=== PATIENT | male | born 1940 | race African-American/Black ===

== ENCOUNTER 2019-11-03 10:33 | Outpatient (CLI) | payer MEDICARE, OTHER, SELFPAY ==
[2019-11-03 11:48] LABS: Prostate Specific Antigen 8.4 ng/mL (< OR = 4.0)
[2019-11-07 14:44] LABS: Lyme Disease Ab (IgM), Blot Negative (Negative); Lyme Disease Ab(IgG), Blot Negative (Negative)
== END 2019-11-03 10:34 | disposition home or self-care (01) ==
PROVIDERS: PCP Emergency Medicine; Visit Provider Emergency Medicine
DX: Z91.89 Other specified personal risk factors, not elsewhere classified (principal); R35.1 Nocturia
CPT/HCPCS: 36415; 84153; 86617

== ENCOUNTER 2019-12-18 08:33 | Outpatient (CLI) | payer MEDICARE, OTHER, SELFPAY ==
[2019-12-18 09:03] LABS: Alanine Aminotransferase 16 U/L (4-50); Albumin Level 4.1 g/dL (3.5-5.1); Alkaline Phosphatase 79 U/L (38-126); Aspartate Amino Transferase 21 U/L (17-59); Bilirubin,Total 0.5 mg/dL (0.2-1.3); Blood Urea Nitrogen 12 mg/dL (9-20); Calcium 9.4 mg/dL (8.4-10.2); Carbon Dioxide 31 mmol/L (22-30); Chloride 105 mmol/L (98-107); Cholesterol 240 mg/dL (0-200); Estimated Glomerular Filt Rate 51; Glucose 136 mg/dL (75-110); HDL Direct 53 mg/dL; Hemoglobin A1C 8.2 % (<5.7); Sodium 139 mmol/L (137-145); Triglycerides 106 mg/dL (<150)
[2019-12-18 09:14] LABS: LDL Cholesterol Direct 158 mg/dL
[2019-12-18 09:40] LABS: Prostate Specific Antigen 7.7 ng/mL (< OR = 4.0)
== END 2019-12-18 08:34 | disposition home or self-care (01) ==
PROVIDERS: PCP Emergency Medicine; Referring Provider Urology; Visit Provider Emergency Medicine
DX: R97.20 Elevated prostate specific antigen [PSA] (principal); E78.5 Hyperlipidemia, unspecified; E11.9 Type 2 diabetes mellitus without complications
CPT/HCPCS: 36415; 80053; 80061; 83036; 84153

== ENCOUNTER 2020-01-17 09:10 | Emergency (ER) | payer MEDICARE, OTHER, SELFPAY ==
[2020-01-17 09:25] VITALS: BP 150/95; PULSE 78; RESP 12; TEMP 37; O2SAT 100
--- NOTE | 2020-01-17 09:28 | ED.GENADULT ---
HPI - General Adult General Chief complaint: Unspecified Stated complaint: itchy rectum Time Seen by Provider: 01/17/20 09:17 History of Present Illness HPI narrative: Patient is a 79-year-old male who presents the ER with rectal itching. Ongoing for 2 weeks. Mainly at night. It improves when he uses witch mike pads or cleans his rectum a little bit more. No fever/chills/sweats. No skin breakdown that he has been able to ascertain. Denies any recent foreign travel or untreated water ingestion. No known family contacts with worms. Related Data Home Medications Medication Instructions Recorded Confirmed aspirin 81 mg tablet,delayed 81 mg PO DAILY 08/11/19 release cholecalciferol (vitamin D3) 50 2,000 unit PO DAILY 08/11/19 mcg (2,000 unit) tablet coenzyme Q10 100 mg capsule 100 mg PO BID cap 08/11/19 cyanocobalamin (vitamin B-12) 500 500 mcg PO BID tablet 08/11/19 mcg tablet fluticasone propionate 50 See Rx Instructions .ROUTE .COMPLEX 08/11/19 mcg/actuation nasal spray,suspension folic acid 400 mcg tablet 0.4 mg PO DAILY 08/11/19 prednisone 20 mg tablet 20 mg PO DAILY 09/05/19 Allergies Allergy/AdvReac Type Severity Reaction Status Date / Time milk AdvReac Mild Nausea Unverified 06/19/14 18:51 Review of Systems Review of Systems: All systems reviewed & are unremarkable except as noted in HPI and below Constitutional: Constitutional: Denies chills, Denies fever(s) and Denies weakness ENT: Denies nasal congestion and Denies sore throat Gastrointestinal: Gastrointestinal: Denies abdominal pain, Denies diarrhea, Denies nausea and Denies vomiting Comments: Rectal itching PMFSH Past Medical History Medical History (Updated 01/17/20 @ 09:39 by Kareem Juarez MD) Diabetes mellitus HLD (hyperlipidemia) HTN (hypertension) Surgical History Surgical History (Updated 01/17/20 @ 09:35 by Kareem Juarez MD) No pertinent past surgical history Social History Social History (Updated 01/17/20 @ 09:35 by Kareem Juarez MD) Social History: Denies smoking Exam Narrative: Exam Narrative: GENERAL: Well-appearing, well-nourished, and in no acute distress. HEAD: Normocephalic, atraumatic. CHEST: Clear to auscultation. No respiratory distress. HEART: Regular rate and rhythm. Normal peripheral pulses. ABDOMEN: Soft, nontender, nondistended. Rectum with a nonthrombosed/noninflamed hemorrhoid. There is dried stool along the inner aspects of the butt cheeks. No cellulitis or fluctuant abscess noted. EXTREMITIES: Normal range of motion. No edema. NEURO: Alert and oriented x3. PSYCH: Normal mood and affect. Course Course Emergency Course: Unlikely patient has worms given lack of recent travel and not actually visualizing worms in his stool. Discussed if she wants to he can use Serafin's pinworm medicine that is [id number]. Otherwise I have recommended that he more thoroughly clean the area around his rectum to prevent itching. He can continue to use witch mike pads. Additionally he did apply some nonmedicated talc powder to see if this helps. Vital Signs Vital signs: Vital Signs Temperature 98.6 F 01/17/20 09:25 Pulse Rate 78 01/17/20 09:25 Respiratory Rate 12 01/17/20 09:25 Blood Pressure 150/95 H 01/17/20 09:25 Pulse Oximetry 100 01/17/20 09:25 Temperature 98.6 F 01/17/20 09:25 Pulse Rate 78 01/17/20 09:25 Respiratory Rate 12 01/17/20 09:25 Blood Pressure 150/95 H 01/17/20 09:25 Pulse Oximetry 100 01/17/20 09:25 Medical Decision Making Vital Signs Vital Signs: Vital Signs Temperature 98.6 F 01/17/20 09:25 Pulse Rate 78 01/17/20 09:25 Respiratory Rate 12 01/17/20 09:25 Blood Pressure 150/95 H 01/17/20 09:25 Pulse Oximetry 100 01/17/20 09:25 Temperature 98.6 F 01/17/20 09:25 Pulse Rate 78 01/17/20 09:25 Respiratory Rate 12 01/17/20 09:25 Blood Pressure 150/95 H 01/17/20 09:25 Pulse Oxime
[2020-01-17 09:52] VITALS: BP 142/75; PULSE 77; RESP 12; O2SAT 99
== END 2020-01-17 09:50 | disposition home or self-care (01) ==
PROVIDERS: Emergency Provider Emergency Medicine; PCP Emergency Medicine
DX: L29.0 Pruritus ani (principal); E11.9 Type 2 diabetes mellitus without complications; E78.5 Hyperlipidemia, unspecified; I10 Essential (primary) hypertension; Z79.82 Long term (current) use of aspirin
CPT/HCPCS: 99281

== ENCOUNTER 2020-03-13 08:25 | Outpatient (CLI) | payer MEDICARE, OTHER, SELFPAY ==
[2020-03-13 09:06] LABS: Hemoglobin A1C 7.6 % (<5.7)
[2020-03-13 09:17] LABS: Alanine Aminotransferase 16 U/L (4-50); Albumin Level 3.9 g/dL (3.5-5.1); Alkaline Phosphatase 76 U/L (38-126); Aspartate Amino Transferase 23 U/L (17-59); Bilirubin,Total 0.3 mg/dL (0.2-1.3); Blood Urea Nitrogen 13 mg/dL (9-20); Carbon Dioxide 27 mmol/L (22-30); Chloride 106 mmol/L (98-107); Cholesterol 214 mg/dL (0-200); Estimated Glomerular Filt Rate 55; Glucose 96 mg/dL (75-110); HDL Direct 51 mg/dL; Potassium 4.1 mmol/L (3.4-5.0); Sodium 138 mmol/L (137-145); Triglycerides 136 mg/dL (<150)
[2020-03-13 09:28] LABS: LDL Cholesterol Direct 133 mg/dL
[2020-03-13 09:46] LABS: Prostate Specific Antigen 8.2 ng/mL (< OR = 4.0)
== END 2020-03-13 08:26 | disposition home or self-care (01) ==
LOC: ANHLAB 08:27
PROVIDERS: PCP Emergency Medicine; Visit Provider Emergency Medicine
DX: E11.9 Type 2 diabetes mellitus without complications (principal); R97.20 Elevated prostate specific antigen [PSA]; E78.5 Hyperlipidemia, unspecified; I10 Essential (primary) hypertension; Z12.5 Encounter for screening for malignant neoplasm of prostate
CPT/HCPCS: 36415; 80053; 80061; 83036; 84153; G0103

== ENCOUNTER 2020-07-15 13:25 | Outpatient (CLI) | payer MEDICARE, OTHER, SELFPAY ==
--- NOTE | ~2020-07-15 | CT_ITS ---
EXAMINATION: CT abdomen pelvis w con INDICATION: Malignant neoplasm of the prostate TECHNIQUE: Computed tomographic images of the abdomen and pelvis were obtained after the administrati on of 100 cc of Omnipaque 350 intravenous contrast. The dose-length product (DLP) was 1002.04 mGy-cm. Automated exposure control and iterative reconstruction technique were employed. COMPARISON: 08/26/2015 FINDINGS: Minimal dependent atelectasis is present in the lung bases. The heart size is normal. Cysts of the liver measure up to 7 mm in the left hepatic lobe. The spleen, pancreas, and gallbladder are normal. A stable bilateral adrenal masses are consistent with adenomas. The kidneys are unremarkable. There is calcified atherosclerosis of the aorta and many of the other arteries. There is no free int raperitoneal gas or evidence of bowel obstruction. No pathologically enlarged abdominal or pelvic lym ph nodes are identified. The appendix is normal. 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 IMPRESSION: 1. No evidence of metastatic disease. Reviewed, dictated and finalized at location A.
[2020-07-15 14:50] LABS: Estimated Glomerular Filt Rate 37
== END 2020-07-15 13:26 | disposition home or self-care (01) ==
LOC: ANHIMG 13:41
PROVIDERS: PCP Emergency Medicine; Visit Provider Urology
DX: C61 Malignant neoplasm of prostate (principal)
CPT/HCPCS: 74177; Q9967

== ENCOUNTER 2020-09-09 10:24 | Outpatient (CLI) | payer MEDICARE, OTHER, SELFPAY ==
[2020-09-09 11:08] LABS: Alanine Aminotransferase 26 U/L (4-50); Albumin Level 3.7 g/dL (3.5-5.1); Alkaline Phosphatase 83 U/L (38-126); Anion Gap 2 mmol/L (8-16); Aspartate Amino Transferase 29 U/L (17-59); Bilirubin,Total 0.6 mg/dL (0.2-1.3); Blood Urea Nitrogen 11 mg/dL (9-20); Calcium 9.3 mg/dL (8.4-10.2); Carbon Dioxide 33 mmol/L (22-30); Chloride 105 mmol/L (98-107); Cholesterol 228 mg/dL (0-200); Estimated Glomerular Filt Rate 51; Glucose 121 mg/dL (75-110); HDL Direct 49 mg/dL; Potassium 4.2 mmol/L (3.4-5.0); Sodium 140 mmol/L (137-145); Triglycerides 151 mg/dL (<150)
[2020-09-09 11:19] LABS: LDL Cholesterol Direct 129 mg/dL
[2020-09-09 11:41] LABS: Prostate Specific Antigen 10.5 ng/mL (< OR = 4.0)
[2020-09-09 12:13] LABS: Hemoglobin A1C 6.7 % (<5.7)
== END 2020-09-09 10:25 | disposition home or self-care (01) ==
LOC: ANHLAB 10:27
PROVIDERS: PCP Emergency Medicine; Visit Provider Emergency Medicine
DX: E78.5 Hyperlipidemia, unspecified (principal); I10 Essential (primary) hypertension; E11.9 Type 2 diabetes mellitus without complications; R97.20 Elevated prostate specific antigen [PSA]; Z12.5 Encounter for screening for malignant neoplasm of prostate
CPT/HCPCS: 36415; 80053; 80061; 83036; 84153; G0103

== ENCOUNTER 2020-11-12 08:22 | Outpatient (CLI) | payer MEDICARE, OTHER, SELFPAY ==
--- NOTE | 2020-11-12 08:27 | ECG_ITS ---
Measurements Intervals [place] Rate: 66 P: 57 [place]: 236 QRS: -30 QRSD: 131 T: 171 QT: 409 QTc: 430 Interpretive Statements SINUS RHYTHM WITH SINUS ARRHYTHMIA WITH FIRST DEGREE AV BLOCK INTRAVENTRICULAR CONDUCTION DELAY DELAYED PRECORDIAL R/S TRANSITION LEFT VENTRICULAR HYPERTROPHY AND ST-T CHANGE ABNORMAL ECG Electronically Signed On 11-12-2020 9:06:45 GEOPHYSICIST by Cosmo Villa D.O.
[2020-11-12 09:18] LABS: Anion Gap 4 mmol/L (8-16); Blood Urea Nitrogen 11 mg/dL (9-20); Calcium 9.1 mg/dL (8.4-10.2); Carbon Dioxide 30 mmol/L (22-30); Chloride 106 mmol/L (98-107); Estimated Glomerular Filt Rate 44; Glucose 188 mg/dL (75-110); Potassium 4.3 mmol/L (3.4-5.0); Sodium 140 mmol/L (137-145)
== END 2020-11-12 08:23 | disposition home or self-care (01) ==
LOC: ANHSURGERY 08:26
PROVIDERS: Anesthesiology; PCP Family Medicine; Visit Provider Urology
DX: C61 Malignant neoplasm of prostate (principal); E11.9 Type 2 diabetes mellitus without complications; I10 Essential (primary) hypertension; Z01.812 Encounter for preprocedural laboratory examination; I45.9 Conduction disorder, unspecified; I44.0 Atrioventricular block, first degree
CPT/HCPCS: 36415; 80048; 87086; 93005

== ENCOUNTER → 2020-11-16 01:08 | Outpatient (CLI) | payer MEDICARE, OTHER, SELFPAY ==
[2020-11-16 19:49] LABS: SARS-CoV-2 RNA PCR Negative
== END ==
PROVIDERS: PCP Family Medicine; Visit Provider Urology
DX: Z01.812 Encounter for preprocedural laboratory examination (principal); Z20.822 Contact with and (suspected) exposure to COVID-19
CPT/HCPCS: C9803; U0003; U0005

== ENCOUNTER 2020-11-19 01:04 | Day surgery (SDC) | payer MEDICARE, OTHER, SELFPAY ==
[2020-11-06 09:45] VITALS: BMI 29.8
--- NOTE | 2020-11-18 11:23 | WPDANESEPPF ---
Anes - Initial Pre Proc Eval Procedure: Operation Date: 11/19/20 11:30 Proposed Procedures p Insertion SpaceOAR Hydrogel System - Yaakov Seymour MD Date/Time: 11/18/20 11:23 Surgeon: Yaakov Seymour MD Pre Op Diagnosis: Prostate Cancer Patient Data Age: 80 Gender: M Height: 1.8 m Weight: 97 kg Allergies Allergy/AdvReac Type Severity Reaction Status Date / Time milk AdvReac Mild Nausea Unverified 11/06/20 09:25 amlodipine AdvReac Unknown Weakness Verified 11/06/20 09:27 carvedilol AdvReac Unknown Weakness Verified 11/06/20 09:29 lisinopril AdvReac Unknown Weakness Verified 11/06/20 09:29 Ieprrdk-Spb-Dni Reductase AdvReac Unknown Muscle Pain Verified 11/06/20 09:27 Inhibitor Home Medications Medication Instructions Recorded Confirmed Type blood sugar diagnostic #300 ea 09/02/20 Rx lancets 28 gauge #300 ea 09/02/20 Rx Bladder Wrack 3 tab-cap PO QAM 11/06/20 11/06/20 History His Formula 3 tab-cap PO QAM 11/06/20 11/06/20 History Rosana Sea Hooper 2 tab-cap BYMOUTH BID 11/06/20 11/06/20 History [place] 1 cap PO BID 11/06/20 11/06/20 History ibuprofen [Motrin] 400 mg PO BID PRN 11/06/20 11/06/20 History metformin 1,000 mg PO BID 11/06/20 11/06/20 History PMFSH Past Medical History Medical History (Updated 11/18/20 @ 11:24 by Bryant Blue DO) Atrial fibrillation COPD (chronic obstructive pulmonary disease) CVA (cerebral vascular accident) Diabetes mellitus HLD (hyperlipidemia) HTN (hypertension) SIMON (obstructive sleep apnea) Prostate cancer Surgical History Surgical History No pertinent past surgical history Social History Social History Social History: Denies smoking Smoking packs per day: 1 Smoking cigarettes per day: 20.0 Years smoked: 53 Smoking pack-years: 53.00 Smoking status: Current every day smoker Tobacco type: cigarettes Additional smoking assessment comments: REDUCING AMT CIG/DAY CURRENTLY Alcohol intake: former Drinks per week: 6 Substance use: never Spiritual care concerns: No Anes - Eval Final PreProcedure Day of Procedure 11/18/20 11:23 Patient weight: overweight Heart: regular rate and rhythm Lungs: clear to auscultation and normal air movement Airway: Mallampati scale class II Neurological: alert and oriented Last oral intake: >/= 8 hours ASA classification: III Emergent: no Anesthetic plan: proceed Anesthesia type and monitoring: general LMA and standard monitoring Informed Consent: The patient's anesthetic plan and its attendant risks and benefits were discussed with the patient/family/POA. Questions were solicited and answers provided to the satisfaction of the patient/family/POA.
[2020-11-19 09:45] VITALS: BP 164/62; PULSE 65; RESP 16; TEMP 36.2; O2SAT 100
--- NOTE | 2020-11-19 09:51 | SUR.PREOP ---
Patient drove himself to hospital. Has not arranged for a ride home yet. I placed call and left a message for his friend Gaurav and also for his brother Rommel. No answer either number. Informed patient we would not put him to sleep for surgery until someone commits to picking him up.
--- NOTE | 2020-11-19 10:18 | SUR.PREOP ---
Patient has decided to reschedule surgery for another day because of not having a ride home and current delay. Informed Dr Seymour of this.
== END 2020-11-19 10:25 | disposition home or self-care (01) ==
PROVIDERS: PCP Family Medicine; Visit Provider Urology
DX: C61 Malignant neoplasm of prostate (principal); Z53.8 Procedure and treatment not carried out for other reasons
CPT/HCPCS: 99212; G0463

== ENCOUNTER 2020-11-28 10:04 | Outpatient (CLI) | payer MEDICARE, OTHER, SELFPAY | END 2020-11-28 10:05 | disposition home or self-care (01) | LOC: ANHSURGERY 10:07 | PROVIDERS: PCP Family Medicine; Visit Provider Urology | DX: C61 Malignant neoplasm of prostate (principal); Z01.818 Encounter for other preprocedural examination | CPT/HCPCS: 87086 ==

== ENCOUNTER → 2020-12-07 00:32 | Outpatient (CLI) | payer MEDICARE, OTHER, SELFPAY ==
[2020-12-07 19:48] LABS: SARS-CoV-2 RNA PCR Negative
== END ==
PROVIDERS: PCP Family Medicine; Visit Provider Urology
DX: Z01.812 Encounter for preprocedural laboratory examination (principal); Z20.822 Contact with and (suspected) exposure to COVID-19
CPT/HCPCS: C9803; U0003; U0005

== ENCOUNTER 2020-12-10 01:17 | Day surgery (SDC) | payer MEDICARE, OTHER, SELFPAY ==
[2020-11-26 11:11] VITALS: BMI 29.8
[2020-12-10] VITALS (7 sets, daily range): BP systolic 133–181; BP diastolic 50–94; PULSE 56–71; RESP 10–20; TEMP 36–36.2; O2SAT 96–100
--- NOTE | 2020-12-10 12:26 | WPDANESEPPF ---
Anes - Initial Pre Proc Eval Procedure: Operation Date: 12/10/20 14:00 Proposed Procedures p Insertion SpaceOAR Hydrogel System - Yaakov Seymour MD Date/Time: 12/10/20 12:26 Surgeon: Yaakov Seymour MD Pre Op Diagnosis: Prostate CA Patient Data Age: 80 Gender: M Height: 1.8 m Weight: 97 kg Allergies Allergy/AdvReac Type Severity Reaction Status Date / Time milk AdvReac Mild Nausea Unverified 11/26/20 11:02 amlodipine AdvReac Unknown Weakness Verified 11/26/20 11:02 carvedilol AdvReac Unknown Weakness Verified 11/26/20 11:02 lisinopril AdvReac Unknown Weakness Verified 11/26/20 11:02 Pzvuvxa-Rbv-Wjf Reductase AdvReac Unknown Muscle Pain Verified 11/26/20 11:02 Inhibitor Home Medications Medication Instructions Recorded Confirmed Type blood sugar diagnostic #300 ea 09/02/20 Rx lancets 28 gauge #300 ea 09/02/20 Rx Bladder Wrack 3 tab-cap PO QAM 11/06/20 11/26/20 History His Formula 3 tab-cap PO QAM 11/06/20 11/26/20 History Rosana Sea Hooper 2 tab-cap BYMOUTH BID 11/06/20 11/26/20 History [place] 1 cap PO BID 11/06/20 11/26/20 History ibuprofen 400 mg PO BID PRN 11/06/20 11/26/20 History metformin 1,000 mg PO BID 11/06/20 11/26/20 History acetaminophen [Tylenol Arthritis] 1,300 mg PO Q12H PRN 11/26/20 11/26/20 History Patient hx anesthesia problems: none Family hx anesthesia problems: none PMFSH Past Medical History Medical History (Updated 11/18/20 @ 11:24 by Bryant Blue DO) Atrial fibrillation COPD (chronic obstructive pulmonary disease) CVA (cerebral vascular accident) Diabetes mellitus HLD (hyperlipidemia) HTN (hypertension) SIMON (obstructive sleep apnea) Prostate cancer Surgical History Surgical History No pertinent past surgical history Social History Social History Social History: Denies smoking Smoking packs per day: 1 Smoking cigarettes per day: 20.0 Years smoked: 60 Smoking pack-years: 60.00 Smoking status: Current every day smoker Tobacco type: cigarettes Additional smoking assessment comments: CUTTING BACK TO HALF PACK/DAY Alcohol intake: former Drinks per week: 6 Alcohol use details: SOCIALLY IN PAST Substance use: never Living arrangements: alone Spiritual care concerns: No Anes - Eval Final PreProcedure Day of Procedure 12/10/20 12:26 Patient weight: overweight Heart: regular rate and rhythm Lungs: clear to auscultation and normal air movement Airway: Mallampati scale class II Neurological: alert and oriented Last oral intake: >/= 8 hours ASA classification: III Emergent: no Anesthetic plan: proceed Anesthesia type and monitoring: general GIVS and LMA Informed Consent: The patient's anesthetic plan and its attendant risks and benefits were discussed with the patient/family/POA. Questions were solicited and answers provided to the satisfaction of the patient/family/POA.
[2020-12-10 12:33] LABS: Glucose Point of Care 150 (65-105)
[2020-12-10] MEDS: LACTATED RINGERS 1,000 ML 30 ML IV CONT (12:33)
--- NOTE | 2020-12-10 13:04 | WPDHPUPDATE1 ---
History and Physical Update Update Date/Time: 12/10/20 13:04 History and Physical has been reviewed, including an updated exam of the patient. There are NO changes in the patient's condition. Risks, benefits, and alternatives have been discussed and questions answered. Patient agrees to proceed with procedure. Proceed with space OAR
[2020-12-10] MEDS: ceFAZolin 2 GM/D5W 50 ML 2 GM/50 ML BAG IVPB (13:32)
--- NOTE | 2020-12-10 13:51 | PM.PROC ---
Procedure Note - Detailed Date of procedure: 12/10/20 Pre-op diagnosis: Prostate CA Post-op diagnosis: same Procedure performed: Space Oar placement Description of procedure: Patient is taken to the operative suite and correctly identified. Once anesthesia was obtained was placed in dorsal lithotomy position and prepped and draped usual sterile fashion. Transrectal ultrasound was then performed. The prostate was visualized in both transverse and sagittal planes. Spinal needle was then inserted under direct vision. It was placed in the plane between the prostate and the rectum. Aspiration revealed no blood. 1 cc of saline was injected there was good separation of the planes. The prior prepared Space Oar solution was then injected. There was 10 cc it were placed. There again was nice separation of the prostate from the rectum. Patient tolerated procedure well without any complications and was taken recovery room stable condition. Anesthesia: GLMA Surgeon: Yaakov Seymour MD Drains: No Packing: No Pathology: none sent Complications: No immediate complications Condition: stable Disposition: PACU
[2020-12-10 14:12] LABS: Glucose Point of Care 142 (65-105)
[2020-12-10] MEDS: fentaNYL CITRATE INJ (*CRX) 100 MCG/2 ML VIAL 25 MCG IV PUSH ×4 (14:14→14:22)
[2020-12-10] MEDS: oxyCODONE HCL (*CRX) 5 MG TAB IR PO (15:00)
== END 2020-12-10 15:20 | disposition home or self-care (01) ==
PROVIDERS: PCP Family Medicine; Visit Provider Urology
PROC: (CPT 55874; principal; 2020-12-10 14:00)
DX: C61 Malignant neoplasm of prostate (principal); I48.91 Unspecified atrial fibrillation; I10 Essential (primary) hypertension; J44.9 Chronic obstructive pulmonary disease, unspecified; E11.9 Type 2 diabetes mellitus without complications; E78.5 Hyperlipidemia, unspecified; G47.33 Obstructive sleep apnea (adult) (pediatric); Z79.84 Long term (current) use of oral hypoglycemic drugs; F17.210 Nicotine dependence, cigarettes, uncomplicated
CPT/HCPCS: 55874; 82948; A9270; C1889; J0690; J1100; J2405; J2704; J3010; J7120

== ENCOUNTER 2020-12-19 11:19 | Outpatient (CLI) | payer MEDICARE, OTHER, SELFPAY ==
--- NOTE | ~2020-12-19 | MR_ITS ---
EXAMINATION: MR pelvis wo con DATE: 12/19/2020 12:55 INDICATION: Prostate cancer. TECHNIQUE: Magnetic resonance imaging (MRI) of the pelvis was performed without intravenous contrast. Sequences included axial and coronal FS FIESTA, coronal T2-weighted FS FSE, axial T2-weighted FSE, a xial STIR FSE, coronal and axial LAVA, axial dual-echo T1-weighted FSPGR, and axial DWI. COMPARISON: CT abdomen and pelvis 07/15/2020 FINDINGS: There is a right inguinal hernia containing fat. The prostate is mildly enlarged. There is a new 3.0 x 1.4 cm fluid collection between the rectum and prostate, likely a hematoma. There are no pathologic ally enlarged lymph nodes. There is severe osteoarthritis of the hips. IMPRESSION: 1. Mildly enlarged prostate. No evidence of metastatic disease. Reviewed, dictated and finalized at location A.
== END 2020-12-19 11:20 | disposition home or self-care (01) ==
PROVIDERS: PCP Family Medicine; Visit Provider Radiology Radiation Oncology
DX: C61 Malignant neoplasm of prostate (principal)
CPT/HCPCS: 72195

== ENCOUNTER 2021-07-31 11:56 | Outpatient (CLI) | payer MEDICARE, OTHER, SELFPAY ==
[2021-07-31 13:12] LABS: Immunoglobulin A 270 mg/dL (70-400)
[2021-08-04 10:35] LABS: Endomysial Ab (IgA) Screen Negative (Negative)
[2021-08-05 17:50] LABS: Tissue Transglutaminase IgG Ab <1.0 U/mL (<15.0)
[2021-08-06 10:53] LABS: Tissue Transglutaminase IgA Ab <1.0 U/mL (<15.0)
[2021-08-21 15:42] LABS: Reference Lab Test Result Negative
[2021-08-21 15:59] LABS: Endomysial Additional Testing Not Indicated
== END 2021-07-31 11:57 | disposition home or self-care (01) ==
LOC: ANHLAB 11:59
PROVIDERS: PCP Family Medicine; Visit Provider Family Medicine
DX: R19.7 Diarrhea, unspecified (principal)
CPT/HCPCS: 36415; 82784; 83516; 86255

== ENCOUNTER 2021-11-07 09:10 | Outpatient (CLI) | payer MEDICARE, OTHER, SELFPAY ==
--- NOTE | 2021-11-07 10:41 | ECG_ITS ---
Measurements Intervals [place] Rate: 78 P: 47 DC: 227 QRS: -24 QRSD: 154 T: 157 QT: 432 QTc: 494 Interpretive Statements SINUS RHYTHM WITH FIRST DEGREE AV BLOCK VENTRICULAR PREMATURE COMPLEX AND FREQUENT ATRIAL PREMATURE COMPLEXES INTRAVENTRICULAR CONDUCTION DELAY DELAYED PRECORDIAL R/S TRANSITION LEFT VENTRICULAR HYPERTROPHY WITH ST-T CHANGE ABNORMAL ECG Electronically Signed On 11-07-2021 12:10:33 HAT BRIM CURLER by Cosmo Villa D.O.
[2021-11-07 11:17] LABS: Basophils Percent Auto 0.8 % (0.2-1.2); Eosinophils Absolute Auto 0.2 K/mm3 (0-0.3); Hematocrit 39.8 % (42.0-52.0); Hemoglobin 13.2 g/dL (14.0-18.0); Immature Granulocyte Absolute 0.01 K/mm3 (0.00-0.031); Immature Granulocyte Percent A 0.2 % (0-0.5); Lymphocytes Absolute Auto 0.88 K/mm3 (0.9-3.2); Lymphocytes Percent Auto 16.6 % (18.3-44.2); Mean Corpuscular HGB Conc 33.2 g/dl (32-36); Mean Corpuscular Hemoglobin 29.7 pg (26-34); Mean Corpuscular Volume 89.4 fl (80-100); Mean Platelet Volume 10.6 fl (7.4-10.4); Monocytes Absolute Auto 0.7 K/mm3 (0.1-0.6); Neutrophils Absolute Auto 3.5 K/mm3 (1.3-6.7); Neutrophils Percent Auto 65.4 % (45.5-73.1); Platelet Count Result 205 k/mm3 (150-375); Red Blood Count 4.45 M/mm3 (4.6-6.20); Red Cell Distribution Width 14.4 % (11.5-14.5); White Blood Count 5.3 K/mm3 (4.5-10.0)
[2021-11-07 11:27] LABS: Albumin Level 4.1 g/dL (3.5-5.1); Anion Gap 6 mmol/L (8-16); Blood Urea Nitrogen 18 mg/dL (9-20); Calcium 9.1 mg/dL (8.4-10.2); Carbon Dioxide 25 mmol/L (22-30); Chloride 106 mmol/L (98-107); Estimated Glomerular Filt Rate 42; Glucose 227 mg/dL (65-110); Potassium 3.3 mmol/L (3.4-5.0); Sodium 137 mmol/L (137-145); Urine Cotinine NEGATIVE
[2021-11-07 11:31] LABS: Add Urine Microscopic? YES; Appearance Urine Clear (Clear); Bilirubin Urine Negative (Negative); Blood Urine Negative (Negative); Color Urine Yellow (Yellow); Glucose Urine UA 2+ mg/dL (Negative); Ketones Urine Negative (Negative); Leukocyte Esterase Ur Negative LEU/UL (Negative); Mucus Urine Rare /lpf; Nitrate Urine Negative (Negative); Partial Thromboplastin Time 27.7 SECONDS (22.3-36.8); Protein Urine 2+ mg/dL (Negative); Prothrombin Time 12.9 Seconds (11.1-14.7); Specific Grav Ur 1.023 (1.001-1.035); Squamous Epithelial Cell Urine Rare /hpf (Few); Urobilinogen Urine Negative mg/dL (<2.0); WBC Urine 0-3 /hpf
[2021-11-07 11:40] LABS: Hemoglobin A1C 7.8 % (<5.7)
== END 2021-11-07 09:11 | disposition home or self-care (01) ==
LOC: ANHSURGERY 09:13
PROVIDERS: PCP Family Medicine; Visit Provider Orthopaedic Surgery
DX: Z01.818 Encounter for other preprocedural examination (principal); M16.12 Unilateral primary osteoarthritis, left hip; R94.31 Abnormal electrocardiogram [ECG] [EKG]
CPT/HCPCS: 80048; 80307; 81001; 82040; 83036; 85025; 85610; 85730; 86850; 86900; 86901; 87081; 93005

== ENCOUNTER 2021-11-13 09:18 | Outpatient (CLI) | payer MEDICARE, OTHER, SELFPAY ==
[2021-11-13 10:01] LABS: Hematocrit 42.8 % (42.0-52.0); Mean Corpuscular HGB Conc 32.7 g/dl (32-36); Mean Corpuscular Hemoglobin 29.5 pg (26-34); Mean Corpuscular Volume 90.1 fl (80-100); Mean Platelet Volume 11.2 fl (7.4-10.4); Platelet Count Result 233 k/mm3 (150-375); Red Blood Count 4.75 M/mm3 (4.6-6.20); Red Cell Distribution Width 14.1 % (11.5-14.5); White Blood Count 6.5 K/mm3 (4.5-10.0)
[2021-11-13 10:13] LABS: Albumin Level 4.4 g/dL (3.5-5.1); Anion Gap 8 mmol/L (8-16); Blood Urea Nitrogen 18 mg/dL (9-20); Calcium 9.3 mg/dL (8.4-10.2); Carbon Dioxide 28 mmol/L (22-30); Chloride 102 mmol/L (98-107); Estimated Glomerular Filt Rate 35; Glucose 224 mg/dL (65-110); Phosphorus 3.4 mg/dL (2.5-4.5); Potassium 3.3 mmol/L (3.4-5.0); Sodium 138 mmol/L (137-145)
[2021-11-13 10:19] LABS: Complement C3 140 mg/dL (88-165)
[2021-11-13 10:22] LABS: Parathyroid Intact 110.1 pg/mL (7.5-53.5)
[2021-11-13 11:07] LABS: Erythrocyte Sedimentation Rate 28 mm/hr (0-20)
[2021-11-16 23:21] LABS: Complement Total CH50 >60 U/mL (31-60)
[2021-11-19 07:17] LABS: Kappa\\Lambda Light Chains 2.29 (0.26-1.65); Lambda Light Chain 22.9 mg/L (5.7-26.3)
== END 2021-11-13 09:19 | disposition home or self-care (01) ==
PROVIDERS: PCP Family Medicine; Visit Provider Internal Medicine Nephrology
DX: N18.32 Chronic kidney disease, stage 3b (principal)
CPT/HCPCS: 36415; 80069; 83883; 83970; 85027; 85652; 86038; 86039; 86160; 86162; 86334

== ENCOUNTER 2021-11-14 15:14 | Outpatient (CLI) | payer MEDICARE, OTHER, SELFPAY ==
--- NOTE | ~2021-11-14 | US_ITS ---
EXAMINATION: US renal BI EXAM DATE: 11/14/2021 15:58 INDICATION: Chronic Kidney Disease Stage 3b TECHNIQUE: Multiple grayscale and Doppler images of the kidneys were obtained (by a technologist who performed the scan) and subsequently reviewed. There is no prior study for comparison. FINDINGS: Mild bilateral renal cortical thinning. Right kidney: There is normal contour and echogenicity. It measures 8.0 x 5.5 x 5.8 centimeters. Th ere are no focal renal lesions identified. There is no hydronephrosis. Left kidney: There is normal contour and echogenicity. It measures 9.4 x 5.3 x 5.7 centimeters. The re are no focal renal lesions identified. There is no hydronephrosis. Bladder unremarkable. IMPRESSION: Mild bilateral renal cortical thinning. Reviewed, dictated and finalized at location B. IS BALL COVERER HAND
== END 2021-11-14 15:15 | disposition home or self-care (01) ==
PROVIDERS: PCP Family Medicine; Visit Provider Internal Medicine Nephrology
DX: N18.32 Chronic kidney disease, stage 3b (principal)
CPT/HCPCS: 76775

== ENCOUNTER 2021-11-17 09:58 | Outpatient (CLI) | payer MEDICARE, OTHER, SELFPAY ==
[2021-11-17 12:41] LABS: Add Urine Microscopic? YES; Appearance Urine Clear (Clear); Bacteria Urine Trace /hpf; Bilirubin Urine Negative (Negative); Blood Urine Negative (Negative); Color Urine Yellow (Yellow); Glucose Urine UA Negative (Negative); Ketones Urine Negative (Negative); Leukocyte Esterase Ur Negative LEU/UL (NEGATIVE); Mucus Urine Rare /lpf; Nitrate Urine Negative (Negative); Protein Urine 2+ mg/dL (Negative); Specific Grav Ur 1.021 (1.001-1.035); Squamous Epithelial Cell Urine Rare /hpf (Few); Total Protein Urine Random 66 mg/dL; Ur Ttl Prot Creatinine Ratio 0.27 mg/mg (0-0.20); Urobilinogen Urine Negative mg/dL (<2.0); WBC Urine 0-3 /hpf (0-3)
[2021-11-23 14:43] LABS: Albumin 40 %; Creat 24 Hr 1.71 g/24 h (0.50-2.15); Measured Lambda Chains 2.95 mg/dL (<2.00); Pro/Creat Ratio 391 mg/g creat (<=114); Total Kappa Chains 112 mg/24 h; Total Lambda Chains 29.5 mg/24 h
[2021-11-27 13:08] LABS: Protein,total, 24 Hr Ur 670 mg/24h
== END 2021-11-17 09:59 | disposition home or self-care (01) ==
PROVIDERS: PCP Family Medicine; Visit Provider Internal Medicine Nephrology
DX: N18.32 Chronic kidney disease, stage 3b (principal)
CPT/HCPCS: 81001; 82570; 84156; 86335

== ENCOUNTER 2022-02-04 09:58 | Outpatient (CLI) | payer MEDICARE, OTHER, SELFPAY ==
[2022-02-04 11:22] LABS: Basophils Absolute Auto 0.1 K/mm3 (0.0-0.1); Basophils Percent Auto 0.8 % (0.2-1.2); Eosinophils Absolute Auto 0.4 K/mm3 (0-0.3); Eosinophils Percent Auto 6.3 % (0-4.4); Hemoglobin 13.5 g/dL (14.0-18.0); Immature Granulocyte Absolute 0.02 K/mm3 (0.00-0.031); Immature Granulocyte Percent A 0.3 % (0-0.5); Lymphocytes Absolute Auto 1.19 K/mm3 (0.9-3.2); Lymphocytes Percent Auto 19.2 % (18.3-44.2); Mean Corpuscular HGB Conc 32.1 g/dl (32-36); Mean Corpuscular Hemoglobin 29.7 pg (26-34); Mean Corpuscular Volume 92.5 fl (80-100); Mean Platelet Volume 10.9 fl (7.4-10.4); Monocytes Absolute Auto 0.9 K/mm3 (0.1-0.6); Monocytes Percent Auto 13.7 % (2.6-8.5); Neutrophils Absolute Auto 3.7 K/mm3 (1.3-6.7); Neutrophils Percent Auto 59.7 % (45.5-73.1); Platelet Count Result 254 k/mm3 (150-375); Red Blood Count 4.54 M/mm3 (4.6-6.20); Red Cell Distribution Width 13.4 % (11.5-14.5); White Blood Count 6.2 K/mm3 (4.5-10.0)
[2022-02-04 11:31] LABS: Appearance Urine Clear (Clear); Bilirubin Urine Negative (Negative); Color Urine Yellow (Yellow); Glucose Urine UA 3+ mg/dL (Negative); Ketones Urine Negative (Negative); Leukocyte Esterase Ur Negative LEU/UL (Negative); Nitrate Urine Negative (Negative); Protein Urine 1+ mg/dL (Negative); Urobilinogen Urine 0.2 mg/dL (<2.0); pH Urine 5.5 (5.0-9.0)
[2022-02-04 11:32] LABS: Prothrombin Time 12.8 Seconds (11.1-14.7)
[2022-02-04 11:33] LABS: Partial Thromboplastin Time 28.1 SECONDS (22.3-36.8)
[2022-02-04 11:36] LABS: Add Urine Microscopic? YES; Blood Urine Trace-Intact (Negative); Mucus Urine Rare /lpf; RBC Urine 0-2 /hpf (0-2); Squamous Epithelial Cell Urine Rare /hpf (Few); WBC Urine 0-3 /hpf
[2022-02-04 11:37] LABS: Anion Gap 7 mmol/L (8-16); Blood Urea Nitrogen 27 mg/dL (9-20); Calcium 8.9 mg/dL (8.4-10.2); Carbon Dioxide 29 mmol/L (22-30); Chloride 102 mmol/L (98-107); Estimated Glomerular Filt Rate 39; Glucose 347 mg/dL (65-110); Potassium 4.8 mmol/L (3.4-5.0); Sodium 138 mmol/L (137-145)
[2022-02-04 11:44] LABS: Urine Cotinine NEGATIVE
[2022-02-04 11:46] LABS: Hemoglobin A1C 7.2 % (<5.7)
== END 2022-02-04 09:59 | disposition home or self-care (01) ==
PROVIDERS: PCP Family Medicine; Visit Provider Orthopaedic Surgery
DX: Z01.812 Encounter for preprocedural laboratory examination (principal); M16.12 Unilateral primary osteoarthritis, left hip; Z51.81 Encounter for therapeutic drug level monitoring; Z79.899 Other long term (current) drug therapy
CPT/HCPCS: 80048; 80307; 81001; 82040; 83036; 85025; 85610; 85730; 86850; 86900; 86901; 87081

== ENCOUNTER 2022-02-12 17:55 | Inpatient (IN) | payer MEDICARE, OTHER, SELFPAY ==
[2021-11-07 09:37] VITALS: BP 156/88; PULSE 68; RESP 16; TEMP 36.5; O2SAT 98; BMI 30.3
--- NOTE | 2021-11-07 09:58 | PC.NURSE ---
Report to the Outpatient Waiting Room, entrance under the green pavilion located off [facility], at time __10:00AM on date __11/18/21 . OR Time: __12:00PM . - You will be asked a series of questions to screen for COVID 19 for your protection. - A mask is required within the hospital. - No visitors are allowed at this time. Preoperative COVID Testing Requirements: No COVID Test needed if: (proof is required; if not received patient will have Rapid Test prior to entry) - Patient has received COVID Vaccine at least 14 days prior to procedure date or - Patient has positive COVID test result within last 90 days of surgery date. COVID Test needed if above criteria is not met If not COVID vaccinated a COVID test must be conducted within 72 hours of surgery and patient is asked to isolate self from time of testing until procedure. You will go to the [facility] Testing Site for your COVID testing. The [facility] Testing site is located at the corner of [address] [facility]. You will only be called if COVID results are positive and your surgeon may reschedule your elective surgery date. Patients may have clear liquids (water, carbonated beverages, clear teas, apple juice) until 3 hours prior to surgery with a maximum of 20 ounces. - No food from midnight until time of surgery - Infants may have breast milk until 4 hours before surgery, formula 6 hours prior to surgery. - Children will be allowed to drink immediately following surgery. If applicable, please bring a bottle or sippy cup to assist with drinking. Juice, water, soda, and popsicles are readily available. For infants on formula, please bring formula the day of surgery. Pacifiers are allowed. Take the following medications with a SIP of water the morning of surgery: WELLBUTRIN Medications to discontinue per physician ALL VITAMINS/SUPPLEMENTS 3 DAYS PRE-OP Date to take last dose___11/13/21 Please no make-up, nail tajik, hairspray, perfume, deodorant, or body powder the day of surgery. No jewelry (including any body piercings) or valuables the day of surgery, leave them at home. Please take a shower or bath the night before, or the morning of, surgery with an antibacterial soap. Wear comfortable, loose fitting clothing. Children are encouraged to wear pajamas. - Jewelry must be removed prior to entering the operating room. Rings and piercings that are not removed may be cut off. - The hospital will not accept responsibility for valuables. - Please leave all valuables, including medications, at home the day of surgery. If you are going home after surgery, a licensed subway train driver must drive you home. - NO public transportation without another adult. - We recommend that an adult stay with you for 24 hours following discharge. - We also recommend that you do not drive, make important decision, drink alcoholic beverages, or take any drugs that were not prescribed by your health care provider for at least 24 hours after your discharge time. For Pediatric surgeries, we recommend two adults accompany the child home (only one inside the building at this time). Follow any additional instructions given to you from your surgeon. Telephone instructions given to __PATIENT and asked if any additional questions and then verbalized understanding. Patient advised to call surgeon office or pre surgery nurse liaison [phone] if any additional questions.
[2022-02-04 10:10] VITALS: BMI 29.9
--- NOTE | 2022-02-04 10:38 | PC.NURSE ---
Report to the Outpatient WaitinB= Room, entrance under the green pavilion located off [facility], at time __0600 on date __02/11/22 . OR Time: __729 . - You and your visitor will be asked a series of questions to screen for COVID 19 for your protection. - Only one visitor is allowed at this time. - The patient visitor is requested to leave or wait in car when not with patient. - A mask is required within the hospital. Patients may have clear liquids (water, carbonated beverages, clear teas, apple juice) until 3 hours prior to surgery with a maximum of 20 ounces. - No food from midnight until time of surgery - Infants may have breast milk until 4 hours before surgery, formula 6 hours prior to surgery. - Children will be allowed to drink immediately following surgery. If applicable, please bring a bottle or sippy cup to assist with drinking. Juice, water, soda, and popsicles are readily available. For infants on formula, please bring formula the day of surgery. Pacifiers are allowed. Take the following medications with a SIP of water the morning of surgery: NONE Medications to discontinue per physician _ALL VITAMINS AND SUPPLEMENTS 3 DAYS PRE OP/ ALEVE PER DR GRAY Date to take last dose___ALL VITAMINS/SUPP 02/07/22 Please no make-up, nail icelandic, hairspray, perfume, deodorant, or body powder the day of surgery. No jewelry (including any body piercings) or valuables the day of surgery, leave them at home. Please take a shower or bath the night before, or the morning of, surgery with an antibacterial soap. Wear comfortable, loose fitting clothing. Children are encouraged to wear pajamas. - Jewelry must be removed prior to entering the operating room. Rings and piercings that are not removed may be cut off. - The hospital will not accept responsibility for valuables. - Please leave all valuables, including medications, at home the day of surgery. If you are going home after surgery, a licensed hazmat cdl a driver must drive you home. - NO public transportation without another adult. - We recommend that an adult stay with you for 24 hours following discharge. - We also recommend that you do not drive, make important decision, drink alcoholic beverages, or take any drugs that were not prescribed by your health care provider for at least 24 hours after your discharge time. For Pediatric surgeries, we recommend two adults accompany the child home (only one inside the building at this time). Follow any additional instructions given to you from your surgeon. If you or anyone in your household have experienced Covid symptoms in the past week, please notify your surgeon or the nurse liaison at the phone number below for possible testing. VERBAL AND WRITTEN instructions given to __PATIENT and asked if any additional questions and then verbalized understanding. Patient advised to call surgeon office or pre surgery nurse liaison [phone] if any additional questions.
[2022-02-04 10:58] VITALS: BP 168/72; PULSE 71; RESP 18; TEMP 36.6; O2SAT 99
--- NOTE | 2022-02-04 11:01 | PC.NURSE ---
STATES NO CHANGE IN HEALTH HX SINCE LAST INTERVIEW ON 11/07/21
[2022-02-11] VITALS (14 sets, daily range): BP systolic 139–172; BP diastolic 59–85; PULSE 70–97; RESP 10–20; TEMP 36.3–36.9; O2SAT 93–100
[2022-02-11] MEDS: TRANEXAMIC ACID 1,000MG/ISO100 1,000 MG/100 ML BAG 200 MG IVPB (06:39)
[2022-02-11] MEDS: ACETAMINOPHEN 500 MG TABLET 1000 MG PO (06:40)
[2022-02-11] MEDS: LACTATED RINGERS 1,000 ML 30 ML IV CONT ×2 (06:45→09:45)
[2022-02-11 07:00] LABS: Glucose Point of Care 195 mg/dl (65-105)
--- NOTE | 2022-02-11 07:08 | WPDANESEPPF ---
Anes - Initial Pre Proc Eval Procedure: Operation Date: 02/11/22 07:30 Proposed Procedures p Left Total Hip Arthroplasty - Aniket Trivedi MD Date/Time: 02/11/22 07:08 Surgeon: Aniket Trivedi MD Pre Op Diagnosis: left hip DJD Patient Data Age: 81 Gender: M Height: 1.8 m Weight: 97.7 kg Last Vital Signs Temp 36.4 C L 02/11/22 06:30 Pulse 70 02/11/22 06:30 Resp 18 02/11/22 06:30 BP 158/71 H 02/11/22 06:30 Pulse Ox 100 02/11/22 06:30 Allergies Allergy/AdvReac Type Severity Reaction Status Date / Time milk AdvReac Mild Nausea, Verified 02/11/22 06:21 DIARRHEA amlodipine AdvReac Unknown Weakness Verified 02/11/22 06:21 carvedilol AdvReac Unknown Weakness Verified 02/11/22 06:21 lisinopril AdvReac Unknown Weakness Verified 02/11/22 06:21 Jjynjeh-BRV-SgF Reductase AdvReac Unknown Muscle Pain Verified 02/11/22 06:21 Inhibitor [Ydscroc-Uek-Hcx Reductase Inhibitor] Home Medications Medication Instructions Recorded Confirmed Type blood sugar diagnostic #300 ea 09/02/20 02/09/22 Rx lancets 28 gauge #300 ea 09/02/20 02/09/22 Rx metformin 1,000 mg PO BID 11/06/20 02/11/22 History acetaminophen 1,300 mg PO Q12H PRN 11/26/20 02/11/22 History cholecalciferol (vitamin D3) 125 mcg PO DAILY 02/04/22 02/11/22 History fluticasone propionate 2 spray INTRANASAL DAILY 02/04/22 02/11/22 History hydrochlorothiazide 25 mg PO DAILY 02/04/22 02/11/22 History losartan 50 mg PO DAILY 02/04/22 02/11/22 History magnesium 400 mg PO DAILY 02/04/22 02/11/22 History naproxen sodium [Aleve] 220 mg PO BID PRN 02/04/22 02/11/22 History vitamin B complex [Super B Complex] 1 cap PO DAILY 02/04/22 02/11/22 History Laboratory Tests 02/11/22 06:40 POC Capillary Glucose 195 mg/dl H mg/dl (65-105) Patient hx anesthesia problems: none Family hx anesthesia problems: none Results Review: All pre-operative results and documents have been reviewed as part of the pre-operative evaluation. [facility] Past Medical History Medical History Atrial fibrillation COPD (chronic obstructive pulmonary disease) CVA (cerebral vascular accident) Diabetes mellitus HLD (hyperlipidemia) HTN (hypertension) SIMON (obstructive sleep apnea) Prostate cancer Surgical History Surgical History No pertinent past surgical history Family History Family History Sibling Patient's brother is in good health Family history of diabetes mellitus in first degree relative Family history of malignant neoplasm Mother Family history of malignant neoplasm Father Patient's father is Acute myocardial infarction Other Diabetes mellitus Hypertension Social History Social History Smoking packs per day: 1 Smoking cigarettes per day: 20.0 Years smoked: 60 Smoking pack-years: 60.00 Tobacco type: cigarettes Smoking end date: 01/02/22 Additional smoking assessment comments: DENIES ANY FORM OF TOBACCO USE Alcohol intake: former Drinks per week: 6 Alcohol use details: STOPPED DRINKING 2020 Substance use: never Living arrangements: alone Gender identity (if verbalized by the patient): Female Spiritual care concerns: No Anes - Eval Final PreProcedure Day of Procedure 02/11/22 07:08 Patient weight: obese Heart: regular rate and rhythm Lungs: clear to auscultation Airway: Mallampati scale class II Neurological: alert and oriented Last oral intake: >/= 8 hours ASA classification: IV Emergent: no Anesthetic plan: proceed Anesthesia type and monitoring: general GIVS and standard monitoring Results Review: All pre-operative results and documents have been reviewed as part of the pre-operative evaluation. Informed Consent: The patient's anesthetic pl
--- NOTE | 2022-02-11 07:19 | WPDHPUPDATE1 ---
History and Physical Update Update Date/Time: 02/11/22 07:19 History and Physical has been reviewed, including an updated exam of the patient. There are NO changes in the patient's condition. Risks, benefits, and alternatives have been discussed and questions answered. Patient agrees to proceed with procedure.
[2022-02-11] MEDS: ceFAZolin 2 GM/D5W 50 ML 2 GM/50 ML BAG IVPB ×3 (07:30→23:44)
[2022-02-11] MEDS: TRANEXAMIC ACID 1,000 MG/10 ML AMPUL 1000 MG IV PUSH (09:06)
--- NOTE | 2022-02-11 09:51 | W.PM.PROC2 ---
Procedure Note - Detailed Date of Procedure 02/11/22 Pre-op Diagnosis left hip DJD Post-op Diagnosis Same Procedure Performed L TERESA Surgeon Aniket Trivedi MD Anesthesia General Description of Procedure THE PATIENT WAS TAKEN TO THE OPERATING ROOM IN STABLE CONDITION AND WAS PLACED IN THE LATERAL DECUBITUS AND THE LEFT LOWER EXTREMITY WAS PREPPED AND DRAPED IN THE STERILE FASHION. INCISION WAS MADE IN THE POSTERIOR LATERAL SIDE OF THE HIP, DOWN TO THE FASCIA LAYER. THE FASCIA WAS INCISED. THE HIP WAS EXPOSED. THE SHORT EXTERNAL ROTATORS WERE EXPOSED. THE SCIATIC NERVE WAS IDENTIFIED. INCISION WAS MADE THROUGH THE SHORT EXTERNAL ROTATORS AND THE CAPSULE OF THE HIP JOINT. THE HIP WAS DISLOCATED. AN OSTEOTOMY WAS MADE TO THE FEMORAL NECK ABOUT 1 CM PROXIMAL TO THE LESSER TROCHANTER. THE ACETABULUM WAS EXPOSED. THERE WAS SEVERE DJD SEEN. BEGINNING WITH A 44 REAMER THE ACETABULUM WAS REAMED TO 55 MM. A 55 MM TRIAL WAS PLACED IN 35 DEG OF ABDUCTION AND ANTEVERSION WAS IN ALIGNMENT WITH THE TRANS ACETABULAR LIGAMENT. THE FIT WAS EXCELLENT. THE TRIAL WAS REMOVED. A 56 MM BIOMET G7 COMPONENT WAS THEN TAPPED IN TO PLACE IN 35 DEG OF ABDUCTION AND ANTEVERSION IN ALIGNMENT WITH THE TRANSVERSE ACETABULAR LIGAMENT. THE FIT WAS EXCELLENT. THE ACETABULAR LINER WAS PLACED AND CHECKED FOR STABILITY. NEXT THE FEMUR WAS PREPARED WITH INITIAL CANAL FINDER THEN SEQUENTIAL BROACHING WITH A TAPERLOC HIP SYSTEM, UNTIL A 11 BROACH FIT WELL IN 15 OF ANTEVERSION. A +3 HIGH OFFSET NECK WITH 36 MM HEAD TRIAL WAS PLACED. THE SHUCK TEST WAS EXCELLENT AND THE STABILITY IN FLEXION AND ROTATION WAS EXCELLENT. LEG LENGTHS WERE GROSSLY EQUAL. TRIALS WERE REMOVED. A BIOMET TAPERLOC 11 STEM WAS PLACED WITH A HIGH OFFSET NECK THE FIT WAS EXCELLENT IN 15 DEG OF ANTEVERSION. A +3 CERAMIC 36 MM FEMORAL CERAMIC HEAD WAS PLACED. THE HIP WAS TRIALED AND THE STABILITY WAS EXCELLENT WERE THE LEG LENGTHS AND THE SHUCK TEST. THE WOUND WAS IRRIGATED WITH STERILE BETADINE AND WATER FOR 3 MIN. THEN WASHED AGAIN. THE CAPSULE AND THE EXTERNAL ROTATORS WERE APPROXIMATED WITH NUMBER 1 VICRYL. THE FASCIA WITH No 2 QUIL AND THE SUB CUTANEOUS LAYER WITH 2-0 ABSORBABLE SUTURE WITH A RUNNING 3-0 SUBCUTICULAR LAYER WELL. DERMABOND WAS PLACED AND STERILE DRESSING WAS APPLIED. PATIENT WAS PLACED BACK ON TO THE SUPINE POSITION AND WAS EXTUBATED Estimated Blood Loss 100 Complications No immediate complications Condition Stable Disposition PACU
[2022-02-11] MEDS: fentaNYL CITRATE INJ (*CRX) 100 MCG/2 ML VIAL 25 MCG IV PUSH ×6 (10:00→11:00)
[2022-02-11 10:03] LABS: Glucose Point of Care 232 mg/dl (65-105)
[2022-02-11 11:41] LABS: Glucose Point of Care 249 mg/dl (65-105)
[2022-02-11] MEDS: HYDROcodone/acetaminophen (*CRX) 7.5-325 MG TABLET 1 TAB PO ×3 (12:18→23:44)
--- NOTE | 2022-02-11 12:26 | ADMGEN ---
This patient, Luís Law Jr., was admitted to Medical Room 256-01. Patient/family oriented to hospital policies and general routines including ID bracelet, bed and alarms, visiting hours, pain management, procedures, bathroom and other care routines, personal items, smoking policy, room service/diet, and visiting hours. Information on how to activate the Rapid Response Team has been discussed. Patient/Family are encouraged to report perceived risks to care and to ask questions if they do not understand what they are told or what they should do.
--- NOTE | 2022-02-11 15:25 | PCRCNOTE ---
PT. DECLINED WEARING CPAP WHILE IN HOSPITAL.
[2022-02-11 16:45] LABS: Glucose Point of Care 301 mg/dl (65-105)
[2022-02-11] MEDS: INSULIN ASPART (*BKC) 100 UNITS/ML SUB-Q (17:07)
[2022-02-11] MEDS: SENNA/DOCUSATE SODIUM TABLET 2 TAB PO (17:07)
[2022-02-11] MEDS: metFORMIN HCL 500 MG TABLET 1000 MG PO (17:10)
[2022-02-11 20:46] LABS: Glucose Point of Care 221 mg/dl (65-105)
--- NOTE | ~2022-02-12 | XR_ITS ---
XR hip LT 1V DATE: 02/11/2022 09:52 INDICATION: Left total hip arthroplasty, postoperative examination TECHNIQUE: Portable postoperative AP view COMPARISON: None FINDINGS: Status post left total hip arthroplasty. There is mild subcutaneous emphysema as expected p ostoperatively. No fracture or dislocation. IMPRESSION: Left total hip arthroplasty Reviewed, dictated and finalized at location B. IMPRESSION: Left total hip arthroplasty
[2022-02-12 00:52] VITALS: BP 147/54; PULSE 80; RESP 20; TEMP 36.6; O2SAT 99
[2022-02-12] MEDS: LIDOCAINE HCL 2% GEL UROJET 10 ML PKG MUCOUS MEM (04:32)
[2022-02-12 04:52] VITALS: BP 143/59; PULSE 79; RESP 20; TEMP 36.9; O2SAT 98
[2022-02-12 06:01] LABS: Basophils Percent Auto 0.2 % (0.2-1.2); Hematocrit 36.6 % (42.0-52.0); Hemoglobin 11.8 g/dL (14.0-18.0); Immature Granulocyte Absolute 0.05 K/mm3 (0.00-0.031); Immature Granulocyte Percent A 0.4 % (0-0.5); Lymphocytes Absolute Auto 1.01 K/mm3 (0.9-3.2); Lymphocytes Percent Auto 8.1 % (18.3-44.2); Mean Corpuscular HGB Conc 32.2 g/dl (32-36); Mean Corpuscular Hemoglobin 29.5 pg (26-34); Mean Corpuscular Volume 91.5 fl (80-100); Mean Platelet Volume 11.4 fl (7.4-10.4); Monocytes Absolute Auto 1.7 K/mm3 (0.1-0.6); Monocytes Percent Auto 13.5 % (2.6-8.5); Neutrophils Absolute Auto 9.7 K/mm3 (1.3-6.7); Neutrophils Percent Auto 77.8 % (45.5-73.1); Platelet Count Result 221 k/mm3 (150-375); Red Cell Distribution Width 13.7 % (11.5-14.5); White Blood Count 12.5 K/mm3 (4.5-10.0)
[2022-02-12 06:10] LABS: Anion Gap 7 mmol/L (8-16); Blood Urea Nitrogen 30 mg/dL (9-20); Calcium 8.4 mg/dL (8.4-10.2); Carbon Dioxide 23 mmol/L (22-30); Chloride 101 mmol/L (98-107); Estimated CRCL calculation 29 ml/min; Estimated Glomerular Filt Rate 39; Glucose 192 mg/dL (65-110); Potassium 4.8 mmol/L (3.4-5.0); Sodium 131 mmol/L (137-145)
[2022-02-12] MEDS: HYDROcodone/acetaminophen (*CRX) 7.5-325 MG TABLET 1 TAB PO (06:28)
[2022-02-12] MEDS: ceFAZolin 2 GM/D5W 50 ML 2 GM/50 ML BAG IVPB (06:30)
[2022-02-12 07:49] LABS: Glucose Point of Care 308 mg/dl (65-105)
[2022-02-12] MEDS: INSULIN ASPART (*BKC) 100 UNITS/ML SUB-Q ×2 (07:54→16:50)
[2022-02-12] MEDS: metFORMIN HCL 500 MG TABLET 1000 MG PO ×2 (07:58→16:55)
[2022-02-12] MEDS: ASPIRIN 325 MG ENTERIC TABLET 650 MG PO (07:59)
[2022-02-12] MEDS: CHOLECALCIFEROL 1,000 UNITS TABLET 5000 UNITS PO (08:00)
[2022-02-12] MEDS: CELECOXIB 200 MG CAPSULE PO (08:00)
[2022-02-12] MEDS: MAGNESIUM OXIDE 400 MG TABLET PO (08:01)
[2022-02-12] MEDS: hydroCHLOROthiazide 25 MG TABLET PO (08:01)
[2022-02-12] MEDS: LOSARTAN POTASSIUM 50 MG TABLET PO (08:01)
[2022-02-12] MEDS: VITAMIN B COMPLEX CAPSULE 1 CAP PO (08:01)
[2022-02-12] MEDS: SENNA/DOCUSATE SODIUM TABLET 2 TAB PO ×2 (08:01→16:55)
[2022-02-12] MEDS: polyethylene glycoL 3350 17 GM POWD.PACK PO (08:02)
[2022-02-12] MEDS: FLUTICASONE PROPIONATE 0.05% NA SPR 16 GM BTL (*BKC) 2 SPRAY NASAL (08:02)
[2022-02-12 08:52] VITALS: BP 148/53; PULSE 78; RESP 20; TEMP 36.4; O2SAT 96
--- NOTE | 2022-02-12 09:26 | PM.PNORT ---
Progress Note: A&P Assessment and Plan (1) S/P total hip arthroplasty: Qualifiers: Laterality: left Qualified Code(s): Z96.642 - Presence of left artificial hip joint Code(s): Z96.649 - Presence of unspecified artificial hip joint Status: Acute Assessment and Plan: POD #1: L TERESA Slow progress with PT/OT. Continue PT/OT. WBAT. Walker. HIGH FALL RISK. Continue pain control. Ice lateral hip. Protect skin. DVT prophylaxis with Aspirin. SCDs. Incentive Spirometry Use reviewed. Monitor Dressing. Change prior to discharge. Bowel Regimen. Viregn catheter inserted for urinary retention. Dr. Seymour consulted. Dispo: [facility] if possible vs. SNF for Rehab pending progress with PT/OT (2) Prostate cancer: Code(s): C61 - Malignant neoplasm of prostate Status: Acute Assessment and Plan: Patient has a history of prostate CA. History of surgery by Dr. Seymour with Space Oar placement in December 2020. Difficulty with post op urinary retention at this time. Patient underwent straight catheterization. Still unable to void. Virgen catheter placed. Urology consult requested. (3) Abnormal PSA: Code(s): R97.20 - Elevated prostate specific antigen [PSA] Status: Acute Additional Plan Reviewed postoperative exam and findings with attending MD, Dr. Trivedi. No further recommendations. Agrees with plan of care. Subjective Subjective Date/Time Seen: 02/12/22 09:26 Post Op day: 1 Interval history: POD #1: Left TERESA Difficulty with urinary retention. Slow progress with PT/OT. No new complaints. Review of Systems Constitutional: Constitutional: Denies chills, Denies fatigue, Denies fever(s), Denies night sweats and Denies weakness Cardiovascular: Cardiovascular: Denies chest pain, Denies lightheadedness, Denies palpitations and Denies dyspnea Respiratory: Respiratory: Denies cough, Denies dyspnea and Denies wheezing Gastrointestinal: Gastrointestinal: Denies abdominal pain, Denies diarrhea, Denies nausea and Denies vomiting Musculoskeletal: Musculoskeletal: Reports arthralgias (left hip ), Reports joint swelling (left hip ) and Denies numbness Neurologic: Denies numbness and Denies weakness Endocrine: Endocrine: Denies fatigue and Denies palpitations Allergic/Immunologic: Allergic/Immunologic: Denies wheezing Exam Const: General: comfortable and no acute distress Resp: Effort & Inspection: normal respiratory effort Cardio: Rate: regular rate Rhythm: regular rhythm GI: Inspection: non-distended Skin: General skin exam: normal color Wounds: wounds noted (incision left hip C/D/I ) Extrem: Right lower extremity: normal to inspection, full ROM and normal capillary refill Left lower extremity: hip/thigh Details: tenderness Location: of the hip Location: laterally and anteriorly, swelling (thigh soft ) Location: of the hip (lateral. ), abnormal ROM (limitations with internal/external rotation and flexion/extension due to recent surgical intervention ) and other (incision lateral hip c/d/i. ), knee Details: normal to inspection and normal ROM; no tenderness and no swelling, lower leg (Negative Ollie's Sign ) Details: no edema, ankle (+ankle dorsiflexion/plantarflexion ) Details: normal to inspection, no edema and normal ROM; no tenderness, no swelling and no warmth and foot Details: normal capillary refill, toes with normal ROM, vascular exam Details: dorsalis pedis pulse present and motor-sensory exam light-touch normal in all toes; no tenderness, no ecchymosis and no crepitus Psych: Mental Status: mental status grossly normal Affect: normal affect Objective Data Vital Signs Vital Signs: Vital Signs - 24 hr 02/11/22 09:50 02/11/22 10:05 02/11/22 10:20 Temperature 36.3 C L Pulse Rate 82 76 74 Respiratory Rate 13 12 18 Blood Pressure 157/85 H 156/74 H 170/68 H Pulse Oximetry 98 100 100 02/11/22 10:35 02/11/22 10:50 02/11/22 11:30 Temperature 36.6 C Pulse Rate
--- NOTE | 2022-02-12 10:24 | WPDANESPN ---
Anes - Prog Note Post-Op Date/Time: 02/12/22 10:24 Cardiovascular status: normal Respiratory status: normal Airway patency: baseline Mental status: baseline Post-Op hydration status: normal Vital Signs: Last Vital Signs Temp 36.4 C 02/12/22 08:52 Pulse 78 02/12/22 08:52 Resp 20 02/12/22 08:52 BP 148/53 H 02/12/22 08:52 Pulse Ox 96 02/12/22 08:52 Pain Score (VAS): 10/13 I/O: Intake & Output 02/11/22 02/12/22 02/12/22 23:59 07:59 15:59 Intake Total 520 600 120 Output Total 550 400 Balance -30 200 120 Laboratory Tests 02/12/22 05:34 02/12/22 05:34 02/11/22 02/11/22 02/11/22 11:38 16:33 20:43 WBC RBC Hgb Hct MCV MCH MCHC RDW Plt Count MPV Immature Gran % (Auto) Neut % (Auto) Lymph % (Auto) [place] % (Auto) Eos % (Auto) Baso % (Auto) Lymph # (Auto) [place] # (Auto) Eos # (Auto) Baso # (Auto) Abs Immat Gran (auto) Absolute Neuts (auto) Absolute Nucleated RBC Nucleated RBC % Sodium Potassium Chloride Carbon Dioxide Anion Gap BUN Creatinine Estim Creat Clear Calc Estimated GFR Glucose POC Capillary Glucose 249 H 301 H 221 H Calcium 02/12/22 02/12/22 02/12/22 05:34 05:34 07:43 WBC 12.5 H RBC 4.00 L Hgb 11.8 L Hct 36.6 L MCV 91.5 MCH 29.5 MCHC 32.2 RDW 13.7 Plt Count 221 MPV 11.4 H Immature Gran % (Auto) 0.4 Neut % (Auto) 77.8 H Lymph % (Auto) 8.1 L [place] % (Auto) 13.5 H Eos % (Auto) 0.0 Baso % (Auto) 0.2 Lymph # (Auto) 1.01 [place] # (Auto) 1.7 H Eos # (Auto) 0.0 Baso # (Auto) 0.0 Abs Immat Gran (auto) 0.05 H Absolute Neuts (auto) 9.7 H Absolute Nucleated RBC 0.0 Nucleated RBC % 0.0 Sodium 131 L Potassium 4.8 Chloride 101 Carbon Dioxide 23 Anion Gap 7 L BUN 30 H Creatinine 2.00 H Estim Creat Clear Calc 29 Estimated GFR 39 L Glucose 192 H POC Capillary Glucose 308 H Calcium 8.4 Post-procedural complaints: none Patient Feedback: Patient satisfied with anesthetic care.
[2022-02-12 11:14] LABS: Glucose Point of Care 165 mg/dl (65-105)
--- NOTE | 2022-02-12 11:16 | PM.IMCN ---
Assessment and Plan Assessment and plan (1) S/P total hip arthroplasty: Code(s): Z96.649 - Presence of unspecified artificial hip joint Status: Acute Assessment and Plan: -POD #1 s/p L TERESA by Dr. Trivedi -DVT prophylaxis, pain control, discharge planning per ortho (2) HTN (hypertension): Qualifiers: Hypertension type: essential hypertension Qualified Code(s): I10 - Essential (primary) hypertension Code(s): I10 - Essential (primary) hypertension Status: Acute Assessment and Plan: -was mildly elevated yesterday but stable today -continue home meds (3) Diabetes mellitus: Code(s): E11.9 - Type 2 diabetes mellitus without complications Status: Acute Assessment and Plan: -continue metformin -moderate dose SS with accuchecks ACHS and hypoglycemic protocol (4) Atrial fibrillation: Code(s): I48.91 - Unspecified atrial fibrillation Status: Acute Assessment and Plan: -hx of, currently sinus rhythm -taken off of anticoagulation [place] [address] Guardado (5) CKD (chronic kidney disease): Code(s): N18.9 - Chronic kidney disease, unspecified Status: Inactive Assessment and Plan: -stable -followed by Dr. Vazquez -monitor BMP (6) SIMON (obstructive sleep apnea): Code(s): G47.33 - Obstructive sleep apnea (adult) (pediatric) Status: Inactive Assessment and Plan: -stats he uses his CPAP sometimes -CPAP available for use while inpatient (7) COPD (chronic obstructive pulmonary disease): Code(s): J44.9 - Chronic obstructive pulmonary disease, unspecified Status: Inactive Assessment and Plan: -no acute issues -no wheezing, no sob, no hypoxia HPI Data of Consult Consult date: 02/12/22 Requesting Physician: Aniket Trivedi MD Primary Care Provider: Clotilde Dutton, Consult Narrative Reason for consult: medical management Narrative: Luís Law Jr. is a 81 year old male w/ hx of HTN, HLD, DM, afib, COPD, CVA 2016, CKD, SIMON, prostate cancer (completed radiation in 09/2021), admitted s/p elective L TERESA. Hospitalist service was consulted for medical management of his chronic conditions. He reports that his hip pain is manageable. He has no complaints otherwise. He denies cp/sob/N/V/abd pain/LE pain or edema. Review of Systems Review of Systems: All systems reviewed & are unremarkable except as noted in HPI and below PMFSH Past Medical History Medical History (Updated 02/12/22 @ 11:21 by Kasey Vo PA-C) Atrial fibrillation CKD (chronic kidney disease) COPD (chronic obstructive pulmonary disease) CVA (cerebral vascular accident) Diabetes mellitus HLD (hyperlipidemia) HTN (hypertension) SIMON (obstructive sleep apnea) Prostate cancer Surgical History Surgical History (Updated 02/12/22 @ 11:19 by Kasey Vo PA-C) S/P total hip arthroplasty Family History Family History Sibling Patient's brother is in good health Family history of diabetes mellitus in first degree relative Family history of malignant neoplasm Mother Family history of malignant neoplasm Father Patient's father is Acute myocardial infarction Other Diabetes mellitus Hypertension Social History Social History Smoking packs per day: 1 Smoking cigarettes per day: 20.0 Years smoked: 60 Smoking pack-years: 60.00 Smoking status: Former smoker Tobacco type: cigarettes Smoking end date: 01/02/22 Additional smoking assessment comments: DENIES ANY FORM OF TOBACCO USE Alcohol intake: former Drinks per week: 6 Alcohol use details: STOPPED DRINKING 2020 Substance use: never Living arrangements: alone Gender identity (if verbalized by the patient):
[2022-02-12] MEDS: ACETAMINOPHEN 325 MG TABLET 650 MG PO ×2 (11:27→18:11)
[2022-02-12 12:52] VITALS: BP 136/56; PULSE 76; RESP 20; TEMP 37; O2SAT 97
--- NOTE | 2022-02-12 14:57 | PC.NURSE ---
On 02/12/22, the RN, Gerda Maldonado, provided care and completed [facility] documentation on this patient. I have reviewed the RN's documentation and agree with the findings.
--- NOTE | 2022-02-12 15:10 | PCCCNOTE ---
On 02/12/22, the student, [Kathryn Parada ], provided care and completed [facility] documentation on this patient. I have reviewed the student's documentation and agree with the findings.
[2022-02-12 16:05] LABS: Glucose Point of Care 231 mg/dl (65-105)
--- NOTE | 2022-02-12 17:16 | WPDURCON ---
Assessment and Plan Assessment and plan (1) Prostate cancer: Code(s): C61 - Malignant neoplasm of prostate Status: Acute (2) Postoperative urinary retention: Code(s): N99.89 - Other postprocedural complications and disorders of genitourinary system; R33.8 - Other retention of urine Status: Acute Assessment and Plan: Patient with a history of prostate cancer status post pelvic radiation in July 2021. Will start tamsulosin tonight and give 1 last voiding trial on whatever day he is due to be discharged. If he fails a voiding trial the catheter it be replaced with follow-up as an outpatient. Urology Consult Note HPI Date Seen: 02/12/22 Requesting Physician: Aniket Trivedi MD Primary Care Provider: Clotilde DuttonMD Consult Narrative Narrative: Luís Law Jr. is a 81 year old male , who is known to Dr. Seymour, with a history of prostate cancer status post pelvic radiation that was completed in July 2021 he has had significant urological or voiding difficulty following radiation. Just prior to this orthopedic surgery he denies urinary hesitancy, sensation of incomplete emptying or diminished stream. He, however, developed postoperative urinary retention. Review of Systems Cardiovascular: Cardiovascular: Denies chest pain, Denies lightheadedness, Denies palpitations and Denies dyspnea Respiratory: Respiratory: Denies dyspnea Gastrointestinal: Gastrointestinal: Denies diarrhea, Denies nausea and Denies vomiting Genitourinary: Genitourinary: Denies hematuria and Denies dysuria Endocrine: Endocrine: Denies palpitations PMFSH Past Medical History Medical History Atrial fibrillation CKD (chronic kidney disease) COPD (chronic obstructive pulmonary disease) CVA (cerebral vascular accident) Diabetes mellitus HLD (hyperlipidemia) HTN (hypertension) SIMON (obstructive sleep apnea) Prostate cancer Surgical History Surgical History S/P total hip arthroplasty Family History Family History Sibling Patient's brother is in good health Family history of diabetes mellitus in first degree relative Family history of malignant neoplasm Mother Family history of malignant neoplasm Father Patient's father is Acute myocardial infarction Other Diabetes mellitus Hypertension Social History Social History Smoking packs per day: 1 Smoking cigarettes per day: 20.0 Years smoked: 60 Smoking pack-years: 60.00 Smoking status: Former smoker Tobacco type: cigarettes Smoking end date: 01/02/22 Additional smoking assessment comments: DENIES ANY FORM OF TOBACCO USE Alcohol intake: former Drinks per week: 6 Alcohol use details: STOPPED DRINKING 2020 Substance use: never Gender identity (if verbalized by the patient): Female Spiritual care concerns: No Meds Home Medications and Allergies Home Medications Medication Instructions Recorded Confirmed Type blood sugar diagnostic #300 ea 09/02/20 02/09/22 Rx lancets 28 gauge #300 ea 09/02/20 02/09/22 Rx metformin 1,000 mg PO BID 11/06/20 02/11/22 History acetaminophen 1,300 mg PO Q12H PRN 11/26/20 02/11/22 History cholecalciferol (vitamin D3) 125 mcg PO DAILY 02/04/22 02/11/22 History fluticasone propionate 2 spray INTRANASAL DAILY 02/04/22 02/11/22 History hydrochlorothiazide 25 mg PO DAILY 02/04/22 02/11/22 History losartan 50 mg PO DAILY 02/04/22 02/11/22 History magnesium 400 mg PO DAILY 02/04/22 02/11/22 History naproxen sodium [Aleve] 220 mg PO BID PRN 02/04/22 02/11/22 History vitamin B complex 1 cap PO DAILY 02/04/22 02/11/22 History aspirin 650 mg PO DAILY 28 Days #56 tablet 02/12/22 Rx hydrocodone-acetaminophen 1 tablet PO Q4-6H PRN #56 tabl
[2022-02-12 20:00] VITALS: BP 152/65; PULSE 76; PULSE 77; RESP 20; RESP 21; TEMP 36.9; O2SAT 100; O2SAT 97
[2022-02-12] MEDS: TAMSULOSIN HCL 0.4 MG CAPSULE PO (20:31)
[2022-02-12 21:32] LABS: Glucose Point of Care 193 mg/dl (65-105)
[2022-02-13] VITALS: BP 131/57; PULSE 88; RESP 18; TEMP 36.3; O2SAT 97
[2022-02-13 05:30] LABS: Basophils Percent Auto 0.3 % (0.2-1.2); Eosinophils Percent Auto 0.3 % (0-4.4); Hematocrit 33.9 % (42.0-52.0); Hemoglobin 10.9 g/dL (14.0-18.0); Immature Granulocyte Absolute 0.03 K/mm3 (0.00-0.031); Immature Granulocyte Percent A 0.3 % (0-0.5); Lymphocytes Absolute Auto 0.82 K/mm3 (0.9-3.2); Lymphocytes Percent Auto 7.6 % (18.3-44.2); Mean Corpuscular HGB Conc 32.2 g/dl (32-36); Mean Corpuscular Hemoglobin 29.2 pg (26-34); Mean Corpuscular Volume 90.9 fl (80-100); Mean Platelet Volume 11.3 fl (7.4-10.4); Monocytes Absolute Auto 1.4 K/mm3 (0.1-0.6); Monocytes Percent Auto 13.2 % (2.6-8.5); Neutrophils Absolute Auto 8.4 K/mm3 (1.3-6.7); Neutrophils Percent Auto 78.3 % (45.5-73.1); Platelet Count Result 179 k/mm3 (150-375); Red Blood Count 3.73 M/mm3 (4.6-6.20); Red Cell Distribution Width 13.7 % (11.5-14.5); White Blood Count 10.7 K/mm3 (4.5-10.0)
[2022-02-13 06:00] VITALS: BP 135/75; PULSE 89; RESP 18; TEMP 36.9; O2SAT 97
[2022-02-13 06:15] LABS: Anion Gap 8 mmol/L (8-16); Blood Urea Nitrogen 34 mg/dL (9-20); Calcium 8.2 mg/dL (8.4-10.2); Carbon Dioxide 24 mmol/L (22-30); Chloride 101 mmol/L (98-107); Estimated CRCL calculation 31 ml/min; Estimated Glomerular Filt Rate 42; Glucose 169 mg/dL (65-110); Potassium 4.8 mmol/L (3.4-5.0); Sodium 133 mmol/L (137-145)
--- NOTE | 2022-02-13 06:58 | WPDUROPN2 ---
Progress Note: A&P Assessment and Plan (1) Postoperative urinary retention: Code(s): N99.89 - Other postprocedural complications and disorders of genitourinary system; R33.8 - Other retention of urine Status: Acute (2) Prostate cancer: Code(s): C61 - Malignant neoplasm of prostate Status: Acute Assessment and Plan: Tolerated 1st dose tamsulosin last night Catheter out for voiding trial today. If he fails, he can be discharged with an indwelling catheter with follow-up next week Dr. Seymour to manage this postoperative retention. Patient should be discharged on tamsulosin 0.4 mg q.h.s. Subjective Subjective Date/Time Seen: 02/13/22 06:58 Comfortable comfortable with Virgen catheter. Tolerated first dose of tamsulosin last night Review of Systems Cardiovascular: Cardiovascular: Denies chest pain, Denies lightheadedness, Denies palpitations and Denies dyspnea Respiratory: Respiratory: Denies dyspnea Gastrointestinal: Gastrointestinal: Denies diarrhea, Denies nausea and Denies vomiting Genitourinary: Genitourinary: Denies hematuria and Denies dysuria Endocrine: Endocrine: Denies palpitations Exam Const: General: no acute distress Resp: Effort & Inspection: normal respiratory effort GI: Inspection: non-distended GI Palp: No abdominal tenderness and No Guarding due to palpation present (GI) Auscultation: normal bowel sounds Objective Data Vital Signs Vital Signs: Vital Signs - 24 hr 02/12/22 08:52 02/12/22 12:52 02/12/22 20:00 Temperature 97.6 F 98.6 F 98.4 F Pulse Rate 78 76 77 Respiratory Rate 20 20 21 H Blood Pressure 148/53 H 136/56 L 152/65 H Pulse Oximetry 96 97 100 02/13/22 00:00 02/13/22 06:00 Temperature 97.3 F L 98.5 F Pulse Rate 88 89 Respiratory Rate 18 18 Blood Pressure 131/57 L 135/75 Pulse Oximetry 97 97 Intake/Output Intake/Output: Intake & Output 02/10/22 02/11/22 02/12/22 02/13/22 23:59 23:59 23:59 23:59 Intake Total 2340 1510 Output Total 550 1550 Balance 1790 -40 Meds/Results Medications: Active Medications Generic Name Dose Route Start Last Admin Trade Name Freq PRN Reason Stop Dose Admin Acetaminophen 650 mg 02/11/22 16:54 02/12/22 18:11 Acetaminophen 325 Mg Tablet PO 650 mg Q6H PRN Administration Pain Rated 1-3 Hydrocodone Bitart/Acetaminophen 1 tab 02/11/22 11:07 02/12/22 06:28 Hydrocodone/Acetaminophen (*Crx) 7.5-325 Mg Tablet PO 1 tab Q3H PRN Administration Pain Rated 4-6 Aspirin 650 mg 02/12/22 09:00 02/12/22 07:59 Aspirin 325 Mg Enteric Tablet PO 650 mg DAILY ASA Administration Celecoxib 200 mg 02/12/22 09:00 02/12/22 08:00 Celecoxib 200 Mg Capsule PO 200 mg DAILY ASA Administration Dextrose 12.5 gm 02/11/22 19:37 Dextrose 50% 25 Gm/50 Ml Syringe IV PUSH PRN PRN Hypoglycemia Protocol Diazepam 5 mg 02/11/22 11:07 Diazepam (*Crx) 5 Mg Tablet PO Q6H PRN Anxiety/Muscle Spasm Fluticasone Propionate 2 spray 02/12/22 09:00 02/12/22 08:02 Fluticasone Propionate 0.05% Na Spr 16 Gm Btl (*Bkc) NASAL 2 spray DAILY ASA Administration Glucagon 1 mg 02/11/22 19:37 Glucagon For Inj 1 Mg Vial IM PRN PRN Hypoglycemia Protocol Glucose 15 gm 02/11/22 19:37 Glucose Oral Gel 15 Gm Of Glucse In 37.5 Gm Tube PO PRN PRN Hypoglycemia Protocol Hydrochlorothiazide 25 mg 02/12/22 09:00 02/12/22 08:01 Hydrochlorothiazide 25 Mg Tablet PO 25 mg DAILY ASA Administration Hydroxyzine HCl 50 mg 02/11/22 11:07 Hydroxyzine Hcl 25 Mg Tablet PO Q4H PRN Itching Dextrose 1,000 mls @ 100 mls/hr 02/11/22 19:37 Dextrose 5% 1,000 Ml IVPB PRN PRN Hypoglycemia Protocol Insulin Aspart 3 - 6 units 02/12/22 08:00 02/12/22 16:50 Insulin Aspart (*Bkc) 100 Units/Ml SUB-Q 3 units TIDWM ASA Administration Protocol Insulin Glargine 5 units
--- NOTE | 2022-02-13 07:34 | PM.IMCN ---
Assessment and Plan Assessment and plan (1) S/P total hip arthroplasty: Qualifiers: Laterality: left Qualified Code(s): Z96.642 - Presence of left artificial hip joint Code(s): Z96.649 - Presence of unspecified artificial hip joint Status: Acute Assessment and Plan: -POD #2 s/p L TERESA by Dr. Trivedi -DVT prophylaxis, pain control, discharge planning per ortho (2) HTN (hypertension): Qualifiers: Hypertension type: essential hypertension Qualified Code(s): I10 - Essential (primary) hypertension Code(s): I10 - Essential (primary) hypertension Status: Acute Assessment and Plan: -was mildly elevated yesterday but stable today -continue home meds - stable without any additional medication changes today. 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 To promote healing from surgery, pt. started on Lantus 5 units HS. - Continue to monitor trend of AM glucose. (4) Atrial fibrillation: Code(s): I48.91 - Unspecified atrial fibrillation Status: Acute Assessment and Plan: -hx of, currently sinus rhythm -taken off of anticoagulation [place] [address] Guardado (5) CKD (chronic kidney disease): Code(s): N18.9 - Chronic kidney disease, unspecified Status: Inactive Assessment and Plan: -stable -followed by Dr. Vazquez -monitor BMP - Baseline creatinine is 1.5-2.0. (6) SIMON (obstructive sleep apnea): Code(s): G47.33 - Obstructive sleep apnea (adult) (pediatric) Status: Inactive Assessment and Plan: -stats he uses his CPAP sometimes -CPAP available for use while inpatient (7) COPD (chronic obstructive pulmonary disease): Code(s): J44.9 - Chronic obstructive pulmonary disease, unspecified Status: Inactive Assessment and Plan: -no acute issues -no wheezing, no sob, no hypoxia HPI Data of Consult Consult date: 02/13/22 Requesting Physician: MIRIAM BarriosC Primary Care Provider: Clotilde Dutton, Consult Narrative Reason for consult: Medical management of chronic health conditions. Narrative: Luís Law Jr. is a 81 year old male w/ hx of HTN, HLD, DM, afib, COPD, CVA 2017, CKD, SIMON, prostate cancer (completed radiation in 09/2021), admitted s/p elective L TERESA. Hospitalist service was consulted for medical management of his chronic conditions. Pt. reporting today that his pain is being adequately controlled and he has no new complaints of CP, dyspnea, N/V/D. He has continued elevated fasting glucose, so to better optimize healing from surgery, he is started on Lantus 5 Units HS. Otherwise he is stable with his BP, and heart rate. Labs are remarkable today only for CKD which is trending downward as compared to yesterday. Review of Systems Review of Systems: All systems reviewed & are unremarkable except as noted in HPI and below PMFSH Past Medical History Medical History Atrial fibrillation CKD (chronic kidney disease) COPD (chronic obstructive pulmonary disease) CVA (cerebral vascular accident) Diabetes mellitus HLD (hyperlipidemia) HTN (hypertension) SIMON (obstructive sleep apnea) Prostate cancer Surgical History Surgical History S/P total hip arthroplasty Family History Family History (Reviewed 02/12/22 @ 17:
[2022-02-13 08:16] LABS: Glucose Point of Care 175 mg/dl (65-105)
[2022-02-13] MEDS: metFORMIN HCL 500 MG TABLET 1000 MG PO ×2 (08:33→16:34)
[2022-02-13] MEDS: LOSARTAN POTASSIUM 50 MG TABLET PO (08:33)
[2022-02-13] MEDS: SENNA/DOCUSATE SODIUM TABLET 2 TAB PO ×2 (08:33→16:34)
[2022-02-13] MEDS: CELECOXIB 200 MG CAPSULE PO (08:33)
[2022-02-13] MEDS: ASPIRIN 325 MG ENTERIC TABLET 650 MG PO (08:33)
[2022-02-13] MEDS: CHOLECALCIFEROL 1,000 UNITS TABLET 5000 UNITS PO (08:33)
[2022-02-13] MEDS: FLUTICASONE PROPIONATE 0.05% NA SPR 16 GM BTL (*BKC) 2 SPRAY NASAL (08:34)
[2022-02-13] MEDS: hydroCHLOROthiazide 25 MG TABLET PO (08:34)
[2022-02-13] MEDS: polyethylene glycoL 3350 17 GM POWD.PACK PO (08:34)
[2022-02-13] MEDS: MAGNESIUM OXIDE 400 MG TABLET PO (08:34)
[2022-02-13] MEDS: VITAMIN B COMPLEX CAPSULE 1 CAP PO (08:36)
--- NOTE | 2022-02-13 09:15 | PM.PNORT ---
Progress Note: A&P Assessment and Plan (1) S/P total hip arthroplasty: Qualifiers: Laterality: left Qualified Code(s): Z96.642 - Presence of left artificial hip joint Code(s): Z96.649 - Presence of unspecified artificial hip joint Status: Acute Assessment and Plan: POD #2: L TERESA Slow progress with PT/OT. Continue PT/OT. WBAT. Walker. HIGH FALL RISK. Continue pain control. Ice lateral hip. Protect skin. DVT prophylaxis with Aspirin. SCDs. Incentive Spirometry Use reviewed. Monitor Dressing. Change prior to discharge. Bowel Regimen. Virgen catheter inserted for urinary retention. Dr. Seymour consulted. Dispo: [facility] if possible vs. SNF for Rehab pending progress with PT/OT (2) Prostate cancer: Code(s): C61 - Malignant neoplasm of prostate Status: Acute Assessment and Plan: Patient has a history of prostate CA. History of surgery by Dr. Seymour with Space Oar placement in December 2020. Difficulty with post op urinary retention. Appreciate urology recommendations. Plan for void trial again today. If no improvement, plan for reinsertion of Virgen catheter and follow up with Dr. Seymour in one week. Patient also started on tamsulosin daily at bed. (3) Abnormal PSA: Code(s): R97.20 - Elevated prostate specific antigen [PSA] Status: Acute Additional Plan Reviewed postoperative exam and findings with attending MD, Dr. Trivedi. No further recommendations. Agrees with plan of care. Subjective Subjective Date/Time Seen: 02/13/22 09:15 Post Op day: 2 Interval history: POD #2: Left TERESA Patient reports pain today, improvement with medications. Awaiting repeat void trial under direction of urology. Hopeful for discharge to acute rehab facility. No new concerns. Review of Systems Constitutional: Constitutional: Denies chills, Denies fatigue, Denies fever(s), Denies night sweats and Denies weakness Cardiovascular: Cardiovascular: Denies chest pain, Denies lightheadedness, Denies palpitations and Denies dyspnea Respiratory: Respiratory: Denies cough, Denies dyspnea and Denies wheezing Gastrointestinal: Gastrointestinal: Denies abdominal pain, Denies diarrhea, Denies nausea and Denies vomiting Musculoskeletal: Musculoskeletal: Reports arthralgias (left hip ), Reports joint swelling (left hip ) and Denies numbness Neurologic: Denies numbness and Denies weakness Endocrine: Endocrine: Denies fatigue and Denies palpitations Allergic/Immunologic: Allergic/Immunologic: Denies wheezing Exam Const: General: comfortable and no acute distress Resp: Effort & Inspection: normal respiratory effort Cardio: Rate: regular rate Rhythm: regular rhythm GI: Inspection: non-distended Skin: General skin exam: normal color Wounds: wounds noted (incision left hip C/D/I ) Extrem: Right lower extremity: normal to inspection, full ROM and normal capillary refill Left lower extremity: hip/thigh Details: tenderness Location: of the hip Location: laterally and anteriorly, swelling (thigh soft ) Location: of the hip (lateral. ), abnormal ROM (limitations with internal/external rotation and flexion/extension due to recent surgical intervention ) and other (incision lateral hip c/d/i. ), knee Details: normal to inspection and normal ROM; no tenderness and no swelling, lower leg (Negative Ollie's Sign ) Details: no edema, ankle (+ankle dorsiflexion/plantarflexion ) Details: normal to inspection, no edema and normal ROM; no tenderness, no swelling and no warmth and foot Details: normal capillary refill, toes with normal ROM, vascular exam Details: dorsalis pedis pulse present and motor-sensory exam light-touch normal in all toes; no tenderness, no ecchymosis and no crepitus Psych: Mental Status: mental status grossly normal Affect: normal affect Objective Data Vital Signs Vital Signs: Vital Signs - 24 hr 02/12/22 12:52 02/12/22 20:00 02/13/22 00:00 Temperature 37.0 C 36.9 C 36.3 C L P
[2022-02-13 10:05] VITALS: BP 106/64; PULSE 73; RESP 18; TEMP 36.2; O2SAT 99
[2022-02-13] MEDS: HYDROcodone/acetaminophen (*CRX) 7.5-325 MG TABLET 1 TAB PO (11:01)
[2022-02-13] MEDS: INSULIN ASPART (*BKC) 100 UNITS/ML SUB-Q (12:28)
[2022-02-13 13:02] LABS: Glucose Point of Care 277 mg/dl (65-105)
[2022-02-13 13:38] LABS: Glucose Point of Care 267 mg/dl (65-105)
[2022-02-13 15:00] VITALS: BP 106/60; PULSE 82; RESP 14; TEMP 36.8; O2SAT 98
[2022-02-13 17:35] LABS: Glucose Point of Care 128 mg/dl (65-105)
[2022-02-13 19:00] VITALS: BP 121/63; PULSE 89; RESP 12; TEMP 36.1; O2SAT 100
[2022-02-13 20:00] VITALS: BP 149/44; PULSE 73; RESP 16; TEMP 37.1; O2SAT 97
[2022-02-13] MEDS: TAMSULOSIN HCL 0.4 MG CAPSULE PO (20:17)
[2022-02-13] MEDS: INSULIN GLARGINE (*BKC) 100 UNITS/ML SUB-Q (20:18)
[2022-02-13 20:34] LABS: Glucose Point of Care 177 mg/dl (65-105)
[2022-02-14] VITALS: BP 129/66; PULSE 80; RESP 16; TEMP 36.1; O2SAT 98
[2022-02-14 06:00] VITALS: BP 127/69; PULSE 82; RESP 16; TEMP 36.2; O2SAT 96
[2022-02-14 07:50] LABS: Glucose Point of Care 141 mg/dl (65-105)
[2022-02-14] MEDS: LOSARTAN POTASSIUM 50 MG TABLET PO (08:30)
[2022-02-14] MEDS: ASPIRIN 325 MG ENTERIC TABLET 650 MG PO (08:31)
[2022-02-14] MEDS: CHOLECALCIFEROL 1,000 UNITS TABLET 5000 UNITS PO (08:31)
[2022-02-14] MEDS: CELECOXIB 200 MG CAPSULE PO (08:31)
[2022-02-14] MEDS: SENNA/DOCUSATE SODIUM TABLET 2 TAB PO (08:31)
[2022-02-14] MEDS: metFORMIN HCL 500 MG TABLET PO (08:31)
[2022-02-14] MEDS: hydroCHLOROthiazide 25 MG TABLET PO (08:31)
[2022-02-14] MEDS: VITAMIN B COMPLEX CAPSULE 1 CAP PO (08:31)
[2022-02-14] MEDS: MAGNESIUM OXIDE 400 MG TABLET PO (08:31)
[2022-02-14] MEDS: FLUTICASONE PROPIONATE 0.05% NA SPR 16 GM BTL (*BKC) 2 SPRAY NASAL (08:32)
[2022-02-14] MEDS: HYDROcodone/acetaminophen (*CRX) 7.5-325 MG TABLET 1 TAB PO (08:37)
[2022-02-14] MEDS: polyethylene glycoL 3350 17 GM POWD.PACK PO (08:38)
[2022-02-14 10:25] VITALS: BP 104/53; PULSE 80; RESP 20; TEMP 36.8; O2SAT 98
[2022-02-14 11:31] LABS: Glucose Point of Care 194 mg/dl (65-105)
--- NOTE | 2022-02-14 12:58 | PM.IMPN ---
Subjective Date/time seen: 02/14/22 12:58 Objective Data Vital Signs Vital Signs: Vital Signs - 24 hr 02/13/22 15:00 02/13/22 19:00 02/13/22 20:00 Temperature 98.3 F 96.9 F L 98.7 F Pulse Rate 82 89 73 Respiratory Rate 14 12 16 Blood Pressure 106/60 121/63 149/44 H Pulse Oximetry 98 100 97 02/14/22 00:00 02/14/22 06:00 02/14/22 10:25 Temperature 97.0 F L 97.1 F L 98.3 F Pulse Rate 80 82 80 Respiratory Rate 16 16 20 Blood Pressure 129/66 127/69 104/53 L Pulse Oximetry 98 96 98 Intake/Output Intake/Output: Intake & Output 02/11/22 02/12/22 02/13/22 02/14/22 23:59 23:59 23:59 23:59 Intake Total 2340 1510 1470 50 Output Total 550 1550 1950 800 Balance 8752 -45 -782 -446 Meds/Results Medications: Active Medications Generic Name Dose Route Start Last Admin Trade Name Freq PRN Reason Stop Dose Admin Acetaminophen 650 mg 02/11/22 16:54 02/12/22 18:11 Acetaminophen 325 Mg Tablet PO 650 mg Q6H PRN Administration Pain Rated 1-3 Hydrocodone Bitart/Acetaminophen 1 tab 02/11/22 11:07 02/14/22 08:37 Hydrocodone/Acetaminophen (*Crx) 7.5-325 Mg Tablet PO 1 tab Q3H PRN Administration Pain Rated 4-6 Aspirin 650 mg 02/12/22 09:00 02/14/22 08:31 Aspirin 325 Mg Enteric Tablet PO 650 mg DAILY ASA Administration Celecoxib 200 mg 02/12/22 09:00 02/14/22 08:31 Celecoxib 200 Mg Capsule PO 200 mg DAILY ASA Administration Dextrose 12.5 gm 02/11/22 19:37 Dextrose 50% 25 Gm/50 Ml Syringe IV PUSH PRN PRN Hypoglycemia Protocol Diazepam 5 mg 02/11/22 11:07 Diazepam (*Crx) 5 Mg Tablet PO Q6H PRN Anxiety/Muscle Spasm Fluticasone Propionate 2 spray 02/12/22 09:00 02/14/22 08:32 Fluticasone Propionate 0.05% Na Spr 16 Gm Btl (*Bkc) NASAL 2 spray DAILY ASA Administration Glucagon 1 mg 02/11/22 19:37 Glucagon For Inj 1 Mg Vial IM PRN PRN Hypoglycemia Protocol Glucose 15 gm 02/11/22 19:37 Glucose Oral Gel 15 Gm Of Glucse In 37.5 Gm Tube PO PRN PRN Hypoglycemia Protocol Hydrochlorothiazide 25 mg 02/12/22 09:00 02/14/22 08:31 Hydrochlorothiazide 25 Mg Tablet PO 25 mg DAILY ASA Administration Hydroxyzine HCl 50 mg 02/11/22 11:07 Hydroxyzine Hcl 25 Mg Tablet PO Q4H PRN Itching Dextrose 1,000 mls @ 100 mls/hr 02/11/22 19:37 Dextrose 5% 1,000 Ml IVPB PRN PRN Hypoglycemia Protocol Insulin Aspart 3 - 6 units 02/12/22 08:00 02/14/22 11:28 Insulin Aspart (*Bkc) 100 Units/Ml SUB-Q Not Given TIDWM ASA Protocol Insulin Glargine 5 units 02/13/22 21:00 02/13/22 20:18 Insulin Glargine (*Bkc) 100 Units/Ml SUB-Q 5 units HS ASA Administration Losartan Potassium 50 mg 02/12/22 09:00 02/14/22 08:30 Losartan Potassium 50 Mg Tablet PO 50 mg DAILY ASA Administration Magnesium Oxide 400 mg 02/12/22 09:00 02/14/22 08:31 Magnesium Oxide 400 Mg Tablet PO 400 mg DAILY ASA Administration Metformin HCl 500 mg 02/14/22 08:00 02/14/22 08:31 Metformin Hcl 500 Mg Tablet PO 500 mg BIDWM ASA Administration Morphine Sulfate 3 mg 02/11/22 11:07 Morphine Sulfate (*Crx) 4 Mg/Ml Inj IV PUSH Q3H PRN Pain Rated 7-10 Naloxone HCl 0.1 mg 02/11/22 11:07 Naloxone Hcl 0.4 Mg/Ml Vial IV PUSH Q2M PRN Opiate Reversal Ondansetron HCl 4 mg 02/11/22 11:07 Ondansetron Inj 4 Mg/2 Ml Vial IV PUSH Q4H PRN Nausea And Vomiting Polyethylene Glycol 17 gm 02/12/22 09:00 02/14/22 08:38 Polyethylene Glycol 3350 17 Gm Powd.Pack PO 17 gm QAM ASA Administration Senna/Docusate Sodium 2 tab 02/11/22 17:00 02/14/22 08:31 Senna/Docusate Sodium Tablet PO 2 tab BID ASA Administration Tamsulosin HCl 0.4 mg 02/12/22 21:00 02/13/22 20:17 Tamsulosin Hcl 0.4 Mg Capsule PO 0.4 mg BEDTIME ASA Administration Vitamin B Complex 1 cap 02/12/22 09:00 02/14/22 08:31
[2022-02-14 13:29] LABS: EDCOVIDSCREEN Negative (Negative)
--- NOTE | 2022-02-14 16:53 | PM.DS ---
DS: Summary Time Spent with Patient Time attestation: Total time spent providing and/or coordinating discharge services: DS: Data Data Completed and Pending Labs on day of discharge: Labs from last 24 hours 02/14/22 02/14/22 02/14/22 13:08 11:27 07:41 POC Capillary Glucose 194 H 141 H SARS-CoV-2 IgG/IgM Ag?Rapid Negative 02/13/22 02/13/22 20:16 16:33 POC Capillary Glucose 177 H 128 H SARS-CoV-2 IgG/IgM Ag?Rapid Discharge Plan Discharge Attending physician on discharge: Aniket Trivedi Consulting providers: Kasey Vo ; Sudhir Mullins Discharging Clinician: Michaela Carroll Anticipated Discharge Date/Time: 02/14/22 12:38 Patient Disposition: SNF Activity: may shower, no driving and follow weight bearing status Diet: diabetic and low sodium Wound Care Instructions: follow printed instructions Discharge Instructions: Post Op Total Hip Replacement Instructions Dr. Aniket Trivedi [phone] ? Your dressing will be changed prior to your discharge. You will be sent home with one additional dressing to be changed on post op day 7 by the home health RN. You may remove the dressing on post op day 14. Your incision was closed with dermabond, allow the dermabond to fall off naturally once your dressing is removed. Do not pull at the dermabond or disrupt incision healing. ? You may shower with your dressing but do not submerge in a bath tub. ? Do not drive or operate machinery until you are released by Dr. Trivedi. ? Do not walk without a walker for any reason until you are released by Dr. Trivedi. ? Continue to apply ice to the hip intermittently for additional pain relief. Protect your skin with a towel or pillow case. ? Continue to follow strict total hip replacement precautions. ? Your first post op appointment was sent to you via mail preoperatively. If you have any questions or are unable to make your appointment, please contact our office for scheduling questions. ? Your medications have been sent to your pharmacy. You have been sent home with pain medication. We have also sent you with a stool softener as narcotics can cause constipation. Please keep this in mind during your postoperative recovery. If you are not experiencing regular bowel movements, please contact our office for further instruction. ? Please contact our office with any questions/concerns regarding your hip at [phone]. Continue Virgen catheter until re-evaluated by Dr. Seymour next week. Monitor for signs and symptoms of infection. Avoid NSAIDs due to chronic kidney disease. Recommend Tylenol and hydrocodone with acetaminophen as needed for pain control. Recommend staying hydrated to prevent further kidney injury. Patient Instructions: Hydrocodone/Acetaminophen (By mouth), Pain Management (DC), Precautions after Total Joint Replacement Surgery (DC), Joint Replacement Surgery (DC) Stand Alone Forms: General Discharge Information, Mcfp Discharge Follow-up/Referrals: Aniket Trivedi MD [Physician] - Keep Reg. Scheduled Appt. Yaakov Seymour MD [Physician] - 1 Week (Call for an appt. ) Discharge Medications: New sennosides-docusate sodium [Senokot-S] 8.6-50 mg Tablet 1 tablet PO BID 30 Days Qty: 60 RF: 0 aspirin 325 mg Tablet,Delayed Release (Dr/Ec) 650 mg PO DAILY 28 Days Qty: 56 RF: 0 tamsulosin 0.4 mg Capsule 0.4 mg PO BEDTIME 30 Days Qty: 30 RF: 0 acetaminophen [Mapap (acetaminophen)] 325 mg Tablet 650 mg PO Q6H MDD 3 grams acetaminophen per day PRN (Reason: Pain Rated 1-3) Qty: 30 RF: 0 Lantus U-100 Insulin 100 unit/mL Solution 5 unit subcut HS Qty: 10 RF: 0 metformin 500 mg tablet 500 mg PO BID Qty: 60 RF: 0 hydrocodone-acetaminophen 7.5-325 mg tablet 1 tablet PO Q4-6H PRN (Reason: pain) Qty: 10 RF: 0 polyethylene glycol 3350 [Miralax] 17 gram Powder In Packet 17 g PO QAM Qty: 14 RF: 0 Continued (DME) Prec[employer] X[employer] Test S
--- NOTE | 2022-02-15 07:05 | PM.IMPN ---
Progress Note: A&P Assessment and Plan (1) S/P total hip arthroplasty: Qualifiers: Laterality: left Qualified Code(s): Z96.642 - Presence of left artificial hip joint Code(s): Z96.649 - Presence of unspecified artificial hip joint Status: Acute Assessment and Plan: -POD #3 s/p L TERESA by Dr. Trivedi -DVT prophylaxis, pain control, discharge planning per ortho (2) HTN (hypertension): Qualifiers: Hypertension type: essential hypertension Qualified Code(s): I10 - Essential (primary) hypertension Code(s): I10 - Essential (primary) hypertension Status: Acute Assessment and Plan: -stable -continue home meds (3) Diabetes mellitus: Qualifiers: Diabetes mellitus type: type 2 Diabetes mellitus penitentiary insulin use: without penitentiary use Diabetes mellitus complication status: without complication Qualified Code(s): E11.9 - Type 2 diabetes mellitus without complications Code(s): E11.9 - Type 2 diabetes mellitus without complications Status: Acute Assessment and Plan: -continue metformin; dosage decreased to 500 mg BID d/t CrCl<45 -moderate dose SS with accuchecks ACHS and hypoglycemic protocol -Pt's fasting glucose improved & <200 mg/dL after initiation of lantus 5 units yesterday. Continue for 24-48 hours and adjust dose if still not at goal. -A1c 7.2% this month and improved from November. (4) Atrial fibrillation: Qualifiers: Atrial fibrillation type: unspecified chronic Qualified Code(s): I48.20 - Chronic atrial fibrillation, unspecified Code(s): I48.91 - Unspecified atrial fibrillation Status: Acute Assessment and Plan: -hx of paroxysmal afib, regular at this time. -He is not on any rate-controlling medications and anticoagulation dc'd [place] [address] Guardado (5) CKD (chronic kidney disease): Code(s): N18.9 - Chronic kidney disease, unspecified Status: Inactive Assessment and Plan: -stable. At baseline renal function- BUN 34, creatinine 1.9 (baseline 1.5-2.0) and GFR 42 -followed by Dr. Vazquez outpatient. -Metformin adjusted for CrCl. -Avoid NSAIDs, dehydration and nephrotoxic agents. (6) SIMON (obstructive sleep apnea): Code(s): G47.33 - Obstructive sleep apnea (adult) (pediatric) Status: Inactive Assessment and Plan: -Intermittent CPAP use at home. Encourage use. -CPAP ordered while inpatient (7) COPD (chronic obstructive pulmonary disease): Qualifiers: COPD type: unspecified COPD Qualified Code(s): J44.9 - Chronic obstructive pulmonary disease, unspecified Code(s): J44.9 - Chronic obstructive pulmonary disease, unspecified Status: Inactive Assessment and Plan: -not in acute exacerbation. Monitor for respiratory complications. He is not a current smoker; quit 01/2022 -noted to have 60 pack-year smoking history. Additional Plan Patient is hemodynamically stable and plans for discharge today to SNF rehab. Chronic medical comorbidities stable without further medication adjustments postop. Hospitalist team will sign off at this time. Time Spent With Patient Time with patient: 15 - 25 minutes Subjective Date/time seen: LATE ENTRY FOR 02/14/22 16:53 Patient found sitting up in the chair watching television. He reports left hip pain is moderate, but controlled with current pain medications and he is able to participate in therapy. He had a BM yesterday. No c/o SOB, paresthesia, abdominal pain, nausea or emesis. He denies overnight events or new complaints. Review of Systems Review of Systems: All systems reviewed & are unremarkable except as noted in HPI and below Musculoskeletal: Musculoskeletal: Reports limited range of motion (Left hip pain), Denies numbness, Denies radiating pain into limb and Denies tingling Exam Const: General: comfortable and no acute distress Orientati
--- NOTE | 2022-02-26 08:34 | PM.DS ---
DS: Admitting Diagnosis Discharge Date 02/14/22 Admitting Diagnosis Left Hip DJD DS: Discharge Diagnosis Discharge Diagnosis Plan (1) S/P total hip arthroplasty: ?Qualifiers: ?Laterality:?left? Qualified Code(s):?Z96.642 - Presence of left artificial hip joint ?Code(s): Z96.649 - Presence of unspecified artificial hip joint ?Status:?Acute ?Assessment and Plan: POD #2: L TERESA Slow progress with PT/OT. Continue PT/OT. WBAT. Walker. HIGH FALL RISK. Continue pain control. Ice lateral hip. Protect skin. DVT prophylaxis with Aspirin. SCDs. Incentive Spirometry Use reviewed. Monitor Dressing. Change prior to discharge. Bowel Regimen. Stewart catheter inserted for urinary retention. Dr. Seymour consulted. Dispo: [facility] if possible vs. SNF for Rehab pending progress with PT/OT (2) Prostate cancer: ?Code(s): C61 - Malignant neoplasm of prostate ?Status:?Acute ?Assessment and Plan: Patient has a history of prostate CA. History of surgery by Dr. Seymour with Space Oar placement in December 2020. Difficulty with post op urinary retention. Appreciate urology recommendations. Plan for void trial again today. If no improvement, plan for reinsertion of Stewart catheter and follow up with Dr. Seymour in one week. Patient also started on tamsulosin daily at bed. (3) Abnormal PSA: ?Code(s): R97.20 - Elevated prostate specific antigen [PSA] ?Status:?Acute Additional Plan Reviewed postoperative exam and findings with attending MD, Dr. Trivedi. No further recommendations. Agrees with plan of care. DS: Summary Hospital Course Reason for hospitalization: Left TERESA Hospital Course: 81 year old male admitted s/p left TERESA for postoperative medical management, pain control and mobilization with PT/OT. Patient had difficulty with postoperative urinary retention. He has a history of prostate CA and is treated by Dr. Seymour with the urology team. He underwent foil insertion and two void trials which were unsuccessful during hospitalization. Urology was consulted by the orthopedic service. Patient was instructed to keep stewart catheter in and continue Flomax. He did progress well in regards to his hip. Pain well controlled prior to discharge. Patient would benefit from [facility] for further mobilization prior to returning home. Patient has been cleared by urology, PT/OT and the medicine team for discharge. He will follow up with urology for further instruction. Patient to follow up in the outpatient orthopedic clinic as scheduled. Status at Discharge Functional status at discharge: uses cane/walker Overall status at discharge: patient is progressing back to baseline Time Spent with Patient Time attestation: Total time spent providing and/or coordinating discharge services: Exam Const: General: comfortable and no acute distress Resp: Effort & Inspection: normal respiratory effort Cardio: Rate: regular rate Rhythm: regular rhythm GI: Inspection: non-distended Skin: General skin exam: normal color Wounds: wounds noted (incision left hip C/D/I ) Extrem: Right lower extremity: normal to inspection, full ROM and normal capillary refill Left lower extremity: hip/thigh Details: tenderness Location: of the hip Location: laterally and anteriorly, swelling (thigh soft ) Location: of the hip (lateral. ), abnormal ROM (limitations with internal/external rotation and flexion/extension due to recent surgical intervention ) and other (incision lateral hip c/d/i. ), knee Details: normal to inspection and normal ROM; no tenderness and no swelling, lower leg (Negative Ollie's Sign ) Details: no edema, ankle (+ankle dorsiflexion/plantarflexion ) Details: normal to inspection, no edema and normal ROM; no tenderness, no swelling and no warmth and foot Details: normal capillary refill, toes with normal ROM, vascular exam Details: dorsalis pedis pulse present and motor-sensory exam light-touch normal in all toes; no tenderness, no ecchy
== END 2022-02-14 17:10 | DRG 470 ==
LOC: ANHSURGERY 17:56 → ANH2MED 17:56
PROVIDERS: Nurse Practitioner Adult Health; Physician Assistant; Admitting Provider Orthopaedic Surgery; PCP Family Medicine; Visit Provider Nurse Practitioner Family
PROC: 0SRB04A Replacement of Left Hip Joint with Ceramic on Polyethylene Synthetic Substitute, Uncemented, Open Approach (ICD-10-PCS; CPT 27130; principal; 2022-02-11 07:30)
DX: M16.12 Unilateral primary osteoarthritis, left hip (principal); N99.89 Other postprocedural complications and disorders of genitourinary system; R33.8 Other retention of urine; C61 Malignant neoplasm of prostate; R97.20 Elevated prostate specific antigen [PSA]; Z20.822 Contact with and (suspected) exposure to COVID-19; E11.22 Type 2 diabetes mellitus with diabetic chronic kidney disease; I12.9 Hypertensive chronic kidney disease with stage 1 through stage 4 chronic kidney disease, or unspecified chronic kidney disease; N18.9 Chronic kidney disease, unspecified; I48.91 Unspecified atrial fibrillation; J44.9 Chronic obstructive pulmonary disease, unspecified; E78.5 Hyperlipidemia, unspecified; G47.33 Obstructive sleep apnea (adult) (pediatric); Z91.81 History of falling; Z79.82 Long term (current) use of aspirin; Z79.84 Long term (current) use of oral hypoglycemic drugs; Z79.899 Other long term (current) drug therapy; Z86.73 Personal history of transient ischemic attack (TIA), and cerebral infarction without residual deficits; Z87.891 Personal history of nicotine dependence; Z92.3 Personal history of irradiation
CPT/HCPCS: 36415; 73501; 80048; 82948; 85025; 87426; 97110; 97116; 97161; 97165; 97530; 97535; A9270; C1776; C9803; G0378; J0171; J0690; J1100; J1815; J1885; J2270; J2405; J2704; J2710; J2795; J3010; J7120

== ENCOUNTER 2022-02-22 00:04 | Emergency (ER) | payer MEDICARE, OTHER, SELFPAY ==
[2022-02-22 00:04] VITALS: BP 149/85; PULSE 94; RESP 16; TEMP 37.2; O2SAT 100
--- NOTE | 2022-02-22 00:23 | ED.MALEGU ---
HPI - Male Genitourinary General Chief complaint: Urogenital-Male Stated complaint: URINARY CATH PAIN/DISCHARGE Time Seen by Provider: 02/22/22 00:08 Source: patient History of Present Illness HPI Narrative: Patient presents with pain around his Virgen catheter. Reports his pain is intermittent sharp no clear aggravating relieving factors, no radiation. Triggered with your and goes through his catheter. Recent hip surgery he has a history of prostate cancer requiring radiation therapy he has had chronic indwelling Virgen catheter since his surgery earlier this month with plans for a void trial at a later date after follow-up with urology. Related Data Home Medications Medication Instructions Recorded Confirmed cholecalciferol (vitamin D3) 125 mcg PO DAILY 02/04/22 02/19/22 hydrochlorothiazide 25 mg PO DAILY 02/04/22 02/11/22 losartan 50 mg PO DAILY 02/04/22 02/19/22 magnesium 400 mg PO DAILY 02/04/22 02/19/22 vitamin B complex 1 cap PO DAILY 02/04/22 02/19/22 metformin 1,000 mg PO BID 02/19/22 02/19/22 Allergies Allergy/AdvReac Type Severity Reaction Status Date / Time milk AdvReac Mild Nausea, Verified 02/22/22 00:16 DIARRHEA amlodipine AdvReac Unknown Weakness Verified 02/22/22 00:16 carvedilol AdvReac Unknown Weakness Verified 02/22/22 00:16 lisinopril AdvReac Unknown Weakness Verified 02/22/22 00:16 Tsvhcup-YKJ-TbV Reductase AdvReac Unknown Muscle Pain Verified 02/22/22 00:16 Inhibitor [Guzknuk-Aoc-Jsh Reductase Inhibitor] Review of Systems Review of Systems: CONSTITUTIONAL: Denies fever, chills, or sweats. EYES: Denies visual changes, redness, or discharge. ENT: Denies rhinorrhea, congestion, sore throat, or otalgia. CARDIOVASCULAR: Denies chest pain, palpitations, or edema. RESPIRATORY: Denies cough or dyspnea. GASTROINTESTINAL: Denies nausea, vomiting, or diarrhea. GENITOURINARY: Denies dysuria or hematuria. SKIN: Denies rash or itching. MUSCULOSKELETAL: Denies back pain, joint pain, or myalgia. NEUROLOGIC: Denies headache, numbness, dizziness, or weakness. PSYCHIATRIC: Denies anxiety or depression. All systems reviewed & are unremarkable except as noted in HPI and below PMFSH Past Medical History Medical History Atrial fibrillation Chronic kidney disease CKD (chronic kidney disease) COPD (chronic obstructive pulmonary disease) CVA (cerebral vascular accident) Diabetes mellitus HLD (hyperlipidemia) HTN (hypertension) SIMON (obstructive sleep apnea) Prostate cancer Sleep apnea Surgical History Surgical History S/P total hip arthroplasty Family History Family History Sibling Patient's brother is in good health Family history of diabetes mellitus in first degree relative Family history of malignant neoplasm Mother Family history of malignant neoplasm Father Patient's father is Acute myocardial infarction Other Diabetes mellitus Hypertension Social History Social History Smoking packs per day: 1 Smoking cigarettes per day: 20.0 Years smoked: 60 Smoking pack-years: 60.00 Smoking status: Former smoker Tobacco type: cigarettes Smoking end date: 01/02/22 Additional smoking assessment comments: DENIES ANY FORM OF TOBACCO USE Alcohol intake: former Drinks per week: 6 Alcohol use details: STOPPED DRINKING 2020 Substance use: never Gender identity (if verbalized by the patient): Female Spiritual care concerns: No Exam Narrative: GENERAL: Well-appearing, well-nourished, and in no acute distress. HEAD: Normocephalic, atraumatic. EYES: PERRLA and EOMI. ENT: Nares clear, no rhinorrhea or epistaxis. Mucous membranes moist. NECK: Supple. No masses. No JVD ABDOMEN: Mild suprapubic tenderness soft, no
[2022-02-22 00:49] LABS: Basophils Percent Auto 0.2 % (0.2-1.2); Hematocrit 33.2 % (42.0-52.0); Hemoglobin 10.5 g/dL (14.0-18.0); Immature Granulocyte Absolute 0.06 K/mm3 (0.00-0.031); Immature Granulocyte Percent A 0.6 % (0-0.5); Lymphocytes Absolute Auto 0.34 K/mm3 (0.9-3.2); Lymphocytes Percent Auto 3.4 % (18.3-44.2); Mean Corpuscular HGB Conc 31.6 g/dl (32-36); Mean Corpuscular Hemoglobin 29.5 pg (26-34); Mean Corpuscular Volume 93.3 fl (80-100); Mean Platelet Volume 10.9 fl (7.4-10.4); Monocytes Absolute Auto 0.6 K/mm3 (0.1-0.6); Monocytes Percent Auto 5.5 % (2.6-8.5); Neutrophils Absolute Auto 9.1 K/mm3 (1.3-6.7); Neutrophils Percent Auto 90.3 % (45.5-73.1); Platelet Count Result 398 k/mm3 (150-375); Red Blood Count 3.56 M/mm3 (4.6-6.20); Red Cell Distribution Width 14.1 % (11.5-14.5); White Blood Count 10.1 K/mm3 (4.5-10.0)
[2022-02-22 00:50] LABS: Appearance Urine Slightly Cloudy (Clear); Bilirubin Urine 1+ (Negative); Blood Urine 3+ (Negative); Color Urine Other (Yellow); Glucose Urine UA Negative (Negative); Ketones Urine Trace mg/dL (Negative); Leukocyte Esterase Ur 1+ LEU/UL (Negative); Nitrate Urine Negative (Negative); Protein Urine 2+ mg/dL (Negative); Specific Grav Ur >= 1.030 (1.001-1.035); Urobilinogen Urine 0.2 mg/dL (<2.0)
[2022-02-22 00:57] LABS: Calcium Oxalate Crystals Urine Many /hpf; Mucus Urine Few /lpf; RBC Urine >75 /hpf (0-2); WBC Urine 21-30 /hpf
[2022-02-22 00:58] LABS: Add Urine Microscopic? YES; Alanine Aminotransferase 21 U/L (6-50); Albumin Level 3.9 g/dL (3.5-5.1); Alkaline Phosphatase 94 U/L (38-126); Anion Gap 13 mmol/L (8-16); Aspartate Amino Transferase 28 U/L (17-59); Bilirubin,Total 0.4 mg/dL (0.2-1.3); Blood Urea Nitrogen 39 mg/dL (9-20); Calcium 8.7 mg/dL (8.4-10.2); Carbon Dioxide 21 mmol/L (22-30); Chloride 97 mmol/L (98-107); Estimated CRCL calculation 21 ml/min; Estimated Glomerular Filt Rate 23; Glucose 330 mg/dL (65-110); Potassium 5.2 mmol/L (3.4-5.0); Sodium 131 mmol/L (137-145)
--- NOTE | 2022-02-22 01:39 | PC.NURSE ---
300 ml of fluid pushed into bladder through catheter, then catheter removed per EDP selam for voiding trial.
[2022-02-22] MEDS: CEPHALEXIN 500 MG CAPSULE PO (02:43)
[2022-02-22 02:44] VITALS: BP 134/91; PULSE 78; RESP 16; O2SAT 100
== END 2022-02-22 02:23 | disposition home or self-care (01) ==
PROVIDERS: Emergency Provider Emergency Medicine; PCP Family Medicine
DX: N39.0 Urinary tract infection, site not specified (principal); N32.89 Other specified disorders of bladder; C61 Malignant neoplasm of prostate; I12.9 Hypertensive chronic kidney disease with stage 1 through stage 4 chronic kidney disease, or unspecified chronic kidney disease; E11.22 Type 2 diabetes mellitus with diabetic chronic kidney disease; N18.9 Chronic kidney disease, unspecified; J44.9 Chronic obstructive pulmonary disease, unspecified; I48.91 Unspecified atrial fibrillation; Z87.891 Personal history of nicotine dependence
CPT/HCPCS: 36415; 80053; 81001; 85025; 87086; 99283; A9270

== ENCOUNTER 2022-03-18 12:19 | Outpatient (CLI) | payer MEDICARE, OTHER, SELFPAY ==
[2022-03-18 13:03] LABS: Hematocrit 34.2 % (42.0-52.0); Hemoglobin 10.7 g/dL (14.0-18.0); Mean Corpuscular HGB Conc 31.3 g/dl (32-36); Mean Corpuscular Volume 92.7 fl (80-100); Mean Platelet Volume 11.3 fl (7.4-10.4); Platelet Count Result 259 k/mm3 (150-375); Red Blood Count 3.69 M/mm3 (4.6-6.20); Red Cell Distribution Width 14.8 % (11.5-14.5); White Blood Count 7.2 K/mm3 (4.5-10.0)
[2022-03-18 13:05] LABS: Anion Gap 6 mmol/L (8-16); Blood Urea Nitrogen 22 mg/dL (9-20); Calcium 8.8 mg/dL (8.4-10.2); Carbon Dioxide 26 mmol/L (22-30); Chloride 108 mmol/L (98-107); Estimated Glomerular Filt Rate 42; Glucose 160 mg/dL (65-110); Phosphorus 3.7 mg/dL (2.5-4.5); Potassium 4.2 mmol/L (3.4-5.0); Sodium 140 mmol/L (137-145)
[2022-03-18 13:17] LABS: Parathyroid Intact 64.8 pg/mL (7.5-53.5)
== END 2022-03-18 12:20 | disposition home or self-care (01) ==
LOC: ANHLAB 12:24
PROVIDERS: PCP Family Medicine; Visit Provider Internal Medicine Nephrology
DX: N18.32 Chronic kidney disease, stage 3b (principal)
CPT/HCPCS: 36415; 80069; 83970; 85027

== ENCOUNTER 2022-03-19 07:21 | Outpatient (CLI) | payer MEDICARE, OTHER, SELFPAY ==
[2022-03-19 08:11] LABS: Creatinine Urine 140.2 mg/dL; Total Protein Urine Random 12 mg/dL; Ur Ttl Prot Creatinine Ratio 0.09 mg/mg (0-0.20)
== END 2022-03-19 07:22 | disposition home or self-care (01) ==
PROVIDERS: PCP Family Medicine; Visit Provider Internal Medicine Nephrology
DX: N18.32 Chronic kidney disease, stage 3b (principal)
CPT/HCPCS: 82570; 84156

== ENCOUNTER 2022-06-30 11:42 | Outpatient (CLI) | payer MEDICARE, OTHER, SELFPAY ==
[2022-06-30 12:35] LABS: Anion Gap 11 mmol/L (8-16); Blood Urea Nitrogen 22 mg/dL (9-20); Calcium 9.1 mg/dL (8.4-10.2); Carbon Dioxide 28 mmol/L (22-30); Chloride 98 mmol/L (98-107); Estimated Glomerular Filt Rate 29; Glucose 302 mg/dL (65-110); Phosphorus 4.2 mg/dL (2.5-4.5); Potassium 4.7 mmol/L (3.4-5.0); Sodium 137 mmol/L (137-145)
[2022-06-30 12:36] LABS: Creatinine Urine 252.3 mg/dL; Total Protein Urine Random 17 mg/dL; Ur Ttl Prot Creatinine Ratio 0.07 mg/mg (0-0.20)
== END 2022-06-30 11:43 | disposition home or self-care (01) ==
LOC: ANHLAB 11:45
PROVIDERS: PCP Family Medicine; Visit Provider Internal Medicine Nephrology
DX: N18.31 Chronic kidney disease, stage 3a (principal)
CPT/HCPCS: 36415; 80069; 82570; 84156

== ENCOUNTER 2022-08-14 09:43 | Outpatient (CLI) | payer MEDICARE, OTHER, SELFPAY ==
[2022-08-14 10:36] LABS: Basophils Percent Auto 0.4 % (0.2-1.2); Eosinophils Absolute Auto 0.1 K/mm3 (0-0.3); Hematocrit 41.1 % (42.0-52.0); Hemoglobin 13.5 g/dL (14.0-18.0); Immature Granulocyte Absolute 0.04 K/mm3 (0.00-0.031); Immature Granulocyte Percent A 0.4 % (0-0.5); Lymphocytes Absolute Auto 1.52 K/mm3 (0.9-3.2); Lymphocytes Percent Auto 16.2 % (18.3-44.2); Mean Corpuscular HGB Conc 32.8 g/dl (32-36); Mean Corpuscular Hemoglobin 29.9 pg (26-34); Mean Corpuscular Volume 91.1 fl (80-100); Mean Platelet Volume 12.4 fl (7.4-10.4); Monocytes Percent Auto 10.6 % (2.6-8.5); Neutrophils Absolute Auto 6.7 K/mm3 (1.3-6.7); Neutrophils Percent Auto 71.4 % (45.5-73.1); Platelet Count Result 272 k/mm3 (150-375); Red Blood Count 4.51 M/mm3 (4.6-6.20); Red Cell Distribution Width 13.4 % (11.5-14.5); White Blood Count 9.4 K/mm3 (4.5-10.0)
[2022-08-14 10:52] LABS: Alanine Aminotransferase 19 U/L (6-50); Albumin Level 3.9 g/dL (3.5-5.1); Alkaline Phosphatase 119 U/L (38-126); Anion Gap 8 mmol/L (8-16); Aspartate Amino Transferase 20 U/L (17-59); Bilirubin,Total 0.8 mg/dL (0.2-1.3); Blood Urea Nitrogen 28 mg/dL (9-20); Calcium 9.1 mg/dL (8.4-10.2); Carbon Dioxide 27 mmol/L (22-30); Chloride 99 mmol/L (98-107); Cholesterol 210 mg/dL (0-200); Estimated Glomerular Filt Rate 33; Glucose 277 mg/dL (65-110); HDL Direct 50 mg/dL; Potassium 4.4 mmol/L (3.4-5.0); Sodium 134 mmol/L (137-145); Triglycerides 154 mg/dL (<150)
[2022-08-14 10:54] LABS: Iron 76 ug/dL (49-181)
[2022-08-14 10:55] LABS: Hemoglobin A1C 13.3 % (<5.7)
[2022-08-14 11:04] LABS: LDL Cholesterol Direct 106 mg/dL
[2022-08-14 11:05] LABS: Percent Iron Saturation 29 % (20-50)
[2022-08-14 11:21] LABS: Prostate Specific Antigen 0.6 ng/mL (< OR = 4.0)
[2022-08-14 11:26] LABS: Thyroid Stimulating Hormone Reflex 0.412 uIU/mL (0.465-4.68)
[2022-08-14 13:00] LABS: Free T4 Free Thyroxine Reflex 1.46 ng/dL (0.78-2.19)
[2022-08-14 14:37] LABS: Total Triiodothyronine (T3) 0.76 NG/ML (0.97-1.69)
[2022-08-18 11:59] LABS: Vitamin D 1,25 (OH)2 Total 21 pg/mL (18-72); Vitamin D2 1,25 (OH)2 <8 pg/mL; Vitamin D3 1,25 (OH)2 21 pg/mL
[2022-08-22 18:47] LABS: Parathyroid Hormone Related Pr 11 pg/mL (11-20)
== END 2022-08-14 09:44 | disposition home or self-care (01) ==
PROVIDERS: PCP Family Medicine; Visit Provider Nurse Practitioner Gerontology
DX: E55.9 Vitamin D deficiency, unspecified (principal); E11.29 Type 2 diabetes mellitus with other diabetic kidney complication; R80.9 Proteinuria, unspecified; I12.9 Hypertensive chronic kidney disease with stage 1 through stage 4 chronic kidney disease, or unspecified chronic kidney disease; N18.9 Chronic kidney disease, unspecified; I48.91 Unspecified atrial fibrillation; C61 Malignant neoplasm of prostate; R97.20 Elevated prostate specific antigen [PSA]; E78.5 Hyperlipidemia, unspecified; M79.10 Myalgia, unspecified site; Z12.5 Encounter for screening for malignant neoplasm of prostate
CPT/HCPCS: 36415; 80053; 80061; 82607; 82652; 83036; 83519; 83540; 83550; 84153; 84439; 84443; 84480; 85025; G0103

== ENCOUNTER 2022-08-22 11:55 | Emergency (ER) | payer MEDICARE, OTHER, SELFPAY ==
--- NOTE | ~2022-08-22 | CT_ITS ---
EXAMINATION: CT abdomen pelvis w con DATE: 08/22/2022 13:58 INDICATION: Intermittent abdominal pain. Diaphoresis. TECHNIQUE: Computed tomography (CT) of the abdomen and pelvis was performed with 100 mL Omnipaque-350 intravenous contrast. Automated exposure control and iterative reconstruction technique were employe d. The dose-length product was 1139.73 mGy-cm. COMPARISON: 07/15/2020 FINDINGS: Mild atelectasis in the bilateral lower lungs. Heart size is normal. Atherosclerotic coronary artery calcification and aortic valve calcification. No pericardial or pleural effusion. There are a few sub centimeter low-attenuation hepatic cysts. Gallbladder, spleen, pancreas and bilateral adrenal glands are normal. A few additional subcentimeter low-attenuation cysts at both kidneys. Mild scattered colo lula diverticulosis without adjacent inflammatory stranding to suggest diverticulitis. Small bowel and appendix are normal. Bladder is normal. 3 metallic densities either surgical clips or less likely br achytherapy seeds at the prostate. Small left and didll-sm-kuevozow right fat-containing inguinal her nias. No free intraperitoneal gas or fluid. No pathologically enlarged abdominal or pelvic lymphadeno armando. Mild lumbar dextrocurvature with mild spondylosis. Severe right hip osteoarthritis. Noncemente d left total hip arthroplasty. IMPRESSION: 1. No acute intra-abdominal/pelvic process. Reviewed, dictated and finalized at location A. ICATION DBA
[2022-08-22 11:57] VITALS: BP 172/60; PULSE 78; RESP 16; TEMP 36.8; O2SAT 100
[2022-08-22 12:28] LABS: Basophils Percent Auto 0.4 % (0.2-1.2); Eosinophils Absolute Auto 0.2 K/mm3 (0-0.3); Hematocrit 36.1 % (42.0-52.0); Hemoglobin 11.6 g/dL (14.0-18.0); Immature Granulocyte Absolute 0.03 K/mm3 (0.00-0.031); Immature Granulocyte Percent A 0.4 % (0-0.5); Lymphocytes Absolute Auto 1.35 K/mm3 (0.9-3.2); Lymphocytes Percent Auto 16.8 % (18.3-44.2); Mean Corpuscular HGB Conc 32.1 g/dl (32-36); Mean Corpuscular Hemoglobin 30.1 pg (26-34); Mean Corpuscular Volume 93.5 fl (80-100); Mean Platelet Volume 11.1 fl (7.4-10.4); Monocytes Absolute Auto 0.8 K/mm3 (0.1-0.6); Monocytes Percent Auto 9.7 % (2.6-8.5); Neutrophils Absolute Auto 5.7 K/mm3 (1.3-6.7); Neutrophils Percent Auto 70.7 % (45.5-73.1); Platelet Count Result 252 k/mm3 (150-375); Red Blood Count 3.86 M/mm3 (4.6-6.20); Red Cell Distribution Width 13.6 % (11.5-14.5)
[2022-08-22 12:31] LABS: Glucose Point of Care 68 mg/dl (65-105)
--- NOTE | 2022-08-22 12:45 | ED.ABDPAIN ---
HPI - Abdominal Pain General Chief Complaint: Abdominal Pain Stated Complaint: abd pain/sweating Time Seen by Provider: 08/22/22 12:29 History of Present Illness HPI narrative: 82-year-old male with history of hypertension, high cholesterol, diabetes presenting to the emergency department for evaluation of intermittent abdominal pain. Patient states he has had 3 prior episodes of sharp abdominal pain that does improve after taking Tums. Patient states after having this third episode he did present to his primary care physician and was found to have elevated blood sugars. This was approximately 1 week ago. At that time patient states that his insulin was increased. Patient reports that his blood sugars have been better controlled since then. Approximate 9 AM patient had a recurrence of his sharp abdominal pain. Patient did take some Tums at home and this did begin to help his pain. Patient states the sharp pain is gone but he is still having some residual abdominal pain. Related Data Home Medications Medication Instructions Recorded Confirmed cholecalciferol (vitamin D3) 125 125 mcg PO DAILY 02/04/22 08/18/22 mcg (5,000 unit) capsule hydrochlorothiazide 25 mg tablet 25 mg PO DAILY 02/04/22 08/18/22 magnesium 200 mg tablet 400 mg PO DAILY 02/04/22 08/18/22 vitamin B complex 1 cap PO DAILY 02/04/22 08/18/22 Allergies Allergy/AdvReac Type Severity Reaction Status Date / Time milk AdvReac Mild Nausea, Verified 08/22/22 12:00 DIARRHEA amlodipine AdvReac Unknown Weakness Verified 08/22/22 12:00 carvedilol AdvReac Unknown Weakness Verified 08/22/22 12:00 lisinopril AdvReac Unknown Weakness Verified 08/22/22 12:00 Miwvlef-ELL-BdR Reductase AdvReac Unknown Muscle Pain Verified 08/22/22 12:00 Inhibitor [Bnkhgpt-Bxv-Kfn Reductase Inhibitor] Review of Systems Review of Systems: CONSTITUTIONAL: Denies fever, chills, or sweats. EYES: Denies visual changes, redness, or discharge. ENT: Denies rhinorrhea, congestion, sore throat, or otalgia. CARDIOVASCULAR: Denies chest pain, palpitations, or edema. RESPIRATORY: Denies cough or dyspnea. GASTROINTESTINAL: See HPI GENITOURINARY: Denies dysuria or hematuria. SKIN: Denies rash or itching. MUSCULOSKELETAL: Denies back pain, joint pain, or myalgia. NEUROLOGIC: Denies headache, numbness, or weakness. [facility] Past Medical History Medical History Atrial fibrillation Chronic kidney disease CKD (chronic kidney disease) COPD (chronic obstructive pulmonary disease) CVA (cerebral vascular accident) Diabetes mellitus HLD (hyperlipidemia) HTN (hypertension) SIMON (obstructive sleep apnea) Prostate cancer Sleep apnea Surgical History Surgical History S/P total hip arthroplasty Family History Family History Sibling Patient's brother is in good health Family history of diabetes mellitus in first degree relative Family history of malignant neoplasm Mother Family history of malignant neoplasm Father Patient's father is Acute myocardial infarction Other Diabetes mellitus Hypertension Social History Social History (Updated 08/18/22 @ 12:55 by Evi Morillo) Social History: Smoking packs per day: 0.5 Smoking cigarettes per day: 10.0 Years smoked: 60 Smoking pack-years: 30.00 Smoking status: Former smoker Tobacco type: cigarettes Smoking end date: 01/02/22 Alcohol intake: current Substance use: never Substance use type: does not use Gender identity (if verbalized by the patient): Female Sexual Orientation (if Verbalized by the Patient): Straight or Heterosexual Spiritual care concerns: No Exam Narrative: APPEARANCE: Well appearing, no pain, no distress, well-nourished. HEAD: normocephalic, atraumatic. EYES: PERRLA/EOMI, conjun
[2022-08-22 13:00] LABS: Alanine Aminotransferase 46 U/L (6-50); Albumin Level 3.7 g/dL (3.5-5.1); Alkaline Phosphatase 116 U/L (38-126); Anion Gap 8 mmol/L (8-16); Aspartate Amino Transferase 89 U/L (17-59); Bilirubin,Total 0.3 mg/dL (0.2-1.3); Blood Urea Nitrogen 27 mg/dL (9-20); Calcium 9.1 mg/dL (8.4-10.2); Carbon Dioxide 25 mmol/L (22-30); Chloride 110 mmol/L (98-107); Estimated CRCL calculation 27 ml/min; Estimated Glomerular Filt Rate 32; Glucose 69 mg/dL (65-110); Lipase 40 U/L (23-300); Sodium 143 mmol/L (137-145)
[2022-08-22] MEDS: HYDROmorphone HCL INJ (*CRX) 1 MG/ML SYR 0.5 MG IV PUSH (14:30)
[2022-08-22 15:12] LABS: Appearance Urine Clear (Clear); Bilirubin Urine Negative (Negative); Blood Urine Negative (Negative); Color Urine Yellow (Yellow); Glucose Urine UA Negative (Negative); Ketones Urine Trace mg/dL (Negative); Leukocyte Esterase Ur Negative LEU/UL (Negative); Nitrate Urine Negative (Negative); Protein Urine 1+ mg/dL (Negative); Urobilinogen Urine 0.2 mg/dL (<2.0)
[2022-08-22 15:17] LABS: Add Urine Microscopic? YES; Bacteria Urine Trace /hpf; Mucus Urine Rare /lpf; RBC Urine 0-2 /hpf (0-2); Squamous Epithelial Cell Urine Rare /hpf (Few); WBC Urine 0-3 /hpf
== END 2022-08-22 16:31 | disposition home or self-care (01) ==
PROVIDERS: Emergency Medicine; Emergency Provider Emergency Medicine; PCP Family Medicine
DX: R10.9 Unspecified abdominal pain (principal); I48.91 Unspecified atrial fibrillation; E11.22 Type 2 diabetes mellitus with diabetic chronic kidney disease; N18.9 Chronic kidney disease, unspecified; I12.9 Hypertensive chronic kidney disease with stage 1 through stage 4 chronic kidney disease, or unspecified chronic kidney disease; J44.9 Chronic obstructive pulmonary disease, unspecified; E78.5 Hyperlipidemia, unspecified; G47.33 Obstructive sleep apnea (adult) (pediatric); G47.30 Sleep apnea, unspecified; Z86.73 Personal history of transient ischemic attack (TIA), and cerebral infarction without residual deficits; Z85.46 Personal history of malignant neoplasm of prostate; Z96.649 Presence of unspecified artificial hip joint; Z87.891 Personal history of nicotine dependence; Z79.4 Long term (current) use of insulin
CPT/HCPCS: 36415; 74177; 80053; 81001; 82948; 83690; 85025; 96374; 99284; J1170; Q9967

== ENCOUNTER 2022-09-23 10:30 | Outpatient (RCR) | payer MEDICARE, OTHER, SELFPAY ==
[2022-09-15 11:10] VITALS: BMI 30.8
[2022-09-15 13:51] VITALS: BMI 30.8
== END 2022-09-24 13:43 | disposition home or self-care (01) ==
LOC: ANHDMC 10:30
PROVIDERS: PCP Family Medicine; Visit Provider Family Medicine
DX: E11.29 Type 2 diabetes mellitus with other diabetic kidney complication (principal); E11.65 Type 2 diabetes mellitus with hyperglycemia; Z71.89 Other specified counseling; Z71.3 Dietary counseling and surveillance
CPT/HCPCS: 97803; 99199; G0108

== ENCOUNTER 2022-10-14 08:53 | Outpatient (CLI) | payer MEDICARE, OTHER, SELFPAY ==
[2022-10-14 09:23] LABS: Hematocrit 37.5 % (42.0-52.0); Hemoglobin 12.3 g/dL (14.0-18.0); Mean Corpuscular HGB Conc 32.8 g/dl (32-36); Mean Corpuscular Hemoglobin 28.7 pg (26-34); Mean Corpuscular Volume 87.6 fl (80-100); Mean Platelet Volume 10.4 fl (7.4-10.4); Platelet Count Result 238 k/mm3 (150-375); Red Blood Count 4.28 M/mm3 (4.6-6.20); Red Cell Distribution Width 14.1 % (11.5-14.5); White Blood Count 6.1 K/mm3 (4.5-10.0)
[2022-10-14 09:34] LABS: Alanine Aminotransferase 18 U/L (6-50); Albumin Level 3.9 g/dL (3.5-5.1); Alkaline Phosphatase 117 U/L (38-126); Anion Gap 4 mmol/L (8-16); Aspartate Amino Transferase 22 U/L (17-59); Bilirubin,Total 0.4 mg/dL (0.2-1.3); Blood Urea Nitrogen 12 mg/dL (9-20); Calcium 8.9 mg/dL (8.4-10.2); Carbon Dioxide 32 mmol/L (22-30); Chloride 104 mmol/L (98-107); Cholesterol 212 mg/dL (0-200); Estimated Glomerular Filt Rate 44; Glucose 106 mg/dL (65-110); HDL Direct 46 mg/dL; Potassium 3.8 mmol/L (3.4-5.0); Sodium 140 mmol/L (137-145); Triglycerides 114 mg/dL (<150)
[2022-10-14 09:44] LABS: Hemoglobin A1C 7.4 % (<5.7)
[2022-10-14 09:45] LABS: LDL Cholesterol Direct 101 mg/dL
[2022-10-14 16:54] LABS: MALB Creatinine Ratio 49.9 mg/g (0-30); Microalbumin Urine Random 137.1 mg/L (0-16.7)
== END 2022-10-14 08:54 | disposition home or self-care (01) ==
PROVIDERS: PCP Family Medicine; Visit Provider Family Medicine
DX: E78.2 Mixed hyperlipidemia (principal); E11.9 Type 2 diabetes mellitus without complications; I10 Essential (primary) hypertension
CPT/HCPCS: 36415; 80053; 80061; 82043; 83036; 85027

== ENCOUNTER 2022-12-09 10:38 | Outpatient (RCR) | payer MEDICARE, OTHER, SELFPAY | END 2023-02-23 10:26 | disposition home or self-care (01) | LOC: ANHDMC 10:38 | PROVIDERS: PCP Family Medicine; Visit Provider Family Medicine | DX: E11.29 Type 2 diabetes mellitus with other diabetic kidney complication (principal); E11.65 Type 2 diabetes mellitus with hyperglycemia; Z71.89 Other specified counseling | CPT/HCPCS: G0108 ==

== ENCOUNTER 2022-12-24 11:23 | Outpatient (CLI) | payer MEDICARE, OTHER, SELFPAY ==
[2022-12-27 04:19] LABS: C-Peptide 3.03 ng/mL (0.80-3.85)
[2022-12-28 17:11] LABS: Glutamic acid decarboxylase AA <5 IU/mL (<5)
[2023-01-01 02:45] LABS: Zinc Transporter 8 Antibody 10 U/mL (<15)
== END 2022-12-24 11:24 | disposition home or self-care (01) ==
LOC: ANHLAB 11:24
PROVIDERS: PCP Family Medicine; Visit Provider Internal Medicine
DX: E11.9 Type 2 diabetes mellitus without complications (principal)
CPT/HCPCS: 36415; 84681; 86341

== ENCOUNTER 2023-01-06 09:47 | Outpatient (CLI) | payer MEDICARE, OTHER, SELFPAY ==
[2023-01-06 11:03] LABS: Urine Cotinine NEGATIVE
== END 2023-01-06 09:48 | disposition home or self-care (01) ==
PROVIDERS: PCP Family Medicine; Visit Provider Orthopaedic Surgery
DX: M79.10 Myalgia, unspecified site (principal); F17.200 Nicotine dependence, unspecified, uncomplicated; M16.11 Unilateral primary osteoarthritis, right hip
CPT/HCPCS: 80307

== ENCOUNTER 2023-01-13 11:28 | Outpatient (CLI) | payer MEDICARE, OTHER, SELFPAY ==
[2023-01-13 11:52] LABS: Hematocrit 36.5 % (42.0-52.0); Hemoglobin 11.7 g/dL (14.0-18.0); Mean Corpuscular HGB Conc 32.1 g/dl (32-36); Mean Corpuscular Hemoglobin 28.5 pg (26-34); Platelet Count Result 232 k/mm3 (150-375); Red Cell Distribution Width 15.8 % (11.5-14.5); White Blood Count 6.4 K/mm3 (4.5-10.0)
[2023-01-13 12:04] LABS: Albumin Level 4.3 g/dL (3.5-5.1); Anion Gap 8 mmol/L (8-16); Blood Urea Nitrogen 22 mg/dL (9-20); Calcium 9.3 mg/dL (8.4-10.2); Carbon Dioxide 25 mmol/L (22-30); Chloride 108 mmol/L (98-107); Estimated Glomerular Filt Rate 51; Glucose 140 mg/dL (65-110); Phosphorus 3.7 mg/dL (2.5-4.5); Sodium 141 mmol/L (137-145)
[2023-01-13 16:51] LABS: Creatinine Urine 193.2 mg/dL; Total Protein Urine Random 27 mg/dL; Ur Ttl Prot Creatinine Ratio 0.14 mg/mg (0-0.20)
== END 2023-01-13 11:29 | disposition home or self-care (01) ==
LOC: ANHLAB 11:30
PROVIDERS: PCP Family Medicine; Visit Provider Internal Medicine Nephrology
DX: N18.32 Chronic kidney disease, stage 3b (principal); E11.9 Type 2 diabetes mellitus without complications
CPT/HCPCS: 36415; 80069; 82570; 84156; 85027

== ENCOUNTER 2023-01-20 09:49 | Outpatient (CLI) | payer MEDICARE, OTHER, SELFPAY ==
--- NOTE | 2023-01-20 10:53 | ECG_ITS ---
Measurements Intervals [place] Rate: 64 P: 40 MI: 258 QRS: -16 QRSD: 144 T: 226 QT: 427 QTc: 443 Interpretive Statements SINUS RHYTHM WITH FIRST DEGREE AV BLOCK LEFT BUNDLE BRANCH BLOCK [120+ ms QRS DURATION, 80+ ms Q/S IN V1/V2, 85+ ms R IN I/aVL/V5/V6] COMPARED TO ECG 11/07/2021 11:00:52 NO SIGNIFICANT CHANGES Electronically Signed On 01-20-2023 15:57:04 CDT by Danie Ng M.D.
[2023-01-20 11:23] LABS: Basophils Absolute Auto 0.1 K/mm3 (0.0-0.1); Basophils Percent Auto 0.7 % (0.2-1.2); Eosinophils Absolute Auto 0.4 K/mm3 (0-0.3); Eosinophils Percent Auto 5.6 % (0-4.4); Hematocrit 36.4 % (42.0-52.0); Hemoglobin 11.6 g/dL (14.0-18.0); Immature Granulocyte Absolute 0.01 K/mm3 (0.00-0.031); Immature Granulocyte Percent A 0.1 % (0-0.5); Lymphocytes Absolute Auto 1.39 K/mm3 (0.9-3.2); Lymphocytes Percent Auto 20.6 % (18.3-44.2); Mean Corpuscular HGB Conc 31.9 g/dl (32-36); Mean Corpuscular Hemoglobin 28.2 pg (26-34); Mean Corpuscular Volume 88.6 fl (80-100); Mean Platelet Volume 10.9 fl (7.4-10.4); Monocytes Absolute Auto 0.8 K/mm3 (0.1-0.6); Monocytes Percent Auto 11.2 % (2.6-8.5); Neutrophils Absolute Auto 4.2 K/mm3 (1.3-6.7); Neutrophils Percent Auto 61.8 % (45.5-73.1); Platelet Count Result 232 k/mm3 (150-375); Red Blood Count 4.11 M/mm3 (4.6-6.20); Red Cell Distribution Width 16.3 % (11.5-14.5); White Blood Count 6.8 K/mm3 (4.5-10.0)
[2023-01-20 11:32] LABS: Appearance Urine Clear (Clear); Bacteria Urine None Seen /hpf; Bilirubin Urine Negative (Negative); Blood Urine Negative (Negative); Color Urine Yellow (Yellow); Glucose Urine UA Negative (Negative); Ketones Urine Negative (Negative); Leukocyte Esterase Ur Negative LEU/UL (Negative); Nitrate Urine Negative (Negative); Non Pathogenic Casts 0-2; Protein Urine 1+ mg/dL (Negative); RBC Urine 0-2 /hpf (0-2); Squamous Epithelial Cell Urine None seen /hpf (Few); Urobilinogen Urine 0.2 mg/dL (<2.0); WBC Urine 0-5 /hpf; pH Urine 5.5 (5.0-9.0)
[2023-01-20 11:34] LABS: Hemoglobin A1C 6.8 % (<5.7)
[2023-01-20 11:38] LABS: Prothrombin Time 12.6 Seconds (11.1-14.7)
[2023-01-20 11:39] LABS: Partial Thromboplastin Time 31.1 SECONDS (22.3-36.8)
[2023-01-20 11:55] LABS: Add Urine Microscopic? YES
== END 2023-01-20 09:50 | disposition home or self-care (01) ==
LOC: ANHSURGERY 09:54
PROVIDERS: PCP Family Medicine; Visit Provider Orthopaedic Surgery
DX: Z01.818 Encounter for other preprocedural examination (principal); M16.11 Unilateral primary osteoarthritis, right hip; I44.7 Left bundle-branch block, unspecified; R94.31 Abnormal electrocardiogram [ECG] [EKG]
CPT/HCPCS: 36415; 81001; 83036; 85025; 85610; 85730; 87081; 93005

== ENCOUNTER 2023-02-02 08:16 | Outpatient (CLI) | payer MEDICARE, OTHER, SELFPAY ==
--- NOTE | ~2023-02-02 | NM_ITS ---
EXAMINATION: NM aydin stress w perfusion DATE: 02/02/2023 10:23 INDICATION: Essential hypertension TECHNIQUE: Rest images were obtained following intravenous administration of 11.0 mCi Tc99m tetrofosm in (Myoview). The patient was infused intravenously with Lexiscan (Regadenoson). Then, 34.9 mCi Tc99m tetrofosmin (Myoview) was administered intravenously, and stress images were obtained. Data was yuridia nstructed into short axis and horizontal and vertical long axis SPECT images. Gated SPECT images were also obtained. COMPARISON: None. FINDINGS: There is no definite reversible or fixed perfusion abnormality to suggest ischemia or infar ction. Mild left ventricular enlargement with calculated end-diastolic volume of 185 mm. There is mi ld global hypokinesis with mild to moderately decreased left ventricular ejection fraction measuring 32%. IMPRESSION: 1. Normal myocardial perfusion at rest and during stress. 2. Mild left ventricular enlargement with global hypokinesis and mild to moderately decreased ejectio n fraction measuring 32%. Reviewed, dictated and finalized at location L. IMPRESSION: 1. Normal myocardial perfusion at rest and during stress. 2. Mild left ventricular enlargement with global hypokinesis and mild to modera tely decreased ejection fraction measuring 32%.
--- NOTE | 2023-02-02 08:30 | EST_ITS ---
Patient Info Name: Luís Law Age: 82 years : 1940 Gender: Male Ht: 71 in Wt: 219 lbs BSA: 2.26 m2 HR: 65 bpm BP: 182 / 89 mmHg Heart Rhythm: Left Bundle Branch Block Exam Date: 02/02/2023 9:24 AM Exam Location: [facility] Stress Patient Status: Outpatient Admit Date: 02/02/2023 Staff Ordering Physician: Evi Saleh NP Attending Provider: Evi Saleh NP Exercise Technologist: Anna Quiroga CT Exercise Physician: Cosmo Villa DO Exam Type: CA stress aydin w NM Study Info Indications I49.1 - Atrial premature depolarization Z01.810 - Encounter for preprocedural cardiovascular examination I10 - Essential (primary) hypertension A regadenoson stress test was performed. Summary 1. 1. Inconclusive lexiscan stress test for ischemic ST changes by ECG criteria due to baseline LBBB. 2. 2. Baseline hypertension. 3. 3. Nuclear scan to follow and will be reported separately. Please correlate with it. 4. 4. Patient informed of the above results. Protocol: Lexiscan Stress ECG Details Stage: REST Duration (min): 2 min : 9 sec HR (bpm): 65 SBP (mmHg): 182 DBP (mmHg): 89 Stage: REST Duration (min): 11 min : 7 sec HR (bpm): 67 SBP (mmHg): 182 DBP (mmHg): 89 Stage: STAGE 1 Duration (min): 0 min : 59 sec HR (bpm): 69 SBP (mmHg): 182 DBP (mmHg): 89 Stage: RECOVERY Duration (min): 1 min : 0 sec HR (bpm): 77 SBP (mmHg): 162 DBP (mmHg): 60 Stage: RECOVERY Duration (min): 2 min : 0 sec HR (bpm): 72 SBP (mmHg): 162 DBP (mmHg): 60 Stage: RECOVERY Duration (min): 3 min : 0 sec HR (bpm): 71 SBP (mmHg): 151 DBP (mmHg): 60 Stage: RECOVERY Duration (min): 4 min : 0 sec HR (bpm): 72 SBP (mmHg): 151 DBP (mmHg): 60 Stage: RECOVERY Duration (min): 4 min : 3 sec HR (bpm): 72 SBP (mmHg): 151 DBP (mmHg): 60 Rest HR: 67 bpm Peak HR: 78 bpm Rest Sys BP: 182 mmHg Peak Sys BP: 162 mmHg Max Pred HR: 140 bpm % Max Pred HR: 56 % Target HR: 119 bpm Max RPP: 12,636 bpm*mmHg Termination Reason: Completed protocol Cardiac Symptoms: Shortness of breath Total Time: 1 min : 0 sec Rest Fields BP: 89 mmHg Peak Fields BP: 60 mmHg Total Dose: 0.4 mg Resting ECG Sinus rhythm with first degree AV block, LBBB. Stress ECG No ST changes. Arrhythmias None. Report Signatures
== END 2023-02-02 08:17 | disposition home or self-care (01) ==
LOC: ANHCARD 08:18
PROVIDERS: PCP Family Medicine; Visit Provider Nurse Practitioner Gerontology
DX: I50.9 Heart failure, unspecified (principal); I48.20 Chronic atrial fibrillation, unspecified; E78.2 Mixed hyperlipidemia; I10 Essential (primary) hypertension
CPT/HCPCS: 78452; 93017; A9502; J2785

== ENCOUNTER 2023-02-04 09:12 | Outpatient (CLI) | payer MEDICARE, OTHER, SELFPAY ==
[2023-02-04 10:06] LABS: Hematocrit 36.8 % (42.0-52.0); Hemoglobin 11.7 g/dL (14.0-18.0); Mean Corpuscular HGB Conc 31.8 g/dl (32-36); Mean Corpuscular Hemoglobin 28.3 pg (26-34); Mean Corpuscular Volume 89.1 fl (80-100); Mean Platelet Volume 10.6 fl (7.4-10.4); Platelet Count Result 242 k/mm3 (150-375); Red Blood Count 4.13 M/mm3 (4.6-6.20); Red Cell Distribution Width 16.2 % (11.5-14.5); White Blood Count 6.4 K/mm3 (4.5-10.0)
[2023-02-04 10:17] LABS: Creatinine Urine 138.4 mg/dL; Total Protein Urine Random 41 mg/dL
[2023-02-04 10:27] LABS: Albumin Level 4.3 g/dL (3.5-5.1); Anion Gap 6 mmol/L (8-16); Blood Urea Nitrogen 17 mg/dL (9-20); Carbon Dioxide 29 mmol/L (22-30); Chloride 105 mmol/L (98-107); Estimated Glomerular Filt Rate 47; Glucose 164 mg/dL (65-110); Phosphorus 3.8 mg/dL (2.5-4.5); Sodium 140 mmol/L (137-145)
[2023-02-04 10:37] LABS: Parathyroid Intact 128.7 pg/mL (7.5-53.5)
[2023-02-04 10:41] LABS: Vitamin D 25 Hydroxy 52.1 ng/mL
== END 2023-02-04 09:13 | disposition home or self-care (01) ==
LOC: ANHLAB 09:13
PROVIDERS: PCP Family Medicine; Visit Provider Internal Medicine Nephrology
DX: E11.9 Type 2 diabetes mellitus without complications (principal); E21.1 Secondary hyperparathyroidism, not elsewhere classified; N18.32 Chronic kidney disease, stage 3b
CPT/HCPCS: 36415; 80069; 82306; 82570; 83970; 84156; 85027

== ENCOUNTER 2023-03-18 12:50 | Outpatient (RCR) | payer MEDICARE, OTHER, SELFPAY | END 2023-06-08 08:18 | disposition home or self-care (01) | LOC: ANHDMC 12:50 | PROVIDERS: PCP Family Medicine; Visit Provider Family Medicine | DX: E11.29 Type 2 diabetes mellitus with other diabetic kidney complication (principal); E11.65 Type 2 diabetes mellitus with hyperglycemia; Z71.89 Other specified counseling | CPT/HCPCS: G0108 ==

== ENCOUNTER 2023-04-03 08:33 | Outpatient (CLI) | payer MEDICARE, OTHER, SELFPAY ==
--- NOTE | 2023-04-03 | ECHO_ITS ---
Patient Info Name: Luís Law Age: 82 years : 1940 Gender: Male Ht: 71 in Wt: 220 lbs BSA: 2.26 m2 HR: 63 bpm BP: 183 / 89 mmHg Heart Rhythm: Sinus Rhythm Technical Quality: Fair Exam Date: 04/03/2023 9:05 AM Exam Location: [facility] Patient Status: Outpatient Admit Date: 04/03/2023 Staff Ordering Physician: Jace Guardado MD Manager Respiratory: Kaleb Polanco RDCS Attending Provider: Jace Guardado MD Referring Physician: Debby PARIS; Exam Type: CA echo doppler color flow Study Info Indications - ch LBBB/Ff32% pre op testing Complete two-dimensional, color flow and Doppler transthoracic echocardiogram is performed. Summary 1. Complete two-dimensional, color flow and Doppler transthoracic echocardiogram is performed. 2. Left ventricular chamber dimension is mildly enlarged. 3. Left ventricular systolic function is lower limits of normal, estimated at 50-55%. 4. There is moderately increased left ventricular wall thickness. 5. Left ventricular septal wall motion is abnormal with septal motion related to bundle branch block. 6. The left ventricular diastolic function is grade I diastolic dysfunction. 7. There is no aortic valve stenosis. 8. There is trace mitral valve regurgitation. 9. There is trace tricuspid valve regurgitation. 10. No pulmonary hypertension, estimated pulmonary arterial systolic pressure is 7 mmHg. Left Ventricle Left ventricular chamber dimension is mildly enlarged. Left ventricular systolic function is lower limits of normal, estimated at 50-55%. There is moderately increased left ventricular wall thickness. Left ventricular septal wall motion is abnormal with septal motion related to bundle branch block. The left ventricular diastolic function is grade I diastolic dysfunction. Right Ventricle Right ventricular chamber dimension is normal. Right ventricular systolic function is normal. Left Atria Left atrial chamber dimension is mildly enlarged. Right Atria Right atrial chamber dimension is normal. Aortic Valve The aortic valve is not well visualized. There is no aortic valve stenosis. There is trace aortic valve regurgitation. Pulmonic Valve The pulmonic valve is not well visualized. There is trace pulmonic regurgitation. Mitral Valve The mitral valve has thickened leaflets. There is trace mitral valve regurgitation. The mitral valve annulus is mildly calcified. Tricuspid Valve The tricuspid valve leaflets are normal. There is trace tricuspid valve regurgitation. No pulmonary hypertension, estimated pulmonary arterial systolic pressure is 7 mmHg. Pericardium/Pleural The pericardium appears normal. There is no pericardial effusion. Inferior Vena Cava Normal inferior vena cava with >50% collapse upon inspiration consistent with normal right atrial pressure, 5 mmHg. Aorta The aortic root size at the sinus of Valsalva is normal. There is mild aortic atherosclerosis. Left Ventricular Outflow Tract Name Value Normal LVOT 2D LVOT Diameter 2.2 cm LVOT Doppler LVOT Peak Gradient 3 mmHg LVOT Mean Gradient 1 mmHg LVOT VTI 17 cm
== END 2023-04-03 08:34 | disposition home or self-care (01) ==
PROVIDERS: PCP Family Medicine; Visit Provider Specialist
DX: I48.91 Unspecified atrial fibrillation (principal); R94.30 Abnormal result of cardiovascular function study, unspecified; I44.7 Left bundle-branch block, unspecified
CPT/HCPCS: 93306

== ENCOUNTER 2023-06-20 01:44 | Inpatient (IN) | payer MEDICARE, OTHER, SELFPAY ==
[2023-06-20] VITALS (23 sets, daily range): BP systolic 145–189; BP diastolic 51–96; PULSE 50–74; RESP 8–20; TEMP 36.2–36.7; O2SAT 95–100; BMI 29.9
--- NOTE | ~2023-06-20 | XR_ITS ---
XR chest 1V portable DATE: 06/20/2023 05:15 INDICATION: Epigastric pain TECHNIQUE: Portable AP chest on 06/20/2023 at 0509 hours COMPARISON: None FINDINGS: Heart size is within normal range. Is aortic calcification and unfolding. No hilar or media stinal enlargement is evident. There may be minimal atelectasis at the lung bases. The lungs otherwise appear clear. No pleural effu hai or pulmonary vascular congestion or pneumothorax. IMPRESSION: No active disease Reviewed, dictated and finalized at location A. IMPRESSION: No active disease
--- NOTE | ~2023-06-20 | CT_ITS ---
EXAMINATION: CT abdomen pelvis w con DATE: 06/20/2023 04:56 INDICATION: Generalized abdominal pain. Constipation. TECHNIQUE: Computed tomography (CT) of the abdomen and pelvis was performed with 100 mL Omnipaque 350 intravenous contrast. Automated exposure control and iterative reconstruction technique were employe d. The dose-length product was 999.57 mGy-cm. COMPARISON: CT abdomen and pelvis 08/22/2022 FINDINGS: The visualized portions of the lung bases demonstrate mild atelectasis. There is mild bronc hiectasis bilaterally. No pleural effusion. There is left ventricular enlargement of the heart. There are coronary artery calcifications. No pericardial effusion. There are cysts in the liver measuring up to 10 mm. The spleen and pancreas are normal. There are masses in the adrenal glands bilaterally m easuring up to 16 mm on the left without change, likely adenomas. There is cortical thinning of the k idneys. There are cysts in left kidney measuring up to 5 mm. There is calcified atherosclerosis of th e aorta and many of the other arteries. There are bilateral inguinal hernias containing fat. The blad mikhail is distended. There is diverticulosis of the colon without evidence of diverticulitis. The append ix is normal. There are no pathologically enlarged lymph nodes. There is no free intraperitoneal flui d. There are brachytherapy seeds in the prostate, which is mildly enlarged. There is severe right hip osteoarthritis. There is a total left hip arthroplasty. There are bridging endplate osteophytes at m ultiple levels in the thoracic spine, consistent with diffuse idiopathic skeletal hyperostosis (DISH) . There is moderate lumbar spondylosis. IMPRESSION: 1. Bilateral inguinal hernias containing fat. Reviewed, dictated and finalized at location E.
--- NOTE | 2023-06-20 03:26 | ECG_ITS ---
Measurements Intervals [place] Rate: 58 P: 59 MA: 207 QRS: -15 QRSD: 149 T: 224 QT: 492 QTc: 485 Interpretive Statements SINUS BRADYCARDIA WITH SINUS ARRHTYHMIA WITH FIRST DEGREE AV BLOCK ATRIAL COUPLET AND ATRIAL PREMATURE COMPLEX LEFT BUNDLE BRANCH BLOCK COMPARED TO ECG 01/20/2023 ABNORMAL ECG 11:08:39 SINUS BRADYCARDIA NOW PRESENT Electronically Signed On 06-20-2023 7:56:34 CDT by Cosmo Villa D.O.
[2023-06-20 04:18] LABS: Basophils Percent Auto 0.3 % (0.2-1.2); Eosinophils Absolute Auto 0.2 K/mm3 (0-0.3); Eosinophils Percent Auto 2.5 % (0-4.4); Hematocrit 42.8 % (42.0-52.0); Hemoglobin 13.9 g/dL (14.0-18.0); Immature Granulocyte Absolute 0.02 K/mm3 (0.00-0.031); Immature Granulocyte Percent A 0.3 % (0-0.5); Mean Corpuscular HGB Conc 32.5 g/dl (32-36); Mean Corpuscular Hemoglobin 28.6 pg (26-34); Mean Corpuscular Volume 88.1 fl (80-100); Monocytes Absolute Auto 0.9 K/mm3 (0.1-0.6); Monocytes Percent Auto 11.8 % (2.6-8.5); Neutrophils Absolute Auto 4.8 K/mm3 (1.3-6.7); Neutrophils Percent Auto 67.1 % (45.5-73.1); Platelet Count Result 242 k/mm3 (150-375); Red Blood Count 4.86 M/mm3 (4.6-6.20); Red Cell Distribution Width 15.3 % (11.5-14.5); White Blood Count 7.2 K/mm3 (4.5-10.0)
[2023-06-20 04:27] LABS: Alanine Aminotransferase 19 U/L (6-50); Albumin Level 4.2 g/dL (3.5-5.1); Alkaline Phosphatase 111 U/L (38-126); Anion Gap 7 mmol/L (8-16); Aspartate Amino Transferase 30 U/L (17-59); Bilirubin,Total 0.7 mg/dL (0.2-1.3); Blood Urea Nitrogen 19 mg/dL (9-20); Carbon Dioxide 29 mmol/L (22-30); Chloride 102 mmol/L (98-107); Estimated CRCL calculation 36 ml/min; Estimated Glomerular Filt Rate 44; Glucose 154 mg/dL (65-110); Lactic Acid Reflex 1.1 mmol/L (0.7-2.0); Lipase 30 U/L (23-300); Magnesium 1.8 mg/dL (1.6-2.3); Potassium 3.6 mmol/L (3.4-5.0); Sodium 138 mmol/L (137-145)
[2023-06-20 04:32] LABS: Partial Thromboplastin Time 36.7 SECONDS (22.3-36.8)
--- NOTE | 2023-06-20 04:46 | ED.GENADULT ---
HPI - General Adult General Chief complaint: Abdominal Pain Stated complaint: abd pain, bloating, constipation Time Seen by Provider: 06/20/23 03:32 History of Present Illness HPI narrative: Patient is a 82-year-old gentleman who presents the emergency department with chief complaint of abdominal pain and chest discomfort. Patient reports that for several days he has been having discomfort in his chest and abdomen. The patient reports that his abdomen has felt bloated the patient reports that he is taken multiple different things without relief. The patient states that the discomfort goes up into his chest Related Data Home Medications Medication Instructions Recorded Confirmed cholecalciferol (vitamin D3) 125 125 mcg PO DAILY 02/04/22 02/08/23 mcg (5,000 unit) capsule magnesium 200 mg tablet 200 mg PO DAILY 02/04/22 02/08/23 vitamin B complex 1 cap PO DAILY 02/04/22 02/08/23 fexofenadine 60 mg tablet (Allergy 60 mg PO Q12H 01/08/23 02/08/23 Relief (fexofenadine)) losartan 100 mg tablet 100 mg QAM 01/20/23 02/08/23 vit C 250 mg-vit E 90 mg-zinc 40 1 tablet PO BID 01/20/23 02/08/23 mg-copper 1 cq-rthrpj-yeghxa capsule (PreserVision AREDS-2) Allergies Allergy/AdvReac Type Severity Reaction Status Date / Time milk AdvReac Mild Nausea, Verified 06/20/23 02:42 DIARRHEA carvedilol AdvReac Unknown Weakness Verified 06/20/23 02:42 lisinopril AdvReac Unknown Weakness Verified 06/20/23 02:42 Eyrfqzv-XQN-GyQ Reductase AdvReac Unknown Muscle Pain Verified 06/20/23 02:42 Inhibitor [Txzxwjb-Dfa-Gqg Reductase Inhibitor] Review of Systems Review of Systems: A 10 system review of systems was completed on the patient and is negative except for what is stated in the HPI. Nursing and ancillary documentation was reviewed. [facility] Past Medical History Medical History Acute kidney injury superimposed on chronic kidney disease AOM (acute otitis media) Atrial fibrillation Chronic kidney disease CKD (chronic kidney disease) CKD stage 2 due to type 2 diabetes mellitus COPD (chronic obstructive pulmonary disease) CVA (cerebral vascular accident) Diabetes mellitus Elevated aldolase level HLD (hyperlipidemia) HTN (hypertension) SIMON (obstructive sleep apnea) Prostate cancer Sleep apnea Type 2 diabetes mellitus with proteinuria URI (upper respiratory infection) Surgical History Surgical History S/P total hip arthroplasty Family History Family History Sibling Patient's brother is in good health Family history of diabetes mellitus in first degree relative Family history of malignant neoplasm Mother Family history of malignant neoplasm Father Patient's father is Acute myocardial infarction Other Diabetes mellitus Hypertension Social History Social History Social History: Smoking packs per day: 0.5 Smoking cigarettes per day: 10.0 Years smoked: 50 Smoking pack-years: 25.00 Smoking status: Current every day smoker Tobacco type: cigarettes Second hand tobacco smoke exposure: Yes (WHEN WITH FRIENDS) Smoking end date: 12/02/22 Additional smoking assessment comments: DENIES ANY FORM OF TOBACCO USE Alcohol intake: current Drinks per week: 2 Alcohol use details: occasionally Substance use: never Substance use type: does not use Lack of Transportation: No Lack of Food: Never True Current Housing: I Have Housing Concerned About Future Housing: No Difficulty Paying Gas/Electric Bills: No Difficulty Paying for Meds: No Currently Unemployed: No Education: Bachelor's Degree Living arrangements: alone Occupation/Education: retired Gender identity (if verbalized by t
[2023-06-20 05:11] LABS: Appearance Urine Clear (Clear); Bacteria Urine None Seen /hpf; Bilirubin Urine Negative (Negative); Blood Urine Negative (Negative); Color Urine Yellow (Yellow); Glucose Urine UA Negative (Negative); Ketones Urine Trace mg/dL (Negative); Leukocyte Esterase Ur Negative LEU/UL (Negative); Nitrate Urine Negative (Negative); Non Pathogenic Casts 0-2; Protein Urine 1+ mg/dL (Negative); RBC Urine 0-2 /hpf (0-2); Specific Grav Ur 1.011 (1.001-1.035); Squamous Epithelial Cell Urine None seen /hpf (Few); Urobilinogen Urine 0.2 mg/dL (<2.0); WBC Urine 0-5 /hpf; pH Urine 6.5 (5.0-9.0)
[2023-06-20] MEDS: ASPIRIN 81 MG CHEWABLE TABLET 324 MG PO (05:11)
[2023-06-20 05:13] LABS: Add Urine Microscopic? YES
[2023-06-20] MEDS: HEPARIN SOD/D5W 100 UNITS/ML 25,000 UNITS/250 ML BAG 10 UNITS IV CONT (06:44)
[2023-06-20] MEDS: HEPARIN SODIUM 5,000 UNITS/ML VIAL 4000 UNITS IV PUSH (06:47)
[2023-06-20 09:36] LABS: Basophils Percent Auto 0.5 % (0.2-1.2); Eosinophils Absolute Auto 0.2 K/mm3 (0-0.3); Hematocrit 38.6 % (42.0-52.0); Hemoglobin 12.3 g/dL (14.0-18.0); Immature Granulocyte Absolute 0.01 K/mm3 (0.00-0.031); Immature Granulocyte Percent A 0.2 % (0-0.5); Lymphocytes Absolute Auto 1.55 K/mm3 (0.9-3.2); Lymphocytes Percent Auto 26.1 % (18.3-44.2); Mean Corpuscular HGB Conc 31.9 g/dl (32-36); Mean Corpuscular Hemoglobin 28.3 pg (26-34); Mean Corpuscular Volume 88.7 fl (80-100); Mean Platelet Volume 11.3 fl (7.4-10.4); Monocytes Absolute Auto 0.8 K/mm3 (0.1-0.6); Monocytes Percent Auto 14.1 % (2.6-8.5); Neutrophils Absolute Auto 3.3 K/mm3 (1.3-6.7); Neutrophils Percent Auto 56.1 % (45.5-73.1); Platelet Count Result 201 k/mm3 (150-375); Red Blood Count 4.35 M/mm3 (4.6-6.20); Red Cell Distribution Width 15.1 % (11.5-14.5); White Blood Count 5.9 K/mm3 (4.5-10.0)
--- NOTE | 2023-06-20 09:41 | PC.NURSE ---
This patient, Luís Law Jr., was admitted to IMU Room 207-01. Patient/family oriented to hospital policies and general routines including ID bracelet, bed and alarms, visiting hours, pain management, procedures, bathroom and other care routines, personal items, smoking policy, room service/diet, and visiting hours. Information on how to activate the Rapid Response Team has been discussed. Patient/Family are encouraged to report perceived risks to care and to ask questions if they do not understand what they are told or what they should do.
[2023-06-20 09:45] LABS: INR 1.1; Prothrombin Time 14.2 Seconds (11.1-14.7)
--- NOTE | 2023-06-20 10:30 | PM.CNCAR ---
Assessment and Plan Assessment and plan (1) Non-ST elevation [place] (NSTEMI): Code(s): I21.4 - Non-ST elevation (NSTEMI) myocardial infarction Status: Acute Assessment and Plan: A bit of an atypical presentation for ACS but troponins are significantly elevated and up trending. He did have significant chest pain earlier today and overall is symptoms likely represent an ACS. Will continue heparin. Will start nitroglycerin paste 1 in q.6 hours. Aspirin 81 mg p.o. daily. He has received IV contrast already and will start normal saline 50 cc/hour. NPO after midnight and plan for coronary angiogram tomorrow. BMP in the morning. Will hold off on beta-sheeba as he is trans the becoming bradycardic into the 30s. Will also start high-dose rosuvastatin 20 mg daily. Continue losartan. (2) Hypertension associated with diabetes: Code(s): E11.59 - Type 2 diabetes mellitus with other circulatory complications; I15.2 - Hypertension secondary to endocrine disorders Status: Acute Assessment and Plan: Continue losartan, hydralazine, amlodipine (3) Hyperlipidemia associated with type 2 diabetes mellitus: Code(s): E11.69 - Type 2 diabetes mellitus with other specified complication; E78.5 - Hyperlipidemia, unspecified Status: Acute Assessment and Plan: Will start statin (4) Chronic kidney disease: Code(s): N18.9 - Chronic kidney disease, unspecified Status: Acute Assessment and Plan: Hydrate and repeat BMP tomorrow History of Present Illness History of Present Illness Consult date/time: 06/20/23 10:30 Requesting physician: Enrrique Elliott MD Consult reason: chest pain and Other (Elevated troponins) Reason For Visit: NSTEMI/Abdominal Pain Narrative: Date of service 06/20/2023 Reason for consultation: Non-STEMI, chest pain, elevated troponins Requesting provider: Dr. Elliott History: Patient is an 82-year-old male who presented to the hospital due to chest discomfort and abdominal pain. He has had have several days of chest and abdominal pain. He has felt nauseated also. Symptoms last for several hours. They are nonexertional. He tried various GI relieving medications including Pepto-Bismol, Tums and others without significant benefit. He denies any significant shortness of breath, syncope, presyncope, paroxysmal nocturnal dyspnea, orthopnea, edema or palpitations. Today he ate significant chest pain that also again radiated down into his abdomen. He decided to come to the hospital at that point for further evaluation. He was found to be in a left bundle branch block which is not new. He had troponins which were initially elevated in have up trended. He is currently pain-free and started on heparin drip is currently being treated for non ST-elevation myocardial infarction. Review of Systems Review of Systems: All systems reviewed & are unremarkable except as noted in HPI and below Constitutional: Constitutional: Denies fatigue Eyes: Eyes: Denies blurry vision ENT: Reports Normal hearing present Cardiovascular: Cardiovascular: Reports chest pain Respiratory: Respiratory: Denies chest congestion Gastrointestinal: Gastrointestinal: Reports abdominal pain Genitourinary: Genitourinary: Denies hematuria Musculoskeletal: Musculoskeletal: Reports arthralgias Integumentary/Breasts: Skin/Breast: Denies dry skin Neurologic: Denies Abnormal speech present Psychiatric: Psychiatric: Denies anxiety Endocrine: Endocrine: Denies excessive sweating Hematologic/Lymphatic: Hematologic/Lymphatic: Denies easy bleeding Allergic/Immunologic: Allergic/Immunologic: Denies GI upset with certain foods Comments: Nauseated PMFSH Past Medical History Medical History Acute kidney injury superimposed on chronic kidney disease AOM (acute otitis media) Atrial fibrillation Chronic kidney disease CKD (
--- NOTE | 2023-06-20 11:17 | PM.IMHP ---
H&P: HPI History of Present Illness Date/Time: 06/20/23 11:17 Chief Complaint: Chest and abdominal pain Narrative: This 82-year-old gentleman with history of atrial fibrillation and prior stroke and hypertension was in his usual state of health until about 2 weeks ago. At that time he began to have intermittent abdominal discomfort, aching, worsened by eating but not by activity, with associated nausea. It was intermittent and lasted a few minutes to a few hours at a time. Over the last 2 days it began to worsen. It was fairly constant. Worsened after eating tarry Accu-Chek and last night. It was 6/10 intensity by his accounts but it kept him awake. Because of this he came to the emergency department where his found to have an elevated troponin at 1.79. CT the abdomen pelvis with contrast was unremarkable. After nitroglycerin his pain resolved. Currently has only mild nausea and queasy sensation in the left upper quadrant. He does have a history of chronic kidney disease. His blood pressure had been fairly well controlled. He has mild chronic anemia associated with the kidney disease. Review of Systems Review of Systems: All systems reviewed & are unremarkable except as noted in HPI and below PMFSH Past Medical History Medical History (Updated 06/20/23 @ 11:34 by Layo Hayden MD) Acute kidney injury superimposed on chronic kidney disease AOM (acute otitis media) Atrial fibrillation Chronic kidney disease CKD (chronic kidney disease) CKD stage 2 due to type 2 diabetes mellitus COPD (chronic obstructive pulmonary disease) CVA (cerebral vascular accident) Diabetes mellitus Elevated aldolase level HLD (hyperlipidemia) HTN (hypertension) SIMON (obstructive sleep apnea) Prostate cancer Sleep apnea Type 2 diabetes mellitus with proteinuria URI (upper respiratory infection) Surgical History Surgical History (Updated 06/20/23 @ 11:21 by Layo Hayden MD) S/P total hip arthroplasty LEFT Family History Family History Sibling Patient's brother is in good health Family history of diabetes mellitus in first degree relative Family history of malignant neoplasm Mother Family history of malignant neoplasm Father Patient's father is Acute myocardial infarction Other Diabetes mellitus Hypertension Social History Social History (Updated 06/20/23 @ 11:22 by Layo Hayden MD) Social History: Smoking packs per day: 0.5 Smoking cigarettes per day: 10.0 Years smoked: 50 Smoking pack-years: 25.00 Smoking status: Former smoker Tobacco type: cigarettes Second hand tobacco smoke exposure: Yes (WHEN WITH FRIENDS) Smoking end date: 12/02/22 Alcohol intake: current Drinks per week: 2 Alcohol use details: occasionally Substance use: never Substance use type: does not use Lack of Transportation: No Lack of Food: Never True Current Housing: I Have Housing Concerned About Future Housing: No Difficulty Paying Gas/Electric Bills: No Difficulty Paying for Meds: No Currently Unemployed: No Education: Bachelor's Degree Difficulty w/ Childcare or Family Care: No Living arrangements: alone Occupation/Education: retired Gender identity (if verbalized by the patient): Female Sexual Orientation (if Verbalized by the Patient): Straight or Heterosexual Spiritual care concerns: Yes Meds Home Medications and Allergies Home Medications Medication Instructions Recorded Confirmed Type cholecalciferol (vitamin D3) 125 125 mcg PO DAILY 02/04/22 06/20/23 History mcg (5,000 unit) capsule magnesium 200 mg tablet 200 mg PO DAILY 02/04/22 06/20/23 History vitamin B complex 1 cap PO DAILY 02/04/22 06/20/23 History blood sugar diagnostic (OneTouch #1 pkg 02/20/22 02/08/23 Rx Verio test strips) blood-glucose meter (OneTouch #1 pkg 02/20/22 02/08/23 Rx Verio Flex Mete
[2023-06-20 11:48] LABS: Glucose Point of Care 99 mg/dl (65-105)
[2023-06-20] MEDS: amLODIPine BESYLATE 5 MG TABLET PO (12:49)
[2023-06-20] MEDS: ROSUVASTATIN 20 MG TABLET PO (12:49)
[2023-06-20] MEDS: NITROGLYCERIN OINTMENT 1 INCH DOSE TRANSDERM ×3 (12:49→23:19)
[2023-06-20] MEDS: PANTOPRAZOLE 40 MG TABLET PO (12:49)
[2023-06-20] MEDS: SODIUM CHLORIDE 0.9% IV 1,000 ML 70 ML IV CONT (12:50)
[2023-06-20 13:56] LABS: Partial Thromboplastin Time 69.3 SECONDS (22.3-36.8)
[2023-06-20] MEDS: HEPARIN SODIUM 5,000 UNITS/ML VIAL 3500 UNITS IV PUSH (15:24)
[2023-06-20 16:09] LABS: Glucose Point of Care 130 mg/dl (65-105)
[2023-06-20] MEDS: OPTI-GEN TAB 1 TABLET PO (17:15)
[2023-06-20] MEDS: hydrALAZINE 10 MG TABLET PO (17:15)
[2023-06-20 19:59] LABS: Glucose Point of Care 158 mg/dl (65-105)
[2023-06-20 22:04] LABS: Partial Thromboplastin Time 81.2 SECONDS (22.3-36.8)
[2023-06-21] VITALS (39 sets, daily range): BP systolic 117–182; BP diastolic 55–88; PULSE 57–87; RESP 11–20; TEMP 36–36.3; O2SAT 94–100
[2023-06-21] MEDS: SODIUM CHLORIDE 0.9% IV 1,000 ML 70 ML IV CONT (02:40)
[2023-06-21] MEDS: HEPARIN SOD/D5W 100 UNITS/ML 25,000 UNITS/250 ML BAG 12 UNITS IV CONT (04:15)
[2023-06-21 04:29] LABS: Basophils Absolute Auto 0.1 K/mm3 (0.0-0.1); Basophils Percent Auto 0.7 % (0.2-1.2); Eosinophils Absolute Auto 0.3 K/mm3 (0-0.3); Hematocrit 37.1 % (42.0-52.0); Immature Granulocyte Absolute 0.01 K/mm3 (0.00-0.031); Immature Granulocyte Percent A 0.1 % (0-0.5); Lymphocytes Absolute Auto 1.53 K/mm3 (0.9-3.2); Lymphocytes Percent Auto 21.8 % (18.3-44.2); Mean Corpuscular HGB Conc 32.3 g/dl (32-36); Mean Corpuscular Hemoglobin 28.6 pg (26-34); Mean Corpuscular Volume 88.3 fl (80-100); Mean Platelet Volume 11.4 fl (7.4-10.4); Monocytes Absolute Auto 0.9 K/mm3 (0.1-0.6); Monocytes Percent Auto 13.4 % (2.6-8.5); Neutrophils Absolute Auto 4.2 K/mm3 (1.3-6.7); Platelet Count Result 205 k/mm3 (150-375)
[2023-06-21 04:40] LABS: Albumin Level 3.6 g/dL (3.5-5.1); Anion Gap 3 mmol/L (8-16); Blood Urea Nitrogen 17 mg/dL (9-20); Calcium 8.4 mg/dL (8.4-10.2); Carbon Dioxide 31 mmol/L (22-30); Chloride 103 mmol/L (98-107); Estimated CRCL calculation 33 ml/min; Estimated Glomerular Filt Rate 47; Glucose 125 mg/dL (65-110); Magnesium 1.9 mg/dL (1.6-2.3); Phosphorus 3.4 mg/dL (2.5-4.5); Sodium 137 mmol/L (137-145)
[2023-06-21 04:46] LABS: Partial Thromboplastin Time 106.8 SECONDS (22.3-36.8)
[2023-06-21] MEDS: NITROGLYCERIN OINTMENT 1 INCH DOSE TRANSDERM (05:08)
[2023-06-21 05:12] LABS: Hemoglobin A1C 5.9 % (<5.7)
[2023-06-21 05:57] LABS: Iron 52 ug/dL (49-181)
[2023-06-21 06:02] LABS: Percent Iron Saturation 16 % (20-50)
[2023-06-21 09:09] LABS: Glucose Point of Care 119 mg/dl (65-105)
[2023-06-21] MEDS: ASPIRIN 81 MG CHEWABLE TABLET PO (09:16)
[2023-06-21] MEDS: CHOLECALCIFEROL 1,000 UNITS TABLET 1000 UNITS PO (09:20)
[2023-06-21] MEDS: MAGNESIUM OXIDE 200 MG TABLET PO (09:20)
[2023-06-21] MEDS: PANTOPRAZOLE 40 MG TABLET PO (09:20)
[2023-06-21] MEDS: hydrALAZINE 10 MG TABLET PO ×2 (09:20→17:14)
[2023-06-21] MEDS: VITAMIN B COMPLEX CAPSULE 1 CAP PO (09:21)
--- NOTE | 2023-06-21 10:04 | WPDMODSED ---
Moderate Sedation Note-Pt Data Patient Data Diagnosis: non ST-elevation [place] Present Complaint: episode of chest /abdominal pain Procedure to be performed/Plan: coronary angiography Allergies Allergy/AdvReac Type Severity Reaction Status Date / Time milk AdvReac Mild Nausea, Verified 06/20/23 02:42 DIARRHEA carvedilol AdvReac Unknown Weakness Verified 06/20/23 02:42 lisinopril AdvReac Unknown Weakness Verified 06/20/23 02:42 [id number] Reductase AdvReac Unknown Muscle Pain Verified 06/20/23 02:42 Inhibitor [Ftfmwgr-Zaw-Vjn Reductase Inhibitor] Home Medications Medication Instructions Recorded Confirmed Type cholecalciferol (vitamin D3) 125 125 mcg PO DAILY 02/04/22 06/20/23 History mcg (5,000 unit) capsule magnesium 200 mg tablet 200 mg PO DAILY 02/04/22 06/20/23 History vitamin B complex 1 cap PO DAILY 02/04/22 06/20/23 History blood sugar diagnostic (OneTouch #1 [facility] 02/20/22 06/21/23 Rx Verio test strips) blood-glucose meter (OneTouch #1 [facility] 02/20/22 06/21/23 Rx Verio Flex Meter) lancets 30 gauge (OneTouch Delica #1 [facility] 02/20/22 06/21/23 Rx Plus Lancet) blood sugar diagnostic (OneTouch #1 [facility] 02/27/22 06/21/23 Rx Verio test strips) flash glucose scanning reader #1 ea 08/19/22 06/21/23 Rx (FreeStyle Moo 2 [place]) amlodipine 5 mg tablet 5 mg PO DAILY #90 tabs 10/16/22 06/20/23 Rx hydralazine 10 mg tablet 10 mg PO BID #60 tabs 10/16/22 06/20/23 Rx flash glucose sensor (FreeStyle #3 ea 01/04/23 06/21/23 Rx Moo 2 Sensor kit) losartan 100 mg tablet 100 mg QAM 01/20/23 06/20/23 History vit C 250 mg-vit E 90 mg-zinc 40 1 tablet PO BID 01/20/23 06/20/23 History mg-copper 1 tm-ybmhlu-rxdmph capsule (PreserVision AREDS-2) pen needle, diabetic 32 gauge x #100 ea 01/25/23 06/21/23 Rx 5/32 (AboutTime Pen Needle) pen needle, diabetic 33 gauge x #300 ea 01/25/23 06/21/23 Rx 5/32 (Advocate Pen Needle) dulaglutide 1.5 mg/0.5 mL 1.5 mg (0.5 mL) subcut WEEKLY #6 mL 03/02/23 06/20/23 Rx subcutaneous pen injector (Trulicity) Current Medications: Active Medications Amlodipine Besylate (Amlodipine Besylate 5 Mg Tablet) 5 mg PO DAILY [facility] Aspirin (Aspirin 81 Mg Chewable Tablet) 81 mg PO DAILY@0800 [facility] Last Admin: 06/21/23 09:16 Dose: 81 mg Dextrose (Dextrose 50% 25 Gm/50 Ml Syringe) 12.5 gm IV PUSH PRN PRN; Protocol PRN Reason: Hypoglycemia Glucagon (Glucagon For Inj 1 Mg Vial) 1 mg IM PRN PRN; Protocol PRN Reason: Hypoglycemia Glucose (Glucose Oral Gel 15 Gm Of Glucse In 37.5 Gm Tube) 15 gm PO PRN PRN; Protocol PRN Reason: Hypoglycemia Heparin Sodium (Porcine) (Heparin Sodium 5,000 Units/Ml Vial) 4,000 units IV PUSH PRN PRN PRN Reason: aPTT less than 55 seconds Heparin Sodium (Porcine) (Heparin Sodium 5,000 Units/Ml Vial) 3,500 units IV PUSH PRN PRN PRN Reason: aPTT 55 - 70 seconds Last Admin: 06/20/23 15:24 Dose: 3,500 units Hydralazine HCl (Hydralazine 10 Mg Tablet) 10 mg PO BID [facility] Last Admin: 06/21/23 09:20 Dose: 10 mg Heparin Sodium/Dextrose (Heparin Sodium/D5w 100 Units/Ml) 25,000 units in 250 mls @ 10 mls/hr IV CONT .Q24H [facility]; Protocol Last Admin: 06/21/23 09:15 Dose: Not Given Sodium Chloride (Normal Saline Iv) 1,000 mls @ 70 mls/hr IV CONT .[id number] [facility] Last Infusion: 06/21/23 04:16 Dose: 70 mls/hr Dextrose (Dextrose 5% 1,000 Ml) 1,000 mls @ 100 mls/hr IVPB PRN PRN; Protocol PRN Reason: Hypoglycemia Insulin Aspart (Insulin Aspart (*Bkc) 100 Units/Ml) 2 - 5 units SUB-Q TIDWM [facility]; Protocol Last Admin: 06/21/23 09:18 Dose: Not Given Magnesium Oxide (Magnesium Oxide 200 Mg Tablet) 200 mg PO DAILY [facility] Last Admin: 06/21/23 09:20 Dose: 200 mg Morphine Sulfate (Morphine Sulfate (*Crx) 4 Mg/Ml Inj) 4 mg IV PUSH Q2H PRN PRN Reason: Pain Rated 7-10 Multivitamins/Minerals (Opti-Gen Tab) 1 tablet PO BID [facility] Stop: 07/20/23 16:59 Last Admin: 06/21/23 09:45 Dose: Not Given Nitroglycerin (Nitroglycerin Ointm
--- NOTE | 2023-06-21 10:43 | ECG_ITS ---
Measurements Intervals [place] Rate: 69 P: 54 [place]: 244 QRS: 3 QRSD: 148 T: 224 QT: 459 QTc: 494 Interpretive Statements SINUS RHYTHM WITH FIRST DEGREE AV BLOCK ATRIAL PREMATURE COMPLEXES LEFT BUNDLE BRANCH BLOCK ABNORMAL ECG COMPARED TO ECG 06/20/2023 03:30:15 SINUS RHYTHM NOW PRESENT Electronically Signed On 06-21-2023 14:41:04 CDT by Cosmo Villa D.O.
--- NOTE | 2023-06-21 10:47 | WPDCARDPROC ---
Cardiac Cath Procedure Note Date of procedure:: 06/21/23 Performing physician:: Jace Guardado MD Indication:: non ST-elevation [place] Brief clinical history:: this is an 82-year-old man with history of angiographically mild coronary disease identified in the remote past. He also has a history of atrial fibrillation treated with ablation in the remote past. He entered this hospital with acute coronary syndrome and and troponin evidence of non ST elevation [place]. In this setting and angiogram has been recommended. Patient also has chronic renal insufficiency for which she has received hydration. Procedure Procedure performed:: Coronary angiography PCI(DARLYN) to the distal circumflex Sedation/Medication given:: fentanyl 50 mg Versed 2 mg case start time 10:10 a.m. case end time 10:40 a.m. sedation provided by Kirstie Ceballos RN, trained observer Access site:: right femoral artery Estimated blood loss:: 20 cc Procedure note:: patient was brought to the cardiac catheterization lab where the right femoral triangle was prepared and draped in the usual fashion. Anesthesia was given with 1% lidocaine infiltrated locally. Using modified Seldinger technique a 5 Cambodian sheath was placed into the right femoral artery. After this I used a 5 Cambodian FL4 catheter to engage and inject the left coronary artery and then a 5 Cambodian JR4 catheter to engage inject the right coronary artery. The cineangiograms were then reviewed. Following this PCI of the distal circumflex was recommended and carried out as detailed below. Prior to PCI the 5 Cambodian sheath was exchanged over a guidewire for 6 Cambodian sheath. The patient received 600 mg oral clopidogrel and bolus and infusion of intravenous Angiomax for the intervention. Following PCI the sheath was sutured into position the patient was taken the holding area for post PCI recovery. The procedure was well tolerated and uncomplicated. There was no evidence of groin hematoma when he left the cardiac catheterization lab. Findings:: Hemodynamics: Central aortic pressure is 180 over 85 the left main coronary artery is nicely patent the left anterior descending is a moderate caliber vessel extending down to the apex. The LAD and its branches are free of atherosclerosis. The circumflex is a moderate to large caliber artery with the marginal branches and a posterior branch. The 1st 2 marginal branches in the trunk of the circumflex are angiographically normal. There is a discrete 95-99% stenosis in the trunk of the circumflex distally after the 2nd marginal prior to the posterior branches. This angiographically is consistent with the patient's presentation. And felt to be the culprit lesion. The right coronary artery is medium in caliber and codominant. The right coronary artery has approximately 70% stenosis in the 2nd portion. The RCA does have a somewhat superior takeoff. There was AMRITA 3 flow in the right coronary. Intervention: The left coronary artery was engaged using a 6 Cambodian CLS 3.5 guiding catheter. I used a 0.014 BMW guidewire to wire the circumflex and easily cross the target lesion advanced the wire into the distal posterior circumflex system. The lesion was pre-dilated using a 2.5 x 15 mm Rl balloon at nominal pressure the lesion was then stented using a 3.0 x 18 mm Covestoriro mission drug-eluting stent at 10 atmospheres with an excellent angiographic result following stent deployment there was no residual stenosis disruption dissection or distal embolization. Conclusion:: 1. codominant coronary circulation with acute coronary syndrome/ non ST-elevation [place] due to subtotal 95-99% stenosis of the distal circumflex after OM2. Moderate 70% stenosis is noted in the midportion of the RCA 2. successful PCI of the target lesion in the distal circumflex using the Orsiro drug-eluting stent described above with an excellent angiographic result. Jace Guardado
[2023-06-21] MEDS: HYDROcodone/acetaminophen (*CRX) 5-325 MG TABLET 1 TAB PO (11:38)
--- NOTE | 2023-06-21 11:54 | PC.NURSE ---
0918- to cardiac dental laboratory supervisor for procedure via bed accompanied by RN's
--- NOTE | 2023-06-21 12:09 | PM.IMPN ---
Progress Note: A&P Assessment and Plan (1) Non-ST elevation CT (NSTEMI): Code(s): I21.4 - Non-ST elevation (NSTEMI) myocardial infarction Status: Acute Assessment and Plan: Patient going for cardiac cath today Hold losartan due to anticipated dye load and chronic kidney disease Cardiology consulted for anticipated coronary angiography (2) Hypertension associated with diabetes: Code(s): E11.59 - Type 2 diabetes mellitus with other circulatory complications; I15.2 - Hypertension secondary to endocrine disorders Status: Acute Assessment and Plan: Holding losartan due to anticipated acute kidney injury from dye load received with CT and anticipated load from coronary angiography. Resume to Continue hydralazine and amlodipine with addition of topical nitrates (3) Hyperlipidemia associated with type 2 diabetes mellitus: Code(s): E11.69 - Type 2 diabetes mellitus with other specified complication; E78.5 - Hyperlipidemia, unspecified Status: Acute Assessment and Plan: Hold dulaglutide Rosuvastatin Low-dose sliding scale insulin (4) Chronic kidney disease, stage 3b: Code(s): N18.32 - Chronic kidney disease, stage 3b Status: Acute Assessment and Plan: 06/20/2023 creatinine near baseline at 1.8 Monitor due to IV contrast administration (5) Diabetes mellitus: Qualifiers: Diabetes mellitus type: type 2 Diabetes mellitus long term care social worker insulin use: without fci use Diabetes mellitus complication status: without complication Qualified Code(s): E11.9 - Type 2 diabetes mellitus without complications Code(s): E11.9 - Type 2 diabetes mellitus without complications Status: Acute Assessment and Plan: Stable Subjective Date/time seen: 06/21/23 12:09 Interval history: Stable Review of Systems Review of Systems: All systems reviewed & are unremarkable except as noted in HPI and below Exam Narrative: HEENT: PERRL, sclerae nonicteric, pharyngeal mucosa pink and intact NECK: No JVD, adenopathy, or thyromegaly CHEST: Clear to auscultation. Normal effort. HEART: NL S1/S2, regular, no murmur ABDOMEN: BS+, soft, MILD BILATERAL LOWER ABDOMINAL TENDERNESS, no mass, no bruits EXTREMITIES: No cyanosis, edema, or clubbing NEUROLOGIC: CN intact and symmetric to inspection. MUSCULOSKELETAL: Tone and strength symmetric. PSYCH: Alert. Oriented to person, place, and time. Objective Data Vital Signs Vital Signs: Vital Signs - 24 hr 06/20/23 14:00 06/20/23 16:00 06/20/23 16:00 Temperature 98.1 F Pulse Rate 62 58 L 61 Respiratory Rate 16 Blood Pressure 149/67 H Pulse Oximetry 98 Oxygen Delivery 06/20/23 18:00 06/20/23 16:00 06/20/23 19:48 Temperature 97.8 F Pulse Rate 68 67 Respiratory Rate 20 Blood Pressure 149/75 H Pulse Oximetry 96 Oxygen Delivery Room Air 06/20/23 20:00 06/20/23 20:00 06/20/23 22:00 Temperature Pulse Rate 61 74 Respiratory Rate Blood Pressure Pulse Oximetry Oxygen Delivery Room Air 06/20/23 23:17 06/21/23 00:00 06/21/23 00:00 Temperature 97.2 F L Pulse Rate 60 62 Respiratory Rate 20 Blood Pressure 145/64 H Pulse Oximetry 99 Oxygen Delivery Room Air 06/21/23 02:00 06/21/23 04:00 06/21/23 04:00 Temperature Pulse Rate 63 66 Respiratory Rate Blood Pressure Pulse Oximetry Oxygen Delivery Room Air 06/21/23 05:09 06/21/23 06:00 06/21/23 07:30 Temperature 97.3 F L 97.2 F L Pulse Rate 66 63 60 Respiratory Rate 20 16 Blood Pressure 153/72 H 145/67 H Pulse Oximetry 99 97 Oxygen Delivery 06/21/23 08:00 06/21/23 08:26 06/21/23 11:00 Temperature 97.2 F L Pulse Rate 60 71 Respiratory Rate 16 16 Blood Pressure 145/67 H 164/81 H Pulse Oximetry 97 94 94 Oxygen Delivery Room Air Room Air 06/21/23 11:15 06/21/23 11:30 06/21/23 08:00 Temperature Pulse Rate 76 66 57 L Respiratory Rat
[2023-06-21] MEDS: hydrALAZINE HCL 20 MG/ML VIAL 10 MG IV PUSH ×2 (13:56→14:16)
[2023-06-21] MEDS: SODIUM CHLORIDE 0.9% IV 1,000 ML 125 ML IV CONT (15:25)
--- NOTE | 2023-06-21 15:49 | PC.NURSE ---
returned to room - post cardiac cath- pt instructed on post procedure activity and wound assessment. Rt groin soft with no bruising/bleeding ; distal pulses verified with doppler- strength same as prior to procedure. monitor SR 66- ice pack to right hip at pt request
[2023-06-21 16:44] LABS: Glucose Point of Care 99 mg/dl (65-105)
[2023-06-21] MEDS: amLODIPine BESYLATE 5 MG TABLET PO (17:14)
[2023-06-21 19:59] LABS: Glucose Point of Care 142 mg/dl (65-105)
[2023-06-22] VITALS (10 sets, daily range): BP systolic 147–169; BP diastolic 65–76; PULSE 68–101; RESP 20; TEMP 35.6–36.6; O2SAT 99
[2023-06-22 05:01] LABS: Hemoglobin 12.4 g/dL (14.0-18.0); Mean Corpuscular HGB Conc 32.6 g/dl (32-36); Mean Corpuscular Hemoglobin 28.4 pg (26-34); Mean Platelet Volume 11.4 fl (7.4-10.4); Platelet Count Result 191 k/mm3 (150-375); Red Blood Count 4.37 M/mm3 (4.6-6.20); Red Cell Distribution Width 15.2 % (11.5-14.5); White Blood Count 7.5 K/mm3 (4.5-10.0)
--- NOTE | 2023-06-22 05:11 | ECG_ITS ---
Measurements Intervals [place] Rate: 70 P: 54 [place]: 244 QRS: -6 QRSD: 152 T: 219 QT: 452 QTc: 489 Interpretive Statements SINUS RHYTHM WITH FIRST DEGREE AV BLOCK ATRIAL PREMATURE COMPLEXES LEFT BUNDLE BRANCH BLOCK ABNORMAL ECG COMPARED TO ECG 06/21/2023 14:34:54 NO SIGNIFICANT CHANGES Electronically Signed On 06-22-2023 8:55:39 CDT by Cosmo Villa D.O.
[2023-06-22 05:14] LABS: Albumin Level 3.6 g/dL (3.5-5.1); Anion Gap 5 mmol/L (8-16); Blood Urea Nitrogen 13 mg/dL (9-20); Calcium 8.5 mg/dL (8.4-10.2); Carbon Dioxide 26 mmol/L (22-30); Chloride 105 mmol/L (98-107); Estimated CRCL calculation 33 ml/min; Estimated Glomerular Filt Rate 47; Glucose 113 mg/dL (65-110); Magnesium 1.9 mg/dL (1.6-2.3); Phosphorus 3.5 mg/dL (2.5-4.5); Potassium 3.7 mmol/L (3.4-5.0); Sodium 136 mmol/L (137-145)
[2023-06-22 08:23] LABS: Glucose Point of Care 165 mg/dl (65-105)
[2023-06-22] MEDS: METOPROLOL SUCCINATE EXT REL 25 MG TABCR PO (08:57)
[2023-06-22] MEDS: CHOLECALCIFEROL 1,000 UNITS TABLET 1000 UNITS PO (08:57)
[2023-06-22] MEDS: CLOPIDOGREL BISULFATE 75 MG TABLET PO (08:57)
[2023-06-22] MEDS: ROSUVASTATIN 20 MG TABLET PO (08:58)
[2023-06-22] MEDS: hydrALAZINE 10 MG TABLET PO (08:58)
[2023-06-22] MEDS: amLODIPine BESYLATE 5 MG TABLET PO (08:58)
[2023-06-22] MEDS: PANTOPRAZOLE 40 MG TABLET PO (08:58)
[2023-06-22] MEDS: VITAMIN B COMPLEX CAPSULE 1 CAP PO (08:58)
[2023-06-22] MEDS: OPTI-GEN TAB 1 TABLET PO (08:58)
[2023-06-22] MEDS: LOSARTAN POTASSIUM 100 MG TABLET PO (08:58)
[2023-06-22] MEDS: MAGNESIUM OXIDE 200 MG TABLET PO (08:58)
[2023-06-22] MEDS: ASPIRIN 81 MG CHEWABLE TABLET PO (08:58)
--- NOTE | 2023-06-22 11:38 | PM.DS ---
DS: Admitting Diagnosis Discharge Date 06/22/2023 Admitting Diagnosis Chest pain Non STEMI DS: Discharge Diagnosis Discharge Diagnosis (1) Non-ST elevation IA (NSTEMI): Code(s): I21.4 - Non-ST elevation (NSTEMI) myocardial infarction Status: Acute (2) Hypertension associated with diabetes: Code(s): E11.59 - Type 2 diabetes mellitus with other circulatory complications; I15.2 - Hypertension secondary to endocrine disorders Status: Acute (3) Hyperlipidemia associated with type 2 diabetes mellitus: Code(s): E11.69 - Type 2 diabetes mellitus with other specified complication; E78.5 - Hyperlipidemia, unspecified Status: Acute (4) Diabetes mellitus: Qualifiers: Diabetes mellitus type: type 2 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 He also has a history of atrial fibrillation treated with ablation in the remote past.? He entered this hospital with acute coronary syndrome and and troponin evidence of non ST elevation IA.? In this setting and angiogram has been recommended.? Patient also has chronic renal insufficiency for which she has received hydration. Cardiology was consulted. Patient underwent? Coronary angiography with PCI(DARLYN)? to the distal circumflex. He is stable postoperatively and is being discharged home with addition of aspirin Plavix to his meds Time Spent with Patient Time attestation: Total time spent providing and/or coordinating discharge services: DS: Data Data Completed and Pending Labs on day of discharge: Labs from last 24 hours 06/22/23 06/22/23 06/21/23 07:47 04:49 19:42 WBC 7.5 RBC 4.37 L Hgb 12.4 L Hct 38.0 L MCV 87.0 MCH 28.4 MCHC 32.6 RDW 15.2 H Plt Count 191 MPV 11.4 H Sodium 136 L Potassium 3.7 Chloride 105 Carbon Dioxide 26 Anion Gap 5 L BUN 13 Creatinine 1.70 H Estim Creat Clear Calc 33 Estimated GFR 47 L Glucose 113 H POC Capillary Glucose 165 H 142 H Calcium 8.5 Phosphorus 3.5 Magnesium 1.9 Albumin 3.6 06/21/23 15:58 WBC RBC Hgb Hct MCV MCH MCHC RDW Plt Count MPV Sodium Potassium Chloride Carbon Dioxide Anion Gap BUN Creatinine Estim Creat Clear Calc Estimated GFR Glucose POC Capillary Glucose 99 Calcium Phosphorus Magnesium Albumin Discharge Plan Discharge Consulting providers: Gideon Bassett Discharging Clinician: Shaggy Nayak Anticipated Discharge Date/Time: 06/22/23 11:37 Patient Disposition: Home, Self-Care Activity: no preference Diet: heart healthy Discharge Instructions: [facility] [address] [place] [address] DISCHARGE INSTRUCTIONS - POST CARDIAC CATH Activity Restriction 1. No Driving for 24 hours 2. No lifting, pushing or pulling more than 10 LBS for 1 week 3. No strenuous activity or exercising for 1 week 4. Shower after 24 hours, do not soak in any water such as hot tubs or bath tubs Wound Care
[2023-06-22 12:31] LABS: Glucose Point of Care 128 mg/dl (65-105)
--- NOTE | 2023-06-22 13:46 | PM.PNCARD ---
Progress Note: A&P Assessment and Plan (1) Non-ST elevation IN (NSTEMI): Code(s): I21.4 - Non-ST elevation (NSTEMI) myocardial infarction Status: Acute Assessment and Plan: Cardiac cath 06/[address] Guardado showed: 1. Codominant coronary circulation with acute coronary syndrome/ non ST-elevation IN due to subtotal 95-99% stenosis of the distal circumflex after OM2.? Moderate 70% stenosis is noted in the midportion of the RCA. 2. Successful PCI of the target lesion in the distal circumflex using the Orsiro?drug-eluting stent described above with an excellent angiographic result. Continue ASA 81mg once daily indefinitely. Plavix 75mg once daily for at least 1 year. High-intensity statin. Medical management for his RCA disease. Outpatient follow up in our office. (2) Hypertension associated with diabetes: Code(s): E11.59 - Type 2 diabetes mellitus with other circulatory complications; I15.2 - Hypertension secondary to endocrine disorders Status: Acute Assessment and Plan: Continue Losartan, Hydralazine, Amlodipine (3) Hyperlipidemia associated with type 2 diabetes mellitus: Code(s): E11.69 - Type 2 diabetes mellitus with other specified complication; E78.5 - Hyperlipidemia, unspecified Status: Acute Assessment and Plan: Continue statin Plan Okay for discharge home from a cardiac standpoint. Recommendations/plan discussed with Hospitalist. Subjective Date/time seen: 06/22/23 13:46 Interval history: Reason for visit: NSTEMI HPI: Patient is an 82-year-old male who presented to the hospital due to chest discomfort and abdominal pain.? He has had have several days of chest and abdominal pain.? He has felt nauseated also.? Symptoms last for several hours.? They are nonexertional.? He tried various GI relieving medications including Pepto-Bismol, Tums and others without significant benefit.? He denies any significant shortness of breath, syncope, presyncope, paroxysmal nocturnal dyspnea, orthopnea, edema or palpitations.? Today he ate significant chest pain that also again radiated down into his abdomen.? He decided to come to the hospital at that point for further evaluation.? He was found to be in a left bundle branch block which is not new.? He had troponins which were initially elevated in have up trended.? He is currently pain-free and started on heparin drip is currently being treated for non ST-elevation myocardial infarction. Date of service 06/22: Doing well after PCI. No chest pain or other cardiac symptoms. Tolerating DAPT. Exam Const: General: comfortable and no acute distress HENMT: Mouth: Yes moist mucous membranes Eyes: General: appearance normal, both eyes and all related structures Sclera: sclerae normal Neck: Neck: supple Resp: Effort & Inspection: normal respiratory effort Cardio: Rate: regular rate Rhythm: regular rhythm Skin: General skin exam: normal color Neuro: Speech: normal speech Psych: Mental Status: mental status grossly normal Affect: normal affect Objective Data Vital Signs Vital Signs: Vital Signs - 24 hr 06/21/23 14:15 06/21/23 14:20 06/21/23 14:05 Temperature Pulse Rate 65 64 63 Respiratory Rate 14 18 14 Blood Pressure 168/64 H 149/61 H 160/66 H Pulse Oximetry 100 100 100 Oxygen Delivery Room Air Room Air Room Air 06/21/23 14:10 06/21/23 14:25 06/21/23 14:30 Temperature Pulse Rate 61 67 65 Respiratory Rate 14 16 18 Blood Pressure 168/80 H 148/69 H 151/57 H Pulse Oximetry 99 99 99 Oxygen Delivery Room Air Room Air Room Air 06/21/23 14:35 06/21/23 14:45 06/21/23 15:00 Temperature Pulse Rate 65 67 66 Respiratory Rate 16 18 16 Blood Pressure 164/70 H 160/66 H 160/70 H Pulse Oximetry 100 100 100 Oxygen Delivery Room Air Room Air Room Air 06/21/23 15:15 06/21/23 15:30 06/21/23 16:00 Temperature 36.1 C L Pulse Rate 68 68 61 Respiratory Rate 16 16 16 Blood Pressure 163/63 H 157/68 H 146/66 H
== END 2023-06-22 13:27 | disposition home or self-care (01) | DRG 247 ==
LOC: ANHED 06:32 → ANHIMU 08:08
PROVIDERS: Internal Medicine; Internal Medicine Cardiovascular Disease; Specialist; Admitting Provider Family Medicine; Emergency Provider Emergency Medicine; PCP Family Medicine; Visit Provider Hospitalist
PROC: 027034Z Dilation of Coronary Artery, One Artery with Drug-eluting Intraluminal Device, Percutaneous Approach (ICD-10-PCS; CPT 93454; principal; 2023-06-21 10:00)
PROC: 027034Z Dilation of Coronary Artery, One Artery with Drug-eluting Intraluminal Device, Percutaneous Approach (ICD-10-PCS; CPT 92928; 2023-06-21 10:00)
DX: I21.4 Non-ST elevation (NSTEMI) myocardial infarction (principal); E11.59 Type 2 diabetes mellitus with other circulatory complications; J44.9 Chronic obstructive pulmonary disease, unspecified; G47.33 Obstructive sleep apnea (adult) (pediatric); I12.9 Hypertensive chronic kidney disease with stage 1 through stage 4 chronic kidney disease, or unspecified chronic kidney disease; E11.22 Type 2 diabetes mellitus with diabetic chronic kidney disease; E11.69 Type 2 diabetes mellitus with other specified complication; E78.5 Hyperlipidemia, unspecified; N18.32 Chronic kidney disease, stage 3b; I44.7 Left bundle-branch block, unspecified; R10.12 Left upper quadrant pain; I48.91 Unspecified atrial fibrillation; Z96.649 Presence of unspecified artificial hip joint; F17.210 Nicotine dependence, cigarettes, uncomplicated; Z85.46 Personal history of malignant neoplasm of prostate; Z86.73 Personal history of transient ischemic attack (TIA), and cerebral infarction without residual deficits
CPT/HCPCS: 36415; 71045; 74177; 80053; 80069; 81001; 82948; 83036; 83540; 83550; 83605; 83690; 83735; 84443; 84484; 85025; 85027; 85610; 85730; 93005; 93454; 96374; 99285; A9270; C1725; C1769; C1874; C1887; C1894; C9600; J0360; J0583; J1644; J2250; J3010; J7030; J7040; Q9967

== ENCOUNTER 2023-07-06 13:03 | Outpatient (RCR) | payer MEDICARE, OTHER, SELFPAY | END 2023-07-07 09:52 | disposition home or self-care (01) | LOC: ANHDMC 13:03 | PROVIDERS: PCP Family Medicine; Visit Provider Family Medicine | DX: E11.29 Type 2 diabetes mellitus with other diabetic kidney complication (principal); E11.649 Type 2 diabetes mellitus with hypoglycemia without coma; Z71.89 Other specified counseling | CPT/HCPCS: G0108 ==

== ENCOUNTER 2023-08-20 11:41 | Outpatient (CLI) | payer MEDICARE, OTHER, SELFPAY ==
[2023-08-20 12:56] LABS: Hematocrit 41.9 % (42.0-52.0); Hemoglobin 13.4 g/dL (14.0-18.0); Mean Corpuscular Hemoglobin 28.2 pg (26-34); Mean Platelet Volume 11.3 fl (7.4-10.4); Platelet Count Result 226 k/mm3 (150-375); Red Blood Count 4.76 M/mm3 (4.6-6.20); Red Cell Distribution Width 15.8 % (11.5-14.5); White Blood Count 6.5 K/mm3 (4.5-10.0)
[2023-08-20 13:04] LABS: Albumin Level 4.4 g/dL (3.5-5.1); Anion Gap 11 mmol/L (8-16); Blood Urea Nitrogen 19 mg/dL (9-20); Calcium 9.2 mg/dL (8.4-10.2); Carbon Dioxide 26 mmol/L (22-30); Chloride 104 mmol/L (98-107); Estimated Glomerular Filt Rate 44; Glucose 163 mg/dL (65-110); Phosphorus 3.5 mg/dL (2.5-4.5); Potassium 3.9 mmol/L (3.4-5.0); Sodium 141 mmol/L (137-145)
[2023-08-20 13:08] LABS: Creatinine Urine 202.1 mg/dL; Total Protein Urine Random 57 mg/dL; Ur Ttl Prot Creatinine Ratio 0.28 mg/mg (0-0.20)
[2023-08-20 13:14] LABS: Parathyroid Intact 142.4 pg/mL (7.5-53.5)
[2023-08-20 13:36] LABS: Vitamin D 25 Hydroxy 56.5 ng/mL
== END 2023-08-20 11:42 | disposition home or self-care (01) ==
LOC: ANHLAB 11:45
PROVIDERS: PCP Family Medicine; Visit Provider Internal Medicine Nephrology
DX: E21.1 Secondary hyperparathyroidism, not elsewhere classified (principal); N18.32 Chronic kidney disease, stage 3b; E11.22 Type 2 diabetes mellitus with diabetic chronic kidney disease
CPT/HCPCS: 36415; 80069; 82306; 82570; 83970; 84156; 85027

== ENCOUNTER 2024-02-18 13:07 | Outpatient (CLI) | payer MEDICARE, OTHER, SELFPAY ==
[2024-02-18 13:38] LABS: Hematocrit 41.1 % (42.0-52.0); Hemoglobin 13.3 g/dL (14.0-18.0); Mean Corpuscular HGB Conc 32.4 g/dl (32-36); Mean Corpuscular Hemoglobin 27.9 pg (26-34); Mean Corpuscular Volume 86.2 fl (80-100); Mean Platelet Volume 11.8 fl (7.4-10.4); Platelet Count Result 202 k/mm3 (150-375); Red Blood Count 4.77 M/mm3 (4.6-6.20); Red Cell Distribution Width 15.3 % (11.5-14.5); White Blood Count 7.6 K/mm3 (4.5-10.0)
[2024-02-18 13:53] LABS: Albumin Level 4.3 g/dL (3.5-5.1); Anion Gap 6 mmol/L (4-12); Blood Urea Nitrogen 18 mg/dL (9-20); Calcium 9.1 mg/dL (8.4-10.2); Carbon Dioxide 27 mmol/L (22-30); Chloride 107 mmol/L (98-107); Estimated Glomerular Filt Rate 39; Glucose 159 mg/dL (65-110); Phosphorus 3.5 mg/dL (2.5-4.5); Sodium 140 mmol/L (137-145)
[2024-02-18 14:02] LABS: Parathyroid Intact 165.4 pg/mL (7.5-53.5)
[2024-02-18 14:10] LABS: Total Protein Urine Random 38 mg/dL; Ur Ttl Prot Creatinine Ratio 0.18 mg/mg (0-0.20)
== END 2024-02-18 13:08 | disposition home or self-care (01) ==
PROVIDERS: PCP Internal Medicine; Visit Provider Internal Medicine Nephrology
DX: E11.9 Type 2 diabetes mellitus without complications (principal); N18.32 Chronic kidney disease, stage 3b
CPT/HCPCS: 36415; 80069; 82570; 83970; 84156; 85027

== ENCOUNTER 2024-07-06 10:41 | Outpatient (CLI) | payer MEDICARE, OTHER, SELFPAY ==
--- NOTE | ~2024-07-06 | XR_ITS ---
4 VIEWS SKULL Ordering provider: Tres Catherine DO History: . R51.9 - Headache, unspecified, BUMP POSTERIOR RT SIDED SKULL . Comparison: None. FINDINGS: BONES: No fracture. Degenerative changes of the spine. RADIOOPAQUE FOREIGN BODY: None. SOFT TISSUES: Normal. IMPRESSION: Normal study. Reviewed, dictated and finalized at location A. IMPRESSION: Normal study.
== END 2024-07-06 10:42 | disposition home or self-care (01) ==
PROVIDERS: PCP Internal Medicine; Visit Provider Internal Medicine
DX: R51.9 Headache, unspecified (principal)
CPT/HCPCS: 70250

== ENCOUNTER 2024-07-31 10:49 | Outpatient (CLI) | payer MEDICARE, OTHER, SELFPAY ==
--- NOTE | ~2024-07-31 | US_ITS ---
EXAMINATION: US soft tissue head and neck DATE: 07/31/2024 11:27 INDICATION: Localized swelling, mass and lump, right posterior head. TECHNIQUE: Multiple grayscale and Doppler ultrasound images of the head and neck were obtained. COMPARISON: CT sinuses 03/30/2019 FINDINGS: There is no abnormal mass in the right posterior scalp. IMPRESSION: 1. No abnormal mass in the right posterior scalp. Reviewed, dictated and finalized at location B.
== END 2024-07-31 10:50 | disposition home or self-care (01) ==
LOC: ANHIMG 10:50
PROVIDERS: PCP Internal Medicine; Visit Provider Internal Medicine
DX: R22.0 Localized swelling, mass and lump, head (principal)
CPT/HCPCS: 76536

== ENCOUNTER 2024-08-03 12:06 | Outpatient (CLI) | payer MEDICARE, OTHER, SELFPAY ==
--- NOTE | ~2024-08-03 | XR_ITS ---
4 VIEWS SKULL Ordering provider: Tres Catherine DO History: . R22.0 - Localized swelling, mass and lump, head . Comparison: None. FINDINGS: BONES: No fracture. Occipital protuberance is noted which is normal variant. No other definite abnorm ality seen. SOFT TISSUES: Soft tissue swelling over the occipital protuberance is noted. IMPRESSION: No definite bony abnormality. Occipital protuberance is noted which is normal variant. Overlying soft tissue swelling is seen with no difference in appearance compared to adjacent soft tissues. Clinical correlation advised. Reviewed, dictated and finalized at location A. IMPRESSION: No definite bony abnormality. Occipital protuberance is noted which is normal variant. Overlying soft tissue swelling is seen with no difference in appearance compared to adjacent soft tis sues. Clinical correlation advised.
== END 2024-08-03 12:07 | disposition home or self-care (01) ==
PROVIDERS: PCP Internal Medicine; Visit Provider Internal Medicine
DX: R22.0 Localized swelling, mass and lump, head (principal)
CPT/HCPCS: 70250

== ENCOUNTER 2024-08-14 07:18 | Outpatient (CLI) | payer MEDICARE, OTHER, SELFPAY ==
[2024-08-14 07:56] LABS: Hematocrit 42.8 % (42.0-52.0); Hemoglobin 13.9 g/dL (14.0-18.0); Mean Corpuscular HGB Conc 32.5 g/dl (32-36); Mean Corpuscular Hemoglobin 28.3 pg (26-34); Mean Corpuscular Volume 87.2 fl (80-100); Mean Platelet Volume 11.7 fl (7.4-10.4); Platelet Count Result 244 k/mm3 (150-375); Red Blood Count 4.91 M/mm3 (4.6-6.20); Red Cell Distribution Width 15.5 % (11.5-14.5); White Blood Count 7.4 K/mm3 (4.5-10.0)
[2024-08-14 08:09] LABS: Sodium 138 mmol/L (137-145)
[2024-08-14 08:58] LABS: Albumin Level 4.4 g/dL (3.5-5.1); Anion Gap 8 mmol/L (4-12); Blood Urea Nitrogen 21 mg/dL (9-20); Calcium 9.2 mg/dL (8.4-10.2); Carbon Dioxide 27 mmol/L (22-30); Chloride 103 mmol/L (98-107); Estimated Glomerular Filt Rate 39; Glucose 136 mg/dL (65-110); Phosphorus 3.7 mg/dL (2.5-4.5); Potassium 4.2 mmol/L (3.4-5.0)
[2024-08-14 13:45] LABS: Creatinine Urine 105.5 mg/dL; Total Protein Urine Random 34 mg/dL; Ur Ttl Prot Creatinine Ratio 0.32 mg/mg (0-0.20)
[2024-08-14 13:46] LABS: Parathyroid Intact 98.6 pg/mL (14.5-75.2)
== END 2024-08-14 07:19 | disposition home or self-care (01) ==
PROVIDERS: PCP Internal Medicine; Visit Provider Internal Medicine Nephrology
DX: E11.9 Type 2 diabetes mellitus without complications (principal); N18.32 Chronic kidney disease, stage 3b; E21.1 Secondary hyperparathyroidism, not elsewhere classified
CPT/HCPCS: 36415; 80069; 82570; 83970; 84156; 85027

== ENCOUNTER 2024-08-20 08:43 | Observation (INO) | payer MEDICARE, OTHER, SELFPAY ==
[2024-08-20] VITALS (22 sets, daily range): BP systolic 147–177; BP diastolic 49–102; PULSE 48–80; RESP 12–20; TEMP 35.9–36.9; O2SAT 96–100; BMI 28.8
--- NOTE | ~2024-08-20 | XR_ITS ---
Left Shoulder Technique: AP and scapular Y views were obtained. Clinical History: Pain Findings: No fracture or dislocation is seen. Osseous alignment is anatomic. The glenohumeral and acr omioclavicular joints demonstrate mild degenerative change. Soft tissues are unremarkable. Impression: Mild degenerative change, as above. Reviewed, dictated and finalized at [facility]. WASHER Impression: Mild degenerative change, as above.
--- NOTE | ~2024-08-20 | CT_ITS ---
Noncontrast CT scan of the cervical spine Technique: Multiple contiguous axial [address] images of the cervical spine were obtained and rec onstructed in 2D sagittal and coronal planes on the acquisition scanner. Dose reduction technique was used on this scan by utilizing automated exposure control, adjustment of the mA and/or kV according to patient size. The dose-length product (DLP) was 609.10 mGy-cm. Clinical History: Pain Findings: No fractures or dislocations. There is mild reversal normal cervical lordosis. There is mo derate to advanced degenerative disc disease throughout the cervical spine, worst at C3-C4. There is bilateral neural foraminal narrowing at C3-C4 with mild disc osteophyte complex and mild facet arthro armando. There is mild to moderate canal stenosis at this level. There is bilateral neural foraminal na rrowing at C4-C5 with mild canal stenosis. There is bilateral neural foraminal narrowing, right worse than left, at C5-C6, mild canal stenosis. No prevertebral soft tissue swelling. Impression: No fracture or subluxation of the cervical spine. Moderate degenerative spondylosis with reversal of the normal cervical lordosis, as detailed above. Reviewed, dictated and finalized at [facility]. TOR Impression: No fracture or subluxation of the cervical spine. Moderate degenerative spondylosis with reversal of the normal cervical lordosis , as detailed above.
--- NOTE | ~2024-08-20 | XR_ITS ---
EXAMINATION: XR chest 2V Exam Date/Time: 08/20/2024 18:30 [employer]ICE [employer]IC[employer] HISTORY: elevated troponin, dizziness Comparison: 06/20/2023. RESULT: Lines, tubes, and devices: None. Lungs and pleura: Senescent change, minimal left basilar atelectasis/scar, otherwise clear. Cardiomediastinal silhouette: Stable. Other: No acute osseous or upper abdominal finding. IMPRESSION: No acute cardiopulmonary process. Reviewed, dictated and finalized at location [facility]. [employer] ELECTRICIAN
--- NOTE | ~2024-08-20 | CT_ITS ---
CT head without contrast Indication: Status post fall Technique: Serial scans were obtained through the brain without the administration of contrast. Dose reduction technique was used on this scan by utilizing automated exposure control and iterative recon struction technique. The dose-length product (DLP) was 605.33 mGy-cm. Findings: There is no evidence of intracranial hemorrhage, mass lesion, or acute infarct. Chronic rig ht cerebellar infarct noted. The ventricles and subarachnoid spaces are dilated, consistent with mild atrophy. Low attenuation regions are seen within the periventricular white matter bilaterally, like ly representing changes from chronic microvascular ischemic disease. There is no evidence of edema, mass effect or midline shift. The visualized paranasal sinuses and mastoid air cells are clear. Impression: No intracranial hemorrhage, mass, or acute infarct. Chronic right PICA distribution infarct. Atrophy and chronic white matter changes, as above. Reviewed, dictated and finalized at [facility]. VASC TECH Impression: No intracranial hemorrhage, mass, or acute infarct. Chronic right PICA distribution infarct. Atrophy and chronic white matter changes, as above.
--- NOTE | 2024-08-20 13:11 | ECG_ITS ---
Test Date: 2024-08-20 14:27:48 Measurements Intervals [place] Rate: 63 P: 0 RI: 0 QRS: -12 QRSD: 146 T: 195 QT: 441 QTc: 453 Interpretive Statements SINUS RHYTHM WITH MARKED FIRST DEGREE AV BLOCK WITH SINUS ARRHYTHMIA AND ATRIAL PREMATURE COMPLEXES LEFT BUNDLE BRANCH BLOCK ABNORMAL ECG No previous ECG available for comparison Electronically Signed On 08-20-2024 14:54:49 KEY CARRIER by Cosmo Villa D.O.
--- NOTE | 2024-08-20 14:10 | ED.GENADULT ---
HPI - General Adult General Chief complaint: Recheck/Abnormal Lab/Rx Stated complaint: htn Time Seen by Provider: 08/20/24 12:57 Source: patient and old records reviewed Mode of arrival: ambulatory Limitations: no limitations History of Present Illness HPI narrative: This is a 84 year old male with history of atrial fibrillation, CAD s/p stent, hypertension, DM who presents for evaluation of dizziness. PAtient states that 3 nights ago he accidently fell, and he hit his left shoulder on the wall. He did not fall to the ground. He takes plavix . He states he woke up the following morning with dizziness. He has dizziness when changing positions such as sitting up. He reports left shoulder pain, left neck pain. He denies chest pain, shortness of breath, vomiting or diarrhea. He describes his dizziness as feeling weak. He denies spinning sensation. Related Data Home Medications Medication Instructions Recorded Confirmed cholecalciferol (vitamin D3) 125 125 mcg PO DAILY 02/04/22 07/31/24 mcg (5,000 unit) capsule magnesium 200 mg tablet 200 mg PO DAILY 02/04/22 07/31/24 vitamin B complex 1 cap PO DAILY 02/04/22 07/31/24 Allergies Allergy/AdvReac Type Severity Reaction Status Date / Time milk AdvReac Mild Nausea, Verified 07/31/24 14:50 DIARRHEA carvedilol AdvReac Unknown Weakness Verified 07/31/24 14:50 lisinopril AdvReac Unknown Weakness Verified 07/31/24 14:50 Khcisyv-QBS-KjC Reductase AdvReac Unknown Muscle Pain Verified 07/31/24 14:50 Inhibitor [Jacpyjo-Ydv-Exo Reductase Inhibitor] Review of Systems Constitutional: Constitutional: Denies fatigue, Denies fever(s) and Denies weakness Eyes: Eyes: Denies change in vision and Denies photophobia ENT: Reports dizziness Cardiovascular: Cardiovascular: Denies chest pain and Denies rapid heart rate Respiratory: Respiratory: Denies chest congestion, Denies cough and Denies dyspnea FOR[facility]LY [facility], [facility] Past Medical History Medical History (Updated 08/20/24 @ 19:02 by Simin Hugo MD) Acute kidney injury superimposed on chronic kidney disease Anemia in chronic kidney disease AOM (acute otitis media) Atrial fibrillation CHF (congestive heart failure), NYHA class II Chronic kidney disease CKD (chronic kidney disease) COPD (chronic obstructive pulmonary disease) CVA (cerebral vascular accident) Diabetes mellitus Elevated aldolase level HLD (hyperlipidemia) HTN (hypertension) SIMON (obstructive sleep apnea) Prostate cancer Sleep apnea Type 2 diabetes mellitus with proteinuria URI (upper respiratory infection) Surgical History Surgical History S/P total hip arthroplasty LEFT Family History Family History Sibling Patient's brother is in good health Family history of diabetes mellitus in first degree relative Family history of malignant neoplasm Mother Family history of malignant neoplasm Father Patient's father is Acute myocardial infarction Other Diabetes mellitus Hypertension Social History Social History Social History: Smoking packs per day: 0.5 Smoking cigarettes per day: 10.0 Years smoked: 50 Smoking pack-years: 25.00 Smoking status: Former smoker Tobacco type: cigarettes Second hand tobacco smoke exposure: Yes (WHEN WITH FRIENDS) Smoking end date: 12/02/22 Alcohol intake: current Drinks per week: 2 Alcohol use details: occasionally Substance use: never Substance use type: does not use Do You Feel Safe in your Home?: Yes Lack of Transportation: No Lack of Food: Never True Current Housing: I Have Housing Concerned About Future Housing: No Difficulty Paying Gas/Electric Bills: No Difficulty Paying for Meds: No Currently Unemployed: No Education: Bachelor's Degree Difficulty w/ Childcare or Family Care: No Living arrangements: alone Occupation/Education: retired Gender identity (if verbalized by the patient): Female Sexual Orientation (if Verbalized by the Patient): Straight or Heterosexual Spiritual care concerns: Yes Exam Const: General: no acute distress and alert Nutritional Appearance: well nourished Orientation/consciousness: patient oriented x3 Limitations: no limitations HENMT: Head: normal to inspection Face and sinus: normal facial exam Mouth: Yes Normal oral and palatal mucosa present, Yes lip normal and Yes moist mucous membranes Teeth and gingiva: dentition normal Throat: posterior oropharynx normal and uvula midline Eyes: Pupils: Equal, round and reactive pupils present EOM: EOMs intact bilaterally Chest: Chest palpation & inspection: normal inspection of the chest Resp: Effort & Inspection: normal respiratory effort Auscultation: clear to auscultation bilaterally Cardio: Rate: regular rate Rhythm: abnormal rhythm Heart sounds: Murmur heart sound present GI: GI Palp: Yes Soft to palpation, No Tenderness to palpation present (GI), No Guarding due to palpation present (GI) and No Rigid due to palpation Auscultation: normal bowel sounds Skin: General skin exam: normal color Rashes: no rashes Wounds: no wounds Neuro: General: patient oriented x3, moves all extremities, no meningeal signs, no focal motor deficits and CN's II-XI intact bilaterally Cranial nerves: Yes Nystagmus not present Speech: normal speech Extrem: General: normal to inspection Psych: Mental Status: mental status grossly normal Affect: normal affect Attitude: cooperative Course Reevaluation(s) Reevaluation #1: PAtient aware of needing to admit for further evaluation Date: 08/13/24 Time: 17:30 Consultations Consultation #1: I spoke with Dr. Collado of cardiology regarding elevated troponin. He agrees for cardiology to evaluate in hospital tomorrow Date: 08/20/24 Time: 17:16 Consultation #2: Yesenia accepts to service Date: 08/20/24 Time: 17:30 Vital Signs Vital signs: Vital Signs Temperature 96.7 F L 08/20/24 10:43 Pulse Rate 80 08/20/24 10:43 Respiratory Rate 16 08/20/24 10:43 Blood Pressure 153/66 H 08/20/24 10:43 Pulse Oximetry 100 08/20/24 10:43 Temperature 96.7 F L 08/20/24 10:43 Pulse Rate 64 08/20/24 18:00 Respiratory Rate 16 08/20/24 18:00 Blood Pressure 157/92 H 08/20/24 16:16 Pulse Oximetry 100 08/20/24 18:00 Medical Decision Making Vital Signs Vital Signs: Vital Signs Temperature 96.7 F L 08/20/24 10:43 Pulse Rate 80 08/20/24 10:43 Respiratory Rate 16 08/20/24 10:43 Blood Pressure 153/66 H 08/20/24 10:43 Pulse Oximetry 100 08/20/24 10:43 Temperature 96.7 F L 08/20/24 10:43 Pulse Rate 64 08/20/24 18:00 Respiratory Rate 16 08/20/24 18:00 Blood Pressure 157/92 H 11/17/24 16:16 Pulse Oximetry 100 08/20/24 18:00 Lab Data Lab results reviewed: Yes I reviewed the patient's lab results. 08/20/24 14:42 08/20/24 14:42 Labs: Lab Results 08/20/24 08/20/24 08/20/24 Range/Units 14:42 17:44 18:39 WBC 7.8 (4.5-10.0) K/mm3 RBC 4.82 (4.6-6.20) M/mm3 Hgb 13.6 L (14.0-18.0) g/dL Hct 42.4 (42.0-52.0) % MCV 88.0 (80-100) fl MCH 28.2 (26-34) pg MCHC 32.1 (32-36) g/dl RDW 15.7 H (11.5-14.5) % Plt Count 227 (150-375) k/mm3 MPV 11.8 H (7.4-10.4) fl Immature Gran % (Auto) 0.3 (0-0.5) % Neut % (Auto) 60.3 (45.5-73.1) % Lymph % (Auto) 23.0 (18.3-44.2) % [place] % (Auto) 11.1 H (2.6-8.5) % Eos % (Auto) 4.5 H (0-4.4) % Baso % (Auto) 0.8 (0.2-1.2) % Lymph # (Auto) 1.78 (0.9-3.2) K/mm3 [place] # (Auto) 0.9 H (0.1-0.6) K/mm3 Eos # (Auto) 0.4 H (0-0.3) K/mm3 Baso # (Auto) 0.1 (0.0-0.1) K/mm3 Abs Immat Gran (auto) 0.02 (0.00-0.031) K/mm3 Absolute Neuts (auto) 4.7 (1.3-6.7) K/mm3 Absolute Nucleated RBC 0.000 (0.0-0.012) K/mm3 Nucleated RBC % 0.0 (0.0-0.2) % PT 13.3 (11.1-14.7) Seconds INR 1.0 APTT 28.1 (22.3-36.8) Seconds Sodium 139 (137-145) mmol/L Potassium 4.2 (3.4-5.0) mmol/L Chloride 103 (98-107) mmol/L Carbon Dioxide 27 (22-30) mmol/L Anion Gap 9 (4-12) mmol/L BUN 23 H (9-20) mg/dL Creatinine 1.90 H (0.7-1.3) mg/dL Estim Creat Clear Calc Not Reportable Estimated GFR 41 L (59 - ) Glucose 142 H (65-110) mg/dL Calcium 9.3 (8.4-10.2) mg/dL Magnesium 2.5 H (1.6-2.3) mg/dL Total Bilirubin 0.4 (0.2-1.3) mg/dL AST 21 (17-59) U/L ALT 23 (6-50) U/L Alkaline Phosphatase 106 (38-126) U/L Troponin I 0.049 H* 0.059 H* D (0.000-0.034) ng/mL Total Protein 8.0 (6.3-8.2) g/dL Albumin 4.3 (3.5-5.1) g/dL Influenza A (RT-PCR) Pending Influenza B (RT-PCR) Pending RSV (RT-PCR) Pending SARS-CoV-2 RNA (RT-PCR) Pending Imaging Data Radiologist's impression: ITS Impressions Head CT 08/20/24 13:54 Impression: No intracranial hemorrhage, mass, or acute infarct. Chronic right PICA distribution infarct. Atrophy and chronic white matter changes, as above. Cervical Spine CT 08/20/24 13:55 Impression: No fracture or subluxation of the cervical spine. Moderate degenerative spondylosis with reversal of the normal cervical lordosis, as detailed above. Shoulder X-Ray 08/20/24 13:57 Impression: Mild degenerative change, as above. Chest X-Ray 08/20/24 18:39 IMPRESSION: No acute cardiopulmonary process. Discharge Plan Discharge Clinical Impression: Dizziness, Elevated troponin Patient Disposition: Still a Patient Condition: Stable Prescriptions: No Action empagliflozin 25 mg tablet 25 mg PO DAILY Qty: 90 1RF (DME) Krishidhan Seedse 2 [place] Misc See Rx Instructions .Route Qty: 1 0RF Rx Instructions: Use to check blood sugar TID hydralazine 10 mg tablet 10 mg PO BID Qty: 60 4RF vitamin B complex Capsule 1 cap PO DAILY cholecalciferol (vitamin D3) 125 mcg (5,000 unit) Capsule 125 mcg PO DAILY magnesium 200 mg Tablet 200 mg PO DAILY clopidogrel 75 mg Tablet 75 mg PO DAILY Qty: 90 3RF aspirin [Children's Aspirin] 81 mg Tablet,Chewable 81 mg PO DAILY@0800 Qty: 90 3RF rosuvastatin 20 mg Tablet 20 mg PO QAM Qty: 90 3RF (DME) FreeStyle Moo 2 Sensor Kit See Rx Instructions .Route Qty: 3 6RF Rx Instructions: Use to check BS TID (DME) pen needle, diabetic [Advocate Pen Needle] 33 gauge x 5/32 needle See Rx Instructions .Route Qty: 300 0RF Rx Instructions: use with lantus, and humalog pen, tid Gvoke HypoPen 2-Pack 1 mg/0.2 mL auto-injector 1 mg subcut ONCE Qty: 0.4 0RF Rx Instructions: as a single dose; may repeat once after 15 minutes if no response (DME) pen needle, diabetic 32 gauge x 5/32 needle See Rx Instructions .Route Qty: 100 12RF Rx Instructions: use to administer insulin insulin glargine [Lantus Solostar U-100 Insulin] 100 unit/mL (3 mL) insulin pen 10 unit subcut QAM Qty: 30 1RF varenicline [Chantix Starting Month Box] 0.5 mg (11)- 1 mg (42) tablets,dose pack See Rx Instructions PO PER PKG DIR Qty: 53 0RF Rx Instructions: PO PER PKG DIR; call for continuing month irvin (DME) blood-glucose meter [OneTouch Verio Flex meter] [facility] [place] Qty: 1 0RF Rx Instructions: May substitute to in-stock meter and/or covered by insurance. Use As Directed (DME) OneTouch Verio test strips Strip Qty: 1 0RF Rx Instructions: May substitute to in-stock and/or covered by insurance strips. Use As Directed (DME) lancets [OneTouch Delica Plus Lancet] 30 gauge Misc Qty: 1 0RF Rx Instructions: May substitute to in-stock and/or covered by insurance lancets. Use As Directed (DME) OneTouch Verio test strips Strip Qty: 1 0RF Rx Instructions: May substitute to in-stock and/or covered by insurance strips. Use As Directed Follow-up/Referrals: Tres Catherine DO [Primary Care Provider] -
[2024-08-20 14:47] LABS: Basophils Absolute Auto 0.1 K/mm3 (0.0-0.1); Basophils Percent Auto 0.8 % (0.2-1.2); Eosinophils Absolute Auto 0.4 K/mm3 (0-0.3); Eosinophils Percent Auto 4.5 % (0-4.4); Hematocrit 42.4 % (42.0-52.0); Hemoglobin 13.6 g/dL (14.0-18.0); Immature Granulocyte Absolute 0.02 K/mm3 (0.00-0.031); Immature Granulocyte Percent A 0.3 % (0-0.5); Lymphocytes Absolute Auto 1.78 K/mm3 (0.9-3.2); Mean Corpuscular HGB Conc 32.1 g/dl (32-36); Mean Corpuscular Hemoglobin 28.2 pg (26-34); Mean Platelet Volume 11.8 fl (7.4-10.4); Monocytes Absolute Auto 0.9 K/mm3 (0.1-0.6); Monocytes Percent Auto 11.1 % (2.6-8.5); Neutrophils Absolute Auto 4.7 K/mm3 (1.3-6.7); Neutrophils Percent Auto 60.3 % (45.5-73.1); Platelet Count Result 227 k/mm3 (150-375); Red Blood Count 4.82 M/mm3 (4.6-6.20); Red Cell Distribution Width 15.7 % (11.5-14.5); White Blood Count 7.8 K/mm3 (4.5-10.0)
[2024-08-20 14:57] LABS: Alanine Aminotransferase 23 U/L (6-50); Albumin Level 4.3 g/dL (3.5-5.1); Alkaline Phosphatase 106 U/L (38-126); Anion Gap 9 mmol/L (4-12); Aspartate Amino Transferase 21 U/L (17-59); Bilirubin,Total 0.4 mg/dL (0.2-1.3); Blood Urea Nitrogen 23 mg/dL (9-20); Calcium 9.3 mg/dL (8.4-10.2); Carbon Dioxide 27 mmol/L (22-30); Chloride 103 mmol/L (98-107); Estimated Glomerular Filt Rate 41; Glucose 142 mg/dL (65-110); Magnesium 2.5 mg/dL (1.6-2.3); Potassium 4.2 mmol/L (3.4-5.0); Sodium 139 mmol/L (137-145)
[2024-08-20 14:58] LABS: Prothrombin Time 13.3 Seconds (11.1-14.7)
[2024-08-20 14:59] LABS: Partial Thromboplastin Time 28.1 Seconds (22.3-36.8)
--- NOTE | 2024-08-20 14:59 | PC.NURSE ---
5 attempts at getting blood work was attempted by ED staff. phlebotomy was consulted for assistance. provider notified.
[2024-08-20 15:16] LABS: Troponin I 0.049 ng/mL (0.000-0.034)
--- NOTE | 2024-08-20 17:47 | ECG_ITS ---
Test Date: 2024-08-20 17:52:46 Measurements Intervals [place] Rate: 53 P: 49 [place]: 270 QRS: -11 QRSD: 145 T: 185 QT: 424 QTc: 402 Interpretive Statements SINUS BRADYCARDIA WITH SINUS ARRHYTHMIA WITH FIRST DEGREE AV BLOCK LEFT BUNDLE BRANCH BLOCK ABNORMAL ECG Compared to ECG 08/20/2024 14:27:48 HEART RATE HAS DECREASED Electronically Signed On 08-20-2024 18:58:19 TRAIN ATTENDANT by Cosmo Villa D.O.
--- NOTE | 2024-08-20 18:08 | P.HP_ITS ---
H&P: HPI History of Present Illness Date/Time: 08/20/24 18:08 Chief Complaint: Dizziness Narrative: 84 y/o M presents here with dizziness and high blood pressure with PMH of HTN, atrial fibrillation, CKD, COPD, CVA, diabetes, HLD, HTN, SIMON, and prostate cancer. The patient presents here from home for further evaluation of high blood pressure and dizziness. The patient provided the following history, he reports dizziness and high blood pressure started approximately 3 days ago post fall. He reports he was walking and lost his balance. He went to touch a stand and it moved therefore losing his balance. When he fell onto his right side hitting his right shoulder on a chest of drawers. He denies head strike or loss of consciousness. He then woke the next morning with dizziness. He then checked his blood pressure which was 190/97 . He then rechecked after he did a deep breathing exercise and took his BP medication. Rechecked his BP was 150/81. Patient tried to rest to alleviate the dizziness which helped while he was resting. However as soon as he would get up or change postions the dizziness would reoccur. Initial VS at presentation: 96.7? F, HR 80, RR 16, 153/66, and 100% on RA. ED workup showed: No leukocytosis, hemoglobin 13.6, no significant derangements on coags, creatinine 1.9 and GFR 41 (at baseline), Mag 2.5, glucose 142, initial troponin 0.049. Head CT showed no intracranial hemorrhage, mass, or acute infarct, chronic right PICA distribution infarct, and atrophy/chronic white matter changes. C-spine CT showed no fractures or subluxation of the cervical spine, moderate degenerative spondylosis with reversal the normal cervical lordosis. Left shoulder XR showed mild degenerative changes, no fracture dislocation seen. Review of Systems Review of Systems: All systems reviewed & are unremarkable except as noted in HPI and below [facility] Past Medical History Medical History Acute kidney injury superimposed on chronic kidney disease Anemia in chronic kidney disease AOM (acute otitis media) Atrial fibrillation CHF (congestive heart failure), NYHA class II Chronic kidney disease CKD (chronic kidney disease) COPD (chronic obstructive pulmonary disease) CVA (cerebral vascular accident) Diabetes mellitus Elevated aldolase level HLD (hyperlipidemia) HTN (hypertension) SIMON (obstructive sleep apnea) Prostate cancer Sleep apnea Type 2 diabetes mellitus with proteinuria URI (upper respiratory infection) Surgical History Surgical History S/P total hip arthroplasty LEFT Family History Family History Sibling Patient's brother is in good health Family history of diabetes mellitus in first degree relative Family history of malignant neoplasm Mother Family history of malignant neoplasm Father Patient's father is Acute myocardial infarction Other Diabetes mellitus Hypertension Social History Social History Social History: Smoking packs per day: 0.5 Smoking cigarettes per day: 10.0 Years smoked: 50 Smoking pack-years: 25.00 Smoking status: Former smoker Second hand tobacco smoke exposure: Yes (WHEN WITH FRIENDS) Additional smoking assessment comments: currently taking Chantix for smoking cessation Alcohol intake: former Alcohol use details: occasionally Substance use: never Substance use type: does not use Do You Feel Safe in your Home?: Yes Lack of Transportation: No Lack of Food: Never True Current Housing: I Have Housing Concerned About Future Housing: No Difficulty Paying Gas/Electric Bills: No Difficulty Paying for Meds: No Currently Unemployed: No Education: Bachelor's Degree Difficulty w/ Childcare or Family Care: No Living arrangements: alone Occupation/Education: retired Gender identity (if verbalized by the patient): Female Sexual Orientation (if Verbalized by the Patient): Straight or Heterosexual Spiritual care concerns: No Meds Home Medications and Allergies Home Medications Medication Instructions Recorded Confirmed Type cholecalciferol (vitamin D3) 125 125 mcg PO DAILY 02/04/22 08/20/24 History mcg (5,000 unit) capsule magnesium 200 mg tablet 200 mg PO DAILY 02/04/22 08/20/24 History vitamin B complex 1 cap PO DAILY 02/04/22 08/20/24 History blood sugar diagnostic (PlastycTouch #1 pkg 02/20/22 08/20/24 Rx Verio test strips) blood-glucose meter (PlastycTouch #1 pkg 02/20/22 08/20/24 Rx Verio Flex Meter) lancets 30 gauge (PlastycTouch Delica #1 pkg 02/20/22 08/20/24 Rx Plus Lancet) blood sugar diagnostic (OneTouch #1 pkg 02/27/22 08/20/24 Rx Verio test strips) flash glucose scanning reader #1 ea 08/19/22 08/20/24 Rx (FreeStyle Moo 2 [place]) flash glucose sensor (FreeStyle #3 ea 01/04/23 08/20/24 Rx Moo 2 Sensor kit) pen needle, diabetic 33 gauge x #300 ea 01/25/23 08/20/24 Rx /32 (Advocate Pen Needle) empagliflozin 25 mg tablet 25 mg PO DAILY #90 tabs 06/15/24 08/20/24 Rx pen needle, diabetic 32 gauge x #100 ea 06/19/24 08/20/24 Rx varenicline 0.5 mg (11)-1 mg (42) See Rx Instructions PO PER PKG DIR 07/10/24 08/20/24 Rx tablets in a dose pack (The Box Populitix #53 ea Starting Month Box) coQ10 (ubiquinol) 100 mg capsule 100 mg PO DAILY 08/20/24 08/20/24 History (Qunol Josias CoQ10) insulin glargine 100 unit/mL (3 8 unit subcut QAM 08/20/24 08/20/24 History mL) subcutaneous pen (Lantus Solostar U-100 Insulin) oxybutynin chloride 5 mg 5 mg PO DAILY 08/20/24 08/20/24 History tablet,extended release 24 hr Allergies Allergy/AdvReac Type Severity Reaction Status Date / Time milk AdvReac Mild Nausea, Verified 08/20/24 19:41 DIARRHEA carvedilol AdvReac Unknown Weakness Verified 08/20/24 19:41 lisinopril AdvReac Unknown Weakness Verified 08/20/24 19:41 Lrbvngz-RWX-OaI Reductase AdvReac Unknown Muscle Pain Verified 08/20/24 19:41 Inhibitor [Pqkknke-Kij-Jzr Reductase Inhibitor] Vital Signs Vital Signs - 24 hr 08/20/24 10:43 08/20/24 13:03 08/20/24 12:45 Temperature 96.7 F L Pulse Rate 80 63 Respiratory Rate 16 18 18 Blood Pressure 153/66 H 157/79 H Pulse Oximetry 100 100 08/20/24 13:17 08/20/24 14:06 08/20/24 14:16 Temperature Pulse Rate 60 62 69 Respiratory Rate 12 12 12 Blood Pressure 150/67 H 171/79 H Pulse Oximetry 100 99 99 08/20/24 14:32 08/20/24 15:17 08/20/24 15:19 Temperature Pulse Rate 60 56 L Respiratory Rate Blood Pressure 154/70 H 161/79 H 147/77 H Pulse Oximetry 98 08/20/24 15:22 08/20/24 15:19 08/20/24 15:22 Temperature Pulse Rate 48 L 60 Respiratory Rate 14 Blood Pressure 177/66 H 161/79 H 147/77 H Pulse Oximetry 98 98 08/20/24 15:25 08/20/24 16:01 08/20/24 16:16 Temperature Pulse Rate 60 80 Respiratory Rate 15 17 Blood Pressure 177/66 H 169/102 H 157/92 H Pulse Oximetry 97 99 96 08/20/24 17:30 Temperature Pulse Rate 64 Respiratory Rate 16 Blood Pressure Pulse Oximetry 100 Exam Const: General: comfortable and no acute distress Other: , male, nontoxic appearance HENMT: Ears: TM abnormal (Bilateral ears are obstructed with cerumen) Face/Nose/Sinus: Normal nares present Mouth: Yes moist mucous membranes Eyes: General: appearance normal, both eyes and all related structures Sclera: sclerae normal Pupils: Equal, round and reactive pupils present EOM: EOMs intact bilaterally Resp: Effort & Inspection: normal respiratory effort Auscultation: clear to auscultation bilaterally Cardio: Rate: regular rate Rhythm: regular rhythm Other: S1-S2 present without murmur, rub, ectopy GI: Other: Abdomen rounded, soft, nontender. Normoactive bowel sounds in all quadrants. Skin: General skin exam: normal color and no rashes or lesions noted Wounds: no wounds Neuro: Speech: normal speech Motor exam (neuro): 5/5 motor strength present throughout Sensory Exam: normal sensation Other: No gaze palsy, facial droop, dysarthria, or focal weakness on exam. A&O x4. Extrem: General: normal to inspection Psych: Mental Status: mental status grossly normal Affect: normal affect Other: Good insight and judgment, pleasant H&P: Results Labs Labs: Short CBC 08/20/24 Range/Units 14:42 WBC 7.8 (4.5-10.0) K/mm3 Hgb 13.6 L (14.0-18.0) g/dL Hct 42.4 (42.0-52.0) % Plt Count 227 (150-375) k/mm3 BMP 08/20/24 14:42 Sodium 139 Potassium 4.2 Chloride 103 Carbon Dioxide 27 BUN 23 H Creatinine 1.90 H Glucose 142 H Calcium 9.3 Cardiac Enzymes 08/20/24 Range/Units 14:42 Troponin I 0.049 H* (0.000-0.034) ng/mL Liver Function 08/20/24 Range/Units 14:42 Total Bilirubin 0.4 (0.2-1.3) mg/dL AST 21 (17-59) U/L ALT 23 (6-50) U/L Alkaline Phosphatase 106 (38-126) U/L Albumin 4.3 (3.5-5.1) g/dL Assessment and Plan Assessment and plan (1) Non-ST elevation WV (NSTEMI): Code(s): I21.4 - Non-ST elevation (NSTEMI) myocardial infarction Status: Acute Assessment and Plan: - EKG, initial: Sinus rhythm with marked first-degree AV block with sinus arrhythmia and atrial premature complexes, rate 63, LBB. - EKG, repeat (1): Intraventricular conduction delay now present, sinus rhythm, PACs, and LBBB no longer present. awaiting formal read. - CXR ordered - Troponin: 0.049 -> 0.059 -> 0.061 - ASA 324 given, SL nitro PRN - cardiology consulted, awaiting recs - cardiac catheterization, previous (06/11/2023): 1. Codominant coronary circulation with acute coronary syndrome/ non ST- elevation WV due to subtotal 95-99% stenosis of the distal circumflex after OM2. Moderate 70% stenosis is noted in the midportion of the RCA 2. Successful PCI of the target lesion in the distal circumflex using the Orsiro drug-eluting stent described above with an excellent angiographic result. - echo, previous (04/2023): Systolic function at lower limits of normal, estimated EF 50-55%. Grade 1 diastolic dysfunction. See report for details. - telemetry monitoring (2) Dizziness: Code(s): R42 - Dizziness and giddiness Status: Acute Assessment and Plan: - head CT No intracranial hemorrhage, mass, or acute infarct. Chronic right PICA distribution infarct. Atrophy and chronic white matter changes, as above. - C-spine CT and shoulder XR negative for traumatic findings, chronic findings see individual report for details - fall precautions - BP 157/92 - troponin mildly elevated, see above - add UA and viral PCR to rule out infectious/viral cause - suspect dizziness may be secondary to NSTEMI. low suspicion for CVA given no neuro deficits on exam and dizziness is occurring with posture changes. (3) Diabetes mellitus: Qualifiers: Diabetes mellitus complication status: without complication Diabetes mellitus terminal system operator insulin use: without terminal system operator use Diabetes mellitus type: type 2 Qualified Code(s): E11.9 - Type 2 diabetes mellitus without complications Code(s): E11.9 - Type 2 diabetes mellitus without complications Status: Chronic Assessment and Plan: - hypoglycemia protocol - POC blood glucose ACHS - home medication: Continue Jardiance 25 mg daily, Lantus 8 units q.a.m. - correct regimen ordered - moderate dose TIDWM - A1C 5.9% in 2022, update (4) HTN (hypertension): Qualifiers: Hypertension type: essential hypertension Qualified Code(s): I10 - Essential (primary) hypertension Code(s): I10 - Essential (primary) hypertension Status: Chronic Assessment and Plan: - chronic, currently 157/92 - not currently on any home medications. given one time dose of hydrochlorothiazide 6.25 mg (173/60 -> 147/49). Will start amlodipine 5 mg daily. - monitor (5) Impacted cerumen of both ears: Code(s): H61.23 - Impacted cerumen, bilateral Status: Acute Assessment and Plan: - Debrox drops bilateral ears daily Plan Diet: Diabetic GI Prophylaxis: Not currently indicated DVT Prophylaxis: SCDs Lines: Peripheral Code Status: Full code Quality VTE Prophylaxis VTE prophylaxis: mechanical ordered Hospitalist [facility] Advance Care Plan I have confirmed that the patient's Advanced Care Plan is present, code status is documented, or surrogate decision maker is listed in patient medical record.: Yes Medication Reconciliation I have utilized all available resources to obtain, update and review the patients current medications (includes all prescriptions, OTC, herbals, cannabis, and nutritional supplements).: Yes
[2024-08-20] MEDS: ASPIRIN 81 MG CHEWABLE TABLET 324 MG PO (18:37)
[2024-08-20 18:51] LABS: Troponin I 0.059 ng/mL (0.000-0.034)
[2024-08-20 19:20] LABS: Influenza A QL RT-PCR Negative (Negative); Influenza B QL RT-PCR Negative (Negative); RSV RNA, RT-PCR Negative (Negative); SARS-CoV-2 RNA PCR Negative (Negative)
--- NOTE | 2024-08-20 19:57 | PC.NURSE ---
During admission assessment, patient stated that he takes a medication for high blood pressure, but cannot recall for certain if it is Cozaar and/or what the dosage is supposed to be. Hospitalist No Persaud notified of med rec completion with provided information. Report provided to IMU SANAM Hendrickson.
--- NOTE | 2024-08-20 20:17 | ADMGEN ---
This patient, Luís Law Jr., was admitted to IMU Room 206-01. Patient/family oriented to hospital policies and general routines including ID bracelet, bed and alarms, visiting hours, pain management, procedures, bathroom and other care routines, personal items, smoking policy, room service/diet, and visiting hours. Information on how to activate the Rapid Response Team has been discussed. Patient/Family are encouraged to report perceived risks to care and to ask questions if they do not understand what they are told or what they should do.
[2024-08-20 20:47] LABS: Glucose Point of Care 175 mg/dl (65-105)
[2024-08-20 21:07] LABS: Troponin I 0.061 ng/mL (0.000-0.034)
[2024-08-20] MEDS: hydroCHLOROthiazide 6.25 MG TABLET PO (21:15)
[2024-08-20 23:31] LABS: Add Urine Microscopic? YES; Appearance Urine Clear (Clear); Bacteria Urine None Seen /hpf; Bilirubin Urine Negative (Negative); Blood Urine Negative (Negative); Color Urine Yellow (Yellow); Glucose Urine UA 3+ mg/dL (Negative); Ketones Urine Negative (Negative); Leukocyte Esterase Ur Negative LEU/UL (Negative); Nitrate Urine Negative (Negative); Non Pathogenic Casts 0-2; Protein Urine Trace mg/dL (Negative); RBC Urine 0-2 /hpf (0-2); Specific Grav Ur 1.024 (1.001-1.035); Squamous Epithelial Cell Urine None Seen /hpf (Few); Urobilinogen Urine 0.2 mg/dL (<2.0); WBC Urine 0-5 /hpf (0-3)
[2024-08-21] VITALS (13 sets, daily range): BP systolic 132–177; BP diastolic 57–80; PULSE 48–90; RESP 17–20; TEMP 36.7–36.9; O2SAT 94–99
--- NOTE | 2024-08-21 | ECHO_ITS ---
Patient Info Name: Luís Law Age: 84 years : 1940 Gender: Male Ht: 71 in Wt: 205 lbs BSA: 2.18 m2 HR: 63 bpm BP: 153 / 69 mmHg Heart Rhythm: Sinus Rhythm Technical Quality: Poor Exam Date: 08/21/2024 12:03 PM Exam Location: Echo Lab Patient Status: Inpatient Admit Date: 08/20/2024 Staff Ordering Physician: Kristen Martinez MD (chikis/nanda) Attending Provider: Jarred Chong MD Referring Physician: Michelle JARRELL; Exam Type: CA echo dop color flow w con Study Info Indications - cad Complete two-dimensional, color flow and Doppler transthoracic echocardiogram is performed with contrast to opacify the left ventricle and to improve the deliniation of the left ventricle endocardial borders. Contrast/Agitated Saline Contrast/Ag. Saline: Definity Amount: 2.00 ml Existing IV Access: Yes Reason for Poor Study: poor echocardiographic windows Summary 1. Technically challenging exam, definity contrast injected to improve visualization. 2. Moderate concentric LVH with mild global systolic dysfunction ejection fraction 40% and grade 1 diastolic noncompliance. 3. Mildly sclerotic aortic valve which is nonstenotic. Left Ventricle Left ventricular chamber dimension is normal. Left ventricular systolic function is mildly reduced, estimated at 40-45%. There is moderate concentric increased left ventricular wall thickness. The left ventricular diastolic function is grade I diastolic dysfunction. Right Ventricle Right ventricular chamber dimension is normal. Left Atria Left atrial chamber dimension is mildly enlarged. Right Atria Right atrial chamber dimension is not well visualized. Aortic Valve The aortic valve is trileaflet. There is mild aortic valve sclerosis. Pulmonic Valve The pulmonic valve is not well visualized. Mitral Valve The mitral valve has normal leaflets. Tricuspid Valve The tricuspid valve leaflets are normal. Pericardium/Pleural The pericardium appears normal. Aorta The aortic root size at the sinus of Valsalva is normal. Left Ventricular Outflow Tract Name Value Normal LVOT 2D LVOT Diameter 2.31 cm LVOT Doppler LVOT Peak Gradient 5 mmHg LVOT Mean Gradient 2 mmHg LVOT VTI 25.38 cm LVOT VTI/AV VTI Ratio 0.78 LVOT Stroke Volume 105.95 ml LVOT CO 5.26 l/min LVOT CI 2.42 L/min/m2 Pulmonic Valve Name Value Normal RVOT Doppler RVOT Peak Gradient 5 mmHg PV Doppler PV Peak Gradient 5 mmHg Mitral Valve Name Value Normal MV Doppler MV Decel [place] 410.87 cm/s2 MV PHT 0 s MV Area (PHT) 6.47 cm2 4.00-5.00 MV Diastolic Function MV E Peak Velocity 48.16 cm/s MV A Peak Velocity 107.25 cm/s MV E/A 0.45 MV Decel Time 0 s MV Annular TDI MV E/e' (Septal) 14.19 <=8.00 MV E/e' (Lateral) 4.02 <=8.00 MV E/e' (Average) 9.11 Tricuspid Valve Name Value Normal Estimated PAP/RSVP RA Pressure 10 mmHg <=5 Aorta Name Value Normal Ascending Aorta Ao Root Diameter (MM) 4.54 cm Ao Root Diam Index (MM) 2.09 cm/m2 Aortic Valve Name Value Normal AV Doppler AV Peak Velocity 172.95 cm/s AV Peak Gradient 12 mmHg AV Mean Gradient 6 mmHg AV VTI 32.52 cm AV Area (Cont Eq VTI) 3.26 cm2 >=3.00 AV Area (Cont Eq Nimesh) 2.58 cm2 AV Regurgitation 2D LVOT Area 4.18 cm2 Ventricles Name Value Normal LV Dimensions 2D/MM IVS Diastolic Thickness (2D) 1.69 cm 0.60-1.00 LVID Diastole (2D) 5.65 cm 4.20-5.80 LVIW Diastolic Thickness (2D) 1.27 cm 0.60-1.00 LVID Systole (2D) 4.13 cm 2.50-4.00 LVOT Diameter 2.31 cm LV Mass (2D Cubed) 381.12 g 88.00-224.00 LV Mass Index (2D Cubed) 0.02 g/cm2 0.00-0.01 Relative Wall Thickness (2D) 0.45 LV Fractional Shortening/Ejection Fraction 2D/MM LV Fractional Shortening (2D) 27 % 25-43 LV EF (2D Teicholz) 52 % 52-72 LV Diastolic Volume (4C MOD) 119.74 ml LV EF (4C MOD) 56 % LV Diastolic Volume (2C MOD) 145.29 ml LV EF (2C MOD) 63 % LV Diastolic Volume (BP MOD) 133.08 ml 62.00-150.00 LV Diastolic Volume Index (BP MOD) 0.06 l/m2 0.03-0.07 LV Systolic Volume (BP MOD) 53.27 ml 21.00-61.00 LV Systolic Volume Index (BP MOD) 0.02 l/m2 0.01-0.03 LV EF (BP MOD) 60 % 52-72 LV Diastolic Length (4C) 8.69 cm LV Systolic Length (4C) 7.34 cm LV Stroke Volume (4C MOD) 67.53 ml Atria Name Value Normal LA Dimensions LA Dimension (MM) 3.50 cm 3.00-4.10 LA Volume (4C A-L) 54.24 ml LA Volume (BP A-L) 64.75 ml Report Signatures
[2024-08-21 05:17] LABS: Basophils Absolute Auto 0.1 K/mm3 (0.0-0.1); Basophils Percent Auto 0.7 % (0.2-1.2); Eosinophils Absolute Auto 0.5 K/mm3 (0-0.3); Eosinophils Percent Auto 6.3 % (0-4.4); Hematocrit 41.5 % (42.0-52.0); Hemoglobin 13.4 g/dL (14.0-18.0); Immature Granulocyte Absolute 0.02 K/mm3 (0.00-0.031); Immature Granulocyte Percent A 0.3 % (0-0.5); Lymphocytes Absolute Auto 1.72 K/mm3 (0.9-3.2); Mean Corpuscular HGB Conc 32.3 g/dl (32-36); Mean Corpuscular Hemoglobin 28.3 pg (26-34); Mean Corpuscular Volume 87.6 fl (80-100); Mean Platelet Volume 11.7 fl (7.4-10.4); Monocytes Absolute Auto 0.9 K/mm3 (0.1-0.6); Monocytes Percent Auto 12.4 % (2.6-8.5); Neutrophils Percent Auto 56.3 % (45.5-73.1); Platelet Count Result 229 k/mm3 (150-375); Red Blood Count 4.74 M/mm3 (4.6-6.20); Red Cell Distribution Width 15.5 % (11.5-14.5); White Blood Count 7.2 K/mm3 (4.5-10.0)
[2024-08-21 05:34] LABS: Alanine Aminotransferase 20 U/L (6-50); Albumin Level 3.9 g/dL (3.5-5.1); Alkaline Phosphatase 103 U/L (38-126); Anion Gap 4 mmol/L (4-12); Aspartate Amino Transferase 23 U/L (17-59); Bilirubin,Total 0.7 mg/dL (0.2-1.3); Blood Urea Nitrogen 22 mg/dL (9-20); Calcium 9.4 mg/dL (8.4-10.2); Carbon Dioxide 29 mmol/L (22-30); Chloride 106 mmol/L (98-107); Estimated CRCL calculation 28 ml/min; Estimated Glomerular Filt Rate 39; Glucose 101 mg/dL (65-110); Potassium 4.9 mmol/L (3.4-5.0); Sodium 139 mmol/L (137-145)
[2024-08-21 05:42] LABS: Hemoglobin A1C 7.3 % (<5.7)
[2024-08-21 07:32] LABS: Glucose Point of Care 96 mg/dl (65-105)
[2024-08-21] MEDS: CHOLECALCIFEROL 1,000 UNITS TABLET 1000 UNITS PO (08:28)
[2024-08-21] MEDS: CHOLECALCIFEROL 5,000 UNITS TABLET 5000 UNITS PO (08:28)
[2024-08-21] MEDS: EMPAGLIFLOZIN 25 MG TABLET PO (08:28)
[2024-08-21] MEDS: oxyBUTYnin CHLORIDE XL 5 MG TAB.ER.24 PO (08:28)
[2024-08-21] MEDS: amLODIPine BESYLATE 5 MG TABLET PO (08:29)
[2024-08-21] MEDS: VITAMIN B COMPLEX CAPSULE 1 CAP PO (08:29)
[2024-08-21] MEDS: CARBAMIDE PEROXIDE 6.5% OT SOLN 15 ML BTL 5 DROP EACH EAR (08:31)
[2024-08-21] MEDS: ASPIRIN 81 MG CHEWABLE TABLET PO (08:31)
[2024-08-21] MEDS: MAGNESIUM OXIDE 200 MG TABLET PO (08:32)
[2024-08-21] MEDS: INSULIN GLARGINE (*BKC) 100 UNITS/ML 8 UNITS SUB-Q (08:35)
--- NOTE | 2024-08-21 09:59 | PM.CNCAR ---
Assessment and Plan Assessment and plan (1) Dizziness: Code(s): R42 - Dizziness and giddiness Status: Acute (2) Diabetes mellitus: Qualifiers: Diabetes mellitus complication status: without complication Diabetes mellitus intermission coordinator insulin use: without intermission coordinator use Diabetes mellitus type: type 2 Qualified Code(s): E11.9 - Type 2 diabetes mellitus without complications Code(s): E11.9 - Type 2 diabetes mellitus without complications Status: Chronic (3) HTN (hypertension): Qualifiers: Hypertension type: essential hypertension Qualified Code(s): I10 - Essential (primary) hypertension Code(s): I10 - Essential (primary) hypertension Status: Chronic Plan 1. Type 2 NC - Most likely in the setting of accelerated HTN, dizziness. Does have underlying CAD with mod stenosis in RCA - History and biomarker profile not suggestive of a plaque rupture - Echo to assess LV function - No need for an invasive evaluation, also has CKD3 cr ~ 2.0 - Discussed a MPI with him. he will discuss it with Dr Guardado as an outpatient - Continue DAPT, statin 2. HTN - Started on amlodipine by primary team - Will add a Coreg/Toproxl-Xl if more optimization is needed for BP 3. PAF CHADSVASC 7 - Currently sinus - Not on anticoagulation - Discussed with him the risks, benefits and alternatives of anticoagulation. he does not want to start AC for now. He agreed to be laced on a 7 day holter to assess AF burden. 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 Dizziness U/I Suspect BPPV As per primary team Improving 5. CAD S/p PCI of LCX (2022) TTE EF 50-55% On DAPT Statin 6. DM As per primary team History of Present Illness History of Present Illness Consult date/time: 08/21/24 09:59 Reason For Visit: dizziness, elevated troponin Narrative: Patient is an 84-year-old male who is PMH of HTN, atrial fibrillation, CKD, COPD, CVA, diabetes, HLD, HTN, SIMON, and prostate cancer. He was admitted with intermittent episodes of dizziness and HTN. Cardiology consulted for elevated biomarkers. he denies any chest pain, dyspnea. Does endorse chronic L shoulder pain, reproducible which did worsen recently ECG shows LBB, LVH with strain TTE (2022) shows EF 50-55%, LVH Troponin flat Had a PCI of LCX in 06/2023, mid RCA reported to be 70%, on medical mgt, DAPT Has history of PAF, not on AC Currently denies chest pain, dyspnea. Dizziness better Review of Systems Review of Systems: All systems reviewed & are unremarkable except as noted in HPI and below Constitutional: Constitutional: Denies fatigue, Denies fever(s) and Denies weakness Eyes: Eyes: Denies change in vision and Denies photophobia ENT: Reports dizziness Cardiovascular: Cardiovascular: Denies chest pain, Denies rapid heart rate and Denies dyspnea Respiratory: Respiratory: Denies chest congestion, Denies cough and Denies dyspnea Neurologic: Reports dizziness and Denies weakness Endocrine: Endocrine: Denies fatigue PMFSH Past Medical History Medical History Acute kidney injury superimposed on chronic kidney disease Anemia in chronic kidney disease AOM (acute otitis media) Atrial fibrillation CHF (congestive heart failure), NYHA class II Chronic kidney disease CKD (chronic kidney disease) COPD (chronic obstructive pulmonary disease) CVA (cerebral vascular accident) Diabetes mellitus Elevated aldolase level HLD (hyperlipidemia) HTN (hypertension) SIMON (obstructive sleep apnea) Prostate cancer Sleep apnea Type 2 diabetes mellitus with proteinuria URI (upper respiratory infection) Surgical History Surgical History S/P total hip arthroplasty LEFT Family History Family History Sibling Patient's brother is in good health Family history of diabetes mellitus in first degree relative Family history of malignant neoplasm Mother Family history of malignant neoplasm Father Patient's father is Acute myocardial infarction Other Diabetes mellitus Hypertension Social History Social History Social History: Smoking packs per day: 0.5 Smoking cigarettes per day: 10.0 Years smoked: 50 Smoking pack-years: 25.00 Smoking status: Former smoker Second hand tobacco smoke exposure: Yes (WHEN WITH FRIENDS) Additional smoking assessment comments: currently taking Chantix for smoking cessation Alcohol intake: former Alcohol use details: occasionally Substance use: never Substance use type: does not use Do You Feel Safe in your Home?: Yes Lack of Transportation: No Lack of Food: Never True Current Housing: I Have Housing Concerned About Future Housing: No Difficulty Paying Gas/Electric Bills: No Difficulty Paying for Meds: No Currently Unemployed: No Education: Bachelor's Degree Difficulty w/ Childcare or Family Care: No Living arrangements: alone Occupation/Education: retired Gender identity (if verbalized by the patient): Female Sexual Orientation (if Verbalized by the Patient): Straight or Heterosexual Spiritual care concerns: No Meds Home Medications and Allergies Home Medications Medication Instructions Recorded Confirmed Type cholecalciferol (vitamin D3) 125 125 mcg PO DAILY 02/04/22 08/20/24 History mcg (5,000 unit) capsule magnesium 200 mg tablet 200 mg PO DAILY 02/04/22 08/20/24 History vitamin B complex 1 cap PO DAILY 02/04/22 08/20/24 History blood sugar diagnostic (OneTouch #1 [facility] 02/20/22 08/20/24 Rx Verio test strips) blood-glucose meter (OneTouch #1 [facility] 02/20/22 08/20/24 Rx Verio Flex Meter) lancets 30 gauge (OneTouch Delica #1 [facility] 02/20/22 08/20/24 Rx Plus Lancet) blood sugar diagnostic (OneTouch #1 [facility] 02/27/22 08/20/24 Rx Verio test strips) flash glucose scanning reader #1 ea 08/19/22 08/20/24 Rx (FreeStyle Moo 2 [place]) flash glucose sensor (FreeStyle #3 ea 01/04/23 08/20/24 Rx Moo 2 Sensor kit) pen needle, diabetic 33 gauge x #300 ea 01/25/23 08/20/24 Rx 5/32 (Advocate Pen Needle) empagliflozin 25 mg tablet 25 mg PO DAILY #90 tabs 06/15/24 08/20/24 Rx pen needle, diabetic 32 gauge x #100 ea 06/19/24 08/20/24 Rx 5/32 varenicline 0.5 mg (11)-1 mg () See Rx Instructions PO PER PKG DIR 07/10/24 08/20/24 Rx tablets in a dose pack (Chantix #53 ea Starting Month Box) coQ10 (ubiquinol) 100 mg capsule 100 mg PO DAILY 08/20/24 08/20/24 History (Qunol Josias CoQ10) insulin glargine 100 unit/mL (3 8 unit subcut QAM 08/20/24 08/20/24 History mL) subcutaneous pen (Lantus Solostar U-100 Insulin) oxybutynin chloride 5 mg 5 mg PO DAILY 08/20/24 08/20/24 History tablet,extended release 24 hr Allergies Allergy/AdvReac Type Severity Reaction Status Date / Time milk AdvReac Mild Nausea, Verified 08/20/24 19:41 DIARRHEA carvedilol AdvReac Unknown Weakness Verified 08/20/24 19:41 lisinopril AdvReac Unknown Weakness Verified 08/20/24 19:41 [id number] Reductase AdvReac Unknown Muscle Pain Verified 08/20/24 19:41 Inhibitor [Tcbhlra-Bch-Bkk Reductase Inhibitor] Vital Signs Vital Signs - 24 hr 08/20/24 10:43 08/20/24 13:03 08/20/24 12:45 Temperature 35.9 C L Pulse Rate 80 63 Respiratory Rate 16 18 18 Blood Pressure 153/66 H 157/79 H Pulse Oximetry 100 100 Oxygen Delivery 08/20/24 13:17 08/20/24 14:06 08/20/24 14:16 Temperature Pulse Rate 60 62 69 Respiratory Rate 12 12 12 Blood Pressure 150/67 H 171/79 H Pulse Oximetry 100 99 99 Oxygen Delivery 08/20/24 14:32 08/20/24 15:17 08/20/24 15:19 Temperature Pulse Rate 60 56 L Respiratory Rate Blood Pressure 154/70 H 161/79 H 147/77 H Pulse Oximetry 98 Oxygen Delivery 08/20/24 15:22 08/20/24 15:19 08/20/24 15:22 Temperature Pulse Rate 48 L 60 Respiratory Rate 14 Blood Pressure 177/66 H 161/79 H 147/77 H Pulse Oximetry 98 98 Oxygen Delivery 08/20/24 15:25 08/20/24 16:01 08/20/24 16:16 Temperature Pulse Rate 60 80 Respiratory Rate 15 17 Blood Pressure 177/66 H 169/102 H 157/92 H Pulse Oximetry 97 99 96 Oxygen Delivery 08/20/24 17:30 08/20/24 18:00 08/20/24 18:15 Temperature Pulse Rate 64 64 73 Respiratory Rate 16 16 15 Blood Pressure Pulse Oximetry 100 100 100 Oxygen Delivery 08/20/24 19:36 08/20/24 20:15 08/20/24 20:20 Temperature 36.9 C Pulse Rate 72 70 71 Respiratory Rate 20 18 Blood Pressure 173/60 H Pulse Oximetry 99 96 Oxygen Delivery 08/20/24 20:30 08/20/24 22:00 08/20/24 23:03 Temperature 36.7 C Pulse Rate 62 69 Respiratory Rate 18 Blood Pressure 147/49 H Pulse Oximetry 96 97 Oxygen Delivery Room Air 08/21/24 00:00 08/21/24 00:00 08/21/24 02:00 Temperature Pulse Rate 66 69 Respiratory Rate Blood Pressure Pulse Oximetry 97 Oxygen Delivery Room Air 08/21/24 04:00 08/21/24 04:00 08/21/24 05:33 Temperature 36.7 C Pulse Rate 62 66 Respiratory Rate 18 Blood Pressure 177/57 H Pulse Oximetry 97 97 Oxygen Delivery Room Air 08/21/24 06:00 08/21/24 07:25 08/21/24 08:00 Temperature 36.8 C Pulse Rate 60 48 L 63 Respiratory Rate 18 17 Blood Pressure 153/69 H Pulse Oximetry 98 98 Oxygen Delivery Room Air 08/21/24 08:00 Temperature Pulse Rate 63 Respiratory Rate Blood Pressure Pulse Oximetry Oxygen Delivery Exam Const: General: comfortable, no acute distress, alert and well nourished Nutritional Appearance: well nourished Orientation/consciousness: patient oriented x3 Limitations: no limitations Other: , male, nontoxic appearance HENMT: Head: normal to inspection Ears: TM abnormal (Bilateral ears are obstructed with cerumen) Face/Nose/Sinus: Normal nares present and normal facial exam Face and sinus: normal facial exam Mouth: Yes Normal oral and palatal mucosa present, Yes lip normal and Yes moist mucous membranes Teeth and gingiva: dentition normal Throat: posterior oropharynx normal and uvula midline Eyes: General: appearance normal, both eyes and all related structures Sclera: sclerae normal Pupils: Equal, round and reactive pupils present EOM: EOMs intact bilaterally Direct Ophthalmoscopy: No photophobia Neck: Neck: no meningeal signs Chest: Chest palpation & inspection: normal inspection of the chest Resp: Effort & Inspection: normal respiratory effort Auscultation: clear to auscultation bilaterally Cardio: Rate: regular rate Rhythm: regular rhythm and abnormal rhythm Heart sounds: Murmur heart sound present Other: S1-S2 present without murmur, rub, ectopy GI: Auscultation: normal bowel sounds Other: Abdomen rounded, soft, nontender. Normoactive bowel sounds in all quadrants. Skin: General skin exam: normal color and no rashes or lesions noted Rashes: no rashes Wounds: no wounds Neuro: General: patient oriented x3, moves all extremities, no meningeal signs, no focal motor deficits and CN's II-XI intact bilaterally Cranial nerves: Yes Equal, round and reactive pupils present and Yes Nystagmus not present Speech: normal speech Motor exam (neuro): 5/5 motor strength present throughout Sensory Exam: normal sensation Other: No gaze palsy, facial droop, dysarthria, or focal weakness on exam. A&O x4. Extrem: General: normal to inspection Psych: Mental Status: mental status grossly normal Affect: normal affect Attitude: cooperative Other: Good insight and judgment, pleasant Results Labs and Meds 08/21/24 04:58 08/21/24 04:58 Lab results: Cardiac Enzymes 08/20/24 08/20/24 08/20/24 Range/Units 14:42 17:44 20:27 AST 21 (17-59) U/L Troponin I 0.049 H* 0.059 H* D 0.061 H* (0.000-0.034) ng/mL 08/21/24 Range/Units 04:58 AST 23 (17-59) U/L Troponin I (0.000-0.034) ng/mL Coagulation 08/20/24 Range/Units 14:42 PT 13.3 (11.1-14.7) Seconds APTT 28.1 (22.3-36.8) Seconds CBC 08/20/24 08/21/24 Range/Units 14:42 04:58 WBC 7.8 7.2 (4.5-10.0) K/mm3 RBC 4.82 4.74 (4.6-6.20) M/mm3 Hgb 13.6 L 13.4 L (14.0-18.0) g/dL Hct 42.4 41.5 L (42.0-52.0) % Plt Count 227 229 (150-375) k/mm3 Lymph # (Auto) 1.78 1.72 (0.9-3.2) K/mm3 [place] # (Auto) 0.9 H 0.9 H (0.1-0.6) K/mm3 Eos # (Auto) 0.4 H 0.5 H (0-0.3) K/mm3 Baso # (Auto) 0.1 0.1 (0.0-0.1) K/mm3 Comprehensive Metabolic Panel 08/20/24 08/21/24 Range/Units 14:42 04:58 Sodium 139 139 (137-145) mmol/L Potassium 4.2 4.9 (3.4-5.0) mmol/L Chloride 103 106 (98-107) mmol/L Carbon Dioxide 27 29 (22-30) mmol/L BUN 23 H 22 H (9-20) mg/dL Creatinine 1.90 H 2.00 H (0.7-1.3) mg/dL Glucose 142 H 101 (65-110) mg/dL Calcium 9.3 9.4 (8.4-10.2) mg/dL AST 21 23 (17-59) U/L ALT 23 20 (6-50) U/L Alkaline Phosphatase 106 103 (38-126) U/L Total Protein 8.0 8.0 (6.3-8.2) g/dL Albumin 4.3 3.9 (3.5-5.1) g/dL Intake and Output 08/20/24 08/21/24 08/21/24 23:59 07:59 15:59 Intake Total 250 120 Output Total 650 Balance -400 120 Intake: Oral 250 120 Output: Urine 650 Patient Weight 08/21/24 23:59 Weight 93.2 kg
--- NOTE | 2024-08-21 11:02 | PC.NURSE ---
Alert and oriented sitting up in bed. Denies chest pain at this time. Denies dizziness at this time. Vital signs remain stable. 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 States pain is a 4 on scale 0/10, located in left shoulder. Denies a need for intervention related to pain at this time. Discussed plan of care with patient, including medications and scheduled for ECHO. Verbalizes understanding. Denies further questions at this time. No acute distress noted.
[2024-08-21 12:37] LABS: Glucose Point of Care 111 mg/dl (65-105)
[2024-08-21] MEDS: PERFLUTREN LIPID MICROSPHERES 1.5 ML VIAL DILUTED TO 10 ML TOTAL VOLUME IV PUSH (13:37)
--- NOTE | 2024-08-21 14:48 | IVDEFINITY ---
Prior to administration of IV Definity the patient was educated on the risks and benefits of the imaging enhancing agent including potential adverse side effects. The patient verbalized understanding. Allergies were verified. No exclusion criteria were identified and at least one of the following inclusion criteria were met: 1) physician request, 2) patient technically difficult to image (per the [place] [employer]ocardi[employer] guidelines of two or more segments not discernable within the apical view), or 3) questionable left ventricular function. ?
--- NOTE | 2024-08-21 16:07 | PM.DS ---
DS: Admitting Diagnosis Discharge Date 08/21/24 Admitting Diagnosis Dizziness DS: Discharge Diagnosis Discharge Diagnosis (1) Dizziness: Code(s): R42 - Dizziness and giddiness Status: Acute (2) Elevated troponin: Code(s): R79.89 - Other specified abnormal findings of blood chemistry Status: Acute (3) HTN (hypertension): Qualifiers: Hypertension type: essential hypertension Qualified Code(s): I10 - Essential (primary) hypertension Code(s): I10 - Essential (primary) hypertension Status: Chronic DS: Summary Hospital Course Hospital Course: 84 y/o M presents here with dizziness and high blood pressure with PMH of HTN, atrial fibrillation, CKD, COPD, CVA, diabetes, HLD, HTN, SIMON, and prostate cancer. The patient presents here from home for further evaluation of high blood pressure and dizziness. The patient provided the following history, he reports dizziness and high blood pressure started approximately 3 days ago post fall. He reports he was walking and lost his balance. He went to touch a stand and it moved therefore losing his balance. When he fell onto his right side hitting his right shoulder on a chest of drawers. He denies head strike or loss of consciousness. He then woke the next morning with dizziness. He then checked his blood pressure which was 190/97 . He then rechecked after he did a deep breathing exercise and took his BP medication. Rechecked his BP was 150/81. Patient tried to rest to alleviate the dizziness which helped while he was resting. However as soon as he would get up or change positions the dizziness would reoccur. Initial VS at presentation: 96.7? F, HR 80, RR 16, 153/66, and 100% on RA. ED workup showed: No leukocytosis, hemoglobin 13.6, no significant derangements on coags, creatinine 1.9 and GFR 41 (at baseline), Mag 2.5, glucose 142, initial troponin 0.049. Head CT showed no intracranial hemorrhage, mass, or acute infarct, chronic right PICA distribution infarct, and atrophy/chronic white matter changes. C-spine CT showed no fractures or subluxation of the cervical spine, moderate degenerative spondylosis with reversal the normal cervical lordosis. Left shoulder XR showed mild degenerative changes, no fracture dislocation seen. Patient was evaluated by cardiology and it was deemed to be related to high blood pressure. Patient was started on Amlodipine and HCTZ. At the time of encounter this morning patient noted dizziness has resolved, no dizziness or lightheadedness. Cardiology evaluated and recommended continuing Antiplatelets and Statin, patient will follow up with Dr Guardado for outpatient ischemic workup. Patient has paroxysmal afib with [id number] however patient declined anticoagulation noting he will discuss with his primary electroplater apprentice on follow up. Discharged on Amlodipine and HCTZ, and Heart monitor per cards recs. follow up with PCP in 3-5 days, f/u with cardiology for ischemic workup and adjustment and medications. Time Spent with Patient Time attestation: Total time spent providing and/or coordinating discharge services: DS: Data Data Completed and Pending Labs on day of discharge: Labs from last 24 hours 08/21/24 08/21/24 08/21/24 11:28 07:24 04:58 WBC 7.2 RBC 4.74 Hgb 13.4 L Hct 41.5 L MCV 87.6 MCH 28.3 MCHC 32.3 RDW 15.5 H Plt Count 229 MPV 11.7 H Immature Gran % (Auto) 0.3 Neut % (Auto) 56.3 Lymph % (Auto) 24.0 Delta % (Auto) 12.4 H Eos % (Auto) 6.3 H Baso % (Auto) 0.7 Lymph # (Auto) 1.72 [place] # (Auto) 0.9 H Eos # (Auto) 0.5 H Baso # (Auto) 0.1 Abs Immat Gran (auto) 0.02 Absolute Neuts (auto) 4.0 Absolute Nucleated RBC 0.000 Nucleated RBC % 0.0 Sodium 139 Potassium 4.9 Chloride 106 Carbon Dioxide 29 Anion Gap 4 BUN 22 H Creatinine 2.00 H Estim Creat Clear Calc 28 Estimated GFR 39 L Glucose 101 POC Capillary Glucose 111 H 96 Hemoglobin A1c 7.3 H Calcium 9.4 Total Bilirubin 0.7 AST 23 ALT 20 Alkaline Phosphatase 103 Troponin I Total Protein 8.0 Albumin 3.9 Urine Color Urine Appearance Urine pH Ur Specific [place] Urine Protein Urine Glucose (UA) Urine Ketones Ur Blood (Man) Urine Nitrate Urine Bilirubin Urine Urobilinogen Leukocyte Esterase Rfl Urine RBC Urine WBC Ur Squamous Epith Cells Urine Bacteria Urine Casts Influenza A (RT-PCR) Influenza B (RT-PCR) RSV (RT-PCR) SARS-CoV-2 RNA (RT-PCR) 08/20/24 08/20/24 08/20/24 23:17 20:27 20:17 WBC RBC Hgb Hct MCV MCH MCHC RDW Plt Count MPV Immature Gran % (Auto) Neut % (Auto) Lymph % (Auto) Delta % (Auto) Eos % (Auto) Baso % (Auto) Lymph # (Auto) [place] # (Auto) Eos # (Auto) Baso # (Auto) Abs Immat Gran (auto) Absolute Neuts (auto) Absolute Nucleated RBC Nucleated RBC % Sodium Potassium Chloride Carbon Dioxide Anion Gap BUN Creatinine Estim Creat Clear Calc Estimated GFR Glucose POC Capillary Glucose 175 H Hemoglobin A1c Calcium Total Bilirubin AST ALT Alkaline Phosphatase Troponin I 0.061 H* Total Protein Albumin Urine Color Yellow Urine Appearance Clear Urine pH 6.0 Ur Specific [place] 1.024 Urine Protein Trace Urine Glucose (UA) 3+ H Urine Ketones Negative Ur Blood (Man) Negative Urine Nitrate Negative Urine Bilirubin Negative Urine Urobilinogen 0.2 Leukocyte Esterase Rfl Negative Urine RBC 0-2 Urine WBC 0-5 Ur Squamous Epith Cells None seen Urine Bacteria None seen Urine Casts 0-2 Influenza A (RT-PCR) Influenza B (RT-PCR) RSV (RT-PCR) SARS-CoV-2 RNA (RT-PCR) 08/20/24 08/20/24 18:39 17:44 WBC RBC Hgb Hct MCV MCH MCHC RDW Plt Count MPV Immature Gran % (Auto) Neut % (Auto) Lymph % (Auto) Delta % (Auto) Eos % (Auto) Baso % (Auto) Lymph # (Auto) [place] # (Auto) Eos # (Auto) Baso # (Auto) Abs Immat Gran (auto) Absolute Neuts (auto) Absolute Nucleated RBC Nucleated RBC % Sodium Potassium Chloride Carbon Dioxide Anion Gap BUN Creatinine Estim Creat Clear Calc Estimated GFR Glucose POC Capillary Glucose Hemoglobin A1c Calcium Total Bilirubin AST ALT Alkaline Phosphatase Troponin I 0.059 H* D Total Protein Albumin Urine Color Urine Appearance Urine pH Ur Specific [place] Urine Protein Urine Glucose (UA) Urine Ketones Ur Blood (Man) Urine Nitrate Urine Bilirubin Urine Urobilinogen Leukocyte Esterase Rfl Urine RBC Urine WBC Ur Squamous Epith Cells Urine Bacteria Urine Casts Influenza A (RT-PCR) Negative Influenza B (RT-PCR) Negative RSV (RT-PCR) Negative SARS-CoV-2 RNA (RT-PCR) Negative Discharge Plan Discharge Attending physician on discharge: Deepti Olguin Consulting providers: Greg Collado Discharging Clinician: Deepti Olguin Anticipated Discharge Date/Time: 08/21/24 15:33 Patient Disposition: Home, Self-Care Activity: as tolerated Diet: as tolerated Discharge Instructions: Call your primary care physician and let them know that you were in the hospital. Follow up within one week. Call your electroplater apprentice for an appointment. You are going home on a heart monitor so a follow up appointment is necessary. Patient Instructions: Antibiotic Form, A-fib (Atrial Fibrillation) (DC), Pain Management (DC), Chronic Hypertension (DC), Bradycardia (DC), Cardiac Loop Recorder Insertion or Removal (DC), High Troponin Levels (GEN) Stand Alone Forms: General Discharge Information Follow-up/Referrals: Jace Guardado MD [Physician] - 1 Week Greg Collado MD [Physician] - (F/u with cardiology as instructed ) Tres Catherine DO [Primary Care Provider] - 1 Week (F/u with PCP in 3-5 days) Discharge Medications: New amlodipine [Norvasc] 5 mg Tablet 5 mg PO DAILY 30 Days Qty: 30 1RF hydrochlorothiazide 12.5 mg tablet 12.5 mg PO DAILY Qty: 30 1RF aspirin [Children's Aspirin] 81 mg Tablet,Chewable 81 mg PO DAILY@0800 30 Days Qty: 30 2RF atorvastatin [Lipitor] 40 mg tablet 40 mg PO DAILY Qty: 30 1RF Continued empagliflozin 25 mg tablet 25 mg PO DAILY Qty: 90 1RF (DME) FreeStyle Moo 2 [place] Misc See Rx Instructions .Route Qty: 1 0RF Rx Instructions: Use to check blood sugar TID vitamin B complex Capsule 1 cap PO DAILY cholecalciferol (vitamin D3) 125 mcg (5,000 unit) Capsule 125 mcg PO DAILY magnesium 200 mg Tablet 200 mg PO DAILY insulin glargine [Lantus Solostar U-100 Insulin] 100 unit/mL (3 mL) insulin pen 8 unit subcut QAM oxybutynin chloride 5 mg tablet extended release 24hr 5 mg PO DAILY coQ10 (ubiquinol) [Qunol Josias CoQ10] 100 mg Capsule 100 mg PO DAILY (DME) FreeStyle Moo 2 Sensor Kit See Rx Instructions .Route Qty: 3 6RF Rx Instructions: Use to check BS TID (DME) pen needle, diabetic [Advocate Pen Needle] 33 gauge x 5/32 needle See Rx Instructions .Route Qty: 300 0RF Rx Instructions: use with lantus, and humalog pen, tid (DME) pen needle, diabetic 32 gauge x 5/32 needle See Rx Instructions .Route Qty: 100 12RF Rx Instructions: use to administer insulin varenicline [Chantix Starting Month Box] 0.5 mg (11)- 1 mg (42) tablets,dose pack See Rx Instructions PO PER PKG DIR Qty: 53 0RF Patient Comments: pt states he is taking 2 tabs/day Rx Instructions: PO PER PKG DIR; call for continuing month irvin (DME) blood-glucose meter [OneTouch Verio Flex meter] Misc Qty: 1 0RF Rx Instructions: May substitute to in-stock meter and/or covered by insurance. Use As Directed (DME) OneTouch Verio test strips Strip Qty: 1 0RF Rx Instructions: May substitute to in-stock and/or covered by insurance strips. Use As Directed (DME) lancets [OneTouch Delica Plus Lancet] 30 gauge Misc Qty: 1 0RF Rx Instructions: May substitute to in-stock and/or covered by insurance lancets. Use As Directed (DME) OneTouch Verio test strips Strip Qty: 1 0RF Rx Instructions: May substitute to in-stock and/or covered by insurance strips. Use As Directed Date of admission: 08/20/24 18:02 Primary Care Provider: Tres Catherine Admitting Provider: Jarred Chong Attending physician on admission: Jarred Chong Condition: Stable
--- NOTE | 2024-08-21 16:26 | PC.NURSE ---
Reviewed discharge packet with patient. Denies questions at this time, verbalizes understanding stating That is straight forward enough . Taken out to personal vehicle via wheel chair.
== END 2024-08-21 16:16 | disposition home or self-care (01) ==
LOC: ANHED 19:02 → ANHIMU 19:41
PROVIDERS: Student in an Organized Health Care Education/Training Program; Admitting Provider Internal Medicine; Emergency Provider General Practice; PCP Internal Medicine; Visit Provider Internal Medicine
DX: I21.4 Non-ST elevation (NSTEMI) myocardial infarction (principal); R42 Dizziness and giddiness; H61.23 Impacted cerumen, bilateral; M25.511 Pain in right shoulder; W01.190A Fall on same level from slipping, tripping and stumbling with subsequent striking against furniture, initial encounter; I25.10 Atherosclerotic heart disease of native coronary artery without angina pectoris; Z95.5 Presence of coronary angioplasty implant and graft; I13.0 Hypertensive heart and chronic kidney disease with heart failure and stage 1 through stage 4 chronic kidney disease, or unspecified chronic kidney disease; I50.9 Heart failure, unspecified; E11.22 Type 2 diabetes mellitus with diabetic chronic kidney disease; N18.9 Chronic kidney disease, unspecified; I48.0 Paroxysmal atrial fibrillation; D63.1 Anemia in chronic kidney disease; J44.9 Chronic obstructive pulmonary disease, unspecified; E78.5 Hyperlipidemia, unspecified; G47.33 Obstructive sleep apnea (adult) (pediatric); Z20.822 Contact with and (suspected) exposure to COVID-19; Z85.46 Personal history of malignant neoplasm of prostate; Z87.891 Personal history of nicotine dependence; Z79.84 Long term (current) use of oral hypoglycemic drugs; Z79.02 Long term (current) use of antithrombotics/antiplatelets; Z79.82 Long term (current) use of aspirin; Z79.4 Long term (current) use of insulin; Z86.73 Personal history of transient ischemic attack (TIA), and cerebral infarction without residual deficits
CPT/HCPCS: 36415; 70450; 71046; 72125; 73030; 80053; 81001; 82948; 83036; 83735; 84484; 85025; 85610; 85730; 87637; 93005; 93242; 99285; A9270; C8929; J1815; Q9957

== ENCOUNTER 2024-09-12 07:57 | Outpatient (CLI) | payer MEDICARE, OTHER, SELFPAY ==
[2024-09-12 10:26] LABS: Cholesterol 242 mg/dL (0-200); Estimated Glomerular Filt Rate 33; HDL Direct 65 mg/dL; Triglycerides 142 mg/dL (<150)
[2024-09-12 10:37] LABS: LDL Cholesterol Direct 117 mg/dL
== END 2024-09-12 07:58 | disposition home or self-care (01) ==
PROVIDERS: PCP Internal Medicine; Visit Provider Nurse Practitioner Adult Health
DX: E78.5 Hyperlipidemia, unspecified (principal); I25.10 Atherosclerotic heart disease of native coronary artery without angina pectoris; R10.84 Generalized abdominal pain; R11.0 Nausea; K21.9 Gastro-esophageal reflux disease without esophagitis; Z80.0 Family history of malignant neoplasm of digestive organs; T50.8X5A Adverse effect of diagnostic agents, initial encounter
CPT/HCPCS: 36415; 80061; 82565

== ENCOUNTER 2024-12-29 11:50 | Outpatient (CLI) | payer MEDICARE, OTHER, SELFPAY ==
[2024-12-29 12:23] LABS: Hematocrit 42.3 % (42.0-52.0); Hemoglobin 13.4 g/dL (14.0-18.0); Mean Corpuscular HGB Conc 31.7 g/dl (32-36); Mean Corpuscular Volume 88.5 fl (80-100); Mean Platelet Volume 11.3 fl (7.4-10.4); Platelet Count Result 230 k/mm3 (150-375); Red Blood Count 4.78 M/mm3 (4.6-6.20); Red Cell Distribution Width 15.5 % (11.5-14.5); White Blood Count 6.1 K/mm3 (4.5-10.0)
--- OUTSIDE RECORDS SUMMARY | 2024-12-29 12:33 | XMS_ITS | Clinical Summary ---
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 Gender Identity Not on file Sexual Orientation Not on file Plan of Treatment Health Maintenance Due Date Last Done Comments DIABETES ANNUAL FOOT EXAM 1960 DIABETES ANNUAL RETINAL EXAM 1960 DIABETES MICROALBUMIN ANNUAL SCREEN 1960 LDL CHOLESTEROL ANNUAL 1960 DTAP/TDAP/TD VACCINES (1 - Tdap) 1961 PNEUMOCOCCAL VACCINE 50+ YEARS (1 of 2 - PCV) 06/29/19 61 ZOSTER VACCINE (1 of 2) 1992 RSV VACCINE (60+ or ) (1 - 1-dose 75+ series) 2017 DIABETES HBA1C Q 6 MONTHS 09/18/2021 03/19/2021 INFLUENZA VACCINE (#1) 2024 07/10/2021 Insurance [employer] Care Teams Yoga Coordinator Relationship Specialty Start Date End Date Clotilde Dutton MD [address] [place] [id number] PCP - General Family Practice 09/22/21
--- OUTSIDE RECORDS SUMMARY | 2024-12-29 12:33 | XMS_ITS | Clinical Summary ---
Author Organization [facility] Address [address] [place] [address] Phone Care Team Providers Care Programming Development Project Manager Name Role Phone Neli Boyle MD Primary Care Provider [phone] Allergies Active Allergy Reactions Criticality Noted Date Comments Milk (Cow) 11/11/2021 Medications Medication Sig Dispensed Refills Start Date End Date Status HYDROcodone-aceta minophen (NORCO) 7.5-325 MG per tablet TAKE 1 TABLET BY MOUTH EVERY 4 TO 6 HOURS NEEDED FOR PAIN 02/12/2022 Active Lantus SoloStar 100 UNIT/ML injection INJECT 9 UNITS SUBCUTANEOUSLY AT BEDTIME 02/21/2022 Active magnesium oxide (MAG-OX) 400 mg tablet 400 mg 1 (one) time each day Active Cholecalciferol (Vitamin D3) 125 MCG (5000 UT) capsule Take by mouth Active b complex vitamins capsule Take 1 capsule by mouth 1 (one) time each day Active aspirin 325 MG tablet Take 325 mg by mouth 1 (one) time each day Active losartan (COZAAR) 100 MG tablet Take 1 tablet (100 mg total) by mouth 1 (one) time each day 30 tablet 11 03/27/2022 Active hydroCHLOROthiazi de (HYDRODIURIL) 25 MG tablet Take 1 tablet (25 mg total) by mouth 1 (one) time each day 30 tablet 11 04/22/2022 Active fluticasone (FLONASE) 50 MCG/ACT nasal spray 07/02/2022 Active BD Pen Needle Celeste U/F 32G X 4 MM misc 06/02/2022 Active Lancets (freestyle) lancets 03/06/2022 Active sildenafil (VIAGRA) 100 MG tablet 05/21/2022 Active azelastine (ASTELIN) 0.1 % nasal spray 07/02/2022 Active Active Problems Problem Noted Date Diagnosed Date Chronic kidney disease stage 3B 11/13/2021 Obstructive sleep apnea syndrome 11/11/2021 Cerebrovascular accident 12/12/2020 Hyperlipidemia 12/12/2020 History of malignant neoplasm of prostate 2020 Hyperglycemia due to type 2 diabetes mellitus Atrial fibrillation 06/19/2014 Overview (11/11/2021): Atrial fibrillation Essential (primary) hypertension 06/19/2014 Immunizations Name Administration Dates Next Due Influenza Split High Dose Pr eservative Free IM 07/10/2021 Influenza, Unspecified 07/10/2021,08/10/2017,04/2016 Pneumococcal Conjugate 06/04/2021 Family History Medical History Relation Comments Kidney disease Neg Hx Social History Tobacco Use Types Packs/Day Years Used Date Smoking Tobacco: Former Smokeless Tobacco: Never Alcohol Use Standard Drinks/Week Comments Not Currently 0 (1 standard drink = 0.6 oz pur e alcohol) Sex and Gender Information Value Date Recorded Sex Assigned at Not on file Gender Identity Not on file Sexual Orientation Not on file Last Filed Vital Signs Vital Sign Reading Time Taken Comments Blood Pressure 128/72 07/06/2022 2:24 PM CDT Pulse 72 07/06/2022 2:24 PM CDT Temperature 36 C (96.8 F) 07/06/2022 2:24 PM CDT Respiratory Rate - - Oxygen Saturation - - Inhaled Oxygen Concentration - - Weight 95.3 kg (210 lb) 07/06/2022 2:24 PM CDT Height 180.3 cm (5' 11 ) 07/06/2022 2:24 PM CDT Body Mass Index 29.29 07/06/2022 2:24 PM CDT Plan of Treatment Health Maintenance Due Date Last Done Comments Pneumococcal PPSV23/PCV13 65 + Years / Low and Medium Risk (1 of 4 - PCV) 2007 Influenza Vaccine (#1) 2024 , 08/10/2017, 08/10/2016 Care Teams Programming Development Project Manager Relationship Specialty Start Date End Date Neli Boyle MD [address] [facility] [address] [place] [address] PCP - General Internal Medicine 05/21/22
[2024-12-29 12:34] LABS: Anion Gap 11 mmol/L (4-12); Blood Urea Nitrogen 17 mg/dL (9-20); Carbon Dioxide 24 mmol/L (22-30); Chloride 104 mmol/L (98-107); Estimated Glomerular Filt Rate 31; Glucose 235 mg/dL (65-110); Potassium 4.4 mmol/L (3.4-5.0); Sodium 139 mmol/L (137-145)
--- OUTSIDE RECORDS SUMMARY | 2024-12-29 12:34 | XMS_ITS | Clinical Summary ---
Author Organization [facility] [address] Address [address] [place] [address] Care Team Providers Care Fluid Pump Operator Name Role Phone Tres Catherine Primary Care Provider [phone] Allergies Active Allergy Reactions Criticality Noted Date Comments Milk Stomach upset Low 11/11/2021 Jxbubpb-Cpg-Tgy Reductase Inhibitors Muscle pain Medium 03/10/2023 Medications cholecalcifero l (VITAMIN D-3) 2,000 unit capsule 1 capsule (2,000 Units total) Active cyanocobalamin (Vitamin B-12) 500 mcg tabletIndicati ons:Prevention of Vitamin B12 Deficiency Take 1 tablet (500 mcg total) by mouth daily Active folic acid (FOLVITE) 400 mcg tablet Take 1 tablet (400 mcg total) by mouth daily Active coenzyme Q10 200 mg capsule Take 1 capsule (200 mg total) by mouth daily Active insulin glargine (LANTUS) 100 unit/mL (3 mL) pen for injection Lantus Solostar U-100 Insulin 100 unit/mL (3 mL) subcutaneous pen INJECT 9 UNITS SUBCUTANEOUSLY AT BEDTIME [address] (PROTONIX) 40 mg EC tablet 4 Active aspirin 81 mg chewable tabletIndicati ons:Coronary artery disease involving [place] coronary artery of [place] heart without angina pectoris Take 1 tablet (81 mg total) by mouth daily 90 tablet 3 4 Active Jardiance 25 mg tablet Take 1 tablet (25 mg total) by mouth daily 4 Active carvediloL (COREG) 3.125 mg tabletIndicati ons:Coronary artery disease involving [place] coronary artery of [place] heart without angina pectoris Take 1 tablet (3.125 mg total) by mouth 2 (two) times a day with meals 180 tablet 3 4 025 Active evolocumab (Repatha SureClick) 140 mg/mL pen injector Inject 1 mL (140 mg total) under the skin every 14 (fourteen) days 2 mL 11 5 Active Additional Information Patient not taking.Reported on 10/06/2024 amLODIPine (NORVASC) 10 mg tablet Take 1 tablet (10 mg total) by mouth daily 5 Active magnesium oxide (MAG-OX) 250 mg (150.8 mg elemental) tabletIndicati ons:hypomagnes emia 1 tablet (250 mg total) daily Active oxyBUTYnin (DITROPAN) 5 mg tablet Take 1 tablet (5 mg total) by mouth 3 (three) times a day Active Active Problems Problem Noted Date Diagnosed Date 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 stent 10/06/2024 Sensorineural hearing loss (SNHL) of both ears 1 11/08/2023 Bilateral impacted cerumen 09/07/2024 Preoperative clearance 03/10/2023 Atrial fibrillation 08/10/2014 Overview (01/08/2017): Atrial fibrillation Encounters Date Type Department Care Team Description 10/06/2024 11:30 AM PRESSED OR BLOWN GLASS WORKER Office Visit [facility] Cardiology at [address] [place] [address] Jace Guardado MD Paroxysmal atrial fibrillation (HCC) (Primary Dx); Status post insertion of drug eluting coronary artery stent from Last 3 Months Surgical History Surgery Date Site/Laterality Comments ABLATION TOTAL HIP ARTHROPLASTY 10/04/2021 - 10/03/2022 Medical History Medical History Date Comments Atrial fibrillation (HCC) Cancer (HCC) Heart disease Diabetes (HCC) HTN (hypertension) Kidney disease History of radiation therapy GERD (gastroesophageal reflux disease) Sinus infection Stroke (HCC) Family History Medical History Relation Name Comments Other Father due to he at stroke Diabetes Mother Stomach cancer Mother Diabetes Sister Relation Name Status Comments Father Mother (Age 49) Sister Social History Tobacco Use Types Packs/Day Years Used Date Smoking Tobacco: Former Smokeless Tobacco: Never Tobacco Cessation:Counseling Given: Not Answered Alcohol Use Standard Drinks/Week Comments No 0 (1 standard drink = 0.6 oz pur e alcohol) Sex and Gender Information Value Date Recorded Sex Assigned at Not on file Legal Sex Male 3:27 AM PRESSED OR BLOWN GLASS WORKER Gender Identity Not on file Sexual Orientation Not on file Obstetrics History Last Filed Vital Signs Vital Sign Reading Time Taken Comments Blood Pressure 132/62 10/06/2024 11:07 AM PRESSED OR BLOWN GLASS WORKER Pulse 60 10/06/2024 11:07 AM PRESSED OR BLOWN GLASS WORKER Temperature 36.9 C (98.5 F) 06/12/2014 7:16 AM CDT Respiratory Rate 16 10/06/2024 11:07 AM PRESSED OR BLOWN GLASS WORKER Oxygen Saturation 99% 09/07/2024 9:00 AM PRESSED OR BLOWN GLASS WORKER Inhaled Oxygen Concentration - - Weight 97.1 kg (214 lb) 10/06/2024 11:07 AM PRESSED OR BLOWN GLASS WORKER Height 180.3 cm (5' 11 ) 10/06/2024 11:07 AM PRESSED OR BLOWN GLASS WORKER Body Mass Index 29.85 10/06/2024 11:07 AM PRESSED OR BLOWN GLASS WORKER Plan of Treatment Health Maintenance Due Date Last Done Comments Albumin Creatinine Ratio, Urine 1942 Depression Screening 1942 Fall Risk Assessment 1942 eGFR 1942 Dilated Eye Exam 1942 Foot Exam 1942 DTaP/Tdap/Td Vaccine (1 - Tdap) 1953 Hepatitis B Screening 1960 Zoster Vaccine (1 of 2) 1992 Abdominal Aortic Aneurysm (A AA) Screen 2007 Well Visit 65+ 2007 Hemoglobin A1C 07/12/2014 01/10/2014, 03/05, 01/12/2013, Additional history exists Pneumococcal vaccine 65+ (2 of 2 - PPSV23) 07/30/2021 06/04/2021 Covid-19 Vaccine (4 - 2023-2 5 season) 2024 10/08/2021, 03/29/2021, 03/01/2021 Influenza Vaccine (#1) 2024 , 07/10/2021, 08/10/2017, Additional history exists Lipid Panel 09/12/2025 09/12/2024, 02/2017, 06/12/2014, Additional history exists Procedures Procedure Name Priority Date/Time Associated Diagnosis Comments LIPID PANEL Routine 09/12/2024 8:39 AM PRESSED OR BLOWN GLASS WORKER HEMOGLOBIN A1C Routine 01/10/2014 9:15 AM CDT from Last 3 Months or Most Recently Relevant to Health Maintenance Results * (ABNORMAL) Lipid panel (09/12/2024 8:39 AM PRESSED OR BLOWN GLASS WORKER) SCRIBED Cholesterol, Total 242(A) 0 - 200 EXTERNAL LAB SCRIBED HDL 65 40 - 100 EXTERNAL LAB SCRIBED LDL 117(A) 0 - 100 EXTERNAL LAB SCRIBED Triglycerides 142 0 - 150 EXTERNAL LAB Blood 09/12/2024 8:39 AM PRESSED OR BLOWN GLASS WORKER us Historical Provider MD LAB BLOOD ORDERABLES Sulema l Result Performing Organization Address [facility]/ZIP Co de Phone Number EXTERNAL LAB * (ABNORMAL) Hemoglobin A1c (01/10/2014 9:15 AM CDT) Hemoglobin A1c % 7.9(H) 4.8 - 5.9 % 01/12/2014 3:45 PM CDT [facility] Comment: As of 2010 Method: BASILIA Asa 6000 using turbidometric inhibition immunoassay procedure. Results obtained are comparable to results obtained using previous methodology (HPLC). [place] [employer] recommends that the goal of therapy should be an A1C hemoglobin of <7%. Reevaluate the treatment regimen in patients with an A1C >8%. 01/10/2014 9:15 AM CDT 01/10/2014 10:15 AM CDT Jorge Luis CASILLAS LAB BLOOD ORDERABLES Final Resu lt [facility] HISTORICAL RESULTS from Last 3 Months or Most Recently Relevant to Health Maintenance Insurance FOR LIFE MEDICARE FOR LIFE MEDICARE [facility] [employer] [facility] Care Teams Fluid Pump Operator Relationship Specialty Start Date End Date Ters Catherine DO PCP - General Internal Medicine 03/09/24
--- OUTSIDE RECORDS SUMMARY | 2024-12-29 12:34 | XMS_ITS | Referral Summary ---
Author Organization [facility] [address] Address [address] [place] [address] Care Team Providers Care Dairy Farmer Name Role Phone Tres Catherine DO Primary Care Provider [phone] Encounters Date Type Department Care Team Description 10/06/2024 11:30 AM GREENHOUSE WORKER Office Visit [facility] Cardiology at [address] [place] [address] Jace Guardado MD Paroxysmal atrial fibrillation (HCC) (Primary Dx); Status post insertion of drug eluting coronary artery stent from Last 3 Months Allergies Active Allergy Reactions Criticality Noted Date Comments Milk Stomach upset Low 11/11/2021 Brchvdq-Zeh-Shm Reductase Inhibitors Muscle pain Medium 03/10/2023 Medications [...] mg chewable tabletIndicati ons:Coronary artery disease involving [place] coronary artery of [place] heart without angina pectoris Take 1 tablet (81 mg total) by mouth daily 90 tablet 3 4 Active Jardiance 25 mg tablet Take 1 tablet (25 mg total) by mouth daily 4 Active carvediloL (COREG) 3.125 mg tabletIndicati ons:Coronary artery disease involving [place] coronary artery of [place] heart without angina pectoris Take 1 tablet [...] Atrial fibrillation 08/10/2014 Overview (01/08/2017): Atrial fibrillation Social History Tobacco Use Types Packs/Day Years Used Date Smoking Tobacco: Former Smokeless Tobacco: Never Tobacco Cessation:Counseling Given: Not Answered Alcohol Use Standard Drinks/Week Comments No 0 (1 standard drink = 0.6 oz pur e alcohol) Sex and Gender Information Value Date Recorded Sex Assigned at Not on file Legal Sex Male 3:27 AM GREENHOUSE WORKER Gender Identity Not on file Sexual Orientation Not on file Last Filed Vital Signs Vital Sign Reading Time Taken Comments Blood Pressure 132/62 10/06/2024 11:07 AM GREENHOUSE WORKER Pulse 60 10/06/2024 11:07 AM GREENHOUSE WORKER Temperature 36.9 C (98.5 F) 06/12/2014 7:16 AM CDT Respiratory Rate 16 10/06/2024 11:07 AM GREENHOUSE WORKER Oxygen Saturation 99% 09/07/2024 9:00 AM GREENHOUSE WORKER Inhaled Oxygen Concentration - - Weight 97.1 kg (214 lb) 10/06/2024 11:07 AM GREENHOUSE WORKER Height 180.3 cm (5' 11 ) 10/06/2024 11:07 AM GREENHOUSE WORKER Body Mass Index 29.85 10/06/2024 11:07 AM GREENHOUSE WORKER Plan of Treatment Not on file Procedures Procedure Name Priority Date/Time Associated Diagnosis Comments LIPID PANEL Routine 09/12/2024 8:39 AM GREENHOUSE WORKER HEMOGLOBIN A1C Routine 01/10/2014 9:15 AM CDT from Last 3 Months or Most Recently Relevant to Health Maintenance Results * (ABNORMAL) Lipid panel (09/12/2024 8:39 AM GREENHOUSE WORKER) SCRIBED Cholesterol, Total 242(A) 0 - 200 EXTERNAL LAB SCRIBED HDL 65 40 - 100 EXTERNAL LAB SCRIBED LDL 117(A) 0 - 100 EXTERNAL LAB SCRIBED Triglycerides 142 0 - 150 EXTERNAL LAB Blood 09/12/2024 8:39 AM GREENHOUSE WORKER us Historical Provider LAB BLOOD ORDERABLES Sulema l Result EXTERNAL LAB * (ABNORMAL) Hemoglobin A1c (01/10/2014 9:15 AM CDT) Hemoglobin A1c % 7.9(H) 4.8 - 5.9 % Comment: As of 2010 Method: BASILIA Asa 6000 using turbidometric inhibition immunoassay procedure. Results obtained are comparable to results obtained using previous methodology (HPLC). [place] [employer] recommends that the goal of therapy should be an A1C hemoglobin of <7%. Reevaluate the treatment regimen in patients with an A1C >8%. 01/10/2014 9:15 AM CDT 01/10/2014 10:15 AM CDT Jorge Luis CASILLAS LAB BLOOD ORDERABLES Final Resu lt [facility] HISTORICAL RESULTS from Last 3 Months or Most Recently Relevant to Health Maintenance Insurance 1calendar MEDICARE MEDICARE FOR LIFE MEDICARE FOR LIFE Care Teams Dairy Farmer Relationship Specialty Start Date End Date Tres Catherine DO PCP - General Internal Medicine 03/09/24
--- OUTSIDE RECORDS SUMMARY | 2024-12-29 12:34 | XMS_ITS | Continuity of Care Document ---
Author Organization [place] [facility] [employer] [facility], [facility] Podiatry Mynor Mcclendon Address [address] [place] [address] Care Team Providers Care Heat Treating Bluer Name Role Phone MARTHA SHELDON Primary Care Provider MARTHA SHELDON Referring Provider [phone] Assessment Encounter Date Assessment Date Assessment LastModified by Organization Details LastModified Time 12/28/2024 12/28/2024 This note is dictated and transcribed by [employer]. Forming Machine Upkeep Mechanic Helper variances may occur. Despite proofreading, typographical errors may occur. Occasional wrong-word or '[id number]' substitutions may have occurred due to the inherent limitations of voice recording. Read the chart carefully and recognize, using context, where substitutions have occurred. [email or web address] Not available 12/28/2024 12:40:59 Plan of Treatment Reminders Order Date Submit Date Provider Last Modified By Organization Details Last Modified Time Details Appointments Establish ed Patient 15 2024 11:30A M Anton Lind DPM Not available Not available Not available Lab None recorded. Referral None recorded. Procedures None recorded. Surgeries None recorded. Imaging None recorded. Medication Orders None recorded. Patient TargetsNo targets recorded. Patient InstructionsNo instructions recorded. Reason for Referral None Reported. 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 93274849811 9109 Active 2020 Not Available [facility] 3 22:23:42 Malignant tumor of prostate 572401512 Active 2020 Not Available [facility] 3 22:23:42 Chronic sinusitis 36301041 Active 2020 Not Available [facility] 3 22:23:42 History of malignant neoplasm of prostate 673738989 Active 2020 Not Available [facility] 3 22:23:42 Type 2 diabetes mellitus 29917743 Active 2020 Not Available [facility] 3 22:23:42 Hyperlipi demia 68333202 Active 2020 Not Available [facility] 3 22:23:42 Dystrophi a unguium 70188384 Active 2022 Anton Lind DPM [address], [place], [address] , [employer] [facility] [employer] [facility] 3 08:54:18 Unable to cut own toenails 443891700 Active 2022 Anton Lind DPM [address], [address], [place], [address] , [employer] [facility] 3 08:54:43 History of cerebrova scular accident 878669489 Active 2022 Anton Lind DPM [address], [address], [place], [address] , [employer] [facility] [employer] [facility] 3 08:54:44 Soft tissue lesion of foot region 855975777 Active 2023 Anton Lind DPM [address], [place], [address] , [employer] [facility] [employer] [facility] 4 16:44:08 Diabetes mellitus 97165992 Active 2023 Anton Lind DPM [address], [place], [address] , [employer] 16:45:17 Problem Notes None recorded. Procedures Surgical History Date Name Laterality Status Provider Name and Address Organization Details Recorded Time 12/29/19 25 Nail Debridement completed Anton Lind DPM [address], [address], [place], [address], [employer] 12/28/2024 12:40:42 09/11/20 24 Nail Debridement completed Anton Lind DPM [address], [place], [address], [employer] 09/12/2024 09:08:11 06/12/20 24 Nail Debridement completed Anton Lind DPM [address], [place], [address], [employer] 06/12/2024 15:22:44 03/06/20 24 Nail Debridement completed Anton Lind DPM [address], [place], [address], [employer] 03/06/2024 17:16:09 11/11/19 24 Punch biopsy Podiatry completed Anton Lind DPM [address], [place], [address], [employer] 11/11/2023 16:47:08 02/16/20 23 Nail Debridement completed Anton Lind DPM [address], [place], [address], [employer] 02/16/2023 08:53:40 procedure on muscle completed Not Available [facility] 12/02/2022 22:22:49 Imaging Results None recorded. Procedure Notes None recorded. Medical Equipment None Reported. Allergies Allergen ID Allergen Name Allergen Category Reaction Reaction Severity Criticality Documentation Date Start Date Code Code System Note Provider Name and Address Organization Details Recorded Time 12311 cow milk allergeni c extract food,medi cation Not available Not available Not available 12/02/2022 07785 5 RxNorm Not Available [facility] 22:24:49 Medications Name Sig Start Date Stop Date Status Note LastModified by Organization Details LastModified Time losartan 50 mg tablet Take 1 tablet every day by oral route. 03/06 completed Not Available Not Available Not Available amoxicillin 500 mg capsule 03/06 completed Not Available Not Available Not Available atorvastati n 40 mg tablet 09/11 completed Not Available Not Available Not Available hydralazine 10 mg tablet 09/11 completed Not Available Not Available Not Available prednisone 10 mg tablet 06/03 completed Not Available Not Available Not Available naproxen 375 mg tablet 12/12 completed Not Available Not Available Not Available ibuprofen 800 mg tablet TAKE 1 TABLET BY MOUTH EVERY 8 HOURS NEEDED FOR PAIN active Not Available Not Available No t Available hydrocodone 5 mg-acetamin ophen 325 mg tablet active Not Available Not Available No t Available FreeStyle Lancets 28 gauge active Not Available Not Available Not Available famotidine 40 mg tablet active Not Available Not Available Not Available Wellbutrin SR 150 mg tablet, 12 hr sustained-r elease 03/06 completed Not Available Not Available Not Available hydralazine 25 mg tablet TAKE 1 TABLET BY MOUTH FOUR TIMES A DAY 03/06 completed Not Available Not Available Not Available acetaminoph en 300 mg-codeine 30 mg tablet Take 1 tablet twice a day by oral route as needed. 03/06 completed Not Available Not Available Not Available clopidogrel 75 mg tablet TAKE 1 TABLET BY MOUTH EVERY DAY 09/11 completed Not Available Not Available Not Available fexofenadin e 180 mg tablet TAKE 1 TABLET BY MOUTH EVERY DAY FOR 90 DAYS 03/06 completed Not Available Not Available Not Available amlodipine 5 mg tablet active Not Available Not Available Not Available sulfamethox azole 800 mg-trimetho prim 160 mg tablet TAKE 1 TABLET BY MOUTH TWICE DAILY 12/26 completed Not Available Not Available Not Available omeprazole 40 mg capsule,del ayed release TAKE 1 CAPSULE BY MOUTH ONCE DAILY BEFORE A MEAL active Not Available Not Available No t Available aspirin 81 mg tablet,destiny yed release active Not Available Not Available Not Available tramadol 50 mg tablet TAKE 1 TABLET BY MOUTH EVERY 6 HOURS NEEDED 06/03 completed Not Available Not Available Not Available sildenafil 100 mg tablet 03/06 completed Not Available Not Available Not Available amoxicillin 500 mg tablet TAKE 1 TABLET EVERY 8 HOURS UNTIL ALL TAKEN 03/06 completed Not Available Not Available Not Available carvedilol 3.125 mg tablet active Not Available Not Available Not Available prednisone 10 mg tablets in a dose pack Take 1 tab by mouth, 3 times a day for 3 daysTake 1 tab by mouth 2 times a day for 2 daysTake 1 tab by mouth once a day for 1 day 06/03 completed Not Available Not Available Not Available oxycodone-a cetaminophe n 5 mg-325 mg tablet TAKE 1/2 TO 1 TABLET EVERY 4 TO 6 HOURS NEEDED FOR PAIN. MAX 4 TABS A DAY active Not Available Not Available No t Available amoxicillin 875 mg tablet Take 1 tablet every 12 hours by oral route for 7 days. 03/06 completed Not Available Not Available Not Available famotidine 20 mg tablet 09/11 completed Not Available Not Available Not Available tamsulosin 0.4 mg capsule TAKE 1 CAPSULE BY MOUTH AT BEDTIME 03/06 completed Not Available Not Available Not Available phenazopyri dine 100 mg tablet 03/06 completed Not Available Not Available Not Available amlodipine 10 mg tablet active Not Available Not Available Not Available hydrocodone 7.5 mg-acetamin ophen 325 mg tablet TAKE 1 TABLET BY MOUTH EVERY 4 TO 6 HOURS NEEDED FOR PAIN 03/06 completed Not Available Not Available Not Available cephalexin 500 mg capsule 03/06 completed Not Available Not Available Not Available pantoprazol e 40 mg tablet,destiny yed release active Not Available Not Available Not Available metformin 1,000 mg tablet 1 po bid 03/06 completed Not Available Not Available Not Available promethazin e 25 mg tablet active Not Available Not Available Not Available nicotine 21 mg/24 hr daily transdermal patch Apply 1 patch every day by transderm al route for 14 days. 03/06 completed Not Available Not Available Not Available oxybutynin chloride ER 5 mg tablet,exte nded release 24 hr active Not Available Not Available Not Available gabapentin 300 mg capsule 12/12 completed Not Available Not Available Not Available aspirin 81 mg chewable tablet TAKE 1 TABLET BY MOUTH EVERY MORNING AT 8 AM active Not Available Not Available No t Available montelukast 10 mg tablet Take 1 tablet every day by oral route. 03/06 completed Not Available Not Available Not Available hydrochloro thiazide 25 mg tablet Take 1 tablet every day by oral route. 03/06 completed Not Available Not Available Not Available azelastine 137 mcg (0.1 %) nasal spray [place] 2 sprays twice a day by intranasa l route. 03/06 completed Not Available Not Available Not Available methylpredn isolone 4 mg tablets in a dose pack 03/06 completed Not Available Not Available Not Available ipratropium bromide 42 mcg (0.06 %) nasal spray 03/06 completed Not Available Not Available Not Available ketoconazol e 2 % topical cream 03/06 completed Not Available Not Available Not Available ondansetron 4 mg disintegrat ing tablet DISSOLVE ONE T PO Q 6 H PRN N active Not Available Not Available No t Available cefdinir 300 mg capsule Take 1 capsule every 12 hours by oral route for 10 days. active Not Available Not Available No t Available losartan 100 mg tablet Take 1 tablet every day by oral route. 09/11 completed Not Available Not Available Not Available SF 5000 Plus 1.1 % dental cream BRUSH ONCE DAILY OR DIRECTED active Not Available Not Available No t Available fluticasone propionate 50 mcg/actuati on nasal spray,suspe nsion 09/11 completed prn Not Available Not Available Not Available doxycycline hyclate 100 mg tablet 01/07 completed Not Available Not Available Not Available ipratropium bromide 21 mcg (0.03 %) nasal spray active Not Available Not Available Not Available loratadine 10 mg tablet 12/12 completed Not Available Not Available Not Available rosuvastati n 20 mg tablet TAKE 1 TABLET BY MOUTH EVERY DAY IN THE MORNING 09/11 completed Not Available Not Available Not Available bupropion HCl XL 150 mg 24 hr tablet, extended release 03/06 completed Not Available Not Available Not Available nitrofurant oin monohydrate /macrocryst als 100 mg capsule 01/07 completed Not Available Not Available Not Available chlorhexidi ne gluconate 0.12 % mouthwash RINSE WITH 10ML PO TID AFTER MEALS 09/11 completed Not Available Not Available Not Available varenicline tartrate 0.5 mg (11)-1 mg (42) tablets in a dose pack TAKE 0.5 MG DAILY FOR 3 DAYS, THEN 0.5 MG TWICE DAILY ON DAYS 4-7, THEN 1 MG TWICE DAILY PER PACKAGE 09/11 completed Not Available Not Available Not Available ProAir HFA 90 mcg/actuati on aerosol inhaler 03/06 completed Not Available Not Available Not Available Advair HFA 115 mcg-21 mcg/actuati on aerosol inhaler 03/06 completed Not Available Not Available Not Available Januvia 50 mg tablet 12/12 completed Not Available Not Available Not Available Golytely 236 gram-22.74 gram-6.74 gram-5.86 gram oral solution active Not Available Not Available Not Available FreeStyle Lite Strips active Not Available Not Available Not Available Lantus Solostar U-100 Insulin 100 unit/mL (3 mL) subcutaneou s pen INJECT 9 UNITS SUBCUTANE OUSLY AT BEDTIME active Not Available Not Available No t Available Humalog KwikPen (U-100) Insulin 100 unit/mL subcutaneou s 09/11 completed Not Available Not Available Not Available Antiseptic Skin Cleanser (chlorhexid ine) 4 % liquid PLEASE SEE ATTACHED FOR DETAILED DIRECTION S active Not Available Not Available No t Available Jardiance 25 mg tablet active Not Available Not Available Not Available Trulicity 1.5 mg/0.5 mL subcutaneou s pen injector 03/06 completed Not Available Not Available Not Available Trulicity 0.75 mg/0.5 mL subcutaneou s pen injector active Not Available Not Available Not Available bupropion HCl 150 mg tablet,12 hr sustained-r elease(smok ing deterrent) Take 1 tablet twice a day by oral route for 90 days. 03/06 completed Not Available Not Available Not Available BD Ultra-Fine Micro Pen Needle 32 gauge x 1/4 USE DIRECTED EVERY DAY WITH LANTUS active Not Available Not Available No t Available BD Celeste 2nd Gen Pen Needle 32 gauge x 5/32 USE TO INJECT INSULIN ONCE A DAY DIRECTED active Not Available Not Available No t Available ID NOW COVID-19 Test Kit TEST DIRECTED TODAY 03/06 completed Not Available Not Available Not Available FreeStyle Moo 3 Sensor device USE DIRECTED active Not Available Not Available No t Available Vitals Date Recorded Body height Body mass index (BMI) Body weight Heart rate Respiratory rate Oxygen saturation Oxygen saturation in Arterial blood by Pulse oximetry Systolic blood pressure Diastolic blood pressure Provider Name and Address Organization Details Last Updated DateTime 5 177.8 cm 31.7 kg/m2 481334. 91 g 63 /min 14 /min 98 % 98 % 146 mm[Hg] 79 mm[Hg] Bebe COE[place]O [place] [employer] [facility] 5 12:13:04 Social History Question Answer Notes LastModified by Organizat ion Details LastModified Time Tobacco Smoking Status Current Every Day Smoker Not Available [facility] 12/02/2022 22:22:43 Do You Have An Advance Directive? No [id number] Information not available 12/02/2022 What Is Your Level Of Alcohol Consumption? None [id number] Information not available 12/02/2022 What Is Your Level Of Caffeine Consumption? None [id number] Information not available 12/02/2022 In The 14 Days Before Symptom Onset, Have You Had Close Contact With A Laboratory-conf isma LUNA-19 While That Case Was Ill? No [id number] Information not available 12/02/2022 Are There Any Guns Present In Your Home? No [id number] Information not available 12/02/2022 How Much Tobacco Do You Smoke? 0.5 PPD [id number] Information not available 12/02/2022 Do You Feel Stressed (tense, Restless, Nervous, Or Anxious, Or Unable To Sleep At Night)? [id number] Information not available 12/02/2022 Do You Use Sunscreen Routinely? No [id number] Information not available 12/02/2022 Have You Recently Traveled Abroad? No [id number] Information not available 12/02/2022 Sex: Unknown Functional Status None recorded. Mental Status None recorded. Family History Relationship Description Onset Age of this Age Resolved Age Notes LastModified by Organization Details LastModified Time Mother Family history of malignant neoplasm [id number] Not available 12/02/2022 22:22:49 Mother Diabetes mellitus [id number] Not available 12/02/2022 22:22:49 Sister Family history of malignant neoplasm [id number] Not available 12/02/2022 22:22:49 Sister Diabetes mellitus [id number] Not available 12/02/2022 22:22:50 Medical History Condition Response BLINDNESS N RHEUMATIC FEVER N KIDNEY STONES N BLADDER PROBLEMS N MRSA N OTHER # 1 N POLIO N LUNG DISEASE/DISORDER N RADIATION / CHEMOTHERAPY N COPD N Other # 2 N BLOOD DISEASES N SURGERY N EAR OR HEARING PROBLEMS N MUMPS N FEMALE PROBLEMS / INFECTIONS N DEPRESSION (INCLUDING POST ) N BOWEL PROBLEMS N STROKE/TIA Y THYROID DISEASE N ULCERS N BENIGN PROSTATIC HYPERPLASIA N MEASLES N CERVICALGIA N TB SKIN TEST N MYOCARDIAL INFARCTION N PARAPELGIA N OBESITY N GERD/NAUSEA N ANEURYSM N URINARY/BLADDER/KIDNEY PROBLEMS Y INPATIENT PSYCH CARE N CORONARY ARTERY DISEASE (CAD) N MENIERE'S DISEASE N ADDICTION CONCERNS N ENDOMETRIOSIS N USE OF BLOOD THINNERS N SKIN PROBLEMS N EMPHYSEMA N GASTROINTESTINAL DISORDER N MUSCLE,JOINT OR BONE PROBLEMS N GASTROINTESTINAL BLEEDING N BLOOD CLOTS N ASTHMA N CATARACTS N ERECTILE DYSFUNCTION N GI PROBLEMS N CHF N Low Testosterone N NEUROPATHY N INFERTILITY N AIDS/HIV N FRACTURES N CHEMOTHERAPY / RADIATION N VISION/EYE PROBLEMS N LIVER DISEASE N MALE HYPOGONADISM N HYPERTENSION Y ANXIETY DISORDER N BLOOD TRANSFUSION N ANEMIA/BLOOD DISORDER N CHRONIC EAR INFECTIONS N BRONCHITIS N TUBERCULOSIS N GLAUCOMA N FOOT PROBLEM N DIVERTICULITIS N SLEEP APNEA N CHICKENPOX N ALLERGIES/HAYFEVER N INFECTIOUS DISEASE N PROSTATE N HEART ARRHYTHMIA N INSOMNIA N HIGH CHOLESTEROL / HYPERLIPIDEMIA N EYE PROBLEMS N HYPERTHYROIDISM N EATING DISORDER N NEUROLOGICAL PROBLEMS N EDEMA N CHRONIC PAIN SYNDROME N HYPOTHYROIDISM N CAROTID BLOCKAGE N CONSTIPATION N BACK / NECK PROBLEMS N HAVE YOU BEEN HOSPITALIZED OR SEEN IN [facility] IN THE PAST YEAR ? N ATHEROSCLEROSIS N BREAST PROBLEMS N DIALYSIS N ECZEMA N FIBROMYALGIA N OSTEOPOROSIS N ARTHRITIS Y NO SIGNIFICANT PAST MEDICAL HISTORY N APPENDICITIS N DIABETES, TYPE Y BAD TEETH N HEARTBURN / REFLUX N ADD/ADHD N AUTISM SPECTRUM DISORDER (ASD) N HEPATITIS / LIVER DISEASE N PULMONARY DISEASE N GOUT N SLEEP DISORDER N ALZHEIMER'S DISEASE N PAIN N DEMENTIA N HERPES N SEIZURES/EPILEPSY N HEADACHES/MIGRAINES N VASCULAR DISEASE N PACEMAKER N DIZZINESS N HEART DISEASE/HEART PROBLEMS N KIDNEY DISEASE N SCARLET FEVER N MULTIPLE SCLEROSIS N DEVELOPMENTAL OR BEHAVIORAL DISORDERS N MENTAL DISORDER/ILLNESS N CANCER: SPECIFY Y CARDIAC ARRHYTHMIA N PNEUMONIA N ANESTHESIA COMPLICATIONS N ATRIAL FIBRILLATION N Gall Stones N PULMONARY EMBOLISM N AUTOIMMUNE DISEASE N Immunizations Vaccine Type Date Status Note Provider Nam e and Address Organization Details Recorded Time Influenza, high-dose, quadrivalent, PF 07/10/2021 completed Not Available [facility] 22:24:47 Past Encounters Encounter ID Performer Location Encounter Start Date Encounter Closed Date Diagnosis/Indication Diagnosis SNOMED-CT Code Diagnosis ICD10 Code Diagnosis Note [id number] Anton Lind DPM [facility] Mynor Mcclendon [address] [place] [address] 12/28/2024 12:07:46 12/28/2024 12:41:11 Diabetes mellitus 84720606 E11.9 continue diabetic control per PCPCheck feet daily for wounds infectionC ontinue supportive shoe gear to prevent wounds infectionF ollow-up in 3 months Dystrophia unguium 84518 009 L60.3 Nails 1 through 10 were debrided with sharp mechanical debridemen t without incident. Nails were debrided and greater than 50% length and thickness where needed. Health Concerns Section Related Observation LastModified by Organization Detai ls LastModified Time None Recorded Concern Status LastModified by Organization Details LastModified Time None Recorded Payers Encounter Date Sequence Insurance Name Policy Number Policy Schneider Covered Member ID Schneider Member ID Guarantor Name 12/28/2024 1 [place] Lu[employer] Law Jr [id number] [employer] 12/28/2024 2 WPS - FOR LIFE (MEDICARE SUPPLEMENT) [employer] [id number] [employer] Notes Date Note Type Note Provider Name and Address Organization Details Recorded Time 12/28/2024 text/html . Patient is an 84-year-old male diabetic who returns for routine diabetic foot care he denies any new complaints he would like his nails cut as he can not bend over to cut them. Patient states he has not had any recent wounds or injury the foot he states he walks with a cane. Patient denies any other complaints. Anton Lind DPM [address], [place], [address], [facility] 12/28/2024 12:41:10
--- OUTSIDE RECORDS SUMMARY | 2024-12-29 12:36 | XMS_ITS | Data Portability ---
Author Organization [place] [facility], Main Office Address [address] [place] [address] Care Team Providers Care Air Cargo Agent Name Role Phone MARTHA SHELDON Primary Care Provider MARTHA SHELDON Referring Provider [phone] Assessment Encounter Date Assessment Date Assessment LastModified by Organization Details LastModified Time 12/06/2023 12/06/2023 This note is dictated and transcribed by [employer]. Applications Intern variances may occur. Despite proofreading, typographical errors may occur. Occasional wrong-word or ovdee-q-wjwe substitutions may have occurred due to the inherent limitations of voice recording. Read the chart carefully and recognize, using context, where substitutions have occurred. Not available 12/06/2023 16:39:01 03/06/2024 03/06/2024 This note is dictated and transcribed by [employer]. Applications Intern variances may occur. Despite proofreading, typographical errors may occur. Occasional wrong-word or 'xcvdv-v-nvbn' substitutions may have occurred due to the inherent limitations of voice recording. Read the chart carefully and recognize, using context, where substitutions have occurred. Not available 03/08/2024 10:35:09 06/12/2024 06/12/2024 This note is dictated and transcribed by [employer]. Applications Intern variances may occur. Despite proofreading, typographical errors may occur. Occasional wrong-word or 'hsipl-o-culr' substitutions may have occurred due to the inherent limitations of voice recording. Read the chart carefully and recognize, using context, where substitutions have occurred. Not available 06/12/2024 15:23:02 09/11/2024 09/11/2024 This note is dictated and transcribed by [employer]. Applications Intern variances may occur. Despite proofreading, typographical errors may occur. Occasional wrong-word or 'cymwo-w-gpzx' substitutions may have occurred due to the inherent limitations of voice recording. Read the chart carefully and recognize, using context, where substitutions have occurred. Not available 09/12/2024 09:09:05 12/28/2024 12/28/2024 This note is dictated and transcribed by [employer]. Applications Intern variances may occur. Despite proofreading, typographical errors may occur. Occasional wrong-word or 'vcvcr-u-rgdf' substitutions may have occurred due to the inherent limitations of voice recording. Read the chart carefully and recognize, using context, where substitutions have occurred. Not available 12/28/2024 12:40:59 Plan of Treatment Reminders Order Date Submit Date Provider Last Modified By Organization Details Last Modified Time Details Appointments Establish ed Patient 15 2024 11:30A M Anton Lind DPM Not available Not available Not available Lab None recorded. Referral None recorded. Procedures None recorded. Surgeries None recorded. Imaging None recorded. Medication Orders None recorded. Patient TargetsNo targets recorded. Patient Instructions Encounter Date Encounter Id Patient Instructions Last Modified By Organization Details Last Modified Time 03/06/2024 [id number] diabetic foot care education Not available 03/08/2024 10:35:16 06/12/2024 [id number] diabetic foot care education Not available 06/12/2024 15:23:56 Reason for Referral None Reported. Results Created Date Observation Date Name Description Value Unit Range Abnormal Flag Note LastModifiedBy Organization Detail LastModifiedTime Result Notes None recorded. 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 12230066667 9109 Active 2020 Not Available [facility] 3 22:23:42 Malignant tumor of prostate 685280089 Active 2020 Not Available [facility] 3 22:23:42 Chronic sinusitis 33227461 Active 2020 Not Available [facility] 3 22:23:42 History of malignant neoplasm of prostate 333402933 Active 2020 Not Available [facility] 3 22:23:42 Type 2 diabetes mellitus 41679940 Active 2020 Not Available [facility] 3 22:23:42 Hyperlipi demia 40177686 Active 2020 Not Available [facility] 3 22:23:42 Dystrophi a unguium 73539961 Active 2022 Anton Lind DPM [address], [address], [place], [address] , [place] 3 08:54:18 Unable to cut own toenails 067884542 Active 2022 Anton Lind DPM [address], [address], [place], [address] , [place] 3 08:54:43 History of cerebrova scular accident 037782267 Active 2022 Anton Lind DPM [address], [address], [place], [address] , [place] 3 08:54:44 Soft tissue lesion of foot region 999573104 Active 2023 Anton Lind DPM [address], [address], [place], [address] , [place] 4 16:44:08 Diabetes mellitus 80061832 Active 2023 Anton Lind DPM [address], [address], [place], [address] , [place] 4 16:45:17 Problem Notes None recorded. Procedures Surgical History Date Name Laterality Status Provider Name and Address Organization Details Recorded Time 12/29/19 25 Nail Debridement completed Anton Lind DPM [address], [address], [place], [address], [place] 12/28/2024 12:40:42 09/11/20 24 Nail Debridement completed Anton Lind DPM [address], [place], [address], [place] 09/12/2024 09:08:11 06/12/20 24 Nail Debridement completed Anton Lind DPM [address], [address], [place], [address], [place] 06/12/2024 15:22:44 03/06/20 24 Nail Debridement completed Anton Lind DPM [address], [address], [place], [address], [place] 03/06/2024 17:16:09 11/11/19 24 Punch biopsy Podiatry completed Anton Lnid DPM [address], [address], [place], [address], [place] 11/11/2023 16:47:08 02/16/20 23 Nail Debridement completed Anton Lind DPM [address], [address], [place], [address], [place] 02/16/2023 08:53:40 procedure on muscle completed Not Available [facility] 12/02/2022 22:22:49 Imaging Results None recorded. Procedure Notes None recorded. Medical Equipment None Reported. Allergies Allergen ID Allergen Name Allergen Category Reaction Reaction Severity Criticality Documentation Date Start Date Code Code System Note Provider Name and Address Organization Details Recorded Time 59307 cow milk allergeni c extract food,medi cation Not available Not available Not available 12/02/2022 94374 5 RxNorm Not Available [facility] 22:24:49 Medications Name Sig Start Date Stop [...] azelastine 137 mcg (0.1 %) nasal spray [place] 2 sprays twice a day by gil dawkins route. 03/06 completed Not Available Not Available [...] and Address Organization Details Last Updated DateTime 4 177.8 cm 31.7 kg/m2 399136. 91 g 66 /min 14 /min 98 % 98 % 150 mm[Hg] 73 mm[Hg] Bebe Beaulieu [facility] [employer] [facility] 4 16:36:28 Date Recorded Body height Body mass index (BMI) Body weight Heart rate Respiratory rate Oxygen saturation Oxygen saturation in Arterial blood by Pulse oximetry Systolic blood pressure Diastolic blood pressure Provider Name and Address Organization Details Last Updated DateTime 4 177.8 cm 31.7 kg/m2 727408. 91 g 62 /min 14 /min 98 % 98 % 171 mm[Hg] 74 mm[Hg] Bebe Beaulieu [facility] [employer] [facility] 4 15:18:13 Date Recorded Body height Body mass index (BMI) Body weight Heart rate Respiratory rate Body temperature Oxygen saturation Oxygen saturation in Arterial blood by Pulse oximetry Systolic blood pressure Diastolic blood pressure Provider Name and Address Organization Details Last Updated DateTime 4 177.8 cm 31.7 kg/m2 946127. 91 g 58 /min 16 /min 97.8 [degF] 97 % 97 % 110 mm[Hg] 60 mm[Hg] Isabella George [facility] [employer] [facility] 4 14:45:41 Date Recorded Body height Body mass index (BMI) Body weight Heart rate Respiratory rate Oxygen saturation Oxygen saturation in Arterial blood by Pulse oximetry Systolic blood pressure Diastolic blood pressure Provider Name and Address Organization Details Last Updated DateTime 4 177.8 cm 31.7 kg/m2 012184. 91 g 69 /min 14 /min 98 % 98 % 130 mm[Hg] 75 mm[Hg] Bebe Beaulieu [facility] [employer] [facility] 4 15:23:35 Date Recorded Body height Body mass index (BMI) Body weight Heart rate Respiratory rate Oxygen saturation Oxygen saturation in Arterial blood by Pulse oximetry Systolic blood pressure Diastolic blood pressure Provider Name and Address Organization Details Last Updated DateTime 5 177.8 cm 31.7 kg/m2 966435. 91 g 63 /min 14 /min 98 % 98 % 146 mm[Hg] 79 mm[Hg] Bebe Beaulieu [facility] [employer] [facility] 5 12:13:04 Social History Question Answer Notes LastModified by Organizat ion Details LastModified Time Tobacco Smoking Status Current Every Day Smoker Not Available [employer] 12/02/2022 22:22:43 Do You Have An Advance Directive? No [id number] Information not available 12/02/2022 What Is Your Level Of Alcohol Consumption? None [id number] Information not available 12/02/2022 What Is Your Level Of Caffeine Consumption? None [id number] 026 Information not available 12/02/2022 In The 14 Days Before Symptom Onset, Have You Had Close Contact With A Laboratory-conf isma LUNA-19 While That Case Was Ill? No [id number] 026 Information not available 12/02/2022 Are There Any Guns Present In Your Home? No [id number].[id number] 026 Information not available 12/02/2022 How Much Tobacco Do You Smoke? 0.5 PPD MIGRATION.[id number] 026 Information not available 12/02/2022 Do You Feel Stressed (tense, Restless, Nervous, Or Anxious, Or Unable To Sleep At Night)? [id number] MIGRATION.[id number] 026 Information not available 12/02/2022 Do You Use Sunscreen Routinely? No [id number].[id number] 026 Information not available 12/02/2022 Have You Recently Traveled Abroad? No [id number].[id number] 026 Information not available 12/02/2022 Sex: Unknown Functional Status None recorded. Mental Status None recorded. Family History Relationship Description Onset Age of this Age Resolved Age Notes LastModified by Organization Details LastModified Time Mother Family history of malignant neoplasm [id number] Not available 12/02/2022 22:22:49 Mother Diabetes mellitus [id number] [id number] Not available 12/02/2022 22:22:49 Sister Family history of malignant neoplasm [id number] Not available 12/02/2022 22:22:49 Sister Diabetes mellitus [id number].202 [id number] Not available 12/02/2022 22:22:50 Medical History Condition Response BLINDNESS N RHEUMATIC FEVER N KIDNEY STONES N BLADDER PROBLEMS N MRSA N OTHER # 1 N POLIO N LUNG DISEASE/DISORDER N RADIATION / CHEMOTHERAPY N COPD N Other # 2 N BLOOD DISEASES N SURGERY N EAR OR HEARING PROBLEMS N MUMPS N BOWEL PROBLEMS N FEMALE PROBLEMS / INFECTIONS N DEPRESSION (INCLUDING POST ) N STROKE/TIA Y THYROID DISEASE N ULCERS [...] GLAUCOMA N FOOT PROBLEM N DIVERTICULITIS N CHICKENPOX N SLEEP APNEA N ALLERGIES/HAYFEVER N INFECTIOUS DISEASE N HEART ARRHYTHMIA N PROSTATE N INSOMNIA N HIGH CHOLESTEROL / HYPERLIPIDEMIA N HYPERTHYROIDISM N EYE PROBLEMS N EATING DISORDER N NEUROLOGICAL PROBLEMS N EDEMA N CHRONIC PAIN SYNDROME N HYPOTHYROIDISM N CONSTIPATION N CAROTID BLOCKAGE N BACK / NECK PROBLEMS N HAVE YOU BEEN HOSPITALIZED OR SEEN IN [facility] ER IN THE PAST YEAR ? N ATHEROSCLEROSIS [...] DISORDER N ALZHEIMER'S DISEASE N PAIN N HERPES N DEMENTIA N HEADACHES/MIGRAINES N SEIZURES/EPILEPSY N VASCULAR DISEASE N PACEMAKER N DIZZINESS N HEART DISEASE/HEART PROBLEMS N KIDNEY DISEASE N DEVELOPMENTAL OR BEHAVIORAL DISORDERS N MULTIPLE SCLEROSIS N SCARLET FEVER N MENTAL DISORDER/ILLNESS N CARDIAC ARRHYTHMIA N CANCER: SPECIFY Y ANESTHESIA COMPLICATIONS N PNEUMONIA N ATRIAL FIBRILLATION N Gall Stones N PULMONARY EMBOLISM N AUTOIMMUNE DISEASE N Immunizations Vaccine Type Date Status Note Provider Nam e and Address Organization Details Recorded Time Influenza, high-dose, quadrivalent, PF 07/10/2021 completed Not Available [facility] 22:24:47 Past Encounters Encounter ID Performer Location Encounter Start Date Encounter Closed Date Diagnosis/Indication Diagnosis SNOMED-CT Code Diagnosis ICD10 Code Diagnosis Note [id number] [facility] Primary Care [address] [place] [address] 12/12/2020 00:00:00 12/31/2020 16:17:42 [id number] [facility] Primary Care [address] [place] [address] 12/26/2020 00:00:00 12/31/2020 10:04:42 [id number] [facility] [place] [address] [place] [address] 02/13/2021 00:00:00 02/27/2021 18:02:49 [id number] [facility] [place] [address] [place] [address] 03/19/2021 00:00:00 03/19/2021 09:51:04 [id number] [facility] [place] [address] [facility] [address] [place] [address] 05/22/2021 00:00:00 05/22/2021 12:00:29 [id number] [facility] [place] [address] [place] [address] 06/03/2021 00:00:00 06/03/2021 19:01:13 [id number] [facility] [place] [address] [place] [address] 06/05/2021 00:00:00 06/05/2021 11:58:26 [id number] [facility] [place] [address] [place] [address] 06/30/2021 00:00:00 06/30/2021 16:32:47 [id number] [facility] [place] [address] [place] [address] 07/10/2021 00:00:00 07/29/2021 10:39:36 [id number] [facility] [place] [address] [place] [address] 09/08/2021 00:00:00 09/08/2021 12:35:32 [id number] [facility] [place] [address] [place] [address] 01/07/2022 00:00:00 01/25/2022 16:25:02 [id number] [facility] [place] [address] [facility] [address] [place] [address] 01/22/2022 00:00:00 01/25/2022 15:16:40 [id number] [facility] Primary [place] [address] [facility] [address] [place] [address] 03/10/2022 00:00:00 03/10/2022 16:20:50 [id number] [facility] [place] [address] [facility] [address] [place] [address] 04/23/2022 00:00:00 04/26/2022 10:58:30 [id number] [facility] [place] [address] [facility] [address] [place] [address] 07/23/2022 00:00:00 07/23/2022 13:59:11 [id number] Anton Lind DPM [facility] [place] [address] [facility] [address] [place] [address] 02/15/2023 17:17:23 02/16/2023 09:40:39 Type 2 diabetes mellitus 94377347 E11.9 L60.0 Continue diabetic control per PCPCheck feet daily for wounds infectionF ollow-up 3 months for regular foot care Dystrophia unguium 80375 009 L60.3 Nails 1 through 10 were debrided with sharp mechanical debridemen t without incident. Nails were debrided and greater than 50% length and thickness where needed. Unable to cut own toenails 003561619 Z74.1 secondary to CVA History of cerebrovascular accident 903389763 Z86.73 [id number] Anton Lind DPM [facility] [place] [address] [facility] [address] [place] [address] 11/11/2023 15:33:47 11/23/2023 10:20:52 Dystrophia unguium 65728261 L60.3 Nails 1 through 10 were debrided with sharp mechanical debridemen t without incident. Nails were debrided and greater than 50% length and thickness where needed. Soft tissu e lesion of foot region 672744334 M79.9 left great toe soft tissue lesioneduc ated on conditionp atient elected to undergo biopsypunc h biopsy performed today x2, 3 mm to level subcuspeci men was placed in formalin sent to labfollow- up in 3 weeks for follow-up testing Diabetes mellitus 286324 09 E11.9 continue diabetic control per PCPCheck feet daily for wounds infectionC ontinue supportive shoe gear to prevent wounds infectionF ollow-up in 3 months [id number] Anton Lind DPM [facility] [place] [address] [place] [address] 12/06/2023 16:26:44 12/06/2023 16:41:25 Soft tissue lesion of foot region 086008250 M79.9 left great toe soft tissue lesionPath ology reviewed-n egative for cancerEduc ated the patient on pathology If patient has issues with the remainder of the lesion we will completely excised surgically No further follow-up needed for this issue. [id number] Anton Lind DPM [facility] [place] [address] [place] [address] 03/06/2024 15:07:12 03/08/2024 11:51:41 Diabetes mellitus 10965169 E11.9 continue diabetic control per PCPCheck feet daily for wounds infectionC ontinue supportive shoe gear to prevent wounds infectionF ollow-up in 3 months Dystrophia unguium 00531 009 L60.3 Nails 1 through 10 were debrided with sharp mechanical debridemen t without incident. Nails were debrided and greater than 50% length and thickness where needed. [id number] Anton Lind DPM [facility] [place] [address] [place] [address] 06/12/2024 14:34:35 06/13/2024 13:27:22 Diabetes mellitus 56372529 E11.9 continue diabetic control per PCPCheck feet daily for wounds infectionC ontinue supportive shoe gear to prevent wounds infectionF ollow-up in 3 months Dystrophia unguium 59149 009 L60.3 Nails 1 through 10 were debrided with sharp mechanical debridemen t without incident. Nails were debrided and greater than 50% length and thickness where needed. [id number] Anton Lind DPM [facility] [place] [address] [facility] [address] [place] [address] 09/11/2024 15:15:30 09/29/2024 07:22:58 Diabetes mellitus 13384852 E11.9 continue diabetic control per PCPCheck feet daily for wounds infectionC ontinue supportive shoe gear to prevent wounds infectionF ollow-up in 3 months Dystrophia unguium 69344 009 L60.3 Nails 1 through 10 were debrided with sharp mechanical debridemen t without incident. Nails were debrided and greater than 50% length and thickness where needed. [id number] Anton Lind DPM [facility] [place] [address] [facility] [address] [place] [address] 12/28/2024 12:07:46 12/28/2024 12:41:11 Diabetes mellitus 43161105 E11.9 continue diabetic control per PCPCheck feet daily for wounds infectionC ontinue supportive shoe gear to prevent wounds infectionF ollow-up in 3 months Dystrophia unguium 33742 009 L60.3 Nails 1 through 10 were debrided with sharp mechanical debridemen t without incident. Nails were debrided and greater than 50% length and thickness where needed. Health Concerns Section Related Observation LastModified by Organization Detai ls LastModified Time None Recorded Concern Status LastModified by Organization Details LastModified Time None Recorded Advance Directives Directive N: Payers Encounter Date Sequence Insurance Name Policy Number Policy Schneider Covered Member ID Schneider Member ID Guarantor Name 12/06/2023 1 [place] Lu[place] Law Jr [id number] Lu[employer] 12/06/2023 2 WPS - FOR LIFE (MEDICARE SUPPLEMENT) Luís Law [id number] Luís Law 03/06/2024 1 [place] Lu[place] [employer] Jr [id number] Luís Law 03/06/2024 2 WPS - FOR LIFE (MEDICARE SUPPLEMENT) Luís Law [id number] Luís Law 06/12/2024 1 [place] Lu[place] [employer] Jr [id number] Lu[employer] 06/12/2024 2 WPS - FOR LIFE (MEDICARE SUPPLEMENT) Luís Law [id number] Luís Jansen 09/11/2024 1 [place] Lu[place] [employer] Jr [id number] Lu[employer] 09/11/2024 2 WPS - FOR LIFE (MEDICARE SUPPLEMENT) Luís Law [id number] Luís Thanh 12/28/2024 1 [place] Lu[employer] Jr [id number] Luís Law 12/28/2024 2 WPS - FOR LIFE (MEDICARE SUPPLEMENT) Lu[employer] Law [id number] Luís Law Notes Date Note Type Note Provider Name and Address Organization Details Recorded Time 12/06/2023 text/html . Patient is an 83-year-old male who returns the office for follow-up on soft tissue biopsy. Patient was confirmed to have acanthosis hyperkeratosis. Patient states the area is completely healed denies any other complaints. Anton Lind DPM [address], [place], [address], [employer] 12/06/2023 16:39:13 03/06/2024 text/html Patient is an 83-year-old male who returns for diabetic foot care. Patient states overall he is doing well denies any new complaints. Patient states his nails are long and thick can not cut them. Patient denies any open wounds or infection. Patient denies any intermittent claudication with walking or rest pain. Patient denies any burning of the heels when at rest. Patient denies any other complaints. Anton Lind DPM [address], [place], [address], [place] 03/08/2024 10:36:04 06/12/2024 text/html . Patient is an 83-year-old male diabetic who returns the office for diabetic foot care he has a history of stroke. Patient states overall he is doing well he walks with a cane. Patient denies any calluses or wounds to the feet. Patient denies any recent injury or pain with walking. Patient states he needs his nails cut as they are long. Patient denies any other complaints. Anton Lind DPM [address], [place], [address], [employer] [facility] 06/12/2024 15:24:12 09/11/2024 text/html . Patient is an 84-year-old male diabetic who returns the office for routine diabetic foot care he states overall he is doing well denies any changes in health. Patient denies any foot pain with walking or recent wounds. Patient states his nails are long like to have them cut as he can not cut them. Patient denies any other complaints. Anton Lind DPM [address], [place], [address], [employer] [facility] [employer] 09/12/2024 09:09:14 12/28/2024 text/html . Patient is an 84-year-old [...] denies any other complaints. Anton Lind DPM [address] [facility] [address], [place], [address], [employer] [facility] [employer] 12/28/2024 12:41:10
--- OUTSIDE RECORDS SUMMARY | 2024-12-29 12:36 | XMS_ITS | Encounter Summary ---
Author Organization [facility] Care Team Providers Care Biochemistry Teacher Name Role Phone Layo Hayden MD Primary Care Provider [phone] Neli Boyle MD Primary Care Provider Tres Catherine DO Primary Care Provider [phone] Encounter Details Date Type Department Care Team (Latest Contact Info) Description 12/07/2016 Orders Only [facility] CLINCON[facility] ProviderHardik MD [address] [place] [id number] Social History Tobacco Use Types Packs/Day Years Used Date Smoking Tobacco: Former Alcohol Use Standard Drinks/Week Comments No 0 (1 standard drink = 0.6 oz pur e alcohol) Sex and Gender Information Value Date Recorded Sex Assigned at Not on file Legal Sex Male 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 Historical Provider Final Res ult documented in this encounter Visit Diagnoses Not on filedocumented in this encounter Care Teams Biochemistry Teacher Relationship Specialty Start Date End Date Layo Hayden MD PCP - General 06/03/15 12/31/16 Neli Boyle MD [address] [address] PCP - General Family Medicine 03/09/23 03/08/24 Tres Catherine DO [address] [address] PCP - General Internal Medicine 03/09/24 documented as of this encounter
[2024-12-29 12:46] LABS: Parathyroid Intact 126.8 pg/mL (14.5-75.2)
[2024-12-29 12:50] LABS: Creatinine Urine 101.6 mg/dL
[2024-12-29 12:51] LABS: Creatinine Urine 101.4 mg/dL; Sodium Urine Random 71 meq/L; Total Protein Urine Random 23 mg/dL; Ur Ttl Prot Creatinine Ratio 0.23 mg/mg (0-0.20)
== END 2024-12-29 11:51 | disposition home or self-care (01) ==
LOC: ANHLAB 11:51
PROVIDERS: PCP Internal Medicine; Visit Provider Internal Medicine Nephrology
DX: I12.9 Hypertensive chronic kidney disease with stage 1 through stage 4 chronic kidney disease, or unspecified chronic kidney disease (principal); N18.32 Chronic kidney disease, stage 3b
CPT/HCPCS: 36415; 80069; 82570; 83970; 84156; 84300; 85027

== ENCOUNTER 2025-03-26 00:17 | Inpatient (IN) | payer MEDICARE, OTHER, SELFPAY ==
[2025-03-26] VITALS (36 sets, daily range): BP systolic 121–198; BP diastolic 62–92; PULSE 51–91; RESP 2–20; TEMP 36.6–37.2; O2SAT 91–100; BMI 29.7
--- NOTE | ~2025-03-26 | XR_ITS ---
Clinical Indication: Chest pain PA and lateral views of the chest: Comparison: 08/20/2024 Findings: Possible 8 mm right basilar pulmonary nodule. Questionable very subtle 18 mm right midlung nodule projected No other definite pulmonary abnormality seen. Cardiomediastinal silhouette is within normal limits. Bones and soft tissues are unremarkable. Impression: Possible subtle right lung pulmonary nodules measuring 8 mm and 18 mm, as noted above. Chest CT recom mended to further evaluate.. Reviewed, dictated and finalized at location M. Impression: Possible subtle right lung pulmonary nodules measuring 8 mm and 18 mm, as noted above. Chest CT recommended to further evaluate..
--- NOTE | 2025-03-26 00:18 | ECG_ITS ---
Test Date: 2025-03-26 00:36:15 Measurements Intervals [place] Rate: 60 P: 59 [place]: 264 QRS: -16 QRSD: 151 T: 205 QT: 476 QTc: 478 Interpretive Statements SINUS RHYTHM WITH FIRST DEGREE AV BLOCK LEFT BUNDLE BRANCH BLOCK BASELINE WANDER- V3 ABNORMAL ECG Compared to ECG 08/20/2024 17:52:46 HEART RATE HAS INCREASED Electronically Signed On 03-26-2025 07:08:40 CDT by Cosmo Villa D.O.
[2025-03-26 00:41] LABS: Basophils Absolute Auto 0.1 K/mm3 (0.0-0.1); Basophils Percent Auto 0.6 % (0.2-1.2); Eosinophils Absolute Auto 0.4 K/mm3 (0-0.3); Eosinophils Percent Auto 4.5 % (0-4.4); Hematocrit 39.5 % (42.0-52.0); Hemoglobin 12.5 g/dL (14.0-18.0); Immature Granulocyte Absolute 0.02 K/mm3 (0.00-0.031); Immature Granulocyte Percent A 0.2 % (0-0.5); Lymphocytes Absolute Auto 2.53 K/mm3 (0.9-3.2); Lymphocytes Percent Auto 30.7 % (18.3-44.2); Mean Corpuscular HGB Conc 31.6 g/dl (32-36); Mean Corpuscular Hemoglobin 27.8 pg (26-34); Mean Corpuscular Volume 87.8 fl (80-100); Mean Platelet Volume 11.5 fl (7.4-10.4); Monocytes Percent Auto 11.5 % (2.6-8.5); Neutrophils Absolute Auto 4.3 K/mm3 (1.3-6.7); Neutrophils Percent Auto 52.5 % (45.5-73.1); Platelet Count Result 231 k/mm3 (150-375); Red Cell Distribution Width 15.5 % (11.5-14.5); White Blood Count 8.2 K/mm3 (4.5-10.0)
[2025-03-26 00:52] LABS: Alanine Aminotransferase 17 U/L (6-50); Alkaline Phosphatase 101 U/L (38-126); Anion Gap 8 mmol/L (4-12); Aspartate Amino Transferase 32 U/L (17-59); Bilirubin,Total 0.3 mg/dL (0.2-1.3); Blood Urea Nitrogen 17 mg/dL (9-20); Calcium 8.8 mg/dL (8.4-10.2); Carbon Dioxide 29 mmol/L (22-30); Chloride 104 mmol/L (98-107); Estimated CRCL calculation 29 ml/min; Estimated Glomerular Filt Rate 34; Glucose 147 mg/dL (65-110); Lipase 59 U/L (23-300); Potassium 3.9 mmol/L (3.4-5.0); Sodium 141 mmol/L (137-145); Total Protein 7.3 g/dL (6.3-8.2)
[2025-03-26 00:53] LABS: Partial Thromboplastin Time 29.1 Seconds (22.3-36.8); Prothrombin Time 13.1 Seconds (11.1-14.7)
--- NOTE | 2025-03-26 02:06 | PC.NURSE ---
unsuccessful x 2 iv attempts
[2025-03-26] MEDS: MORPHINE SULFATE (*CRX) 4 MG/ML INJ IV PUSH (02:10)
[2025-03-26] MEDS: NITROGLYCERIN SL 0.4 MG TABLET SUBLINGUAL (02:10)
[2025-03-26] MEDS: ASPIRIN 81 MG CHEWABLE TABLET 324 MG PO (02:10)
--- NOTE | 2025-03-26 02:47 | ED_ITS ---
HPI - General Adult General Chief complaint: Chest Pain Stated complaint: Chest pain, back pain Time Seen by Provider: 03/26/25 01:38 History of Present Illness HPI narrative: Patient is a 84-year-old gentleman presents emergency department with chief complaint of chest pain. Patient reports the pain started around 9:00 p.m. last night has been having some bloating patient reports he has had prior history of Related Data Home Medications ?Medication ?Instructions ?Recorded ?Confirmed ?Last Taken ?Type cholecalciferol (vitamin D3) 125 125 mcg PO DAILY 02/04/22 03/26/25 08/20/24 History mcg (5,000 unit) capsule magnesium 200 mg tablet 200 mg PO DAILY 02/04/22 03/26/25 08/20/24 History vitamin B complex 1 cap PO DAILY 02/04/22 03/26/25 08/20/24 History coQ10 (ubiquinol) 100 mg capsule 100 mg PO DAILY 08/20/24 03/26/25 08/20/24 History (Qunol Josias CoQ10) oxybutynin chloride 5 mg 5 mg PO DAILY 08/20/24 03/26/25 08/20/24 History tablet,extended release 24 hr Allergies Allergy/AdvReac Type Severity Reaction Status Date / Time milk AdvReac Mild Nausea, Verified 01/10/25 10:02 DIARRHEA carvedilol AdvReac Unknown Weakness Verified 01/10/25 10:02 lisinopril AdvReac Unknown Weakness Verified 01/10/25 10:02 Mcxydqs-GWQ-HqH Reductase AdvReac Unknown Muscle Pain Verified 01/10/25 10:02 Inhibitor (Fukeciy-Xgg-Yba Reductase Inhibitor) Review of Systems 2 Review of Systems: A 10 system review of systems was completed on the patient and is negative except for what is stated in the HPI. Nursing and ancillary documentation was reviewed. [facility] Past Medical History Medical History BMI 30.0-30.9,adult Elevated aldolase level CHF (congestive heart failure), NYHA class II Anemia in chronic kidney disease URI (upper respiratory infection) AOM (acute otitis media) Type 2 diabetes mellitus with proteinuria Sleep apnea Acute kidney injury superimposed on chronic kidney disease Chronic kidney disease CKD (chronic kidney disease) SIMON (obstructive sleep apnea) COPD (chronic obstructive pulmonary disease) Atrial fibrillation CVA (cerebral vascular accident) Prostate cancer HLD (hyperlipidemia) HTN (hypertension) Diabetes mellitus Surgical History Surgical History S/P total hip arthroplasty LEFT Family History Family History Sibling Patient's brother is in good health Family history of diabetes mellitus in first degree relative Family history of malignant neoplasm Mother Family history of malignant neoplasm Patient's father is Father Patient's father is Acute myocardial infarction Other Diabetes mellitus Hypertension Social History Social History Social History: Smoking packs per day: 0.5 Smoking cigarettes per day: 10.0 Years smoked: 50 Smoking pack-years: 25.00 Smoking status: Current every day smoker Tobacco type: cigarettes Second hand tobacco smoke exposure: No Additional smoking assessment comments: currently taking Chantix for smoking cessation Alcohol intake: never Substance use: never Substance use type: does not use Do You Feel Safe in your Home?: Yes Lack of Transportation: No Lack of Food: Never True Current Housing: I Have Housing Concerned About Future Housing: No Difficulty Paying Gas/Electric Bills: No Difficulty Paying for Meds: No Currently Unemployed: No Education: Bachelor's Degree Difficulty w/ Childcare or Family Care: No Living arrangements: alone Occupation/Education: retired 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 Gender identity (if verbalized by the patient): Male Sexual Orientation (if Verbalized by the Patient): Straight or Heterosexual Spiritual care concerns: No Exam 2 Narrative: GENERAL: Well-appearing, well-nourished, and in no acute distress. HEAD: Normocephalic, atraumatic. EYES: PERRLA and EOMI. ENT: Nares clear, no rhinorrhea or epistaxis. Mucous membranes moist. NECK: Supple. CHEST: Clear to auscultation. No respiratory distress. HEART: Regular rate and rhythm. No murmur heard. Normal peripheral pulses. ABDOMEN: Soft, nontender, nondistended, normal active bowel sounds. EXTREMITIES: Normal range of motion. No edema. SKIN: Warm, dry, no rash. NEURO: No focal deficits. Alert and oriented x3. PSYCH: Normal mood and affect. Course Vital Signs Vital signs: Vital Signs Temperature 36.9 C 03/26/25 00:21 Pulse Rate 67 03/26/25 00:21 Respiratory Rate 18 03/26/25 00:21 Blood Pressure 198/78 H 03/26/25 00:21 Pulse Oximetry 99 03/26/25 00:21 Oxygen Delivery Room Air 03/26/25 00:21 Temperature 37.2 C 03/26/25 04:51 Pulse Rate 63 03/26/25 05:55 Respiratory Rate 18 03/26/25 04:51 Blood Pressure 151/81 H 03/26/25 04:51 Pulse Oximetry 98 03/26/25 04:51 Oxygen Delivery Room Air 03/26/25 05:38 Medical Decision Making MDM Narrative Medical decision making narrative: Differential diagnosis includes ACS, NSTEMI, CHF Laboratory studies were obtained on the patient shows significantly elevated troponin EKG showed a left bundle branch block this is a known left bundle branch block The patient was started on heparin drip and the patient was admitted to the IMU Vital Signs Vital Signs: Vital Signs Temperature 36.9 C 03/26/25 00:21 Pulse Rate 67 03/26/25 00:21 Respiratory Rate 18 03/26/25 00:21 Blood Pressure 198/78 H 03/26/25 00:21 Pulse Oximetry 99 03/26/25 00:21 Oxygen Delivery Room Air 03/26/25 00:21 Temperature 37.2 C 03/26/25 04:51 Pulse Rate 63 03/26/25 05:55 Respiratory Rate 18 03/26/25 04:51 Blood Pressure 151/81 H 03/26/25 04:51 Pulse Oximetry 98 03/26/25 04:51 Oxygen Delivery Room Air 03/26/25 05:38 Lab Data 03/26/25 00:32 03/26/25 00:32 Labs: Lab Results 03/26/25 Range/Units 00:32 WBC 8.2 (4.5-10.0) K/mm3 RBC 4.50 L (4.6-6.20) M/mm3 Hgb 12.5 L (14.0-18.0) g/dL Hct 39.5 L (42.0-52.0) % MCV 87.8 (80-100) fl MCH 27.8 (26-34) pg MCHC 31.6 L (32-36) g/dl RDW 15.5 H (11.5-14.5) % Plt Count 231 (150-375) k/mm3 MPV 11.5 H (7.4-10.4) fl Immature Gran % (Auto) 0.2 (0-0.5) % Neut % (Auto) 52.5 (45.5-73.1) % Lymph % (Auto) 30.7 (18.3-44.2) % [place] % (Auto) 11.5 H (2.6-8.5) % Eos % (Auto) 4.5 H (0-4.4) % Baso % (Auto) 0.6 (0.2-1.2) % Lymph # (Auto) 2.53 (0.9-3.2) K/mm3 [place] # (Auto) 1.0 H (0.1-0.6) K/mm3 Eos # (Auto) 0.4 H (0-0.3) K/mm3 Baso # (Auto) 0.1 (0.0-0.1) K/mm3 Abs Immat Gran (auto) 0.02 (0.00-0.031) K/mm3 Absolute Neuts (auto) 4.3 (1.3-6.7) K/mm3 Absolute Nucleated RBC 0.000 (0.0-0.012) K/mm3 Nucleated RBC % 0.0 (0.0-0.2) % PT 13.1 (11.1-14.7) Seconds INR 1.0 APTT 29.1 (22.3-36.8) Seconds Sodium 141 (137-145) mmol/L Potassium 3.9 (3.4-5.0) mmol/L Chloride 104 (98-107) mmol/L Carbon Dioxide 29 (22-30) mmol/L Anion Gap 8 (4-12) mmol/L BUN 17 (9-20) mg/dL Creatinine 1.89 H (0.7-1.3) mg/dL Estim Creat Clear Calc 29 ml/min Estimated GFR 34 L (59 - ) Glucose 147 H (65-110) mg/dL Calcium 8.8 (8.4-10.2) mg/dL Total Bilirubin 0.3 (0.2-1.3) mg/dL AST 32 (17-59) U/L ALT 17 (6-50) U/L Alkaline Phosphatase 101 (38-126) U/L Troponin I 1.850 H* (0.000-0.034) ng/mL Total Protein 7.3 (6.3-8.2) g/dL Albumin 4.0 (3.5-5.1) g/dL Lipase 59 (23-300) U/L Critical Care Time Critical Care Time Critical Care Time: Yes Total Critical Care Time: 35 Discharge Plan Discharge Clinical Impression: Acute non-ST elevation myocardial infarction (NSTEMI) Patient Disposition: Still a Patient Condition: Stable
[2025-03-26] MEDS: HEPARIN SOD/D5W 100 UNITS/ML 25,000 UNITS/250 ML BAG 10 UNITS IV CONT (03:52)
--- NOTE | 2025-03-26 03:57 | ECG_ITS ---
Test Date: 2025-03-26 04:25:58 Measurements Intervals [place] Rate: 57 P: -27 ID: [id number] QRS: -9 QRSD: 153 T: 223 QT: 493 QTc: 483 Interpretive Statements SINUS BRADYCARDIA WITH SINUS ARRHYTHMIA WITH FIRST DEGREE AV BLOCK LEFT BUNDLE BRANCH BLOCK ABNORMAL ECG Compared to ECG 03/26/2025 00:36:15 NO SIGNIFICANT CHANGE Electronically Signed On 03-26-2025 07:10:18 CDT by Cosmo Villa D.O.
--- NOTE | 2025-03-26 04:55 | ADMGEN ---
This patient, Luís Law Jr., was admitted to IMU Room 211-01. Patient/family oriented to hospital policies and general routines including ID bracelet, bed and alarms, visiting hours, pain management, procedures, bathroom and other care routines, personal items, smoking policy, room service/diet, and visiting hours. Information on how to activate the Rapid Response Team has been discussed. Patient/Family are encouraged to report perceived risks to care and to ask questions if they do not understand what they are told or what they should do.
[2025-03-26 07:24] LABS: Basophils Percent Auto 0.3 % (0.2-1.2); Eosinophils Absolute Auto 0.2 K/mm3 (0-0.3); Eosinophils Percent Auto 2.5 % (0-4.4); Hematocrit 38.9 % (42.0-52.0); Hemoglobin 12.2 g/dL (14.0-18.0); Immature Granulocyte Absolute 0.01 K/mm3 (0.00-0.031); Immature Granulocyte Percent A 0.2 % (0-0.5); Lymphocytes Absolute Auto 1.76 K/mm3 (0.9-3.2); Lymphocytes Percent Auto 27.5 % (18.3-44.2); Mean Corpuscular HGB Conc 31.4 g/dl (32-36); Mean Corpuscular Hemoglobin 27.6 pg (26-34); Mean Platelet Volume 11.2 fl (7.4-10.4); Monocytes Absolute Auto 0.7 K/mm3 (0.1-0.6); Monocytes Percent Auto 10.6 % (2.6-8.5); Neutrophils Absolute Auto 3.8 K/mm3 (1.3-6.7); Neutrophils Percent Auto 58.9 % (45.5-73.1); Platelet Count Result 200 k/mm3 (150-375); Red Blood Count 4.42 M/mm3 (4.6-6.20); Red Cell Distribution Width 15.5 % (11.5-14.5); White Blood Count 6.4 K/mm3 (4.5-10.0)
[2025-03-26 07:53] LABS: INR 1.1; Prothrombin Time 13.8 Seconds (11.1-14.7)
[2025-03-26 07:54] LABS: Partial Thromboplastin Time 34.5 Seconds (22.3-36.8)
--- NOTE | 2025-03-26 09:09 | ECG_ITS ---
Test Date: 2025-03-26 09:26:44 Measurements Intervals [place] Rate: 48 P: 53 [place]: 284 QRS: -12 QRSD: 153 T: 200 QT: 502 QTc: 449 Interpretive Statements SINUS BRADYCARDIA WITH FIRST DEGREE AV BLOCK WITH OCCASIONAL SUPRAVENTRICULAR PREMATURE COMPLEXES WITH MARKED SINUS ARRHYTHMIA LEFT BUNDLE BRANCH BLOCK ABNORMAL ECG Compared to ECG 03/26/2025 04:25:58 HEART RATE HAS DECREASED Electronically Signed On 03-26-2025 09:35:44 CDT by Cosmo Villa D.O.
[2025-03-26] MEDS: ASPIRIN 81 MG CHEWABLE TABLET PO (10:01)
[2025-03-26 10:33] LABS: Partial Thromboplastin Time 31.3 Seconds (22.3-36.8)
[2025-03-26] MEDS: HEPARIN SODIUM 5,000 UNITS/ML VIAL 4000 UNITS IV PUSH (10:54)
--- NOTE | 2025-03-26 11:51 | PM.CNCAR ---
Assessment and Plan Assessment and plan (1) Acute non-ST elevation myocardial infarction (NSTEMI): Code(s): I21.4 - Non-ST elevation (NSTEMI) myocardial infarction Status: Acute (2) Atrial fibrillation: Qualifiers: Atrial fibrillation type: unspecified chronic Qualified Code(s): I48.20 - Chronic atrial fibrillation, unspecified Code(s): I48.91 - Unspecified atrial fibrillation Status: Acute (3) Hypertension associated with diabetes: Code(s): E11.59 - Type 2 diabetes mellitus with other circulatory complications; I15.2 - Hypertension secondary to endocrine disorders Status: Acute (4) Hyperlipidemia associated with type 2 diabetes mellitus: Code(s): E11.69 - Type 2 diabetes mellitus with other specified complication; E78.5 - Hyperlipidemia, unspecified Status: Acute (5) Chronic systolic heart failure: Code(s): I50.22 - Chronic systolic (congestive) heart failure Status: Acute Plan Problem list: -NSTEMI -Bradycardia with lowest heart rate in the 50s -Hhypertension poorly controlled with SBP in the 190s -Hyperlipidemia -Paroxysmal AFib now in sinus rhythm -CKD with creatinine at baseline Plan: -cardiac catheterization to further evaluate coronaries and possible PCI. Risks and benefits of the procedure were discussed with patient in detail and he is willing to proceed. He is at increased risk of renal failure given baseline elevated creatinine from CKD and GFR around 30 -aspirin 81 mg daily -atorvastatin 40 mg daily -Avoid beta blockers or any other AV aristides blocking agents given bradycardia -Continue heparin drip -Unable to add full guideline directed medical therapy due to ERICA, bradycardia. No beta-sheeba due to bradycardia. No DEVON inhibitor/ARB/ARNI given renal failure. Add empagliflozin 10 mg daily -Control blood pressure. Resume home dose of amlodipine. Add hydralazine 50 mg q.6 hours -above plan was discussed with referring physician -Further recommendations post catheterization Thank you for allowing us to participate in the care of this patient. Cardiology will continue to follow. History of Present Illness History of Present Illness Consult date/time: 03/26/25 11:51 Reason For Visit: NSTEMI Narrative: H 4-year-old male with history of CAD status post PCI to 95-99% stenosis in distal LCX in 2022 (indication: NSTEMI) and 70% stenosis in mid RCA which was not intervened upon, hypertension, hyperlipidemia, atrial fibrillation, congestive heart failure, history of CVA, CKD with baseline creatinine around 2, hosted cancer, diabetes mellitus, obstructive sleep apnea on CPAP, anemia of chronic kidney disease presents with chief complaint of chest pain with radiation to both shoulders that started at 9:00 p.m. last night while he was watching TV. He has not had similar complaints in the past. He presented to the ER where he was administered aspirin 325 mg 1 time p.o. and started on a heparin drip. Patient states that his pain resolved after he received aspirin. He has not had recurrence of pain since then. He describes this as a pressure. No associated diaphoresis or shortness of breath. No palpitations, dizziness, lightheadedness, leg swelling, recent weight gain, presyncope, syncope, orthopnea, PND. He does not drink alcohol or use marijuana. He is a current everyday smoker and is trying to cut back on his smoking and currently smokes half pack per day. His father of an PR in his 70s. Patient is compliant with his medication. Workup: Hemoglobin: 12.2 Creatinine: 1.89 (baseline creatinine of 2) Platelets: 147 1000 Troponin: 1.850, 1.900, 4.260 Prior cardiac workup: TTE 08/2024: Moderate concentric LVH with mild global systolic dysfunction with EF of 40% and grade 1 diastolic dysfunction, no significant valvular pathology Holter monitor 08/2024: Conclusion: 1. 7 days holter monitor on . 2. Predominant rhythm is sinus rhythm. HR range 41-200 bpm; average HR 68 bpm. HR at 41 bpm was on 08/25/24 at 1:04 am. 3. There are frequent premature supraventricular complexes at 8.5%, occasional supraventricular couplets at 1.5% and rare supraventricular triplets. There are 2,486 episodes of supraventricular tachycardia, fastest at 200 bpm and longest lasting 18 beats. 4. There are rare premature ventricular complexes, rare ventricular couplets and rare ventricular triplets. No ventricular tachycardia. 5. No significant pauses greater than 3 seconds. 6. Patient reports 1 episode of symptom of chest pain but unknown date and time. Cardiac catheterization: Conclusion: 1. codominant coronary circulation with acute coronary syndrome/ non ST-elevation PR due to subtotal 95-99% stenosis of the distal circumflex after OM2. Moderate 70% stenosis is noted in the midportion of the RCA 2. successful PCI of the target lesion in the distal circumflex using the Orsiro drug-eluting stent described above with an excellent angiographic result. Review of Systems Review of Systems: A complete review of systems was performed and negative other than those mentioned in [facility] Past Medical History Medical History BMI 30.0-30.9,adult Elevated aldolase level CHF (congestive heart failure), NYHA class II Anemia in chronic kidney disease URI (upper respiratory infection) AOM (acute otitis media) Type 2 diabetes mellitus with proteinuria Sleep apnea Acute kidney injury superimposed on chronic kidney disease Chronic kidney disease CKD (chronic kidney disease) SIMON (obstructive sleep apnea) COPD (chronic obstructive pulmonary disease) Atrial fibrillation CVA (cerebral vascular accident) Prostate cancer HLD (hyperlipidemia) HTN (hypertension) Diabetes mellitus Surgical History Surgical History S/P total hip arthroplasty LEFT Family History Family History Sibling Patient's brother is in good health Family history of diabetes mellitus in first degree relative Family history of malignant neoplasm Mother Family history of malignant neoplasm Patient's father is Father Patient's father is Acute myocardial infarction Other Diabetes mellitus Hypertension Social History Social History Social History: Smoking packs per day: 0.5 Smoking cigarettes per day: 10.0 Years smoked: 50 Smoking pack-years: 25.00 Smoking status: Current every day smoker Tobacco type: cigarettes Second hand tobacco smoke exposure: No Additional smoking assessment comments: currently taking Chantix for smoking cessation Alcohol intake: never Substance use: never Substance use type: does not use Do You Feel Safe in your Home?: Yes Lack of Transportation: No Lack of Food: Never True Current Housing: I Have Housing Concerned About Future Housing: No Difficulty Paying Gas/Electric Bills: No Difficulty Paying for Meds: No Currently Unemployed: No Education: Bachelor's Degree Difficulty w/ Childcare or Family Care: No Living arrangements: alone Occupation/Education: 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 Gender identity (if verbalized by the patient): Male Sexual Orientation (if Verbalized by the Patient): Straight or Heterosexual Spiritual care concerns: No Meds Home Medications and Allergies Home Medications ?Medication ?Instructions ?Recorded ?Confirmed ?Type cholecalciferol (vitamin D3) 125 125 mcg PO DAILY 02/04/22 03/26/25 History mcg (5,000 unit) capsule magnesium 200 mg tablet 200 mg PO DAILY 02/04/22 03/26/25 History vitamin B complex 1 cap PO DAILY 02/04/22 03/26/25 History blood sugar diagnostic (OneTouch #1 pkg 02/20/22 03/26/25 Rx Verio test strips) blood-glucose meter (OneTouch #1 pkg 02/20/22 03/26/25 Rx Verio Flex Meter) lancets 30 gauge (OneTouch Delica #1 pkg 02/20/22 03/26/25 Rx Plus Lancet) flash glucose scanning reader #1 ea 08/19/22 03/26/25 Rx (FreeStyle Moo 2 [place]) pen needle, diabetic 33 gauge x #300 ea 01/25/23 03/26/25 Rx 5/32 (Advocate Pen Needle) coQ10 (ubiquinol) 100 mg capsule 100 mg PO DAILY 08/20/24 03/26/25 History (Qunol Josias CoQ10) oxybutynin chloride 5 mg 5 mg PO DAILY 08/20/24 03/26/25 History tablet,extended release 24 hr pen needle, diabetic 32 gauge x #100 ea 09/28/24 03/26/25 Rx 5/32 amlodipine 10 mg tablet 10 mg PO DAILY #30 tabs 10/02/24 03/26/25 Rx blood sugar diagnostic (OneTouch #1 pkg 11/30/24 03/26/25 Rx Verio test strips) dulaglutide 0.75 mg/0.5 mL 0.75 mg (0.5 mL) subcut WEEKLY #6 11/30/24 03/26/25 Rx subcutaneous pen injector mL (Trulicity) insulin glargine 100 unit/mL (3 8 unit (0.08 mL) subcut QAM #30 mL 11/30/24 03/26/25 Rx mL) subcutaneous pen (Lantus Solostar U-100 Insulin) flash glucose sensor (FreeStyle #6 ea 12/20/24 03/26/25 Rx Moo 2 Sensor kit) Allergies Allergy/AdvReac Type Severity Reaction Status Date / Time milk AdvReac Mild Nausea, Verified 01/10/25 10:02 DIARRHEA carvedilol AdvReac Unknown Weakness Verified 01/10/25 10:02 lisinopril AdvReac Unknown Weakness Verified 01/10/25 10:02 Cwcdwiv-AUR-QxL Reductase AdvReac Unknown Muscle Pain Verified 01/10/25 10:02 Inhibitor (Dhjmwri-Yky-Eim Reductase Inhibitor) Vital Signs Vital Signs - 24 hr 03/26/25 00:21 03/26/25 02:06 03/26/25 02:07 Temperature 36.9 C Pulse Rate 67 60 Respiratory Rate 18 Blood Pressure 198/78 H Pulse Oximetry 99 Oxygen Delivery Room Air Room Air 03/26/25 03:55 03/26/25 03:56 03/26/25 04:00 Temperature Pulse Rate 56 L 63 61 Respiratory Rate 13 15 Blood Pressure 167/73 H Pulse Oximetry 96 96 97 Oxygen Delivery 03/26/25 04:14 03/26/25 04:51 03/26/25 05:38 Temperature 37.1 C 37.2 C Pulse Rate 59 L 60 Respiratory Rate 10 L 18 Blood Pressure 121/76 151/81 H Pulse Oximetry 97 98 Oxygen Delivery Room Air 03/26/25 05:55 03/26/25 08:00 03/26/25 08:35 Temperature 36.6 C Pulse Rate 63 56 L Respiratory Rate 18 Blood Pressure 156/64 H Pulse Oximetry 99 96 Oxygen Delivery Room Air Exam Narrative: General: Alert oriented x3, no acute distress Neck: Supple, no JVD Chest: Bilaterally clear to auscultation, no rales or rhonchi Cardiac: S1, S2 +, regular rate, regular rhythm, no murmurs or rubs Extremities: No pedal edema, no skin rash Neurologic: Alert and oriented x3, no focal neurological deficits Results Labs and Meds 03/26/25 07:18 03/26/25 00:32 Lab results: Cardiac Enzymes 03/26/25 03/26/25 03/26/25 Range/Units 00:32 04:18 07:18 AST 32 (17-59) U/L Troponin I 1.850 H* 1.900 H* 4.260 H* D (0.000-0.034) ng/mL Coagulation 03/26/25 03/26/25 03/26/25 Range/Units 00:32 07:18 10:18 PT 13.1 13.8 (11.1-14.7) Seconds APTT 29.1 34.5 31.3 (22.3-36.8) Seconds CBC 03/26/25 03/26/25 Range/Units 00:32 07:18 WBC 8.2 6.4 (4.5-10.0) K/mm3 RBC 4.50 L 4.42 L (4.6-6.20) M/mm3 Hgb 12.5 L 12.2 L (14.0-18.0) g/dL Hct 39.5 L 38.9 L (42.0-52.0) % Plt Count 231 200 (150-375) k/mm3 Lymph # (Auto) 2.53 1.76 (0.9-3.2) K/mm3 [place] # (Auto) 1.0 H 0.7 H (0.1-0.6) K/mm3 Eos # (Auto) 0.4 H 0.2 (0-0.3) K/mm3 Baso # (Auto) 0.1 0.0 (0.0-0.1) K/mm3 Comprehensive Metabolic Panel 03/26/25 Range/Units 00:32 Sodium 141 (137-145) mmol/L Potassium 3.9 (3.4-5.0) mmol/L Chloride 104 (98-107) mmol/L Carbon Dioxide 29 (22-30) mmol/L BUN 17 (9-20) mg/dL Creatinine 1.89 H (0.7-1.3) mg/dL Glucose 147 H (65-110) mg/dL Calcium 8.8 (8.4-10.2) mg/dL AST 32 (17-59) U/L ALT 17 (6-50) U/L Alkaline Phosphatase 101 (38-126) U/L Total Protein 7.3 (6.3-8.2) g/dL Albumin 4.0 (3.5-5.1) g/dL Intake and Output 03/25/25 03/26/25 03/26/25 23:59 07:59 15:59 Intake Total 0 70.3 Balance 0 70.3 Intake: IV 70.3 Heparin Sod/D5w 100 Units/ml 25 70.3 ,000 units In 250 ml @ 1,000 UNITS/HR 10 mls/hr IV CONT . Q24H [facility] Rx#:[id number] Oral 0 Patient Weight 03/26/25 23:59 Weight 96.5 kg
--- NOTE | 2025-03-26 11:51 | P.SEDATION_ITS ---
Moderate Sedation Note-Pt Data Patient Data Allergies Allergy/AdvReac Type Severity Reaction Status Date / Time milk AdvReac Mild Nausea, Verified 01/10/25 10:02 DIARRHEA carvedilol AdvReac Unknown Weakness Verified 01/10/25 10:02 lisinopril AdvReac Unknown Weakness Verified 01/10/25 10:02 Svapbfs-AXS-GgW Reductase AdvReac Unknown Muscle Pain Verified 01/10/25 10:02 Inhibitor (Rwmguif-Pgd-Rji Reductase Inhibitor) Home Medications ?Medication ?Instructions ?Recorded ?Confirmed ?Type cholecalciferol (vitamin D3) 125 125 mcg PO DAILY 02/04/22 03/26/25 History mcg (5,000 unit) capsule magnesium 200 mg tablet 200 mg PO DAILY 02/04/22 03/26/25 History vitamin B complex 1 cap PO DAILY 02/04/22 03/26/25 History blood sugar diagnostic (OneTouch #1 pk 02/20/22 03/26/25 Rx Verio test strips) blood-glucose meter (OneTouch #1 [facility] [place] 02/20/22 03/26/25 Rx Verio Flex Meter) lancets 30 gauge (OneTouch Delica #1 pkg 02/20/22 03/26/25 Rx Plus Lancet) flash glucose scanning reader #1 ea 08/19/22 03/26/25 Rx (FreeStyle Moo 2 [place]) pen needle, diabetic 33 gauge x #300 ea 01/25/23 03/26/25 Rx 5/32 (Advocate Pen Needle) coQ10 (ubiquinol) 100 mg capsule 100 mg PO DAILY 08/20/24 03/26/25 History (Qunol Josias CoQ10) oxybutynin chloride 5 mg 5 mg PO DAILY 08/20/24 03/26/25 History tablet,extended release 24 hr pen needle, diabetic 32 gauge x #100 ea 09/28/24 03/26/25 Rx 5/32 amlodipine 10 mg tablet 10 mg PO DAILY #30 tabs 10/02/24 03/26/25 Rx blood sugar diagnostic (OneTouch #1 pkg 11/30/24 03/26/25 Rx Verio test strips) dulaglutide 0.75 mg/0.5 mL 0.75 mg (0.5 mL) subcut WEEKLY #6 11/30/24 03/26/25 Rx subcutaneous pen injector mL (Trulicity) insulin glargine 100 unit/mL (3 8 unit (0.08 mL) subcut QAM #30 mL 11/30/24 03/26/25 Rx mL) subcutaneous pen (Lantus Solostar U-100 Insulin) flash glucose sensor (FreeStyle #6 ea 12/20/24 03/26/25 Rx Moo 2 Sensor kit) Current Medications: Active Medications Acetaminophen (Acetaminophen 325 Mg Tablet) 650 mg PO Q4H PRN PRN Reason: Mild Pain (1-3) or Fever Aspirin (Aspirin 81 Mg Chewable Tablet) 81 mg PO DAILY@0800 [facility] Last Admin: 03/26/25 10:01 Dose: 81 mg Heparin Sodium (Porcine) (Heparin Sodium 5,000 Units/Ml Vial) 4,000 units IV PUSH PRN PRN PRN Reason: aPTT less than 55 seconds Last Admin: 03/26/25 10:54 Dose: 4,000 units Heparin Sodium (Porcine) (Heparin Sodium 5,000 Units/Ml Vial) 3,500 units IV PUSH PRN PRN PRN Reason: aPTT 55 - 70 seconds Heparin Sodium/Dextrose (Heparin Sodium/D5w 100 Units/Ml) 25,000 units in 250 mls @ 13 mls/hr IV CONT .[id number] [facility]; Protocol Last Titration: 03/26/25 10:54 Dose: 1,300 units/hr, 13 mls/hr Ondansetron HCl (Ondansetron Inj 4 Mg/2 Ml Vial) 4 mg IV PUSH Q4H PRN PRN Reason: Nausea Sedation/Anesthesia: No previous sedation/anesthesia problems (including family history). [facility] Past Medical History Medical History BMI 30.0-30.9,adult Elevated aldolase level CHF (congestive heart failure), NYHA class II Anemia in chronic kidney disease URI (upper respiratory infection) AOM (acute otitis media) Type 2 diabetes mellitus with proteinuria Sleep apnea Acute kidney injury superimposed on chronic kidney disease Chronic kidney disease CKD (chronic kidney disease) SIMON (obstructive sleep apnea) COPD (chronic obstructive pulmonary disease) Atrial fibrillation CVA (cerebral vascular accident) Prostate cancer HLD (hyperlipidemia) HTN (hypertension) Diabetes mellitus Surgical History Surgical History S/P total hip arthroplasty LEFT Family History Family History Sibling Patient's brother is in good health Family history of diabetes mellitus in first degree relative Family history of malignant neoplasm Mother Family history of malignant neoplasm Patient's father is Father Patient's father is Acute myocardial infarction Other Diabetes mellitus Hypertension Social History Social History Social History: Smoking packs per day: 0.5 Smoking cigarettes per day: 10.0 Years smoked: 50 Smoking pack-years: 25.00 Smoking status: Current every day smoker Tobacco type: cigarettes Second hand tobacco smoke exposure: No Additional smoking assessment comments: currently taking Chantix for smoking cessation Alcohol intake: never Substance use: never Substance use type: does not use Do You Feel Safe in your Home?: Yes Lack of Transportation: No Lack of Food: Never True Current Housing: I Have Housing Concerned About Future Housing: No Difficulty Paying Gas/Electric Bills: No Difficulty Paying for Meds: No Currently Unemployed: No Education: Bachelor's Degree Difficulty w/ Childcare or Family Care: No Living arrangements: alone 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 Gender identity (if verbalized by the patient): Male Sexual Orientation (if Verbalized by the Patient): Straight or Heterosexual Spiritual care concerns: No Mod Sed Physical Exam Physical Exam Pre Procedural Exam: Normal: Lungs, Heart Size, Heart Rate and Heart Rhythm Hours since solid foods: 12 Hours since liquid intake: 12 Mallampati Classification: class II Internal Medicine - PN: Obj Da Vital Signs Vital Signs: Vital Signs - 24 hr 03/26/25 00:21 03/26/25 02:06 03/26/25 02:07 Temperature 36.9 C Pulse Rate 67 60 Respiratory Rate 18 Blood Pressure 198/78 H Pulse Oximetry 99 Oxygen Delivery Room Air Room Air 03/26/25 03:55 03/26/25 03:56 03/26/25 04:00 Temperature Pulse Rate 56 L 63 61 Respiratory Rate 13 15 Blood Pressure 167/73 H Pulse Oximetry 96 96 97 Oxygen Delivery 03/26/25 04:14 03/26/25 04:51 03/26/25 05:38 Temperature 37.1 C 37.2 C Pulse Rate 59 L 60 Respiratory Rate 10 L 18 Blood Pressure 121/76 151/81 H Pulse Oximetry 97 98 Oxygen Delivery Room Air 03/26/25 05:55 03/26/25 08:00 03/26/25 08:35 Temperature 36.6 C Pulse Rate 63 56 L Respiratory Rate 18 Blood Pressure 156/64 H Pulse Oximetry 99 96 Oxygen Delivery Room Air Intake/Output Intake/Output: Intake & Output 03/23/25 03/24/25 03/25/25 03/26/25 23:59 23:59 23:59 23:59 Intake Total 70.3 Balance 70.3 Meds/Results Medications: Active Medications Generic Name Dose Route Start Last Admin Trade Name Freq PRN Reason Stop Dose Admin Acetaminophen 650 mg 03/26/25 02:43 Acetaminophen 325 Mg Tablet PO Q4H PRN Mild Pain (1-3) or Fever Aspirin 81 mg 03/26/25 08:00 03/26/25 10:01 Aspirin 81 Mg Chewable Tablet PO 81 mg DAILY@0800 [facility] Administration Heparin Sodium (Porcine) 4,000 units 03/26/25 02:38 03/26/25 10:54 Heparin Sodium 5,000 Units/Ml Vial IV PUSH 4,000 units PRN PRN Administration aPTT less than 55 seconds Heparin Sodium (Porcine) 3,500 units 03/26/25 02:38 Heparin Sodium 5,000 Units/Ml Vial IV PUSH PRN PRN aPTT 55 - 70 seconds Heparin Sodium/Dextrose 25,000 units in 250 mls @ 13 mls/hr 03/26/25 02:40 03/26/25 10:54 Heparin Sodium/D5w 100 Units/Ml IV CONT 1,300 units/hr .[id number] [facility] 13 mls/hr Titration Protocol 1,300 UNITS/HR Ondansetron HCl 4 mg 03/26/25 02:43 Ondansetron Inj 4 Mg/2 Ml Vial IV PUSH Q4H PRN Nausea Radiology Results: ITS Impressions Chest X-Ray 03/26/25 05:27 Impression: Possible subtle right lung pulmonary nodules measuring 8 mm and 18 mm, as noted above. Chest CT recommended to further evaluate.. Labs 03/26/25 07:18 03/26/25 00:32 Labs: Laboratory Results - last 24 hr 03/26/25 03/26/25 03/26/25 00:32 04:18 07:18 WBC 8.2 6.4 RBC 4.50 L 4.42 L Hgb 12.5 L 12.2 L Hct 39.5 L 38.9 L MCV 87.8 88.0 MCH 27.8 27.6 MCHC 31.6 L 31.4 L RDW 15.5 H 15.5 H Plt Count 231 200 MPV 11.5 H 11.2 H Immature Gran % (Auto) 0.2 0.2 Neut % (Auto) 52.5 58.9 Lymph % (Auto) 30.7 27.5 Mcmullen % (Auto) 11.5 H 10.6 H Eos % (Auto) 4.5 H 2.5 Baso % (Auto) 0.6 0.3 Lymph # (Auto) 2.53 1.76 [place]ullen # (Auto) 1.0 H 0.7 H Eos # (Auto) 0.4 H 0.2 Baso # (Auto) 0.1 0.0 Abs Immat Gran (auto) 0.02 0.01 Absolute Neuts (auto) 4.3 3.8 Absolute Nucleated RBC 0.000 0.000 Nucleated RBC % 0.0 0.0 PT 13.1 13.8 INR 1.0 1.1 APTT 29.1 34.5 Sodium 141 Potassium 3.9 Chloride 104 Carbon Dioxide 29 Anion Gap 8 BUN 17 Creatinine 1.89 H Estim Creat Clear Calc 29 Estimated GFR 34 L Glucose 147 H Calcium 8.8 Total Bilirubin 0.3 AST 32 ALT 17 Alkaline Phosphatase 101 Troponin I 1.850 H* 1.900 H* 4.260 H* D Total Protein 7.3 Albumin 4.0 Lipase 59 03/26/25 10:18 WBC RBC Hgb Hct MCV MCH MCHC RDW Plt Count MPV Immature Gran % (Auto) Neut % (Auto) Lymph % (Auto) [place]mullen % (Auto) Eos % (Auto) Baso % (Auto) Lymph # (Auto) [place]mullen # (Auto) Eos # (Auto) Baso # (Auto) Abs Immat Gran (auto) Absolute Neuts (auto) Absolute Nucleated RBC Nucleated RBC % PT INR APTT 31.3 Sodium Potassium Chloride Carbon Dioxide Anion Gap BUN Creatinine Estim Creat Clear Calc Estimated GFR Glucose Calcium Total Bilirubin AST ALT Alkaline Phosphatase Troponin I Total Protein Albumin Lipase ASA Classification/Sedation ASA Classification/Sedation ASA Class: III Emergent: No Risks: Risks, benefits and alternatives explained and patient/family accepted plan for sedation. Patient re-evaluated immediately prior to sedation.
[2025-03-26 12:07] LABS: Glucose Point of Care 76 mg/dl (65-105)
[2025-03-26 13:47] LABS: Activated Clotting Time 279 SEC (74-137)
--- NOTE | 2025-03-26 14:29 | P.PCNCC_ITS ---
Cardiac Cath Procedure Note Date of procedure:: 03/26/25 Performing physician:: Jigna Soto MD Indication:: CATHETERIZATION LABORATORY REPORT Procedure Date: 03/26/25 Anesthesia: Versed and Fentanyl were ordered and given in my presence at 12:41 p.m., procedure ended at 1:43 p.m.. Supervision of nurse monitored moderate sedation with Versed and Fentanyl was provided for 62 minutes. Pre-op Diagnosis: NSTEMI CAD status post PCI to distal LCX in 2022 Ischemic cardiomyopathy CKD Post-op Diagnosis: NSTEMI status post successful IVUS guided PCI to 80% InStent restenosis in the distal LCX with to 3.5 mm X 15 mm Medtronic guero [place] DARLYN in overlapping fashion post dilated with stent balloon to high pressures. Obstructive CAD with 90% stenosis in the mid to distal RCA. Procedure(s): Right radial artery access Left heart catheterization with coronary angiography PCI to distal LCX Access Site: Right radial artery Hemostasis: TR band Brief History and Clinical Indications: All risks, benefits and alternatives to left heart catheterization with or without percutaneous coronary intervention was discussed at length with the patient. Risk of complications including but not limited to bleeding, infection, arrhythmia, stroke, worsening kidney function, blood loss, groin hematoma, limb loss, emergency coronary artery bypass grafting, and even were discussed with the patient and all questions were answered. The patient understood and wished to proceed. Time out called, patient name, date of , medical record number, allergies, procedure performed, identify Video Control Operator, patient and staff member concurred with accurate data, procedure carried on. Findings: LEFT HEART CATHETERIZATION FINDINGS: 1. Left main: The left main coronary artery is widely patent without any significant obstructive disease. 2. Left anterior descending: The LAD and the diagonal branches have mild luminal irregularities without any significant obstructive angiographic disease. 3. Left circumflex: The distal left circumflex artery has 80% InStent restenoses in a prior stent. This appears to be a culprit for patient's presentation. 4. Right coronary artery: The RCA has mild luminal irregularities without any significant obstructive angiographic disease. Co-dominant vessel. 5. Left ventricle: A. End-diastolic pressure 47 mmHg. B. LV gram deferred. C. No significant gradient across aortic valve on catheter pullback. 6. Opening AO pressure 137/83/106 and closing AO pressure 158/69/107 mm Hg. Description of Procedure: Informed consent signed and placed in the chart. Patient transferred to home performance laborer room. Prepped and draped in usual sterile fashion. 2% lidocaine injected subcutaneously in right wrist area. 22-gauge venipuncture catheter used to access the right radial artery with the Seldinger technique. 6-FR slender sheath placed in right radial artery. Nitroglycerin 200mcg, Verapamil 2.5mg, and Heparin 5000U was given intraarterial through the sheath. J wire advanced under fluoroscopy [place] JL4 diagnostic catheter engaged Left Main Coronary Artery. 5 [place] JR4 diagnostic catheter engaged Right Coronary Artery Multiple orthogonal angiogram obtained and reviewed [place] JR4 diagnostic catheter crossed aortic valve to obtain LVEDP, LV angiogram deferred. Hemostasis was achieved by application of TR band. Procedure Description for PCI: Heparin was used for anticoagulation (ACT maintained above 250) Patient loaded with heparin at 70 units/kg. 6F JL 4 guide catheter was used to intubate the left main. 0.014 runthrough coronary wire was passed in to the distal LCX. The lesion was pre-dilated with a 2.5 mm X 15 mm compliant balloon inflated to high LAURA. To 3.5 mm x 15 mm Medtronic guero [place] DARLYN were successfully deployed into distal LCX in an overlapping fashion. The stent was post-dilated with the DARLYN stent balloon inflated to high LAURA Intracoronary NTG was administered Follow-up angiograms showed an excellent result Coronary wire and guide-catheter were removed Pre-procedure - AMRITA 3 flow Post-procedure - AMRITA 3 flow No angiographic complications identified. Assessment: NSTEMI status post successful IVUS guided PCI to 80% InStent restenosis in the distal LCX with to 3.5 mm X 15 mm Medtronic guero [place] DARLYN in overlapping fashion post dilated with stent balloon to high pressures. Obstructive CAD with 90% stenosis in mid to distal RCA. CAD status post PCI to distal LCX in 2022. Elevated LVEDP. Ischemic cardiomyopathy with EF 40%. Post Operative Condition: Stable No significant blood loss Disposition: Floor/Home Plan: The patient will be monitored in the recovery area. Removal of TR band per protocol. Stage PCI to 90% stenosis in mid to distal RCA in 2-3 days. DAPT with aspirin 81 mg daily and ticagrelor 90 mg b.i.d. for 1 year followed by ASA indefinitely. Statin. GDMT for ischemic cardiomyopathy. Continue aggressive medical therapy and risk factor modification. IV Lasix 40 mg b.i.d. given elevated LVEDP. Check daily weight, ins and outs, renal function. Check and replace electrolytes to keep K greater than 4 and magnesium greater than 2.
--- NOTE | 2025-03-26 15:34 | PM.IMHP ---
H&P: HPI History of Present Illness Date/Time: 03/26/25 12:34 Chief Complaint: chest pain Review of Systems Review of Systems: A complete review of systems was performed and negative other than those mentioned in HPI [facility] Past Medical History Medical History BMI 30.0-30.9,adult Elevated aldolase level CHF (congestive heart failure), NYHA class II Anemia in chronic kidney disease URI (upper respiratory infection) AOM (acute otitis media) Type 2 diabetes mellitus with proteinuria Sleep apnea Acute kidney injury superimposed on chronic kidney disease Chronic kidney disease CKD (chronic kidney disease) SIMON (obstructive sleep apnea) COPD (chronic obstructive pulmonary disease) Atrial fibrillation CVA (cerebral vascular accident) Prostate cancer HLD (hyperlipidemia) HTN (hypertension) Diabetes mellitus Surgical History Surgical History S/P total hip arthroplasty LEFT Family History Family History Sibling Patient's brother is in good health Family history of diabetes mellitus in first degree relative Family history of malignant neoplasm Mother Family history of malignant neoplasm Patient's father is Father Patient's father is Acute myocardial infarction Other Diabetes mellitus Hypertension Social History Social History Social History: Smoking packs per day: 0.5 Smoking cigarettes per day: 10.0 Years smoked: 50 Smoking pack-years: 25.00 Smoking status: Current every day smoker Tobacco type: cigarettes Second hand tobacco smoke exposure: No Additional smoking assessment comments: currently taking Chantix for smoking cessation Alcohol intake: never Substance use: never Substance use type: does not use Do You Feel Safe in your Home?: Yes Lack of Transportation: No Lack of Food: Never True Current Housing: I Have Housing Concerned About Future Housing: No Difficulty Paying Gas/Electric Bills: No Difficulty Paying for Meds: No Currently Unemployed: No Education: Bachelor's Degree Difficulty w/ Childcare or Family Care: No Living arrangements: alone 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 Gender identity (if verbalized by the patient): Male Sexual Orientation (if Verbalized by the Patient): Straight or Heterosexual Spiritual care concerns: No Meds Home Medications and Allergies Home Medications ?Medication ?Instructions ?Recorded ?Confirmed ?Type cholecalciferol (vitamin D3) 125 125 mcg PO DAILY 02/04/22 03/26/25 History mcg (5,000 unit) capsule magnesium 200 mg tablet 200 mg PO DAILY 02/04/22 03/26/25 History vitamin B complex 1 cap PO DAILY 02/04/22 03/26/25 History blood sugar diagnostic (OneTouch #1 pkg 02/20/22 03/26/25 Rx Verio test strips) blood-glucose meter (OneTouch #1 pkg 02/20/22 03/26/25 Rx Verio Flex Meter) lancets 30 gauge (OneTouch Delica #1 pkg 02/20/22 03/26/25 Rx Plus Lancet) flash glucose scanning reader #1 ea 08/19/22 03/26/25 Rx (FreeStyle Moo 2 [place]) pen needle, diabetic 33 gauge x #300 ea 01/25/23 03/26/25 Rx / (Advocate Pen Needle) coQ10 (ubiquinol) 100 mg capsule 100 mg PO DAILY 08/20/24 03/26/25 History (Qunol Josias CoQ10) oxybutynin chloride 5 mg 5 mg PO DAILY 08/20/24 03/26/25 History tablet,extended release 24 hr pen needle, diabetic 32 gauge x #100 ea 09/28/24 03/26/25 Rx 5/32 amlodipine 10 mg tablet 10 mg PO DAILY #30 tabs 10/02/24 03/26/25 Rx blood sugar diagnostic (OneTouch #1 pkg 11/30/24 03/26/25 Rx Verio test strips) dulaglutide 0.75 mg/0.5 mL 0.75 mg (0.5 mL) subcut WEEKLY #6 11/30/24 03/26/25 Rx subcutaneous pen injector mL (Trulicity) insulin glargine 100 unit/mL (3 8 unit (0.08 mL) subcut QAM #30 mL 11/30/24 03/26/25 Rx mL) subcutaneous pen (Lantus Solostar U-100 Insulin) flash glucose sensor ([employer] #6 ea 12/20/24 03/26/25 Rx Moo 2 Sensor kit) Allergies Allergy/AdvReac Type Severity Reaction Status Date / Time milk AdvReac Mild Nausea, Verified 01/10/25 10:02 DIARRHEA carvedilol AdvReac Unknown Weakness Verified 01/10/25 10:02 lisinopril AdvReac Unknown Weakness Verified 01/10/25 10:02 Igtpria-IOZ-TtQ Reductase AdvReac Unknown Muscle Pain Verified 01/10/25 10:02 Inhibitor (Qlfibvr-Rsv-Lnn Reductase Inhibitor) Vital Signs Vital Signs - 24 hr 03/26/25 00:21 03/26/25 02:06 03/26/25 02:07 Temperature 98.4 F Pulse Rate 67 60 Pulse Rate [Right Radial] Respiratory Rate 18 Blood Pressure 198/78 H Pulse Oximetry 99 Oxygen Delivery Room Air Room Air 03/26/25 03:55 03/26/25 03:56 03/26/25 04:00 Temperature Pulse Rate 56 L 63 61 Pulse Rate [Right Radial] Respiratory Rate 13 15 Blood Pressure 167/73 H Pulse Oximetry 96 96 97 Oxygen Delivery 03/26/25 04:14 03/26/25 04:51 03/26/25 05:38 Temperature 98.7 F 98.9 F Pulse Rate 59 L 60 Pulse Rate [Right Radial] Respiratory Rate 10 L 18 Blood Pressure 121/76 151/81 H Pulse Oximetry 97 98 Oxygen Delivery Room Air 03/26/25 05:55 03/26/25 08:00 03/26/25 08:00 Temperature 97.8 F Pulse Rate 63 56 L 55 L Pulse Rate [Right Radial] Respiratory Rate 18 Blood Pressure 156/64 H Pulse Oximetry 99 Oxygen Delivery 03/26/25 08:00 03/26/25 08:35 03/26/25 10:00 Temperature Pulse Rate 55 L Pulse Rate [Right Radial] Respiratory Rate Blood Pressure Pulse Oximetry 96 Oxygen Delivery Room Air Room Air 03/26/25 11:00 03/26/25 12:00 03/26/25 14:00 Temperature 97.8 F Pulse Rate 53 L 57 L Pulse Rate [Right Radial] 56 L Respiratory Rate 16 Blood Pressure 147/71 H Pulse Oximetry 100 Oxygen Delivery 03/26/25 14:00 03/26/25 14:15 03/26/25 14:15 Temperature Pulse Rate 56 L 68 Pulse Rate [Right Radial] 68 Respiratory Rate 16 18 Blood Pressure 162/66 H 163/92 H Pulse Oximetry 94 91 Oxygen Delivery 03/26/25 14:30 03/26/25 14:30 03/26/25 14:45 Temperature Pulse Rate 57 L Pulse Rate [Right Radial] 57 L 70 Respiratory Rate 17 Blood Pressure 190/69 H Pulse Oximetry 92 Oxygen Delivery 03/26/25 14:45 03/26/25 15:00 03/26/25 15:00 Temperature Pulse Rate 70 64 Pulse Rate [Right Radial] 64 Respiratory Rate 18 16 Blood Pressure 163/68 H 161/73 H Pulse Oximetry 94 94 Oxygen Delivery 03/26/25 15:15 03/26/25 15:15 03/26/25 15:30 Temperature Pulse Rate 57 L Pulse Rate [Right Radial] 57 L 61 Respiratory Rate 17 Blood Pressure 177/69 H Pulse Oximetry 93 Oxygen Delivery 03/26/25 15:30 Temperature Pulse Rate 61 Pulse Rate [Right Radial] Respiratory Rate 171 H Blood Pressure 167/74 H Pulse Oximetry 96 Oxygen Delivery Exam Narrative: General: Alert oriented x3, no acute distress Neck: Supple, no JVD Chest: Bilaterally clear to auscultation, no rales or rhonchi Cardiac: S1, S2 +, regular rate, regular rhythm, no murmurs or rubs Extremities: No pedal edema, no skin rash Neurologic: Alert and oriented x3, no focal neurological deficits H&P: Results Labs Labs: Short CBC 03/26/25 03/26/25 Range/Units 00:32 07:18 WBC 8.2 6.4 (4.5-10.0) K/mm3 Hgb 12.5 L 12.2 L (14.0-18.0) g/dL Hct 39.5 L 38.9 L (42.0-52.0) % Plt Count 231 200 (150-375) k/mm3 BMP 03/26/25 00:32 Sodium 141 Potassium 3.9 Chloride 104 Carbon Dioxide 29 BUN 17 Creatinine 1.89 H Glucose 147 H Calcium 8.8 Cardiac Enzymes 03/26/25 03/26/25 03/26/25 Range/Units 00:32 04:18 07:18 Troponin I 1.850 H* 1.900 H* 4.260 H* D (0.000-0.034) ng/mL Liver Function 03/26/25 Range/Units 00:32 Total Bilirubin 0.3 (0.2-1.3) mg/dL AST 32 (17-59) U/L ALT 17 (6-50) U/L Alkaline Phosphatase 101 (38-126) U/L Albumin 4.0 (3.5-5.1) g/dL Assessment and Plan Assessment and plan (1) Acute non-ST elevation myocardial infarction (NSTEMI): Code(s): I21.4 - Non-ST elevation (NSTEMI) myocardial infarction Status: Acute (2) Atrial fibrillation: Qualifiers: Atrial fibrillation type: unspecified chronic Qualified Code(s): I48.20 - Chronic atrial fibrillation, unspecified Code(s): I48.91 - Unspecified atrial fibrillation Status: Acute (3) Hypertension associated with diabetes: Code(s): E11.59 - Type 2 diabetes mellitus with other circulatory complications; I15.2 - Hypertension secondary to endocrine disorders Status: Acute (4) Hyperlipidemia associated with type 2 diabetes mellitus: Code(s): E11.69 - Type 2 diabetes mellitus with other specified complication; E78.5 - Hyperlipidemia, unspecified Status: Acute (5) Chronic systolic heart failure: Code(s): I50.22 - Chronic systolic (congestive) heart failure Status: Acute Plan NSTEMI history of CAD status post PCI to distal LCX in 2022 elevated troponin pain improved after sublingual NG and ASA underwent cardiac cath: PCI to the distal end Continue heparin, aspirin Cardiology team on board HFrEF Echo in 2023 showed EF 40% Continue Asa Deffer repeat echo to Cardiology team DM2 SSI and accucheck monitor tobacco abuse encourage cessation
[2025-03-26 17:19] LABS: Glucose Point of Care 131 mg/dl (65-105)
[2025-03-26 21:20] LABS: Glucose Point of Care 101 mg/dl (65-105)
[2025-03-27] VITALS (10 sets, daily range): BP systolic 128–175; BP diastolic 68–74; PULSE 58–65; RESP 12–18; TEMP 36.7–37.1; O2SAT 98–100
--- NOTE | 2025-03-27 02:28 | PCRCNOTE ---
Pt does not want hospital CPAP, states he doesnt need one anymore
[2025-03-27 04:34] LABS: Basophils Percent Auto 0.4 % (0.2-1.2); Eosinophils Absolute Auto 0.1 K/mm3 (0-0.3); Eosinophils Percent Auto 1.3 % (0-4.4); Hematocrit 37.9 % (42.0-52.0); Immature Granulocyte Absolute 0.01 K/mm3 (0.00-0.031); Immature Granulocyte Percent A 0.1 % (0-0.5); Lymphocytes Absolute Auto 1.36 K/mm3 (0.9-3.2); Mean Corpuscular HGB Conc 31.7 g/dl (32-36); Mean Corpuscular Hemoglobin 27.9 pg (26-34); Mean Corpuscular Volume 88.1 fl (80-100); Mean Platelet Volume 12.1 fl (7.4-10.4); Monocytes Absolute Auto 0.8 K/mm3 (0.1-0.6); Monocytes Percent Auto 12.2 % (2.6-8.5); Neutrophils Absolute Auto 4.5 K/mm3 (1.3-6.7); Platelet Count Result 203 k/mm3 (150-375); Red Cell Distribution Width 15.3 % (11.5-14.5); White Blood Count 6.8 K/mm3 (4.5-10.0)
[2025-03-27 04:55] LABS: Anion Gap 5 mmol/L (4-12); Blood Urea Nitrogen 16 mg/dL (9-20); Calcium 8.9 mg/dL (8.4-10.2); Carbon Dioxide 27 mmol/L (22-30); Chloride 104 mmol/L (98-107); Estimated CRCL calculation 34 ml/min; Estimated Glomerular Filt Rate 41; Glucose 93 mg/dL (65-110); Potassium 4.3 mmol/L (3.4-5.0); Sodium 136 mmol/L (137-145)
[2025-03-27 07:58] LABS: Glucose Point of Care 76 mg/dl (65-105)
[2025-03-27] MEDS: ASPIRIN 81 MG CHEWABLE TABLET PO (10:22)
[2025-03-27] MEDS: MAGNESIUM OXIDE 200 MG TABLET PO (10:22)
[2025-03-27] MEDS: ENOXAPARIN 40 MG/0.4 ML SYRINGE SUB-Q (10:22)
[2025-03-27] MEDS: amLODIPine BESYLATE 10 MG TABLET PO (10:22)
[2025-03-27] MEDS: CHOLECALCIFEROL (VITAMIN D3) 125 MCG (5,000 UNITS) TABLET PO (10:22)
--- NOTE | 2025-03-27 11:17 | PM.PNCARD ---
Progress Note: A&P Assessment and Plan (1) Acute non-ST elevation myocardial infarction (NSTEMI): Code(s): I21.4 - Non-ST elevation (NSTEMI) myocardial infarction Status: Acute (2) Atrial fibrillation: Qualifiers: Atrial fibrillation type: unspecified chronic Qualified Code(s): I48.20 - Chronic atrial fibrillation, unspecified Code(s): I48.91 - Unspecified atrial fibrillation Status: Acute (3) Hypertension associated with diabetes: Code(s): E11.59 - Type 2 diabetes mellitus with other circulatory complications; I15.2 - Hypertension secondary to endocrine disorders Status: Acute (4) Hyperlipidemia associated with type 2 diabetes mellitus: Code(s): E11.69 - Type 2 diabetes mellitus with other specified complication; E78.5 - Hyperlipidemia, unspecified Status: Acute (5) Chronic systolic heart failure: Code(s): I50.22 - Chronic systolic (congestive) heart failure Status: Acute Plan Problem list: -NSTEMI -Bradycardia with lowest heart rate in the 50s -Hhypertension poorly controlled with SBP in the 190s -Hyperlipidemia -Paroxysmal AFib now in sinus rhythm -CKD with creatinine at baseline Plan: -cardiac catheterization showed 80% InStent restenosis in the distal LCX with Obstructive CAD with 90% stenosis in mid to distal RCA. -s/p PCI to distal LCX with 3.5 mm X 15 mm Medtronic guero [place] DARLYN in overlapping fashion post dilated with stent balloon to high pressures. -aspirin 81 mg daily -he has statin intolerance. Will need PCSK9 inhibitor -Avoid beta blockers or any other AV aristides blocking agents given bradycardia -Unable to add full guideline directed medical therapy due to ERICA, bradycardia. No beta-sheeba due to bradycardia. No DEVON inhibitor/ARB/ARNI given renal failure. Add empagliflozin 10 mg daily -Control blood pressure. Resume home dose of amlodipine. Add hydralazine 50 mg q.6 hours -Cannot afford Brilinta. Will give plavix loading dose 600mg now and start plavix 75mg daily thereafter. -OK for discharge today with plan for staged PCI as outpatient in a few weeks. Subjective Date/time seen: 03/27/25 11:17 Interval history: Cardiology follow up visit He is feeling well this morning and has no complaints. Denies any chest pain, shortness of breath, palpitations. Review of Systems Review of Systems: A complete review of systems was performed and negative other than those mentioned in HPI Exam Narrative: General: Alert oriented x3, no acute distress Neck: Supple, no JVD Chest: Bilaterally clear to auscultation, no rales or rhonchi Cardiac: S1, S2 +, regular rate, regular rhythm, no murmurs or rubs Extremities: No pedal edema, no skin rash. R radial arterial access site free from hematoma. Radial pulse intact. Neurologic: Alert and oriented x3, no focal neurological deficits Objective Data Vital Signs Vital Signs: Vital Signs - 24 hr 03/26/25 12:00 03/26/25 14:00 03/26/25 14:00 Temperature Pulse Rate 57 L 56 L Pulse Rate [Right Radial] 56 L Respiratory Rate 16 Blood Pressure 162/66 H Pulse Oximetry 94 Oxygen Delivery 03/26/25 14:15 03/26/25 14:15 03/26/25 14:30 Temperature Pulse Rate 68 Pulse Rate [Right Radial] 68 57 L Respiratory Rate 18 Blood Pressure 163/92 H Pulse Oximetry 91 Oxygen Delivery 03/26/25 14:30 03/26/25 14:45 03/26/25 14:45 Temperature Pulse Rate 57 L 70 Pulse Rate [Right Radial] 70 Respiratory Rate 17 18 Blood Pressure 190/69 H 163/68 H Pulse Oximetry 92 94 Oxygen Delivery 03/26/25 15:00 03/26/25 15:00 03/26/25 15:15 Temperature Pulse Rate 64 Pulse Rate [Right Radial] 64 57 L Respiratory Rate 16 Blood Pressure 161/73 H Pulse Oximetry 94 Oxygen Delivery 03/26/25 15:15 03/26/25 15:30 03/26/25 15:30 Temperature Pulse Rate 57 L 61 Pulse Rate [Right Radial] 61 Respiratory Rate 17 17 Blood Pressure 177/69 H 167/74 H Pulse Oximetry 93 96 Oxygen Delivery 03/26/25 15:45 03/26/25 15:45 03/26/25 16:00 Temperature Pulse Rate 51 L 59 L Pulse Rate [Right Radial] 51 L Respiratory Rate 18 18 Blood Pressure 159/62 H 174/74 H Pulse Oximetry 98 98 Oxygen Delivery 03/26/25 16:00 03/26/25 16:15 03/26/25 16:15 Temperature Pulse Rate 76 Pulse Rate [Right Radial] 59 L 76 Respiratory Rate 20 Blood Pressure 169/75 H Pulse Oximetry 98 Oxygen Delivery 03/26/25 16:30 03/26/25 16:30 03/26/25 16:45 Temperature Pulse Rate 71 Pulse Rate [Right Radial] 71 74 Respiratory Rate 20 Blood Pressure 189/74 H Pulse Oximetry 98 Oxygen Delivery 03/26/25 16:45 03/26/25 17:00 03/26/25 17:00 Temperature Pulse Rate 74 61 Pulse Rate [Right Radial] 61 Respiratory Rate 17 16 Blood Pressure 169/72 H 186/62 H Pulse Oximetry 98 98 Oxygen Delivery 03/26/25 17:15 03/26/25 17:15 03/26/25 17:15 Temperature Pulse Rate 56 L Pulse Rate [Right Radial] 56 L 62 Respiratory Rate 20 Blood Pressure 171/77 H Pulse Oximetry 96 Oxygen Delivery 03/26/25 17:15 03/26/25 17:30 03/26/25 17:30 Temperature Pulse Rate 62 59 L Pulse Rate [Right Radial] 59 L Respiratory Rate 16 2 L Blood Pressure 171/77 H 179/74 H Pulse Oximetry 97 97 Oxygen Delivery Room Air Room Air 03/26/25 17:45 03/26/25 18:15 03/26/25 18:45 Temperature 36.9 C 37.0 C Pulse Rate 59 L 66 64 Pulse Rate [Right Radial] Respiratory Rate 16 16 18 Blood Pressure 161/62 H 162/71 H 161/65 H Pulse Oximetry 98 100 100 Oxygen Delivery Room Air 03/26/25 19:05 03/26/25 19:56 03/26/25 20:00 Temperature 36.9 C Pulse Rate 58 L 91 91 Pulse Rate [Right Radial] Respiratory Rate 18 18 Blood Pressure 172/72 H Pulse Oximetry 100 100 Oxygen Delivery Room Air 03/26/25 20:00 03/26/25 20:45 03/26/25 22:00 Temperature 36.8 C Pulse Rate 60 65 58 L Pulse Rate [Right Radial] Respiratory Rate 17 Blood Pressure 171/80 H Pulse Oximetry 99 Oxygen Delivery 03/27/25 00:00 03/27/25 00:00 03/27/25 00:00 Temperature 36.7 C Pulse Rate 58 L 59 L 58 L Pulse Rate [Right Radial] Respiratory Rate 18 Blood Pressure 128/74 Pulse Oximetry 99 100 Oxygen Delivery Room Air 03/27/25 02:00 03/27/25 03:19 03/27/25 04:00 Temperature 37.1 C Pulse Rate 59 L 58 L 61 Pulse Rate [Right Radial] Respiratory Rate 18 Blood Pressure 175/73 H Pulse Oximetry 98 100 Oxygen Delivery Room Air 03/27/25 04:00 03/27/25 06:00 03/27/25 08:00 Temperature 36.9 C Pulse Rate 65 58 L 65 Pulse Rate [Right Radial] Respiratory Rate 12 Blood Pressure 174/73 H Pulse Oximetry 100 Oxygen Delivery Intake/Output Intake/Output: Intake & Output 03/24/25 03/25/25 03/26/25 03/27/25 23:59 23:59 23:59 23:59 Intake Total 370.3 240 Output Total 800 1300 Balance -429.7 -1060 Meds/Results Medications: Active Medications Generic Name Dose Route Start Last Admin Trade Name Freq PRN Reason Stop Dose Admin Acetaminophen 650 mg 03/26/25 02:43 Acetaminophen 325 Mg Tablet PO Q4H PRN Mild Pain (1-3) or Fever Amlodipine Besylate 10 mg 03/27/25 10:05 03/27/25 10:22 Amlodipine Besylate 10 Mg Tablet PO 10 mg DAILY ASA Administration Aspirin 81 mg 03/26/25 08:00 03/27/25 10:22 Aspirin 81 Mg Chewable Tablet PO 81 mg DAILY@0800 ASA Administration Dextrose 12.5 gm 03/26/25 15:31 Dextrose 50% 25 Gm/50 Ml Syringe IV PUSH PRN PRN Hypoglycemia Protocol Enoxaparin Sodium 40 mg 03/27/25 09:00 03/27/25 10:22 Enoxaparin 40 Mg/0.4 Ml Syringe SUB-Q 40 mg DAILY ASA Administration Glucagon 1 mg 03/26/25 15:31 Glucagon For Inj 1 Mg Vial IM PRN PRN Hypoglycemia Protocol Glucose 15 gm 03/26/25 15:31 Glucose Oral Gel 15 Gm Of Glucse In 37.5 Gm Tube PO PRN PRN Hypoglycemia Protocol Dextrose 1,000 mls @ 100 mls/hr 03/26/25 15:31 Dextrose 5% 1,000 Ml IVPB PRN PRN Hypoglycemia Protocol Insulin Aspart 2 - 5 units 03/26/25 17:00 03/27/25 08:54 Insulin Aspart (*Bkc) 100 Units/Ml SUB-Q Not Given TIDWM ASA Protocol Magnesium Oxide 200 mg 03/27/25 09:00 03/27/25 10:22 Magnesium Oxide 200 Mg Tablet PO 200 mg DAILY ASA Administration Ondansetron HCl 4 mg 03/26/25 02:43 Ondansetron Inj 4 Mg/2 Ml Vial IV PUSH Q4H PRN Nausea Vitamin D 125 mcg 03/27/25 09:00 03/27/25 10:22 Cholecalciferol (Vitamin D3) 125 Mcg (5,000 Units) Tablet PO 125 mcg DAILY ASA Administration Radiology Results: ITS Impressions Chest X-Ray 03/26/25 05:27 Impression: Possible subtle right lung pulmonary nodules measuring 8 mm and 18 mm, as noted above. Chest CT recommended to further evaluate.. Labs Labs: Laboratory Results - last 24 hr 03/26/25 03/26/25 03/26/25 11:57 13:16 17:14 WBC RBC Hgb Hct MCV MCH MCHC RDW Plt Count MPV Immature Gran % (Auto) Neut % (Auto) Lymph % (Auto) [place] % (Auto) Eos % (Auto) Baso % (Auto) Lymph # (Auto) [place] # (Auto) Eos # (Auto) Baso # (Auto) Abs Immat Gran (auto) Absolute Neuts (auto) Absolute Nucleated RBC Nucleated RBC % Activ Coag Time Kaolin 279 H Sodium Potassium Chloride Carbon Dioxide Anion Gap BUN Creatinine Estim Creat Clear Calc Estimated GFR Glucose POC Capillary Glucose 76 131 H Calcium 03/26/25 03/27/25 03/27/25 21:17 04:05 07:44 WBC 6.8 RBC 4.30 L Hgb 12.0 L Hct 37.9 L MCV 88.1 MCH 27.9 MCHC 31.7 L RDW 15.3 H Plt Count 203 MPV 12.1 H Immature Gran % (Auto) 0.1 Neut % (Auto) 66.0 Lymph % (Auto) 20.0 [place] % (Auto) 12.2 H Eos % (Auto) 1.3 Baso % (Auto) 0.4 Lymph # (Auto) 1.36 [place] # (Auto) 0.8 H Eos # (Auto) 0.1 Baso # (Auto) 0.0 Abs Immat Gran (auto) 0.01 Absolute Neuts (auto) 4.5 Absolute Nucleated RBC 0.000 Nucleated RBC % 0.0 Activ Coag Time Kaolin Sodium 136 L Potassium 4.3 Chloride 104 Carbon Dioxide 27 Anion Gap 5 BUN 16 Creatinine 1.61 H Estim Creat Clear Calc 34 Estimated GFR 41 L Glucose 93 POC Capillary Glucose 101 76 Calcium 8.9
[2025-03-27] MEDS: CLOPIDOGREL BISULFATE 300 MG TABLET 600 MG PO (11:38)
[2025-03-27 11:40] LABS: Glucose Point of Care 166 mg/dl (65-105)
--- NOTE | 2025-03-27 15:10 | P.DS_ITS ---
DS: Admitting Diagnosis Discharge Date 03/27/25 Admitting Diagnosis chest pain, NSTEMI DS: Discharge Diagnosis Discharge Diagnosis (1) Acute non-ST elevation myocardial infarction (NSTEMI): Code(s): I21.4 - Non-ST elevation (NSTEMI) myocardial infarction Status: Acute (2) Atrial fibrillation: Qualifiers: Atrial fibrillation type: unspecified chronic Qualified Code(s): I48.20 - Chronic atrial fibrillation, unspecified Code(s): I48.91 - Unspecified atrial fibrillation Status: Acute (3) Hypertension associated with diabetes: Code(s): E11.59 - Type 2 diabetes mellitus with other circulatory complications; I15.2 - Hypertension secondary to endocrine disorders Status: Acute (4) Hyperlipidemia associated with type 2 diabetes mellitus: Code(s): E11.69 - Type 2 diabetes mellitus with other specified complication; E78.5 - Hyperlipidemia, unspecified Status: Acute (5) Chronic systolic heart failure: Code(s): I50.22 - Chronic systolic (congestive) heart failure Status: Acute Plan NSTEMI history of CAD status post PCI to distal LCX in 2022 elevated troponin pain improved after sublingual NG and ASA cardiac catheterization showed 80% InStent restenosis in the distal LCX with Obstructive CAD with 90% stenosis in mid to distal RCA. -s/p PCI to distal LCX with 3.5 mm X 15 mm Medtronic guero [place] DARLYN in overlapping fashion post dilated with stent balloon to high pressures. Continue plavix, aspirin, Jardiance Cardiology team on board HTN Hydralazine, amlodipine HFrEF Echo in 2023 showed EF 40% Continue Asa, Plavix not BB with bradycardia ckd 3A renally adjust meds DM2 SSI and AccuCheck monitor tobacco abuse encourage cessation DS: Summary Hospital Course Hospital Course: patient is 84 years old male with history of CAD ,DM2,CKD presented with abdominal pain and mediastinal chest pain radiating to right-sided neck and left-sided shoulder denies any shortness for breath, nausea vomiting abdominal pain improved. Chest pain improved after getting aspirin and sublingual nitro . Patient presents to hospital for further management. In the ER troponin level 1.850, 1.900, 4.260. Cardiology team was consulted and patient underwent cardiac catheterization.cardiac catheterization showed 80% InStent restenosis in the distal LCX with Obstructive CAD with 90% stenosis in mid to distal RCA. -s/p PCI to distal LCX with 3.5 mm X 15 mm Medtronic guero [place] DARLYN in overlapping fashion post dilated with stent balloon to high pressures. After was the patient is feeling fine. Denies any chest pain, shortness breath,abd pain, nausea vomiting. Has high blood pressure. Started on hydralazine and amlodipine. Will discharge patient on aspirin and plavix Status at Discharge Overall status at discharge: patient is back to baseline Time Spent with Patient Time attestation: Total time spent providing and/or coordinating discharge services: Time spent: Greater than 30 minutes Exam Narrative: General: Alert oriented x3, no acute distress Neck: Supple, no JVD Chest: Bilaterally clear to auscultation, no rales or rhonchi Cardiac: S1, S2 +, regular rate, regular rhythm, no murmurs or rubs Extremities: No pedal edema, no skin rash Neurologic: Alert and oriented x3, no focal neurological deficits DS: Data Data Completed and Pending Labs on day of discharge: Labs from last 24 hours 03/27/25 03/27/25 03/27/25 11:35 07:44 04:05 WBC 6.8 RBC 4.30 L Hgb 12.0 L Hct 37.9 L MCV 88.1 MCH 27.9 MCHC 31.7 L RDW 15.3 H Plt Count 203 MPV 12.1 H Immature Gran % (Auto) 0.1 Neut % (Auto) 66.0 Lymph % (Auto) 20.0 [place] % (Auto) 12.2 H Eos % (Auto) 1.3 Baso % (Auto) 0.4 Lymph # (Auto) 1.36 [place] # (Auto) 0.8 H Eos # (Auto) 0.1 Baso # (Auto) 0.0 Abs Immat Gran (auto) 0.01 Absolute Neuts (auto) 4.5 Absolute Nucleated RBC 0.000 Nucleated RBC % 0.0 Sodium 136 L Potassium 4.3 Chloride 104 Carbon Dioxide 27 Anion Gap 5 BUN 16 Creatinine 1.61 H Estim Creat Clear Calc 34 Estimated GFR 41 L Glucose 93 POC Capillary Glucose 166 H 76 Calcium 8.9 03/26/25 03/26/25 21:17 17:14 WBC RBC Hgb Hct MCV MCH MCHC RDW Plt Count MPV Immature Gran % (Auto) Neut % (Auto) Lymph % (Auto) [place] % (Auto) Eos % (Auto) Baso % (Auto) Lymph # (Auto) [place] # (Auto) Eos # (Auto) Baso # (Auto) Abs Immat Gran (auto) Absolute Neuts (auto) Absolute Nucleated RBC Nucleated RBC % Sodium Potassium Chloride Carbon Dioxide Anion Gap BUN Creatinine Estim Creat Clear Calc Estimated GFR Glucose POC Capillary Glucose 101 131 H Calcium Discharge Plan Discharge Attending physician on discharge: Pawel Jade Consulting providers: Jace Guardado Discharging Clinician: Pawel Jade Anticipated Discharge Date/Time: 03/27/25 15:06 Patient Disposition: Home Activity: as tolerated Diet: heart healthy Discharge Instructions: [facility] [address] [place] [id number] DISCHARGE INSTRUCTIONS - POST RADIAL CATH Activity 1. No driving for 24 hours. 2. No lifting more than 5 lb with affected arm for 1 week. 3. May shower ( tomorrow) but no excessive soaking of affected hand/wrist (such as washing dishes), swimming pool or hot tub for 5 days. Wound Care 1. May remove arm board in the morning. 2. May remove gauze dressing in the morning and put Band-Aid over affected radial site. Keep site covered for 3 days. 3. Observe for redness, drainage, swelling or bleeding. Medications DO NOT STOP YOUR MEDICATIONS ONLY YOUR MACHINE CERAMIC COATER CAN STOP THE FOLLOWING MEDICATIONS - PLEASE CALL THE OFFICE WITH QUESTIONS. *Aspirin *Clopidogrel (Plavix) Important Reminders 1. Keep your stent card in your wallet at all times 2. Follow a heart healthy diet paying extra attention to cholesterol and fats. 3. Stay hydrated. 4. If you have chest pain unrelieved by rest or nitroglycerin (if prescribed) call 911 immediately. *For any other questions please call the office at [phone]. Office hours are 8AM 4:30PM Wednesday through Wednesday. continue Aspirin, plavix, amlodipin, hydralazin Patient Instructions: Antibiotic Form, Heart Failure (DC) Patient Language: Serbian Stand Alone Forms: General Discharge Information Follow-up/Referrals: Jace Guardado MD [Physician] - Call for Appointment Tres Catherine DO [Primary Care Provider] - 1 Week Discharge Medications: New clopidogrel [Plavix] 75 mg tablet 75 mg PO DAILY Qty: 30 11RF Jardiance 10 mg tablet 10 mg PO DAILY 30 Days Qty: 30 11RF hydralazine 50 mg tablet 50 mg PO TID 30 Days Qty: 30 11RF aspirin [Children's Aspirin] 81 mg Tablet,Chewable 81 mg PO DAILY@0800 Qty: 30 0RF Continued amlodipine 10 mg tablet 10 mg PO DAILY Qty: 30 7RF (DME) OneTouch Verio test strips Strip Qty: 1 0RF Rx Instructions: 2 times a day as needed insulin glargine [Lantus Solostar U-100 Insulin] 100 unit/mL (3 mL) insulin pen 8 unit subcut QAM Qty: 30 0RF Trulicity 0.75 mg/0.5 mL pen injector 0.75 mg subcut WEEKLY Qty: 6 1RF (DME) FreeStyle Moo 2 [place] Mis See Rx Instructions .Route Qty: 1 0RF Rx Instructions: Use to check blood sugar TID vitamin B complex Capsule 1 cap PO DAILY cholecalciferol (vitamin D3) 125 mcg (5,000 unit) Capsule 125 mcg PO DAILY magnesium 200 mg Tablet 200 mg PO DAILY oxybutynin chloride 5 mg tablet extended release 24hr 5 mg PO DAILY coQ10 (ubiquinol) [Qunol Josias CoQ10] 100 mg Capsule 100 mg PO DAILY (DME) pen needle, diabetic [Advocate Pen Needle] 33 gauge x 5/32 needle See Rx Instructions .Route Qty: 300 0RF Rx Instructions: use with lantus, and humalog pen, tid (DME) pen needle, diabetic 32 gauge x 5/32 needle See Rx Instructions .Route Qty: 100 12RF Rx Instructions: use to administer insulin (DME) FreeStyle Moo 2 Sensor Kit See Rx Instructions .Route Qty: 6 12RF Rx Instructions: Once every 14 days (DME) blood-glucose meter [[employer] Verio Flex meter] [facility] [place]: 1 0RF Rx Instructions: May substitute to in-stock meter and/or covered by insurance. Use As Directed (DME) OneTouch Verio test strips Strip Qty: 1 0RF Rx Instructions: May substitute to in-stock and/or covered by insurance strips. Use As Directed (DME) lancets [OneTouch Delica Plus Lancet] 30 gauge Misc Qty: 1 0RF Rx Instructions: May substitute to in-stock and/or covered by insurance lancets. Use As Directed Date of admission: 03/26/25 09:17 Primary Care Provider: Tres Catherine Admitting Provider: Jazmyn Marroquin Attending physician on admission: Pawel Jade Condition: Stable
--- NOTE | 2025-03-27 15:43 | PC.NURSE ---
Patient refused wheelchair dc. Patient refusing help on finding a ride home and will drive himself home. Patient verbalizes understanding of why we do not want patient to walk out to vehicle without wheelchair and why we don't want him driving home status post NSTEMI. Patient advocate Laura notified about patient's lost cane. Allen called ED and security earlier today and neither departments had cane. Patient was only ever in 211 or in the ED room. Patient alert and oriented x4.
== END 2025-03-27 15:40 | disposition home or self-care (01) | DRG 321 ==
LOC: ANHED 02:52 → ANHIMU 03:17
PROVIDERS: Internal Medicine Interventional Cardiology; Admitting Provider Internal Medicine; Emergency Provider Emergency Medicine; PCP Internal Medicine; Visit Provider Internal Medicine
PROC: 4A023N7 Measurement of Cardiac Sampling and Pressure, Left Heart, Percutaneous Approach (ICD-10-PCS; CPT 93452; principal; 2025-03-26 12:30)
PROC: 027034Z Dilation of Coronary Artery, One Artery with Drug-eluting Intraluminal Device, Percutaneous Approach (ICD-10-PCS; CPT 92928; 2025-03-26 12:30)
PROC: 027034Z Dilation of Coronary Artery, One Artery with Drug-eluting Intraluminal Device, Percutaneous Approach (ICD-10-PCS; 2025-03-26 12:30)
DX: T82.855A Stenosis of coronary artery stent, initial encounter (principal); I21.A9 Other myocardial infarction type; I13.0 Hypertensive heart and chronic kidney disease with heart failure and stage 1 through stage 4 chronic kidney disease, or unspecified chronic kidney disease; I48.20 Chronic atrial fibrillation, unspecified; I50.22 Chronic systolic (congestive) heart failure; I25.10 Atherosclerotic heart disease of native coronary artery without angina pectoris; N18.9 Chronic kidney disease, unspecified; E11.22 Type 2 diabetes mellitus with diabetic chronic kidney disease; I25.5 Ischemic cardiomyopathy; G47.33 Obstructive sleep apnea (adult) (pediatric); E78.5 Hyperlipidemia, unspecified; R00.1 Bradycardia, unspecified; E11.59 Type 2 diabetes mellitus with other circulatory complications; I15.2 Hypertension secondary to endocrine disorders; D63.1 Anemia in chronic kidney disease; J44.9 Chronic obstructive pulmonary disease, unspecified; Z96.642 Presence of left artificial hip joint; F17.210 Nicotine dependence, cigarettes, uncomplicated; Z85.46 Personal history of malignant neoplasm of prostate; Z86.73 Personal history of transient ischemic attack (TIA), and cerebral infarction without residual deficits
CPT/HCPCS: 36415; 71046; 80048; 80053; 82948; 83690; 84484; 85025; 85610; 85730; 92978; 93005; 93458; 96365; 96366; 96375; 99291; A9270; C1725; C1753; C1769; C1874; C1887; C1894; C9600; G0378; J1644; J1650; J2003; J2250; J2270; J2305; J3010; J7040

== ENCOUNTER 2025-04-26 10:39 | Outpatient (CLI) | payer MEDICARE, OTHER, SELFPAY ==
--- NOTE | ~2025-04-26 | CT_ITS ---
EXAMINATION: CT sinus wo con DATE: 04/26/2025 11:03 INDICATION: Chronic sinusitis TECHNIQUE: Computed tomography (CT) of the paranasal sinuses was performed without intravenous contra st. The dose-length product was 361.28 mGy-cm. Automated exposure control and iterative reconstructio n technique were employed. COMPARISON: CT dated 08/20/2024 FINDINGS: There is mucosal thickening of the maxillary, ethmoid and sphenoid sinuses. No air-fluid le vels. No significant nasal septal deviation. Ostiomeatal units are patent. Mastoids are pneumatized. IMPRESSION: 1. Mild sinus disease. Reviewed, dictated and finalized at location A. IMPRESSION: 1. Mild sinus disease.
--- OUTSIDE RECORDS SUMMARY | 2025-04-26 10:45 | XMS_ITS | Clinical Summary ---
Author Organization [facility] [place] [address] Address [address] [place] [address] Care Team Providers Care Varnish Remover Name Role Phone Tres Catherine Primary Care Provider [phone] Allergies Active Allergy Reactions Criticality Noted Date Comments Milk Stomach upset Low 11/11/2021 Njalgjy-Zjw-Aom Reductase Inhibitors Muscle pain Medium 03/10/2023 Medications [...] pen INJECT 9 UNITS SUBCUTANEOUSLY AT BEDTIME 02/22/[address] (PROTONIX) 40 mg EC tablet 09/04/20 24 Active aspirin 81 mg chewable tabletIndicati ons:Coronary artery disease involving [place] coronary artery of [place] heart without angina pectoris Take 1 tablet (81 mg total) by mouth daily 90 tablet 3 09/07/20 24 Active Jardiance 25 mg tablet Take 1 tablet (25 mg total) by mouth daily 06/19/20 24 Active evolocumab (Repatha SureClick) 140 mg/mL pen injector Inject 1 mL (140 mg total) under the skin every 14 (fourteen) days 2 mL 11 10/05/19 25 Active Additional Information Patient not taking.Reported on 04/10/2025 amLODIPine (NORVASC) 10 mg tablet Take 1 tablet (10 mg total) by mouth daily 10/05/19 Active magnesium oxide (MAG-OX) 250 mg (150.8 mg elemental) tabletIndicati ons:hypomagnes emia 1 tablet (250 mg total) daily Active oxyBUTYnin (DITROPAN) 5 mg tablet Take 1 tablet (5 mg total) by mouth 3 (three) times a day Active hydrALAZINE (APRESOLINE) 50 mg tablet Take 1 tablet (50 mg total) by mouth 3 (three) times a day 90 tablet 2 03/30/20 Active clopidogreL (PLAVIX) 75 mg tablet Take 1 tablet (75 mg total) by mouth daily Active bempedoic acid 180 mg tablet Take 1 tablet by mouth daily Active varenicline tartrate (CHANTIX ARASH) 0.5 mg (11)- 1 mg (42) tabletIndicati ons:Tobacco dependence As directed on starter pack. Days 1 to 3 take 0.5 mg once daily. Days 4 to 7 take 0.5 mg twice daily. Maintenance (day 8 and later) take 1 mg twice daily 53 tablet 04/10/20 25 Active carvediloL (COREG) 3.125 mg tabletIndicati ons:Coronary artery disease involving [place] coronary artery of [place] heart without angina pectoris Take 1 tablet (3.125 mg total) by mouth 2 (two) times a day with meals 180 tablet 3 09/07/20 24 025 Discontinu ed(No longer taking - Do not display on AVS) hydrALAZINE (APRESOLINE) 50 mg tablet Take 1 tablet (50 mg total) by mouth 3 (three) times a day 03/29/20 25 025 Discontinu ed(Reorder ) Active Problems Problem Noted Date Diagnosed Date 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 stent 10/06/2024 Sensorineural hearing loss (SNHL) of both ears 1 11/08/2023 Bilateral impacted cerumen 09/07/2024 Preoperative clearance 03/10/2023 Atrial fibrillation 08/10/2014 Overview (01/08/2017): Atrial fibrillation Encounters Date Type Department Care Team Description 04/10/2025 1:30 PM CDT Office Visit [facility] Cardiology [address] [place] [address] Meredith Olivarez NP History of non-ST elevation myocardial infarction (NSTEMI); Coronary artery disease involving [place] coronary artery of [place] heart without angina pectoris; Presence of stent in coronary artery; Hyperlipidemia associated with type 2 diabetes mellitus (HCC); Statin intolerance; Chronic kidney disease, unspecified CKD stage; Tobacco dependence; Hospital discharge follow-up 04/02/2025 Orders Only [facility] Cardiology [address] [place] [address] Jigna Soto MD 03/29/2025 Telephone [facility] Cardiology [address] [place] [address] Jaleesa Rhodes NP 03/26/2025 Orders Only [facility] Health Information Management [address] [place] [id number] Scanning, Provider from Last 3 Months Surgical History Surgery [...] on file Legal Sex Male 3:27 AM 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 Gender Identity Not on file Sexual Orientation Not on file Obstetrics History Last Filed Vital Signs Vital Sign Reading Time Taken Comments Blood Pressure 150/60 04/10/2025 1:47 PM CDT Pulse 76 04/10/2025 1:47 PM CDT Temperature 36.9 C (98.5 F) 06/12/2014 7:16 AM CDT Respiratory Rate 16 10/06/2024 11:07 AM 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 Oxygen Saturation 96% 04/10/2025 1:47 PM CDT Inhaled Oxygen Concentration - - Weight 95.3 kg (210 lb) 04/10/2025 1:47 PM CDT Height 180.3 cm (5' 11) 04/10/2025 1:47 PM CDT Body Mass Index 29.29 04/10/2025 1:47 PM CDT Plan of Treatment Health Maintenance [...] 2024 10/08/2021, 03/29/2021, 03/01/2021 Influenza Vaccine (#1) 2025 , 07/10/2021, 08/10/2017, Additional history exists Lipid Panel 09/12/2025 09/12/2024, 0602/2017, 06/12/2014, Additional history exists Procedures Procedure Name Priority Date/Time Associated Diagnosis Comments CARDIOLOGY DOCUMENT SCAN Routine 03/27/2025 4:03 PM CDT SCAN - LABS 03/27/2025 CARDIOLOGY DOCUMENT SCAN Routine 03/26/2025 3:58 PM CDT CARDIOLOGY DOCUMENT SCAN Routine 03/26/2025 3:56 PM CDT CARDIOLOGY DOCUMENT SCAN Routine 03/26/2025 3:42 PM CDT SCAN - RADIOLOGY/IMAGING 03/26/2025 LIPID PANEL Routine 09/12/2024 8:39 AM 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 HEMOGLOBIN A1C Routine 01/10/2014 9:15 AM CDT from Last 3 Months or Most Recently Relevant to Health Maintenance Results * Cardiology Document Scan (03/27/2025 4:03 PM CDT) Anatomical Region Laterality Modality Other Jaleesa Rhodes NP CV CARDIAC SERVICES PROCEDUR ES Final Result * SCAN - LABS (03/27/2025) Provider Scanning Final Result * Cardiology Document Scan (03/26/2025 3:58 PM CDT) Anatomical Region Laterality Modality Other Jigna Soto MD CV CARDIAC SERVICES PROCEDU RES Final Result * Cardiology Document Scan (03/26/2025 3:56 PM CDT) Anatomical Region Laterality Modality Other Jigna Soto MD CV CARDIAC SERVICES PROCEDU RES Final Result * Cardiology Document Scan (03/26/2025 3:42 PM CDT) Anatomical Region Laterality Modality Other Jigna Soto MD CV CARDIAC SERVICES PROCEDU RES Final Result * SCAN - RADIOLOGY/IMAGING (03/26/2025) Anatomical Region Laterality Modality Other Provider Scanning Final Result * (ABNORMAL) Lipid panel (09/12/2024 8:39 AM 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) SCRIBED Cholesterol, Total 242(A) 0 - 200 EXTERNAL LAB SCRIBED HDL 65 40 - 100 EXTERNAL LAB SCRIBED LDL 117(A) 0 - 100 EXTERNAL LAB SCRIBED Triglycerides 142 0 - 150 EXTERNAL LAB Blood 09/12/2024 8:39 AM 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 Hardik Provider LAB BLOOD ORDERABLES Sulema l Result EXTERNAL LAB * (ABNORMAL) Hemoglobin A1c (01/10/2014 9:15 AM CDT) Hemoglobin A1c % 7.9(H) 4.8 - 5.9 % Comment: As of 2010 Method: BASILIA Asa 6000 using turbidometric inhibition immunoassay procedure. Results obtained are comparable to results obtained using previous methodology (HPLC). [place] [employer] recommends that the goal of therapy should be an A1C hemoglobin of <7%. Reevaluate the treatment regimen in patients with an A1C >8%. 01/10/2014 9:15 AM CDT 01/10/2014 10:15 AM CDT Jorge Luis CASILLAS LAB BLOOD ORDERABLES Final Resu lt [facility] HISTORICAL RESULTS from Last 3 Months or Most Recently Relevant to Health Maintenance Insurance [employer] MEDICARE [employer] MEDICARE FOR LIFE Care Teams Varnish Remover Relationship Specialty Start Date End Date Tres Catherine DO PCP - General Internal Medicine 03/09/24
--- OUTSIDE RECORDS SUMMARY | 2025-04-26 10:45 | XMS_ITS | Continuity of Care Document ---
Author Name [facility] Organization [facility] Care Team Providers Care Shuttler Car Name Role Phone [facility] Unavailable Unavailable Problems Combined list of problems from Department of Defense and Veterans Affairs facilities. It does not include entries that were removed or entered in error. 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 DoD OTITIS MEDIA Inactive Condition DoD SINUSITIS Active Condition [facility] visit for: issue repeat prescription for medication Inactive Condition [facility] visit for: administrative purpose Inactive Condition [facility] EUSTACHIAN TUBE DYSFUNCTION Active Condition [facility] X-Ray Inactive Condition DoD HYPERLIPIDEMIA Active Condition DoD DIABETES MELLITUS POORLY CONTROLLED Active Condition [facility] ESSENTIAL HYPERTENSION Active Condition [facility] TRANSIENT ISCHEMIC ATTACK (TIA) Active Condition [facility] ATYPICAL CHEST PAIN Active Condition Follow up of stress test DoD CONTACT DERMATITIS PENILE Active Condition DoD (Lower) Leg Localized Swelling Active Condition [facility] DIABETES MELLITUS Active Condition DoD NORMAL ROUTINE HISTORY AND PHYSICAL Inactive Condition DoD HYPERTENSION (SYSTEMIC) Active Condition [facility] NORMAL ROUTINE HISTORY AND PHYSICAL 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 Pt to have PSA done in lab with other labs. [facility] ALLERGIC RHINITIS Active Condition [facility] visit for: laboratory Inactive Condition [facility] heartburn Active Condition Refilled meds. [facility] CERUMEN IMPACTION Inactive Condition [facility] visit for: screening exam cardiovascular disorders Inactive Condition [facility] current smoker Active Condition HE BROWN S A PLAN TO QUIT THIS SUMMER. ENCOURAGED. [facility] ESOPHAGEAL REFLUX Active Condition [facility] Medications Combined list of outpatient medications from Department of Defense and Veterans Affairs facilities.Medications provided include 1) outpatient medications from the last 15 months, and 2) patient-reported medications. Medication Details Route Status Patient Instructions Prescription Expires Prescription Number Last Dispense Date Ordering Provider Order Date Order Qty Source amLODIPine 10 mg tablet See Instruct ions, # 30 EA, 7 total refill(s ), Hard Stop Ordered 10/02/2025 2024 30.0 Ambulat ory Pharmac y amLODIPine 5 mg oral tablet TAKE ONE TABLET DAILY, # 90 EA, 1 total refill(s ), Acute Complet ed 05/14/2023 2 2022 90.0 Ambulat ory Pharmac y amLODIPine 5 mg tablet = 1 tab(s), Oral, Daily, # 30 EA, 1 total refill(s ), Hard Stop Oral (given by mouth) Ordered 08/21/2025 5 2024 30.0 Ambulat ory Pharmac y amoxicillin 500 mg capsule 500 mg, # 4 EA, 0 total refill(s ), Hard Stop Complet ed 04/25/2024 3 2023 4.0 Ambulat ory Pharmac y aspirin EC 81 mg tablet See Instruct ions, # 90 EA, 3 total refill(s ), Hard Stop Ordered 09/07/2025 5 2024 90.0 Ambulat ory Pharmac y atorvastati n 40 mg tablet = 1 tab(s), Oral, Daily, # 30 EA, 1 total refill(s ), Hard Stop Oral (given by mouth) Ordered 08/21/2025 4 2023 30.0 Ambulat ory Pharmac y azelastine 137 mcg/inh (0.1%) nasal spray USE 2 SPRAYS INTRANAS ALLY TWICE A DAY DIRECTED , # 90 mL, 1 total refill(s ), Acute Discont inued 04/15/2023 2 2022 90.0 Ambulat ory Pharmac y azelastine 137 mcg/inh (0.1%) nasal spray USE 2 SPRAYS INTRANAS ALLY TWICE A DAY, # 90 mL, 1 total refill(s ), Acute Complet ed 12/20/2023 3 2023 90.0 Ambulat ory Pharmac y BD Celeste 2nd Gen pen needle 32g 4mm [100EA] See Instruct ions, # 100 EA, 3 total refill(s ), Hard Stop Ordered 09/28/2025 4 2023 100.0 Ambulat ory Pharmac y BD Celeste 2nd Gen pen needle 32g 4mm [100EA] See Instruct ions, # 100 EA, 3 total refill(s ), Hard Stop Ordered 06/19/2025 4 2023 100.0 Ambulat ory Pharmac y BD Celeste 2nd Gen pen needle 32g 4mm [100EA] See Instruct ions, # 100 EA, 1 total refill(s ), Hard Stop Complet ed 02/06/2025 4 2024 100.0 Ambulat ory Pharmac y bempedoic acid 180 mg tablet = 1 tab(s), Oral, Daily, # 90 EA, 0 total refill(s ), Soft Stop Oral (given by mouth) Ordered 5 2024 90.0 Ambulat ory Pharmac y carvedilol 3.125 mg tablet See Instruct ions, # 180 EA, 3 total refill(s ), Hard Stop Ordered 09/07/2025 4 2023 180.0 Ambulat ory Pharmac y clopidogrel 75 mg tablet 75 mg, Oral, Daily, # 90 EA, 3 total refill(s ), Hard Stop Oral (given by mouth) Complet ed 06/21/2024 3 2023 90.0 Ambulat ory Pharmac y dulaglutide 0.75 mg/0.5 mL subcutaneou s solution INJECT CONTENTS OF ONE PEN SUB-CUTA NEOUSLY EVERY WEEK DIRECTED , # 2 mL, 1 total refill(s ), Acute Discont inued 04/15/2023 3 2022 2.0 Ambulat ory Pharmac y Dulaglutide 1.5 mg/mL, Injection, 0.5mL Autoinjecto r earle ateCheck with your doctor before becoming .Store in original package. 02/06/2025 [id number] 4 2023 2 [facility] Tobi HUERTAS ([facility] empaglifloz in 10 mg tablet = 1 tab(s), Oral, Daily, # 30 EA, 11 total refill(s ), Soft Stop Oral (given by mouth) Discont inued 04/03/2025 5 2024 30.0 Ambulat ory Pharmac y empaglifloz in 25 mg tablet = 1 tab(s), Oral, Daily, # 90 EA, 2 total refill(s ), Soft Stop Oral (given by mouth) Ordered 5 2024 90.0 Ambulat ory Pharmac y famotidine 40 mg tablet = 1 tab(s), Oral, BID, # 60 EA, 5 total refill(s ), Hard Stop Oral (given by mouth) Ordered 11/08/2025 5 2024 60.0 Ambulat ory Pharmac y fexofenadin e 180 mg oral tablet TAKE ONE TABLET DAILY, # 90 EA, 1 total refill(s ), Acute Complet ed 07/01/2023 2 2022 90.0 Ambulat ory Pharmac y fluticasone 50 mcg/inh nasal spray USE 1 SPRAY IN EACH NOSTRIL ONCE A DAY, # 16 g, 5 total refill(s ), Acute Complet ed 12/20/2023 3 2023 16.0 Ambulat ory Pharmac y fluticasone 50 mcg/inh nasal spray USE 1 SPRAY IN EACH NOSTRIL ONCE A DAY, # 16 g, 5 total refill(s ), Acute Discont inued 04/15/2023 2 2022 16.0 Ambulat ory Pharmac y fluticasone 50 mcg/inh nasal spray [16g] 50 mcg, Nostril- Both, # 16 g, 5 total refill(s ), Hard Stop Nostri l-Both (into the nose) Complet ed 08/15/2024 3 2023 16.0 Ambulat ory Pharmac y fluticasone -salmeterol CFC free 115 mcg-21 mcg/inh inhalation aerosol INHALE 2 PUFFS TWICE A DAY, # 12 g, 1 total refill(s ), Acute Complet ed 12/20/2023 3 2023 12.0 Ambulat ory Pharmac y glucagon 1 mg/0.2 mL auto-inject or kit [2EA] See Instruct ions, SubCutan eous, # 0.4 mL, 0 total refill(s ), Soft Stop SubCut aneous (under the skin) Ordered 5 2024 0.4 Ambulat ory Pharmac y glucose sensor freestyle agnieszka 2 See Instruct ions, # 6 EA, 4 total refill(s ), Soft Stop Ordered 5 2024 6.0 Ambulat ory Pharmac y GoLYTELY 3350 with electrolyte powder (4000mL) See Instruct ions, # 4000 mL, 0 total refill(s ), Hard Stop Complet ed 07/23/2024 4 2023 4000.0 Ambulat ory Pharmac y hydrALAZINE 10 mg tablet See dose instruct ions in comments , # 60 EA, 1 total refill(s ), Acute Complet ed 10/15/2023 3 2023 60.0 Ambulat ory Pharmac y hydrALAZINE 50 mg tablet See Instruct ions, # 90 EA, 2 total refill(s ), Soft Stop Ordered 5 2024 90.0 Ambulat ory Pharmac y hydrALAZINE 50 mg tablet = 1 tab(s), Oral, Daily, # 30 EA, 11 total refill(s ), Soft Stop Oral (given by mouth) Discont inued 04/02/2025 5 2024 30.0 Ambulat ory Pharmac y hydroCHLORO thiazide 25 mg oral tablet TAKE ONE TABLET DAILY, # 30 EA, 9 total refill(s ), Acute Complet ed 04/21/2023 2 2022 30.0 Ambulat ory Pharmac y inhaler spacer (Optichambe r) See Instruct ions, # 1 EA, 0 total refill(s ), Hard Stop Complet ed 12/21/20232023 1.0 Ambulat ory Pharmac y Insulin Glargine 100U/mL, Injection, Pen Injector Do not drink alcohol. Take or use exactly as directed .refrige rate 02/06/2025 [id number] 4 2023 15 [facility] ([facility]) ipratropium 42 mcg/inh nasal spray [15mL] = 2 spray(s) , Nostril- Both, QID, # 45 mL, 1 total refill(s ), Hard Stop Nostri l-Both (into the nose) Complet ed 08/15/2024 3 2023 45.0 Ambulat ory Pharmac y Jardiance 25 mg tablet 25 mg, Oral, Daily, # 90 EA, 0 total refill(s ), Hard Stop Oral (given by mouth) Complet ed 09/01/2024 3 2023 90.0 Ambulat ory Pharmac y Jardiance 25 mg tablet See Instruct ions, # 90 EA, 1 total refill(s ), Hard Stop Discont inued 04/03/2025 4 2024 90.0 Ambulat ory Pharmac y Lantus SoloStar glargine 100 units/mL [3mL] = 0.1 mL, SubCutan eous, every morning, # 15 mL, 0 total refill(s ), Hard Stop SubCut aneous (under the skin) Discont inued 06/19/2024 4 2023 15.0 Ambulat ory Pharmac y Lantus SoloStar glargine 100 units/mL [3mL] See Instruct ions, SubCutan eous, 0, # 15 mL, 1 total refill(s ), Hard Stop SubCut aneous (under the skin) Ordered 09/28/2025 4 2023 15.0 Ambulat ory Pharmac y Lantus SoloStar glargine 100 units/mL [3mL] See Instruct ions, 0, # 15 mL, 3 total refill(s ), Hard Stop Discont inued 09/29/2024 4 2023 15.0 Ambulat ory Pharmac y losartan 100 mg oral tablet TAKE ONE TABLET BY MOUTH EVERY DAY, # 30 EA, 1 total refill(s ), Acute Complet ed 03/26/2023 3 2022 30.0 Ambulat ory Pharmac y needle pen 32g 4mm See Instruct ions, 0, # 100 EA, 3 total refill(s ), Soft Stop Ordered 5 2024 100.0 Ambulat ory Pharmac y oxyBUTYnin ER 5 mg/24 hour tablet 5 mg, Oral, Daily, # 30 EA, 11 total refill(s ), Hard Stop Oral (given by mouth) Complet ed 10/11/2024 4 2024 30.0 Ambulat ory Pharmac y oxyBUTYnin ER 5 mg/24 hour tablet = 1 tab(s), Oral, Daily, # 90 EA, 3 total refill(s ), Soft Stop Oral (given by mouth) Ordered 5 2024 90.0 Ambulat ory Pharmac y pantoprazol e 40 mg oral delayed release tablet TAKE ONE TABLET DAILY, # 30 EA, 3 total refill(s ), Acute Complet ed 10/05/2023 3 2023 30.0 Ambulat ory Pharmac y pantoprazol e EC 40 mg tablet = 1 tab(s), Oral, # 90 EA, 3 total refill(s ), Hard Stop Oral (given by mouth) Ordered 09/04/2025 5 2024 90.0 Ambulat ory Pharmac y promethazin e 25 mg tablet See Instruct ions, # 4 EA, 0 total refill(s ), Hard Stop Complet ed 08/21/2024 4 2023 4.0 Ambulat ory Pharmac y Repatha SureClick 140 mg/mL Inj-Pen [2EA] See Instruct ions, # 2 mL, 11 total refill(s ), Hard Stop Ordered 09/07/2025 5 2024 2.0 Ambulat ory Pharmac y rosuvastati n 20 mg tablet 20 mg, Oral, every morning, # 90 EA, 3 total refill(s ), Hard Stop Oral (given by mouth) Complet ed 06/21/2024 3 2023 90.0 Ambulat ory Pharmac y sildenafil 100 mg oral tablet TAKE 1 TABLET BY MOUTH DAILY NEEDED FOR ERECTILE DYSFUNCT ION., # 10 EA, 2 total refill(s ), Acute Complet ed 05/20/2023 2 2022 10.0 Ambulat ory Pharmac y sildenafil 100 mg tablet See Instruct ions, Oral, # 30 EA, 3 total refill(s ), Hard Stop Oral (given by mouth) Complet ed 10/11/2024 4 2024 30.0 Ambulat ory Pharmac y Trulicity Pen 0.75 mg/0.5 mL [4EA=2mL] See Instruct ions, # 6 mL, 0 total refill(s ), Hard Stop Notes: refriger ate Discont inued 10/08/2023 3 2023 6.0 Ambulat ory Pharmac y Trulicity Pen 0.75 mg/0.5 mL [4EA=2mL] See Instruct ions, SubCutan eous, # 2 mL, 0 total refill(s ), Hard Stop Notes: refriger ate SubCut aneous (under the skin) Complet ed 02/06/2025 4 2024 2.0 Ambulat ory Pharmac y Trulicity Pen 1.5 mg/0.5 mL [4EA=2mL] See dose instruct ions in comments , # 2 mL, 2 total refill(s ), Acute Complet ed 02/29/2024 3 2023 2.0 Ambulat ory Pharmac y varenicline 0.5 mg-1 mg tab - Starter Pack (53EA) See Instruct ions, # 53 EA, 0 total refill(s ), Soft Stop Ordered 5 2024 53.0 Ambulat ory Pharmac y varenicline 1 mg oral tablet TAKE ONE TABLET TWICE DAILY, # 56 EA, 2 total refill(s ), Acute Complet ed 01/20/20242023 56.0 Ambulat ory Pharmac y Allergies, Adverse Reactions, Alerts Combined list of allergies from Department of Defense and Veterans Affairs facilities. It does not include entries that were removed or entered in error. Substance Category Reaction Severity Reaction type Status Date Reported Comments Source Milk Drug allergy Active Ambulatory Pharmacy OTHER Drug allergy (disorder) Unknown active 12/31/2003 [facility] ([facility]) Immunizations Combined list of available immunizations from the Department of Defense and Veterans Affairs facilities. Immunization Series Date Given Administered By Site Reaction Lot Number CVX Code Drug Scientific Diver Status Comments Source COVID Vaccine Moderna 2021 207 complet ed COVID Vaccine Moderna 10/08/21 Given Ambulat ory Pharmac y COVID-19, mRNA, LNP-S, PF, 100 mcg or 50 mcg dose 2021 ALUL, Moderna US, Inc. (MOD) Not Given COVID-19, mRNA, LNP-S, PF, 100 mcg or 50 mcg dose DoD COVID-19, mRNA, LNP-S, PF, 100 mcg or 50 mcg dose 2020 DALL, Moderna ViralNinjas, Inc. (MOD) Not Given COVID-19, mRNA, LNP-S, PF, 100 mcg or 50 mcg dose DoD influenza, injectable, quadrivalent- pf 2019 [facility] Arm [id number] 150 Seqirus complet ed influenza , injectabl e, quadrival ent-pf 11/30/19 Given Ambulat ory Pharmac y influenza, injectable, quadrivalent- pf 2019 [id number] 150 Seqirus complet ed influenza , injectabl e, quadrival ent-pf 11/30/19 Given Ambulat ory Pharmac y Influenza, injectable, quadrivalent, preservative free 1 2019 Unknown, Provider [id number] 150 Seqirus (SEQ) complet ed Influenza , injectabl e, quadrival ent, preservat luis angel free DoD influenza, seasonal,high dose-pf 2015 135 sanofi pasteur complet ed influenza , seasonal, high dose-pf 08/11/16 Given Ambulat ory Pharmac y zoster vaccine live 2010 121 Merck & Company Inc complet ed zoster vaccine live 08/03/11 Given Ambulat ory Pharmac y influenza virus vaccine,split 2006 [facility] Arm [id number] 15 sanofi pasteur complet ed influenza virus vaccine,s plit 09/29/07 Given Ambulat ory Pharmac y influenza virus vaccine,split 2006 [id number] 15 sanofi pasteur complet ed influenza virus vaccine,s plit 09/29/07 Given Ambulat ory Pharmac y influenza virus vaccine, split virus (incl. purified surface antigen)-reti red CODE 1 2006 Unknown, Provider [id number] 15 Sanofi Pasteur (PMC) complet ed influenza virus vaccine, split virus (incl. purified surface antigen)- retired CODE DoD influenza virus vaccine,split 2005 zzLef t Arm [id number] 15 GlaxoSmithKli ne complet ed influenza virus vaccine,s plit 09/13/06 Given Ambulat ory Pharmac y influenza virus vaccine, split virus (incl. purified surface antigen)-reti red CODE 1 2005 Unknown, Provider [id number] 15 [facility] (SKB) complet ed influenza virus vaccine, split virus (incl. purified surface antigen)- retired CODE DoD influenza virus vaccine, whole virus 2002 zzDayana Arm [id number] 16 Novartis Pharmaceutica ls complet ed influenza virus vaccine, whole virus 09/25/03 Given Ambulat ory Pharmac y influenza virus vaccine,split 2002 [id number] 15 Novartis Pharmaceutica ls complet ed influenza virus vaccine,s plit 09/25/03 Given Ambulat ory Pharmac y influenza virus vaccine, whole virus 2002 [id number] 16 Novartis Pharmaceutica ls complet ed influenza virus vaccine, whole virus 09/25/03 Given Ambulat ory Pharmac y influenza virus vaccine, whole virus 1 2002 Unknown, Provider [id number] PowderJect Pharmaceutica ls (PWJ) complet ed influenza virus vaccine, whole virus DoD influenza virus vaccine, whole virus 2002 zzLef t Arm [id number] 16 sanofi pasteur complet ed influenza virus vaccine, whole virus 10/30/02 Given Ambulat ory Pharmac y pneumococcal polysaccharid e, 23 valent 2002 zzLef t Arm [id number] 33 Merck & Company Inc complet ed pneumococ kassidy polysacch aride, 23 valent 10/30/02 Given Ambulat ory Pharmac y influenza virus vaccine,split 2002 [id number] 15 sanofi pasteur complet ed influenza virus vaccine,s plit 10/30/02 Given Ambulat ory Pharmac y influenza virus vaccine, whole virus 2002 [id number] sanofi pasteur complet ed influenza virus vaccine, whole virus 10/30/02 Given Ambulat ory Pharmac y pneumococcal polysaccharid e, 23 valent 2002 [id number] 33 Merck & Company Inc complet ed pneumococ kassidy polysacch aride, 23 valent 10/30/02 Given Ambulat ory Pharmac y influenza virus vaccine, whole virus 1 2002 Unknown, Provider [id number] Sanofi Pasteur (PMC) complet ed influenza virus vaccine, whole virus DoD pneumococcal polysaccharid e vaccine, 23 valent 1 2002 Unknown, Provider [id number] 33 Merck (MSD) complet ed pneumococ kassidy polysacch aride vaccine, 23 valent DoD Encounters Combined list of: 1) Encounters from Department of Veterans Affairs facilities going backup to the last 18 months, not all VA inpatient encounters are included; 2) Encounters from the Department of Defense facilities going backup to 280 months. Location Location Details Encounter Type Encounter Number Reason For Visit Attending Provider ADM Date DC Date Status Disposition Source [address] [place] [address] [facility] Non-[facility]) OUTPATIENT [id number] f/u HTN FARRAH NICOLE 01/29 Released w/o Limitations [address] [place] [address] Tobi HUERTAS ([facility]F amily Practic e Non-GME FHI1) [address] [place] [address] [facility] OUTPATIENT [id number] htn ANNA GRACIA 01/29 Released w/o Limitations [address] [place] [address] [facility] [address] [place] [address] [facility] [place] OUTPATIENT [id number] ekg ANNA GRACIA 01/30 Released w/o Limitations [address] [place] [address] Tobi HUERTAS ([facility]diogr am Clinic) [address] [place] [address] Tobi [facility]AS [facility] Non-GME FHI1) OUTPATIENT [id number] Lt ear pain JO SAMANIEGO 08/25 Released w/o Limitations [address] [place] [address] [facility] [place] Pract[facility] e Non-GME FHI1) [address] [place] [address] [facility] [place] Non-GME F[facility]2) OUTPATIENT [id number] diabete s JO SAMANIEGO 10/27 Released w/o Limitations [address] [place] [address] Tobi HUERTAS ([facility]F amily Practic e Non-GME FHI2) [address] [place] [address] [facility] [place]Fam darya Practice Non-GME FHI2) TELE CONSULT [id number] wants diabeti c follow up SRAVANTHI CHU 01/[address] [place] [address] [facility]obi BOOSathish [facility] Practic e Non-GME FHI2) [address] [place] [address] [facility]obi BOOB [facility] [place] Non-[facility]ME [facility]2) OUTPATIENT [id number] follow up for diabete s and labs done in January 2005- JO SAMANIEGO 02/20 Released w/o Limitations [address] [place] [address] [facility]obi [facility] Practic e Non-GME FHI2) [address] [place] [address] [facility] Non-GME F[facility]2) TELE CONSULT [id number] needs referal for eye exam done on 28 february. GRAYSON ORELLANA 03/[address] [place] [address] [facility]F amily Practic e Non-GME FHI2) [address] [place] [address] [facility]AS [facility] ) TELE CONSULT [id number] Med refill DESI SOUSA P 07/[address] [place] [address] [facility] [place]S cott Interna l Medicin e Tm) [address] [place] [address] [facility]AS [facility] ) OUTPATIENT [id number] labs SARAH, ASSY 09/18 Released w/o Limitations [address] [place] [address] [facility] [place] Intern[facility] l Medicin e Tm) [address] [place] [address] [facility] ) TELE CONSULT [id number] Referra l to Eye Doctor DESI SOUSA P 10/[address] [place] [address] Tobi B [facility] Intern[facility] l Medicin e Tm) [address] [place] [address] Tobi HADDADB [facility] ) TELE CONSULT [id number] med refill DESI SOUSA P 01/[address] [place] [address] [facility]obi [facility]ERTAS [facility] [place] cott Interna l Medicin e Tm) [address] [place] [address] Tobi B [facility] ) OUTPATIENT [id number] med refills /dm SARAH, ASSY 02/10 Released w/o Limitations [address] [place] [address] [facility]AS [facility] [place] Interna l Medicin e Tm) [facility] HUERT[facility] ([facility] ) TELE CONSULT [id number] Referra l Optomet ry - Diabeti c Pt Additio nal YULISA Hoyt 03/[address] [place] [address] Tobi HUERTAS ([facility]S cott Interna l Medicin e Tm) [address] [place] [address] [facility]obi Sathish [facility]Car diologyPr ocedure Schedules ) OUTPATIENT [id number] NUC MED BAAA HTN REMI WOODSON 03/11 Released w/o Limitations [address] [place] [address] Group Tobi Sathish ([facility])(C arvinita gyProtheodore whitleye Schedul es) [facility] Sath[facility] ([facility])([facility] ) TELE CONSULT [id number] lab work for diabeti es and cholest MISSY Castellano 05/[address] [place] [address] [facility]AS [facility] [place]S cott Interna l Medicin e Tm) [address] [place] [address] [facility]obi Sathish [facility] [place] ) OUTPATIENT [id number] f/u diabete s PASTORA GALVAN 06/14 Released w/o Limitations [address] [place] [address] Group Tobi [facility] [place]S cott Interna l Medicin e Tm) [address] [place] [address] Tobi HUERTAS [facility] [place] ) OUTPATIENT [id number] rash PASTORA GALVAN 07/13 Released w/o Limitations [address] [place] [address] Group Tobi HUERTAS ([facility]S cott Interna l Medicin e Tm) [facility] [place] ) OUTPATIENT [id number] medicat ion COLE, PASTORA L 09/10 Released w/o Limitations [address] [place] [address] Group Tobi HUERTAS [facility] [place]S cott Interna l Medicin e Tm) [address] [place] [address] [facility]obi HUERTAS [facility] ) TELE CONSULT [id number] KESHAV Floyd 10/[address] [place] [address] Group Tobi HUERTAS [facility] [place]S cott Interna l Medicin e Tm) [facility] [place]) OUTPATIENT [id number] left ear pressur e STAINSLAW BUI 10/20 Released w/o Limitations [address] [place] [address] Tobi HUERTAS ([facility]) [address] [place] [address] Tobi [facility])([facility] ) TELE CONSULT [id number] ear pain. was seen last wed and given loratid ine and nasonex . DESI SOUSA 10/[address] [place] [address] Tobi [facility])([facility]) [address] [place] [address] Tobi [facility])([facility] ) OUTPATIENT [id number] ear pain, treated in [facility] but worseni ng PASTORA GALVAN 10/26 Released w/o Limitations [address] [place] [address] Tobi Sathish [facility] [place] [address] [place] [address] Tobi [facility])([facility] ) OUTPATIENT [id number] ear infecti on left ear PASTORA GALVAN 12/03 Released w/o Limitations [address] [place] [address] Tobi [facility])([facility]) [address] [place] [address] Tobi [facility])([facility] ) TELE CONSULT [id number] Complet analia out of Diabete s Medicat ion KESHAV FLETCHER 03/[address] [place] [address] Tobi [facility])([facility]) [address] [place] [address] Tobi [facility])([facility] ) OUTPATIENT [id number] follow- up diabete s, HLP, HTN COLE PASTORA L 04/22 Released w/o Limitations [address] [place] [address] Tobi [facility])([facility]) [address] [place] [address] Tobi [facility])([facility] ) TELE CONSULT [id number] concern ed about a referra AZEB Gee 05/[address] [place] [address] Toib [facility])([facility] Intern[facility] T[facility]) [address] [place] [address] Tobi [facility])(Opt ometry) OUTPATIENT [id number] MARGARITA TAFOYA 05/27 Released w/o Limitations [address] [place] [address] Tobi [facility])(O ptometr y) [facility] Outpatient Encounter [id number] 2 12/14 [facility] Procedures Combined list of: 1) Procedures from Department of [facility] Affairs facilities going back up to thelast 18 months, not all [place] non-surgical procedures are included; 2) All procedures from the Department of Defense facilities. Procedure Procedure Type Code Date Perfomer Comments Sourc e No data available for this section Ambulatory Pharmacy VISUAL FIELD EXAMINATION, UNI OR BILATERAL, WITH MEDICAL DIAGNOSTIC EVAL; INTERMEDIATE EXAM (EG, AT LEAST 2 ISOPTERS ON GOLDMANN PERIMETER, OR SEMIQUANT, AUTO SUPRATHRESHOLD SCREEN PROGRAM, LI 2006 [facility] CARDIOVASCULAR STRESS TEST USING MAXIMAL OR SUBMAXIMAL TREADMILL OR BICYCLE EXERCISE,CONTINUOUS ELECTROCARDIOGRAPHIC MONITORING,AND/OR PHARMACOLOGICAL STRESS;W SUPERVISION,INTERPRETAT ION AND REPORT 2005 [facility] REMOVAL IMPACTED CERUMEN REQUIRING INSTRUMENTATION, UNILATERAL 2003 [facility] SEDATION WITH OR WITHOUT ANALGESIA (CONSCIOUS SEDATION); INTRAVENOUS, INTRAMUSCULAR OR INHALATION 2003 [facility] ELECTROCARDIOGRAM, ROUTINE ECG WITH AT LEAST 12 LEADS; TRACING ONLY, WITHOUT INTERPRETATION AND REPORT 2003 [facility] ELECTROCARDIOGRAM, ROUTINE ECG WITH AT LEAST 12 LEADS; TRACING ONLY, WITHOUT INTERPRETATION AND REPORT 2002 [facility] THERAPEUTIC, PROPHYLACTIC OR DIAGNOSTIC INJECTION (SPECIFY MATERIAL INJECTED); SUBCUTANEOUS OR INTRAMUSCULAR 2002 [facility] CARDIOVASCULAR STRESS TEST USING TREADMILL 2001 [facility] INFUSION, NORMAL SALINE SOLUTION, 250 CC 2001 [facility] CARDIOVASCULAR STRESS TEST USING TREADMILL 1999 [facility] Scanning Computerized Ophthalmic Diagnostic Imaging 2006 MARGARITA TAFOYA [facility] Corneal Pachymetry, Bilateral With Interpret And Report Corneal Pachymetry, Bilateral With Interpret And Report [id number] 2006 MARGARITA TAFOYA [facility] Visual Matthews Test Intermediate Examination Visual Matthews Test Intermediate Examination [id number] 2006 MARGARITA TAFOYA [facility] Ophthalmological New Patient Start Comprehensive Care Ophthalmological New Patient Start Comprehensive Care [id number] 2006 MARGARITA TAFOYA [facility] Cardiac Stre Test, Phys. Supervision, Interp. And Report Cardiac Stress Test, Phys. Supervision, Interp. And Report [id number] 2005 REMI WOODSON [facility] Cerumen Removal Right Ear Irrigation 2003 JO SAMANIEGO [facility] Cerumen Removal Left Ear Irrigation 2003 JO SAMANIEGO [facility] ECG Performance of Tracing Only ECG Performance of Tracing Only [id number] 2003 ANNA GRACIA [facility] ECG Performance of Tracing Only ECG Performance of Tracing Only [id number] 2003 ANNA GRACIA [facility] Social History Combined list of available smoking, tobacco, and other social history from Department of Defense and Veterans Affairs facilities. Social History Type Response Date Comment Sour e This section is an empty social history section. DoD Assessment and Plan Combined list of future care activities from Department of Defense and Veterans Affairs facilities (e.g., assessment and plan notes, appointments, orders, and referrals). Additional future care activities may be listed in the Plan of Care section. Result Assessment and Plan Date Source Assessment and Plan No data available for this section 04/26/2025 Ambulatory Pharmacy Functional Status Combined list of recent functional and cognitive assessments recorded at Department of Defense and Veterans Affairs (VA).VA Functional Wilkin Measurement (FIM) Scale: 1 = Total Assistance (Subject = 0% +), 2 = Maximal Assistance (Subject = 25% +), 3 = Moderate Assistance (Subject = 50% +), 4 = Minimal Assistance (Subject = 75% +), 5 = Supervision, 6 = Modified Wilkin (Device), 7 = Complete Wilkin (Timely, Safely). Assessment Date/Time Source Assessment Type Assessment Skill Assessment Score Assessment Details No data available for this section
--- OUTSIDE RECORDS SUMMARY | 2025-04-26 10:45 | XMS_ITS | Encounter Summary ---
Author Organization [facility] Healthcare Address [address] [place] [address] Care Team Providers Care Contact Acid Plant Operator Helper Name Role Phone Tres Catherine DO Primary Care Provider [phone] Encounter Details Date Type Department Care Team (Late st Contact Info) Description 03/26/2025 Orders Only [facility] Information Management [address] [place] [address] Scanning, Provider Social History Tobacco Use Types Packs/Day Years Used Date Smoking Tobacco: Former Smokeless Tobacco: Never Alcohol Use Standard Drinks/Week Comments No 0 (1 standard drink = 0.6 oz pur e alcohol) Sex and Gender Information Value Date Recorded Sex Assigned at Not on file 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 Gender Identity Not on file Sexual Orientation Not on file documented as of this encounter Plan of Treatment Not on file documented as of this encounter Procedures Procedure Name Priority Date/Time Associated Diagnosis Comments SCAN - RADIOLOGY/IMAGING 03/26/2025 documented in this encounter Results * SCAN - RADIOLOGY/IMAGING (03/26/2025) Anatomical Region Laterality Modality Other us Provider Scanning Final Result documented in this encounter Visit Diagnoses Not on filedocumented in this encounter Care Teams Contact Acid Plant Operator Helper Relationship Specialty Start Date End Date Tres Catherine DO PCP - General Internal Medicine 03/09/24 documented as of this encounter
--- OUTSIDE RECORDS SUMMARY | 2025-04-26 10:45 | XMS_ITS | Clinical Summary ---
Author Organization [facility] Address [address] [place] [address] Phone Care Team Providers Care Lunchroom Attendant Name Role Phone Neli Boyle MD Primary Care Provider [phone] Allergies Active Allergy Reactions Criticality Noted Date Comments Milk (Cow) 11/11/2021 Medications HYDROcodone-ac etaminophen (NORCO) 7.5-325 MG per tablet TAKE 1 TABLET BY MOUTH EVERY 4 TO 6 HOURS NEEDED FOR PAIN 2 Active Lantus SoloStar 100 UNIT/ML injection INJECT 9 UNITS SUBCUTANEOUSLY AT BEDTIME 2 Active magnesium oxide (MAG-OX) 400 mg tablet 400 mg 1 (one) time each day Active Cholecalcifero l (Vitamin D3) 125 MCG (5000 UT) capsule Take by mouth Acti ve b complex vitamins capsule Take 1 capsule by mouth 1 (one) time each day Active aspirin 325 MG tablet Take 325 mg by mouth 1 (one) time each day Active losartan (COZAAR) 100 MG tablet Take 1 tablet (100 mg total) by mouth 1 (one) time each day 30 tablet 11 2 Active hydroCHLOROthi azide (HYDRODIURIL) 25 MG tablet Take 1 tablet (25 mg total) by mouth 1 (one) time each day 30 tablet 11 2 Active fluticasone (FLONASE) 50 MCG/ACT nasal spray 2 Active BD Pen Needle Celeste U/F 32G X 4 MM misc 2 Active Lancets (freestyle) lancets 2 Active sildenafil (VIAGRA) 100 MG tablet 2 Active azelastine (ASTELIN) 0.1 % nasal spray 2 Active Active Problems Problem Noted Date Diagnosed Date Chronic kidney disease stage 3B 11/13/2021 Obstructive sleep apnea syndrome 11/11/2021 Cerebrovascular accident 12/12/2020 Hyperlipidemia 12/12/2020 History of malignant neoplasm of prostate 2020 Hyperglycemia due to type 2 diabetes mellitus Atrial fibrillation 06/19/2014 Overview (11/11/2021): Atrial fibrillation Essential (primary) hypertension 06/19/2014 Immunizations Immunization Administration Dates Next Due Influenza Split High [...] at Not on file Legal Sex Male 9:37 AM [facility] Gender Identity Not on file Sexual Orientation [...] 2:24 PM CDT Height 180.3 cm (5' 11) 07/06/2022 2:24 PM CDT Body Mass Index 29.29 07/06/2022 2:24 PM CDT Plan of Treatment Health Maintenance Due Date Last Done Comments Pneumococcal PPSV23/PCV13 65 + Years / Low and Medium Risk (1 of 2 - PCV) 1992 Influenza Vaccine (#1) 2025 1, 08/10/2017, 08/10/2016 Insurance MEDICARE [facility] Care Teams Lunchroom Attendant Relationship Specialty Start Date End Date Neli Boyle MD [address] [facility] [address] [place] [address] PCP - General Internal Medicine 05/21/22
--- OUTSIDE RECORDS SUMMARY | 2025-04-26 10:45 | XMS_ITS | Encounter Summary ---
Author Organization [facility] Care Team Providers Care Appeals Coordinator Name Role Phone Layo Hayden MD Primary Care Provider [phone] Neli Boyle MD Primary Care Provider Tres Catherine DO Primary Care Provider [phone] Encounter Details Date Type Department Care Team (Latest Contact Info) Description 12/07/2016 Orders Only [facility] CLINCON[facility] ProviderHardik MD [address] [place] [address] Social History Tobacco Use Types Packs/Day Years Used Date Smoking Tobacco: Former Alcohol Use Standard Drinks/Week Comments No 0 (1 standard drink = 0.6 oz pur e alcohol) Sex and Gender Information Value Date Recorded Sex Assigned at Not on file Legal Sex Male 3:27 AM CARE ASST Gender Identity Not on file Sexual Orientation Not on file documented as of this encounter Plan of Treatment Not on file documented as of this encounter Procedures Procedure Name Priority Date/Time Associated Diagnosis Comments COLONOSCOPY - SCAN 12/07/2016 12 :00 AM CARE ASST documented in this encounter Results * COLONOSCOPY - SCAN (12/07/2016 12:00 AM CARE ASST) Narrative 12/07/2016 12:00 AM CARE ASST Ordered by an unspecified provider. Historical Provider Final Res ult documented in this encounter Visit Diagnoses Not on filedocumented in this encounter Care Teams Appeals Coordinator Relationship Specialty Start Date End Date Layo Hayden MD PCP - General 06/03/15 12/31/16 Neli Boyle MD [address] [address] PCP - General Family Medicine 03/09/23 03/08/24 Tres Catherine DO [address] [address] PCP - General Internal Medicine 03/09/24 documented as of this encounter
--- OUTSIDE RECORDS SUMMARY | 2025-04-26 10:45 | XMS_ITS | Clinical Summary ---
Author Organization [employer] 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
--- OUTSIDE RECORDS SUMMARY | 2025-04-26 10:45 | XMS_ITS | Clinical Summary ---
Author Organization [facility] Address [address] [place] [address] Care Team Providers Care Chamber Of Commerce Division Manager Name Role Phone None, Provider MD Primary Care Provider Unavaila ble Allergies Active Allergy Reactions Criticality Noted Date Comments Milk (Cow) GI Upset 11/11/2021 Medications acetaminophen- codeine (TYLENOL #3) 300-30 MG tablet 1 Active azelastine (ASTELIN) 0.1 % nasal spray azelastine 137 mcg (0.1 %) nasal spray aerosol Active B Complex Vitamins Cap Take 1 capsule by mouth. Active buPROPion SR (ZYBAN) 150 MG 12 hr tablet every 12 (twelve) hours. Active vitamin D3, cholecalcifero l, 5000 UNITS capsule Active vitamin B-12 (CYANOCOBALAMI N) 500 MCG tablet Take 500 mcg by mouth daily. Active hydrALAZINE (APRESOLINE) 25 MG tablet Take 25 mg by mouth 4 (four) times daily. 2 Active insulin glargine (LANTUS SOLOSTAR) 100 UNIT/ML injection (PEN) Lantus Solostar U-100 Insulin 100 unit/mL (3 mL) subcutaneous pen INJECT 9 UNITS SUBCUTANEOUSLY AT BEDTIME 2 Active BD PEN NEEDLE MICRO U/F 32G X 6 MM Misc USE DIRECTED EVERY DAY WITH LANTUS 2 Active Lancets (FREESTYLE) lancets 2 Active losartan (COZAAR) 100 MG tablet losartan 100 mg tablet 2 Active Magnesium 400 MG Tab 400 mg. Active Active Problems No known active problems Immunizations Immunization Administration Dates Next Due Fluzone High Dose - >Age 65 (Prefilled Syringe) 07/10/2021 Influenza Adult (Generic) 07/10/2021,08/10/2017, 08/10/2016 Pneumococcal (Prevnar 7) 06/04/2021 Social History Tobacco Use Types Packs/Day Years Used Date Smoking Tobacco: Never Assessed PHQ-2 Answer Date Recorded PHQ-2 Score - If the patient scores above 3, please move on to questions 3-9 0 06/05/2022 Sex and Gender Information Value Date Recorded Sex Assigned at Not on file Legal Sex Male 2:36 PM CDT Gender Identity Not on file Sexual Orientation Not on file Last Filed Vital Signs Vital Sign Reading Time Taken Comments Blood Pressure 145/70 06/05/2022 9:30 AM CDT Pulse 63 06/05/2022 9:30 AM CDT Temperature 36.2 C (97.1 F) 06/05/2022 9:30 AM CDT Respiratory Rate - - Oxygen Saturation 98% 06/05/2022 9:30 AM CDT Inhaled Oxygen Concentration - - Weight 97 kg (213 lb 12.8 oz) 06/05/2022 9:30 AM CDT Height - - Body Mass Index - - Plan of Treatment Health Maintenance Due Date Last Done Comments DTaP, Tdap and Td Vaccines ( 1 - Tdap) 1961 Pneumococcal Vaccine: 50+ Years (1 of 1 - PCV) 1992 06/04/2021 Zoster Vaccines (1 of 2) 1992 Annual Medicare Wellness Visit 2007 RSV Immunization or 60+ Years (1 - 1-dose 75+ series) 2017 COVID-19 Vaccine (2023-2 5 season) 2024 10/08/2021, 03/29/2021, 03/01/2021 Meningococcal B Vaccine Aged Out No l onger eligible based on patient's age to complete this topic Meningococcal Vaccine Aged Out No marielena lillian eligible based on patient's age to complete this topic RSV Immunizations Under 20 Months Aged Out No longer eligible b ased on patient's age to complete this topic Insurance MEDICARE [facility] Care Teams Chamber Of Commerce Division Manager Relationship Specialty Start Date End Date None, Provider, PCP - General 06/01/22
--- OUTSIDE RECORDS SUMMARY | 2025-04-26 10:45 | XMS_ITS | Referral Summary ---
Author Organization [place] [address] [address] [place] [address] [address] [place] [address] Care Team Providers Care Inweaver Name Role Phone Tres Catherine DO Primary Care Provider Encounters Date Type Department Care Team Description 04/10/2025 1:30 PM CDT Office Visit [facility] Medical [facility] Cardiology [address] [place] [address] [address] [place] [address] Meredith Olivarez NP History of non-ST elevation myocardial infarction (NSTEMI); Coronary artery disease involving [place] coronary artery of [place] heart without angina pectoris; Presence of stent in coronary artery; Hyperlipidemia associated with type 2 diabetes mellitus (HCC); Statin intolerance; Chronic kidney disease, unspecified CKD stage; Tobacco dependence; Hospital discharge follow-up 04/02/[address] [facility] Cardiology [address] [place] [address] [address] [place] [address] Jigna Soto MD 03/29/[address] [facility] Cardiology [address] [place] [address] [address] [place] [address] Jaleesa Rhodes NP 03/26/2025 Orders Only [facility] [place] Information Management [address] [place] [address] Scanning, Provider from Last 3 Months Allergies Active Allergy Reactions Criticality Noted Date Comments Milk Stomach upset Low 11/11/2021 Mkapcgj-Knn-Wgf Reductase Inhibitors Muscle pain Medium 03/10/2023 Medications [...] mg chewable tabletIndicati ons:Coronary artery disease involving [place] coronary artery of [place] heart without angina pectoris Take 1 tablet [...] (10 mg total) by mouth daily 10/05/19 25 Active magnesium oxide (MAG-OX) 250 mg (150.8 mg elemental) tabletIndicati ons:hypomagnes emia 1 tablet (250 mg total) daily Active oxyBUTYnin (DITROPAN) 5 mg tablet Take 1 tablet (5 mg total) by mouth 3 (three) times a day Active hydrALAZINE (APRESOLINE) 50 mg tablet Take 1 tablet (50 mg total) by mouth 3 (three) times a day 90 tablet 2 03/30/20 25 Active clopidogreL (PLAVIX) 75 mg tablet Take [...] 3.125 mg tabletIndicati ons:Coronary artery disease involving [place] coronary artery of [place] heart without angina pectoris Take 1 tablet [...] on file 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 Gender Identity Not on file Sexual Orientation Not on file Last Filed Vital Signs Vital Sign Reading Time Taken Comments Blood Pressure 150/60 04/10/2025 1:47 PM CDT Pulse 76 04/10/2025 1:47 PM CDT Temperature 36.9 C (98.5 F) 06/12/2014 7:16 AM CDT Respiratory Rate 16 10/06/2024 11:07 AM FOLDING RULES PRINTING MACHINE OPERATOR Oxygen Saturation 96% 04/10/2025 1:47 PM CDT Inhaled Oxygen Concentration - - Weight 95.3 kg (210 lb) 04/10/2025 1:47 PM CDT Height 180.3 cm (5' 11) 04/10/2025 1:47 PM CDT Body Mass Index 29.29 04/10/2025 1:47 PM CDT Plan of Treatment Not on file Procedures Procedure Name Priority Date/Time Associated Diagnosis Comments CARDIOLOGY DOCUMENT SCAN Routine 03/27/2025 4:03 PM CDT SCAN - LABS 03/27/2025 CARDIOLOGY DOCUMENT SCAN Routine 03/26/2025 3:58 PM CDT CARDIOLOGY DOCUMENT SCAN Routine 03/26/2025 3:56 PM CDT CARDIOLOGY DOCUMENT SCAN Routine 03/26/2025 3:42 PM CDT SCAN - RADIOLOGY/IMAGING 03/26/2025 LIPID PANEL Routine 09/12/2024 8:39 AM FOLDING RULES PRINTING MACHINE OPERATOR HEMOGLOBIN A1C Routine 01/10/2014 9:15 AM CDT [...] Modality Other us Provider Scanning Final Result * (ABNORMAL) Lipid panel (09/12/2024 8:39 AM FOLDING RULES PRINTING MACHINE OPERATOR) SCRIBED Cholesterol, Total 242(A) 0 - 200 EXTERNAL LAB SCRIBED HDL 65 40 - 100 EXTERNAL LAB SCRIBED LDL 117(A) 0 - 100 EXTERNAL LAB SCRIBED Triglycerides 142 0 - 150 EXTERNAL LAB Blood 09/12/2024 8:39 AM FOLDING RULES PRINTING MACHINE OPERATOR us Historical Provider LAB BLOOD ORDERABLES Sulema l Result Performing Organization Address City/[facility]/ZIP Co de Phone Number EXTERNAL LAB * (ABNORMAL) Hemoglobin A1c (01/10/2014 9:15 AM CDT) Hemoglobin A1c % 7.9(H) 4.8 - 5.9 % Comment: As of 2010 Method: BASILIA Asa 6000 using turbidometric inhibition immunoassay procedure. Results obtained are comparable to results obtained using previous methodology (HPLC). [place] [employer] recommends that the goal of therapy should be an A1C hemoglobin of <7%. Reevaluate the treatment regimen in patients with an A1C >8%. 01/10/2014 9:15 AM CDT 01/10/2014 10:15 AM CDT Jorge Luis CASILLAS LAB BLOOD ORDERABLES Final Resu lt Performing Organization Address [facility] Co de Phone Number [facility] HISTORICAL RESULTS from Last 3 Months or Most Recently Relevant to Health Maintenance Insurance [employer] Address: [address] [address] MEDICARE MEDICARE FOR [employer] Member Subscriber Plan / Payer ( fective 2017-Present) Name:Luís Law Jr. Relation to Subscriber:Self Name:Luís Law Jr. Payer ID:[id number] (NAIC) Group ID:[id number] Type: Address: [address] [address] MEDICARE [facility] Care Teams Inweaver Relationship Specialty Start Date End Date Tres Catherine DO PCP - General Internal Medicine 03/09/24
== END 2025-04-26 10:40 | disposition home or self-care (01) ==
PROVIDERS: PCP Internal Medicine; Visit Provider Otolaryngology Otolaryngology/Facial Plastic Surgery
DX: J32.9 Chronic sinusitis, unspecified (principal)
CPT/HCPCS: 70486

== ENCOUNTER 2025-04-30 13:56 | Emergency (ER) | payer MEDICARE, OTHER, SELFPAY ==
[2025-04-30] VITALS (7 sets, daily range): BP systolic 143–164; BP diastolic 60–73; PULSE 54–74; RESP 12–20; TEMP 36.4–36.6; O2SAT 97–100
--- OUTSIDE RECORDS SUMMARY | 2025-04-30 14:02 | XMS_ITS | Continuity of Care Document ---
Author Name [facility] Organization [facility] Care Team Providers Care Taxation Inspector Name Role Phone [facility] Unavailable Unavailable Problems Combined list of problems from Department of Defense and Veterans Affairs facilities. It does not include entries that were removed or entered in error. 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 DoD OTITIS MEDIA Inactive Condition DoD SINUSITIS Active Condition [facility] visit for: issue repeat prescription for medication Inactive Condition [facility] visit for: administrative purpose Inactive Condition [facility] EUSTACHIAN TUBE DYSFUNCTION Active Condition [facility] X-Ray Inactive Condition DoD HYPERLIPIDEMIA Active Condition DoD DIABETES MELLITUS POORLY CONTROLLED Active Condition [facility] ESSENTIAL HYPERTENSION Active Condition [facility] TRANSIENT ISCHEMIC ATTACK (TIA) Active Condition [facility] ATYPICAL CHEST PAIN Active Condition Follow up of stress test DoD CONTACT DERMATITIS PENILE Active Condition DoD (Lower) Leg Localized Swelling Active Condition [facility] DIABETES MELLITUS Active Condition DoD NORMAL ROUTINE HISTORY AND PHYSICAL Inactive Condition DoD HYPERTENSION (SYSTEMIC) Active Condition [facility] NORMAL ROUTINE HISTORY AND PHYSICAL 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 Pt to have PSA done in lab with other labs. [facility] ALLERGIC RHINITIS Active Condition [facility] visit for: laboratory Inactive Condition [facility] heartburn Active Condition Refilled meds. [facility] CERUMEN IMPACTION Inactive Condition [facility] visit for: screening exam cardiovascular disorders Inactive Condition [facility] current smoker Active Condition HE BROWN S A PLAN TO QUIT THIS SUMMER. ENCOURAGED. [facility] ESOPHAGEAL REFLUX Active Condition [facility] Medications Combined list of outpatient [...] before becoming .Store in original package. 02/06/2025 [id number] 4 2023 2 [employer] [facility] Tobi HUERTAS ([facility]) empaglifloz in 10 mg tablet = 1 [...] 5 2024 90.0 Ambulat ory Pharmac y evolocumab 140 mg/mL Inj-Pen [2 mL=2 pens] See Instruct ions, # 2 mL, 11 total refill(s ), Soft Stop Ordered 5 2024 2.0 Ambulat ory Pharmac y famotidine 40 mg [...] use exactly as directed .refrige rate 02/06/2025 [id number] 4 2023 15 [employer] Tobi HUERTAS ([facility]) ipratropium 42 mcg/inh nasal spray [15mL] = [...] mL, 11 total refill(s ), Hard Stop Discont inued 04/27/2025 5 2024 2.0 Ambulat ory Pharmac y rosuvastati n 20 mg tablet 20 mg, Oral, every morning, # 90 EA, 3 total refill(s ), Hard Stop Oral (given by mouth) Complet ed 06/21/2024 3 09/18/ 2024 90.0 Ambulat ory Pharmac y sildenafil 100 [...] OTHER Drug allergy (disorder) Unknown active 12/31/2003 [facility] Tobi HUERTAS ([facility]) Immunizations Combined list of available immunizations from the Department of Defense and Veterans Affairs facilities. Immunization Series Date Given Administered By Site Reaction Lot Number CVX Code Drug Top Polisher Status Comments Source COVID Vaccine Moderna 2021 207 complet ed COVID Vaccine Moderna 10/08/21 Given Ambulat ory Pharmac y COVID-19, mRNA, LNP-S, PF, 100 mcg or 50 mcg dose 2021 ALUL, Moderna US, Inc. (MOD) Not Given COVID-19, mRNA, LNP-S, PF, 100 mcg or 50 mcg dose DoD COVID-19, mRNA, LNP-S, PF, 100 mcg or 50 mcg dose 2020 DALL, Moderna US, Inc. (MOD) Not Given COVID-19, mRNA, LNP-S, PF, 100 mcg or 50 mcg dose [facility] influenza, injectable, quadrivalent- pf 2019 [facility] Arm [id number] 150 Seqirus complet ed influenza , injectabl e, quadrival ent-pf 11/30/19 Given Ambulat ory Pharmac y influenza, injectable, quadrivalent- pf 2019 [id number] 150 Seqirus complet ed influenza , injectabl e, quadrival ent-pf 11/30/19 Given Ambulat ory Pharmac y Influenza, injectable, quadrivalent, preservative free 1 2019 Unknown, Provider [id number] 150 Seqirus (SEQ) complet ed Influenza , injectabl e, quadrival ent, preservat luis angel free [facility] influenza, seasonal,high dose-pf 2015 135 sanofi pasteur complet ed influenza , seasonal, high dose-pf 08/11/16 Given Ambulat ory Pharmac y zoster vaccine live 2010 121 Merck & Company Inc complet ed zoster vaccine live 08/03/11 Given Ambulat ory Pharmac y influenza virus vaccine,split 2006 [facility] Arm [id number] 15 sanofi pasteur complet ed influenza virus vaccine,s plit 09/29/07 Given Ambulat ory Pharmac y influenza virus vaccine,split 2006 [id number] 15 sanofi pasteur complet ed influenza virus vaccine,s plit 09/29/07 Given Ambulat ory Pharmac y influenza virus vaccine, split virus (incl. purified surface antigen)-reti red CODE 1 2006 Unknown, Provider [id number] 15 Sanofi Pasteur (PMC) complet ed influenza virus vaccine, split virus (incl. purified surface antigen)- retired CODE DoD influenza virus vaccine,split 2005 zzLef t Arm [id number] 15 [employer] [place] complet ed influenza virus vaccine,s plit 09/13/06 Given Ambulat ory Pharmac y influenza virus vaccine, split virus (incl. purified surface antigen)-reti red CODE 1 2005 Unknown, Provider [id number] 15 [facility] complet ed influenza virus vaccine, split virus (incl. purified surface antigen)- retired CODE DoD influenza virus vaccine, whole virus [facility] [id number] 16 Novartis Pharmaceutica ls complet ed influenza virus vaccine, whole virus 09/25/03 Given Ambulat ory Pharmac y influenza virus vaccine,split 2002 [id number] 15 Novartis Pharmaceutica ls complet ed influenza virus vaccine,s plit 09/25/03 Given Ambulat ory Pharmac y influenza virus vaccine, whole virus 2002 [id number] 16 Novartis Pharmaceutica ls complet ed influenza virus vaccine, whole virus 09/25/03 Given Ambulat ory Pharmac y influenza virus vaccine, whole virus 1 2002 Unknown, Provider [id number] 16 Powder[employer] Pharm[employer] ls (PWJ) complet ed influenza virus vaccine, whole virus DoD influenza virus vaccine, whole virus 2002 zzL t Arm [id number] 16 sanofi pasteur complet ed influenza virus vaccine, whole virus 10/30/02 Given Ambulat ory Pharmac y pneumococcal polysaccharid e, 23 valent 2002 zzLef t Arm [id number] 33 Merck & Company Inc complet ed pneumococ kassidy polysacch aride, 23 valent 10/30/02 Given Ambulat ory Pharmac y influenza virus vaccine,split 2002 [id number] 15 sanofi pasteur complet ed influenza virus vaccine,s plit 10/30/02 Given Ambulat ory Pharmac y influenza virus vaccine, whole virus 2002 [id number] 16 sanofi pasteur complet ed influenza virus vaccine, whole virus 10/30/02 Given Ambulat ory Pharmac y pneumococcal polysaccharid e, 23 valent 2002 [id number] 33 Merck & Company Inc complet ed pneumococ kassidy polysacch aride, 23 valent 10/30/02 Given Ambulat ory Pharmac y influenza virus vaccine, whole virus 1 2002 Unknown, Provider [id number] 16 Sanofi Pasteur (PMC) complet ed influenza [...] ADM Date DC Date Status Disposition Source [address] [place] [address] Tobi [facility] Non-GME FHI1) OUTPATIENT [id number] f/u HTN FARRAH NICOLE 01/29 Released w/o Limitations [address] [place] [address] Tobi HUERTAS [facility]F amily Practic e Non-GME FHI1) [address] [place] [address] Tobi HUERTAS [facility] OUTPATIENT [id number] htn ANNA GRACIA L 01/29 Released w/o Limitations [address] [place] [address] Tobi [facility]AS [facility]E lectroc ardiogr am Clinic) [address] [place] [address] Tobi HUERTAS [facility] OUTPATIENT [id number] ekg ANNA GRACIA L 01/30 Released w/o Limitations [address] [place] [address] Tobi HUERTAS [facility] lectroc ardiogr am Clinic) [address] [place] [address] Tobi [facility]ERTAS [facility] Non-GME FHI1) OUTPATIENT [id number] Lt ear pain JO SAMANIEGO 08/25 Released w/o Limitations [address] [place] [address] Tobi HUERTAS [facility]F amily Practic e Non-GME FHI1) [address] [place] [address] Tobi HUERTAS [facility] Non-GME FHI2) OUTPATIENT [id number] diabete s JO SAMANIEGO 10/27 Released w/o Limitations [address] [place] [address] Tobi BOOB [facility]F amily Practic e Non-GME FHI2) [address] [place] [address] Tobi B [facility] F[facility]2) TELE CONSULT [id number] wants diabeti c follow up SRAVANTHI CHU 01/[address] [place] [address] Tobi B [facility]F amily Practic e Non-GME FHI2) [address] [place] [address] Tobi B [facility] darya Practice Non-GME FHI2) OUTPATIENT [id number] follow up for diabete s and labs done in January 2005- JO SAMANIEGO 02/20 Released w/o Limitations [address] [place] [address] Tobi B [facility]F amily Practic e Non-GME FHI2) [address] [place] [address] Tobi B [facility] darya Practice Non-GME FHI2) TELE CONSULT [id number] needs referal for eye exam done on 28 february. GRAYSON ORELLANA 03/[address] [place] [address] Tobi BOOB [facility]F amily Practic e Non-GME FHI2) [address] [place] [address] Tobi B [facility] ) TELE CONSULT [id number] Med DESI Cifuentes P 07/[address] [place] [address] Tobi HUERTAS [facility]S cott Interna l Medicin e Tm) [address] [place] [address] Tobi Sathish ([facility])([facility] ) OUTPATIENT [id number] labs JANELLE SMITH 09/18 Released w/o Limitations [address] [place] [address] Tobi B [facility]S cott Interna l Medicin e Tm) [facility] Tobi B [facility] ) TELE CONSULT [id number] Referra l to Eye Doctor DESI SOUSA P 10/[address] [place] [address] Tobi B [facility]S cott Interna l Medicin e Tm) [address] [place] [address] Tobi B [facility] ) TELE CONSULT [id number] med refill DESI SOUSA P 01/[address] [place] [address] Tobi HUERTAS [facility]S cott Interna l Medicin e Tm) [facility] Tobi HUERTAS ([facility])([facility] ) OUTPATIENT [id number] med refills /dm JANELLE SMITH 02/10 Released w/o Limitations [facility] Tobi Sathish ([facility])(S cott Interna l Medicin e Tm) [facility] Tobi HUERTAS ([facility])([facility] ) TELE CONSULT [id number] Referra l Optomet ry - Diabeti c Pt Additio nal Visits YULISA WHITAKER 03/11[facility] Tobi HUERTAS ([facility])(S cott Interna l Medicin e Tm) [address] [place] [address] Group Tobi Sathish [facility]Car diologyPr ocedure Schedules ) OUTPATIENT [id number] NUC MED BAAA HTN REMI WOODSON 03/11 Released w/o Limitations [facility] oTbi HUERTAS ([facility])(Loren Blackwoodul es) [address] [place] [address] Group Tobi Sahtish [facility] ) TELE CONSULT [id number] lab work for diabeti es and cholest MISSY Castellano 05/[address] [place] [address] Group Tobi HUERTAS ([facility])(S cott Interna l Medicin e Tm) [address] [place] [address] Tobi HUERTAS [facility] ) OUTPATIENT [id number] f/u diabete s PASTORA GALVAN 06/14 Released w/o Limitations [facility] Tobi HUERTAS ([facility])(S cott Interna l Medicin e Tm) [facility] Tobi HUERTAS [facility] ) OUTPATIENT [id number] PASTORA Latham 07/13 Released w/o Limitations [address] [place] [address] Group Tobi HUERTAS ([facility])(S cott Interna l Medicin e Tm) [facility] Tobi HUERTAS [facility] ) OUTPATIENT [id number] medicat ion PASTORA GALVAN 09/10 Released w/o Limitations [facility] Tobi HUERTAS [facility]S cott Interna l Medicin e Tm) [facility] Tobi HUERTAS [facility] ) TELE CONSULT [id number] Result KESHAV FLETCHER 10/[address] [place] [address] Tobi Sathish [facility]S cott Interna l Medicin e Tm) [address] [place] [address] Tobi Sathish [facility]) OUTPATIENT [id number] left ear STANISLAW Muse 10/20 Released w/o Limitations [address] [place] [address] Tobi [facility]) [address] [place] [address] Tobi [facility])([facility] ) TELE CONSULT [id number] ear pain. was seen last wed and given loratid ine and nasonex . DESI SOUSA 10/[address] [place] [address] Tobi Sathish [facility]S cott Interna l Medicin e Tm) [address] [place] [address] Tobi Sathish [facility] ) OUTPATIENT [id number] ear pain, treated in [facility] but worseni ng PASTORA GALVAN 10/26 Released w/o Limitations [address] [place] [address] Tobi [facility])(S cott Interna l Medicin e Tm) [address] [place] [address] Tobi [facility])([facility] ) OUTPATIENT [id number] ear infecti on left ear PASTORA GALVAN 12/03 Released w/o Limitations [address] [place] [address] Tobi [facility])(S cott Interna l Medicin e Tm) [address] [place] [address] Tobi [facility])([facility] ) TELE CONSULT [id number] Complet analia out of Diabete s Medicat ion KESHAV FLETCEHR 03/[address] [place] [address] Tobi [facility])(S cott Interna l Medicin e Tm) [address] [place] [address] Tobi [facility])([facility] ) OUTPATIENT [id number] follow- up diabete s, HLP, HTN PASTORA GALVAN L 04/22 Released w/o Limitations [address] [place] [address] Tobi [facility])(S cott Interna l Medicin e Tm) [address] [place] [address] Tobi [facility])([facility] ) TELE CONSULT [id number] concern ed about a referra AZEB Gee 05/[address] [place] [address] Tobi Sathish [facility]S cott Interna l Medicin e Tm) [address] [place] [address] Tobi HUERTAS [facility]Opt ometry) OUTPATIENT [id number] MARGARITA TAFOYA 05/27 Released w/o Limitations [address] [place] [address] Tobi [facility]ERTAS [facility]O ptometr y) [facility] Outpatient Encounter [id number] 2 12/14 [facility] Procedures Combined list of: 1) Procedures from Department of [facility] Affairs facilities going back up to thelast 18 months, not all [place] non-surgical procedures are included; 2) All procedures from the Department of Defense facilities. Procedure Procedure Type Code Date Perfomer Comments Sourc e No data available for this section Ambulatory Pharmacy Scanning Computerized Ophthalmic Diagnostic Imaging 2006 MARGARITA TAFOYA [facility] Corneal Pachymetry, Bilateral With Interpret And Report Corneal Pachymetry, Bilateral With Interpret And Report [id number] 2006 MARGARITA TAFOYA [facility] Visual Matthews Test Intermediate Examination Visual Matthews Test Intermediate Examination [id number] 2006 MARGARITA TAFOYA [facility] Ophthalmological New Patient Start Comprehensive Care Ophthalmological New Patient Start Comprehensive Care [id number] 2006 MARGARITA TAFOYA [facility] Cardiac Stre Test, Phys. Supervision, Interp. And Report Cardiac Stress Test, Phys. Supervision, Interp. And Report [id number] 2005 REMI WOODSON [facility] Cerumen Removal Right Ear Irrigation 2003 JO SAMANIEGO [facility] Cerumen Removal Left Ear Irrigation 2003 JO SAMANIEGO [facility] ECG Performance of Tracing Only ECG Performance of Tracing Only [id number] 2003 ANNA GRACIA [facility] ECG Performance of Tracing Only ECG Performance of Tracing Only [id number] 2003 ANNA GRACIA [facility] VISUAL FIELD EXAMINATION, UNI OR BILATERAL, WITH MEDICAL DIAGNOSTIC EVAL; INTERMEDIATE EXAM (EG, AT LEAST 2 ISOPTERS ON GOLDMANN PERIMETER, OR SEMIQUANT, AUTO SUPRATHRESHOLD SCREEN PROGRAM, LI 2006 [facility] CARDIOVASCULAR STRESS TEST USING MAXIMAL OR SUBMAXIMAL TREADMILL OR BICYCLE EXERCISE,CONTINUOUS ELECTROCARDIOGRAPHIC MONITORING,AND/OR PHARMACOLOGICAL STRESS;W SUPERVISION,INTERPRETAT ION AND REPORT 2005 [facility] REMOVAL IMPACTED CERUMEN REQUIRING INSTRUMENTATION, UNILATERAL 2003 [facility] SEDATION WITH OR WITHOUT ANALGESIA (CONSCIOUS SEDATION); INTRAVENOUS, INTRAMUSCULAR OR INHALATION 2003 [facility] ELECTROCARDIOGRAM, ROUTINE ECG WITH AT LEAST 12 LEADS; TRACING ONLY, WITHOUT INTERPRETATION AND REPORT 2003 [facility] ELECTROCARDIOGRAM, ROUTINE ECG WITH AT LEAST 12 LEADS; TRACING ONLY, WITHOUT INTERPRETATION AND REPORT 2002 [facility] THERAPEUTIC, PROPHYLACTIC OR DIAGNOSTIC INJECTION (SPECIFY MATERIAL INJECTED); SUBCUTANEOUS OR INTRAMUSCULAR 2002 [facility] CARDIOVASCULAR STRESS TEST USING TREADMILL 2001 [facility] INFUSION, NORMAL SALINE SOLUTION, 250 CC 2001 [facility] CARDIOVASCULAR STRESS TEST USING TREADMILL 1999 DoD Social History Combined list of available smoking, tobacco, and other social history from Department of Defense and Veterans Affairs facilities. Social History Type Response Date Comment Sourc e This section is an empty social history section. [facility] Assessment and Plan Combined list of future care activities from Department of Defense and Veterans Affairs facilities (e.g., assessment and plan notes, appointments, orders, and referrals). Additional future care activities may be listed in the Plan of Care section. Result Assessment and Plan Date Source Assessment and Plan No data available for this section 04/30/2025 Ambulatory Pharmacy Functional Status Combined list of recent functional and cognitive assessments recorded at Department of Defense and Veterans Affairs ([place] Functional [place] Measurement (FIM) Scale: 1 = Total Assistance (Subject = 0% +), 2 = Maximal Assistance (Subject = 25% +), 3 = Moderate Assistance (Subject = 50% +), 4 = Minimal Assistance (Subject = 75% +), 5 = Supervision, 6 = Modified Sugar [place] (Device), 7 = Complete Sugar [place] (Timely, Safely). Assessment Date/Time Source Assessment Type Assessment Skill Assessment Score Assessment Details No data available for this section
--- OUTSIDE RECORDS SUMMARY | 2025-04-30 14:02 | XMS_ITS | Clinical Summary ---
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
--- OUTSIDE RECORDS SUMMARY | 2025-04-30 14:02 | XMS_ITS | Clinical Summary ---
Author Organization [facility] Address [address] [place] [address] Care Team Providers Care Life Skills Coordinator Name Role Phone None, Provider MD Primary [...] complete this topic Insurance MEDICARE [facility] Care Teams Life Skills Coordinator Relationship Specialty Start Date End Date None, Provider, PCP - General 06/01/22
--- OUTSIDE RECORDS SUMMARY | 2025-04-30 14:03 | XMS_ITS | Referral Summary ---
Author Organization [place] [address] [address] [place] [address] [address] [place] [address] Care Team Providers Care Air Defense Control Officer Name Role Phone Tres Catherine Primary Care Provider [phone] Encounters Date Type Department Care Team Description 04/27/[address] [place] [address] Lila Correa MA 04/10/2025 1:30 PM CDT Office Visit [facility] Cardiology [address] [place] [address] [address] [place] [address] Meredith Olivarez NP History of non-ST elevation myocardial infarction (NSTEMI); 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 Information Management [address] [place] [address] Scanning, Provider from Last 3 Months Allergies Active Allergy Reactions Criticality Noted Date Comments Milk Stomach upset Low 11/11/2021 Pnhwnck-Ivh-Zzg Reductase Inhibitors Muscle pain Medium 03/10/2023 Medications [...] mg chewable tabletIndicati ons:Coronary artery disease 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 Take 1 tablet (81 mg total) by mouth daily 90 tablet 3 09/07/20 24 Active Jardiance 25 mg tablet Take 1 tablet (25 mg total) by mouth daily 06/19/20 24 Active amLODIPine (NORVASC) 10 mg tablet Take 1 [...] twice daily 53 tablet 04/10/20 25 Active evolocumab (Repatha SureClick) 140 mg/mL pen injector Inject 1 mL (140 mg total) under the skin every 14 (fourteen) days 2 mL 11 04/27/20 25 Active carvediloL (COREG) 3.125 mg tabletIndicati ons:Coronary artery disease 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 Take 1 tablet (3.125 mg total) by mouth 2 (two) times a day with meals 180 tablet 3 09/07/20 24 025 Discontinu ed(No longer taking - Do not display on AVS) evolocumab (Repatha SureClick) 140 mg/mL pen injector Inject 1 mL (140 mg total) under the skin every 14 (fourteen) days 2 mL 11 10/05/19 25 025 Discontinu ed(Reorder ) Active Problems [...] on file Legal Sex Male 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 Gender Identity Not on file Sexual Orientation Not on file Last Filed Vital Signs Vital Sign Reading Time Taken Comments Blood Pressure 150/60 04/10/2025 1:47 PM CDT Pulse 76 04/10/2025 1:47 PM CDT Temperature 36.9 C (98.5 F) 06/12/2014 7:16 AM CDT Respiratory Rate 16 10/06/2024 11:07 AM VETERINARY ASSISTANT TECHNICIAN Oxygen Saturation 96% 04/10/2025 1:47 PM CDT [...] 03/26/2025 LIPID PANEL Routine 09/12/2024 8:39 AM VETERINARY ASSISTANT TECHNICIAN HEMOGLOBIN A1C Routine 01/10/2014 9:15 AM CDT [...] * (ABNORMAL) Lipid panel (09/12/2024 8:39 AM VETERINARY ASSISTANT TECHNICIAN) SCRIBED Cholesterol, Total 242(A) 0 - 200 EXTERNAL LAB SCRIBED HDL 65 40 - 100 EXTERNAL LAB SCRIBED LDL 117(A) 0 - 100 EXTERNAL LAB SCRIBED Triglycerides 142 0 - 150 EXTERNAL LAB Blood 09/12/2024 8:39 AM VETERINARY ASSISTANT TECHNICIAN Historical Provider LAB BLOOD ORDERABLES Sulema l Result EXTERNAL LAB * (ABNORMAL) Hemoglobin A1c (01/10/2014 9:15 AM CDT) Hemoglobin A1c % 7.9(H) 4.8 - 5.9 % Comment: As of 2010 Method: BASILIA Asa 6000 using turbidometric inhibition immunoassay procedure. Results obtained are comparable to results obtained using previous methodology (HPLC). [place] [employer] recommends that the goal of therapy should be an A1C hemoglobin of <7%. Reevaluate the treatment regimen in patients with an A1C >8%. 01/10/2014 9:15 AM CDT 01/10/2014 10:15 AM CDT Jorge Luis CASILLAS LAB BLOOD ORDERABLES Final Resu lt [facility] HISTORICAL RESULTS from Last 3 Months or Most Recently Relevant to Health Maintenance Insurance [employer] MEDICARE MEDICARE FOR [facility] MEDICARE [facility] Care Teams Air Defense Control Officer Relationship Specialty Start Date End Date Tres Catherine DO PCP - General Internal Medicine 03/09/24
--- OUTSIDE RECORDS SUMMARY | 2025-04-30 14:03 | XMS_ITS | Encounter Summary ---
Author Organization [facility] Address [address] [place] [address] Care Team Providers Care Yarn Spooler Name Role Phone Trse Catherine DO Primary Care Provider [phone] Encounter Details Date Type Department Care Team (Late st Contact Info) Description 03/26/2025 Orders Only [facility] Health Information Management [address] [place] [address] Scanning, Provider Social History Tobacco Use Types Packs/Day Years Used Date Smoking Tobacco: Former Smokeless Tobacco: Never Alcohol Use Standard Drinks/Week Comments No 0 (1 standard drink = 0.6 oz pur e alcohol) Sex and Gender Information Value Date Recorded Sex Assigned at Not on file 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
--- OUTSIDE RECORDS SUMMARY | 2025-04-30 14:03 | XMS_ITS | Clinical Summary ---
Author Organization [facility] [address] Address [address] [place] [address] Care Team Providers Care Mold Maker Plastic Molds Name Role Phone Tres Catherine Primary Care Provider [phone] Allergies Active Allergy Reactions Criticality Noted Date Comments Milk Stomach upset Low 11/11/2021 Alsyake-Tpd-Ivi Reductase Inhibitors Muscle pain Medium 03/10/2023 Medications [...] mg chewable tabletIndicati ons:Coronary artery disease involving [place]apache coronary artery of [place] heart without angina pectoris Take 1 tablet [...] 3.125 mg tabletIndicati ons:Coronary artery disease involving [place]apache coronary artery of [place] heart without angina pectoris Take 1 tablet [...] Type Department Care Team Description 04/27/2025 Telephone [facility] Medical [facility] Cardiology [address] [facility] [address] [place] [address] Lila Correa MA 04/10/2025 1:30 PM CDT Office Visit [facility] Cardiology [address] [place] [address] [address] [place] [phone] Meredith Olivarez NP History of non-ST elevation myocardial infarction (NSTEMI); Coronary artery disease involving [place]-apache coronary artery of [place]-apache heart without angina pectoris; Presence of stent in coronary artery; Hyperlipidemia associated with type 2 diabetes mellitus (HCC); Statin intolerance; Chronic kidney disease, unspecified CKD stage; Tobacco dependence; Hospital discharge follow-up 04/02/2025 Orders Only [facility] Cardiology [address] [place] [address] [place] [phone] Jigna Soto MD 03/29/2025 Telephone [facility] Cardiology [address] [place] [address] [place] [phone] Jaleesa Rhodes NP 03/26/2025 Orders Only [facility] Health Information Management [address] [place], [place] [address] Scanning, Provider from Last 3 Months Surgical [...] on file Legal Sex 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 Gender Identity Not on file Sexual Orientation Not on file Obstetrics History Last Filed Vital Signs Vital Sign Reading Time Taken Comments Blood Pressure 150/60 04/10/2025 1:47 PM CDT Pulse 76 04/10/2025 1:47 PM CDT Temperature 36.9 C (98.5 F) 06/12/2014 7:16 AM CDT Respiratory Rate 16 10/06/2024 11:07 AM DISH STACKER Oxygen Saturation 96% 04/10/2025 1:47 PM CDT [...] 03/26/2025 LIPID PANEL Routine 09/12/2024 8:39 AM DISH STACKER HEMOGLOBIN A1C Routine 01/10/2014 9:15 AM CDT [...] * (ABNORMAL) Lipid panel (09/12/2024 8:39 AM DISH STACKER) SCRIBED Cholesterol, Total 242(A) 0 - 200 EXTERNAL LAB SCRIBED HDL 65 40 - 100 EXTERNAL LAB SCRIBED LDL 117(A) 0 - 100 EXTERNAL LAB SCRIBED Triglycerides 142 0 - 150 EXTERNAL LAB Blood 09/12/2024 8:39 AM DISH STACKER Historical Provider LAB BLOOD ORDERABLES Sulema dawkins Result EXTERNAL LAB * (ABNORMAL) Hemoglobin A1c (01/10/2014 9:15 AM CDT) Hemoglobin A1c % 7.9(H) 4.8 - 5.9 % 01/12/2014 3:45 PM CDT [facility] HISTORICAL RESULTS Comment: As of 2010 Method: BASILIA Asa 6000 using turbidometric inhibition immunoassay procedure. Results obtained are comparable to results obtained using previous methodology (HPLC). [place] [employer] recommends that the goal of therapy should be an A1C hemoglobin of <7%. Reevaluate the treatment regimen in patients with an A1C >8%. 01/10/2014 9:15 AM CDT 01/10/2014 10:15 AM CDT Jorge Luis CASILLAS LAB BLOOD ORDERABLES Final Resu lt Performing Organization Address City/[facility]/ZIP Co de Phone Number [facility] HISTORICAL RESULTS from Last 3 Months or Most Recently Relevant to Health Maintenance Insurance [employer] MEDICARE MEDICARE FOR LIFE MEDICARE FOR LIFE Care Teams Mold Maker Plastic Molds Relationship Specialty Start Date End Date Tres Catherine DO PCP - General Internal Medicine 03/09/24
--- OUTSIDE RECORDS SUMMARY | 2025-04-30 14:03 | XMS_ITS | Clinical Summary ---
Author Organization [facility] Address [address] [place] [id number] Phone Care Team Providers Care Channel Sales Manager Name Role Phone Neli Boyle MD Primary Care Provider [phone] Allergies Active Allergy Reactions Criticality Noted Date [...] on file Legal Sex Male 9:37 AM [facility] Gender Identity Not on file [...] (#1) 2025 1, 08/10/2017, 08/10/2016 Insurance MEDICARE [facility] Care Teams Channel Sales Manager Relationship Specialty Start Date End Date Neli Boyle MD [address] [facility] [address] [place] [address] PCP - General Internal Medicine 05/21/22
--- OUTSIDE RECORDS SUMMARY | 2025-04-30 14:03 | XMS_ITS | Data Portability ---
Author Organization [place] [facility] GitHub [facility], Main Office Address [address] [place] [address] Care Team Providers Care Finished Cloth Examiner Name Role Phone PITO MARTHA Primary Care Provider MARTHA SHELDON Referring Provider [phone] Assessment Encounter Date Assessment Date Assessment LastModified by Organization Details LastModified Time 03/06/2024 03/06/2024 This note is dictated and transcribed by [employer]. Dance Hall Hostess variances may occur. Despite proofreading, typographical errors may occur. Occasional wrong-word or 'cqbxm-z-hbpb' substitutions may have occurred due to the inherent limitations of voice recording. Read the chart carefully and recognize, using context, where substitutions have occurred. Not available 03/08/2024 10:35:09 06/12/2024 06/12/2024 This note is dictated and transcribed by [employer]. Dance Hall Hostess variances may occur. Despite proofreading, typographical errors may occur. Occasional wrong-word or 'wvetg-t-alzt' substitutions may have occurred due to the inherent limitations of voice recording. Read the chart carefully and recognize, using context, where substitutions have occurred. Not available 06/12/2024 15:23:02 09/11/2024 09/11/2024 This note is dictated and transcribed by [employer]. Dance Hall Hostess variances may occur. Despite proofreading, typographical errors may occur. Occasional wrong-word or 'ehxfh-l-ivtx' substitutions may have occurred due to the inherent limitations of voice recording. Read the chart carefully and recognize, using context, where substitutions have occurred. Not available 09/12/2024 09:09:05 12/28/2024 12/28/2024 This note is dictated and transcribed by [employer]. Dance Hall Hostess variances may occur. Despite proofreading, typographical errors may occur. Occasional wrong-word or 'yornj-n-hocj' substitutions may have occurred due to the inherent limitations of voice recording. Read the chart carefully and recognize, using context, where substitutions have occurred. [email or web address] Not available 12/28/2024 12:40:59 04/02/2025 04/02/2025 This note is dictated and transcribed by [employer]. Dance Hall Hostess variances may occur. Despite proofreading, typographical errors may occur. Occasional wrong-word or 'gbwep-q-rvvx' substitutions may have occurred due to the inherent limitations of voice recording. Read the chart carefully and recognize, using context, where substitutions have occurred. Not available 04/30/2025 09:52:25 Plan of Treatment Reminders Order Date Submit Date Provider Last Modified By Organization Details Last Modified Time Details Appointments Establish ed Patient 15 2024 10:30A M Anton Lind DPM Not available Not available Not available Lab None recorded. Referral None recorded. Procedures None recorded. Surgeries None recorded. Imaging None recorded. Medication Orders None recorded. Patient TargetsNo targets recorded. Patient Instructions Encounter Date Encounter Id Patient Instructions Last Modified By Organization Details Last Modified Time 03/06/2024 [id number] diabetic foot care education Not available 03/08/2024 10:35:16 06/12/2024 [id number] diabetic foot care education Not available 06/12/2024 15:23:56 Reason for Referral None Reported. 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 15832621373 9109 Active 2020 Not Available [facility] 3 22:23:42 Malignant neoplasm of prostate 190633688 Active 2020 Not Available [facility] 3 22:23:42 Chronic sinusitis 98324114 Active 2020 Not Available [facility] 3 22:23:42 History of malignant neoplasm of prostate 688008008 Active 01/13/ 2021 Not Available [facility] 3 22:23:42 Type 2 diabetes mellitus 43687892 Active 2020 Not Available [facility] 3 22:23:42 Cardiovas cular finding 322889849 Completed 202012/12/2020 Not Available [facility] 3 22:23:41 Cerebrova scular accident 118680510 Active 2020 Not Available [facility] 3 22:23:41 Hyperlipi demia 81900366 Active 2020 Not Available [facility] 3 22:23:42 Dystrophi a unguium 48245837 Active 2022 Anton Lind DPM [address], [place], [address] , [employer] 3 08:54:18 Unable to cut own toenails 285267575 Active 2022 Anton Lind DPM [address], [address], [place], [address] , [employer] 3 08:54:43 History of cerebrova scular accident 512880180 Active 2022 Anton Lind DPM [address], [address], [place], [address] , [employer] 3 08:54:44 Soft tissue lesion of foot region 757472108 Active 2023 Anton Lind DPM [address], [address], [place], [address] , [employer] 4 16:44:08 Diabetes mellitus 27843849 Active 2023 Anton Lind DPM [address], [address], [place], [address] , [employer] 4 16:45:17 Problem Notes None recorded. Procedures Surgical History Date Name Laterality Status Provider Name and Address Organization Details Recorded Time 12/29/19 25 Nail Debridement completed Anton Lind DPM [address], [address], [place], [address], [employer] 12/28/2024 12:40:42 09/11/20 24 Nail Debridement completed Anton Lind DPM [address], [address], [place], [address], [employer] 09/12/2024 09:08:11 06/12/20 24 Nail Debridement completed Anton Lind DPM [address], [address], [place], [address], [employer] 06/12/2024 15:22:44 03/06/20 24 Nail Debridement completed Anton Lind DPM [address], [place], [address], [email or web address] [facility] [employer] 03/06/2024 17:16:09 11/11/19 24 Punch biopsy Podiatry completed Anton Lind DPM [address], [place], [address], [employer] 11/11/2023 16:47:08 02/16/20 23 Nail Debridement completed Anton Lind DPM [address], [place], [address], [email or web address] [facility] [employer] 02/16/2023 08:53:40 procedure on muscle completed Not Available [facility] 12/02/2022 22:22:49 Imaging Results None recorded. Procedure Notes None recorded. Medical Equipment None Reported. Allergies Allergen ID Allergen Name Allergen Category Reaction Reaction Severity Criticality Documentation Date Start Date Code Code System Note Provider Name and Address Organization Details Recorded Time 65422 cow milk allergeni c extract food,medi cation Not available Not available Not available 12/02/2022 07026 5 RxNorm Not Available [facility] 22:24:49 99993 Product containin g 3-hydroxy -3-methyl glutaryl- coenzyme A reductase inhibitor (product) medicatio n muscle cramps severe Not available 04/02/2025 88720 009 SNOMED Isabella elder [facility] [employer] [facility] 12:42:04 Medications Name Sig Start Date Stop Date [...] azelastine 137 mcg (0.1 %) nasal spray [place] 2 sprays twice a day by intranasa [...] in Arterial blood by Pulse oximetry Systolic And Diastolic Provider Name and Address Organization Details Last Updated DateTime 5 177.8 cm 31.7 kg/m2 694716. 91 g 63 /min 14 /min 98 % 98 % 146/79 mm[Hg] Bebe Christofer [employer] 5 12:13:04 Date Recorded Body height Body mass index (BMI) Body weight Heart rate Respiratory rate Oxygen saturation Oxygen saturation in Arterial blood by Pulse oximetry Systolic And Diastolic Provider Name and Address Organization Details Last Updated DateTime 4 177.8 cm 31.7 kg/m2 069607. 91 g 62 /min 14 /min 98 % 98 % 171/74 mm[Hg] Bebe Beaulieu [employer] 4 15:18:13 Date Recorded Body height Body mass index (BMI) Body weight Heart rate Respiratory rate Oxygen saturation Oxygen saturation in Arterial blood by Pulse oximetry Body temperature Systolic And Diastolic Provider Name and Address Organization Details Last Updated DateTime 5 177.8 cm 31.7 kg/m2 796752. 91 g 78 /min 18 /min 97 % 97 % 98.1 [degF] 130/80 mm[Hg] Isabella George [employer] 5 12:41:30 Date Recorded Body height Body mass index (BMI) Body weight Heart rate Respiratory rate Body temperature Oxygen saturation Oxygen saturation in Arterial blood by Pulse oximetry Systolic And Diastolic Provider Name and Address Organization Details Last Updated DateTime 4 177.8 cm 31.7 kg/m2 892743. 91 g 58 /min 16 /min 97.8 [degF] 97 % 97 % 110/60 mm[Hg] Isabella George [employer] 4 14:45:41 Date Recorded Body height Body mass index (BMI) Body weight Heart rate Respiratory rate Oxygen saturation Oxygen saturation in Arterial blood by Pulse oximetry Systolic And Diastolic Provider Name and Address Organization Details Last Updated DateTime 4 177.8 cm 31.7 kg/m2 827442. 91 g 69 /min 14 /min 98 % 98 % 130/75 mm[Hg] Bebe Beaulieu [employer] 4 15:23:35 Social History Question Answer Notes LastModified by [employer] Details LastModified Time Tobacco Smoking Status Current Every Day Smoker Not Available [facility] 12/02/2022 22:22:43 Do You Have An Advance Directive? No [id number] Information not available 12/02/2022 What Is Your Level Of Caffeine Consumption? None [id number] 026 Information not available 12/02/2022 In The 14 Days Before Symptom Onset, Have You Had Close Contact With A Laboratory-conf isma LUNA-19 While That Case Was Ill? No [id number] 026 Information not available 12/02/2022 Are There Any Guns Present In Your Home? No [id number] 026 Information not available 12/02/2022 How Much Tobacco Do You Smoke? 0.5 PPD [id number].[id number] 026 Information not available 12/02/2022 Do You Use Sunscreen Routinely? No [id number].[id number] 026 Information not available 12/02/2022 Have You Recently Traveled Abroad? No [id number] 026 Information not available 12/02/2022 Sex: Unknown Functional Status Question Answer Note LastModified by [employer] Details LastModified Time What is your level of alcohol consumption? None [id number] Information not available 12/02/2022 Mental Status Question Answer Note LastModified by [employer] Details LastModified Time Do you feel stressed (tense, restless, nervous, or anxious, or unable to sleep at night)? [id number] [id number].[id number] 6 Information not available 12/02/2022 Family History Relationship Description Onset Age of this Age Resolved Age Notes LastModified by Organization Details LastModified Time Mother Family history of malignant neoplasm [id number] Not available 12/02/2022 22:22:49 Mother Diabetes mellitus [id number] [id number] Not available 12/02/2022 22:22:49 Sister Family history of malignant neoplasm [id number].200 [id number] Not available 12/02/2022 22:22:49 Sister Diabetes mellitus [id number].002 [id number] Not available 12/02/2022 22:22:50 Medical History Condition Response BLINDNESS N RHEUMATIC FEVER N BLADDER PROBLEMS N KIDNEY STONES N MRSA N OTHER # 1 N [...] HAVE YOU BEEN HOSPITALIZED OR SEEN IN [facility] ER IN THE PAST YEAR ? N [...] high-dose, quadrivalent, PF 07/10/2021 completed Not Available [facility] 3 22:24:47 Past Encounters Encounter ID Performer Location Encounter Start Date Encounter Closed Date Diagnosis/Indication Diagnosis SNOMED-CT Code Diagnosis ICD10 Code Diagnosis Note [id number] Clotilde Dutton MD [facility] Primary Care [address] [place] [address] 12/12/2020 00:00:00 12/31/2020 16:17:42 [id number] Clotilde Dutton MD [facility] [place] [address] [facility] [address] [place] [address] 12/26/2020 00:00:00 12/31/2020 10:04:42 [id number] Clotilde Dutton MD [facility] [place] [address] [place] [address] [address] [place] [address] 02/13/2021 00:00:00 02/27/2021 18:02:49 [id number] Clotilde Dutton MD [facility] [place] [address] [place] [address] [address] [place] [address] 03/19/2021 00:00:00 03/19/2021 09:51:04 [id number] Thomas Arrieta MD [facility] Ortho [facility] [address] [facility] [address] [place] [address] 05/22/2021 00:00:00 05/22/2021 12:00:29 [id number] Clotilde Dutton MD [facility] [place] [address] [place] [address] [address] [place] [address] 06/03/2021 00:00:00 06/03/2021 19:01:13 [id number] [facility] ENT [facility] [address] [place] [address] 06/05/2021 00:00:00 06/05/2021 11:58:26 [id number] Clotilde Dutton MD [facility] [place] [address] [place] [address] [address] [place] [address] 06/30/2021 00:00:00 06/30/2021 16:32:47 [id number] Clotilde Dutton MD [facility] [place] [address] [place] [address] 07/10/2021 00:00:00 07/29/2021 10:39:36 [id number] VINNY Syed [facility] Primary Care [facility] [address] [facility] [address] [place] [address] 09/08/2021 00:00:00 09/08/2021 12:35:32 [id number] Clotilde Dutton MD [facility] Primary [facility] [address] [facility] [address] [place] [address] 01/07/2022 00:00:00 01/25/2022 16:25:02 [id number] [facility] Podiatry [facility] [address] [place] [address] 01/22/2022 00:00:00 01/25/2022 15:16:40 [id number] VINNY Syed [facility] Primary Care [facility] [address] [facility] [address] [place] [address] 03/10/2022 00:00:00 03/10/2022 16:20:50 [id number] [facility] Podiatry [facility] [address] [place] [address] 04/23/2022 00:00:00 04/26/2022 10:58:30 [id number] [facility] Pod[facility]ry [facility] [address] [place] [address] 07/23/2022 00:00:00 07/23/2022 13:59:11 [id number] Anton Lind DPM [facility] Pod[facility]ry [facility] [address] [place] [address] 02/15/2023 17:17:23 02/16/2023 09:40:39 Type 2 diabetes mellitus 22340050 E11.9 L60.0 Continue diabetic control per PCPCheck feet daily for wounds infectionF ollow-up 3 months for regular foot care Dystrophia unguium 11094 009 L60.3 Nails 1 through 10 were debrided with sharp mechanical debridemen t without incident. Nails were debrided and greater than 50% length and thickness where needed. 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 Nails were debrided and greater than 50% length and thickness where needed. Soft tissu e lesion of foot region 792552265 M79.9 left great toe soft tissue lesioneduc ated on conditionp atient elected to undergo biopsypunc h biopsy performed today x2, 3 mm to level subcuspeci men was placed in formalin sent to labfollow- up in 3 weeks for follow-up testing Diabetes mellitus 089344 09 E11.9 continue diabetic control per PCPCheck feet daily for wounds infectionC ontinue supportive shoe gear to prevent wounds infectionF ollow-up in 3 months [id number] Anton Lind DPM [facility] Podiatry Mode [address] [place] [address] 12/06/2023 16:26:44 12/06/2023 16:41:25 Soft tissue lesion of foot region 513758085 M79.9 left great toe soft tissue lesionPath ology reviewed-n egative for cancerEduc ated the patient on pathology If patient has issues with the remainder of the lesion we will completely excised surgically No further follow-up needed for this issue. [id number] Anton Lind DPM [facility] Podiatry Mode [address] [place] [address] 03/06/2024 15:07:12 03/08/2024 11:51:41 Diabetes mellitus 04125710 E11.9 continue diabetic control per PCPCheck feet daily for wounds infectionC ontinue supportive shoe gear to prevent wounds infectionF ollow-up in 3 months Dystrophia unguium 56054 009 L60.3 Nails 1 through 10 were debrided with sharp mechanical debridemen t without incident. Nails were debrided and greater than 50% length and thickness where needed. [id number] Anton Lind DPM [facility] Podiatry Mode [address] [facility] [address] [place] [address] 06/12/2024 14:34:35 06/13/2024 13:27:22 Diabetes mellitus 93427745 E11.9 continue diabetic control per PCPCheck feet daily for wounds infectionC ontinue supportive shoe gear to prevent wounds infectionF ollow-up in 3 months Dystrophia unguium 24595 009 L60.3 Nails 1 through 10 were debrided with sharp mechanical debridemen t without incident. Nails were debrided and greater than 50% length and thickness where needed. [id number] Anton Lind DPM [facility] Podiatr Mode [address] [facility] [address] [place] [address] 09/11/2024 15:15:30 09/29/2024 07:22:58 Diabetes mellitus 50373993 E11.9 continue diabetic control per PCPCheck feet daily for wounds infectionC ontinue supportive shoe gear to prevent wounds infectionF ollow-up in 3 months Dystrophia unguium 09886 009 L60.3 Nails 1 through 10 were debrided with sharp mechanical debridemen t without incident. Nails were debrided and greater than 50% length and thickness where needed. [id number] Anton Lind DPM [facility] Podiatr Mode [address] [facility] [address] [place] [address] 12/28/2024 12:07:46 12/29/2024 13:38:07 Diabetes mellitus 15136460 E11.9 continue diabetic control per PCPCheck feet daily for wounds infectionC ontinue supportive shoe gear to prevent wounds infectionF ollow-up in 3 months Dystrophia unguium 51570 009 L60.3 Nails 1 through 10 were debrided with sharp mechanical debridemen t without incident. Nails were debrided and greater than 50% length and thickness where needed. [id number] Anton Lind DPM [facility] Podiatry Mode [address] [facility] [address] [place] [address] 04/02/2025 12:22:07 04/30/2025 09:52:39 Diabetes mellitus 21139293 E11.9 continue diabetic control per PCPCheck feet daily for wounds infectionC ontinue supportive shoe gear to prevent wounds infectionF ollow-up in 3 months Dystrophia unguium 87570 009 L60.3 Nails 1 through 10 were debrided with sharp mechanical debridemen t without incident. Nails were debrided and greater than 50% length and thickness where needed. Health Concerns Section Related Observation LastModified by Organization Detai ls LastModified Time None Recorded Concern Status LastModified by Organization Details LastModified Time None Recorded Advance Directives Directive N: Payers Insurance Date Sequence Insurance Name Policy Number Policy Schneider Covered Member ID Schneider Member ID Guarantor Name 03/30/2025 1 [place] Lu[employer] Law Jr [id number] Lu[employer] 03/30/2025 2 FOR LIFE ( - MEDICARE SUPPLEMENT) Luís Law [id number] [employer]
--- OUTSIDE RECORDS SUMMARY | 2025-04-30 14:03 | XMS_ITS | Encounter Summary ---
Author Organization [facility] Care Team Providers Care Configuration Management Architect Name Role Phone Layo Hayden MD Primary Care Provider [phone] Neli Boyle MD Primary Care Provider Tres Catherine DO Primary Care Provider [phone] Encounter Details Date Type Department Care Team (Latest Contact Info) Description 12/07/2016 Orders Only [facility] CLINCONV ProviderHardik MD [address] [place] [address] Social History Tobacco Use Types Packs/Day Years Used Date Smoking Tobacco: Former Alcohol Use Standard Drinks/Week Comments No 0 (1 standard drink = 0.6 oz pur e alcohol) Sex and Gender Information Value Date Recorded Sex Assigned at Not on file 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 Historical Provider Final Res ult documented in this encounter Visit Diagnoses Not on filedocumented in this encounter Care Teams Configuration Management Architect Relationship Specialty Start Date End Date Layo Hayden MD PCP - General 06/03/15 12/31/16 Neli Boyle MD [address] [address] PCP - General Family Medicine 03/09/23 03/08/24 Tres Catherine DO [address] [address] PCP - General Internal Medicine 03/09/24 documented as of this encounter
[2025-04-30 16:03] LABS: Hematocrit 37.4 % (42.0-52.0); Hemoglobin 11.9 g/dL (14.0-18.0); Immature Granulocyte Percent A 0.2 % (0-0.5); Lymphocytes Absolute Auto 1.61 K/mm3 (0.9-3.2); Mean Corpuscular HGB Conc 31.8 g/dl (32-36); Mean Corpuscular Hemoglobin 27.9 pg (26-34); Mean Corpuscular Volume 87.6 fl (80-100); Nucleated Red Blood Cells Absolute Auto 0.000 K/mm3 (0.0-0.012); Nucleated Red Blood Cells Perc 0.0 % (0.0-0.2); Platelet Count Result 220 k/mm3 (150-375); Red Blood Count 4.27 M/mm3 (4.6-6.20); White Blood Count 5.7 K/mm3 (4.5-10.0)
[2025-04-30 16:08] LABS: Add Urine Microscopic? YES; Appearance Urine Clear (Clear); Glucose Urine UA 3+ mg/dL (Negative); Leukocyte Esterase Ur Negative LEU/UL (Negative); Nitrate Urine Negative (Negative); Non Pathogenic Casts 0-2; Specific Grav Ur 1.027 (1.001-1.035)
[2025-04-30 16:18] LABS: Partial Thromboplastin Time 29.2 Seconds (22.3-36.8)
[2025-04-30 16:21] LABS: Alanine Aminotransferase 19 U/L (6-50); Albumin Level 3.8 g/dL (3.5-5.1); Alkaline Phosphatase 73 U/L (38-126); Anion Gap 8 mmol/L (4-12); Aspartate Amino Transferase 33 U/L (17-59); Bilirubin,Total 0.3 mg/dL (0.2-1.3); Blood Urea Nitrogen 18 mg/dL (9-20); Calcium 9.0 mg/dL (8.4-10.2); Carbon Dioxide 21 mmol/L (22-30); Chloride 112 mmol/L (98-107); Estimated CRCL calculation 30 ml/min; Estimated Glomerular Filt Rate 31; Glucose 106 mg/dL (65-110); INR 1.0; Potassium 3.7 mmol/L (3.4-5.0); Prothrombin Time 13.1 Seconds (11.1-14.7); Sodium 141 mmol/L (137-145); Total Protein 7.2 g/dL (6.3-8.2)
--- NOTE | 2025-04-30 18:15 | ECG_ITS ---
Test Date: 2025-04-30 18:17:54 Measurements Intervals [place] Rate: 53 P: 50 DE: 299 QRS: -10 QRSD: 157 T: 183 QT: 451 QTc: 425 Interpretive Statements SINUS ARRHYTHMIA WITH FIRST DEGREE AV BLOCK LEFT BUNDLE BRANCH BLOCK ST T ABNORMALITY, POSSIBLE ISCHEMIA Electronically Signed On 05-01-2025 17:15:29 CDT by Aime Rosas D.O
--- OUTSIDE RECORDS SUMMARY | 2025-04-30 19:35 | XMS_ITS | Clinical Summary ---
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
--- OUTSIDE RECORDS SUMMARY | 2025-04-30 19:35 | XMS_ITS | Continuity of Care Document ---
Author Organization [employer] [place] Address [address] [facility] [address] [place] [address] Phone Care Team Providers Care On Site Coordinator Name Role Phone Jace PT, DPT, Patty Unavailable Unavailable Procedures Procedure Date Therapeutic Activities Neuromuscular Re-Ed Therapeutic Activities Neuromuscular Re-Ed Therapeutic Exercise Therapeutic Activities Neuromuscular Re-Ed Therapeutic Exercise Therapeutic Activities Neuromuscular Re-Ed Therapeutic Exercise Therapeutic Activities Therapeutic Exercise Neuromuscular Re-Ed Therapeutic Activities Neuromuscular Re-Ed Therapeutic Exercise Therapeutic Activities Neuromuscular Re-Ed Therapeutic Exercise Progress Note Therapeutic Activities Neuromuscular Re-Ed Therapeutic Exercise Therapeutic Activities Neuromuscular Re-Ed Therapeutic Exercise Therapeutic Activities Neuromuscular Re-Ed Therapeutic Exercise Therapeutic Activities Neuromuscular Re-Ed Therapeutic Exercise Therapeutic Activities Neuromuscular Re-Ed Therapeutic Exercise Therapeutic Activities Neuromuscular Re-Ed Therapeutic Exercise Therapeutic Activities Neuromuscular Re-Ed Therapeutic Exercise PT Re-evaluation Neuromuscular Re-Ed Therapeutic Exercise Therapeutic Activities Neuromuscular Re-Ed Therapeutic Exercise Therapeutic Activities Neuromuscular Re-Ed Therapeutic Exercise Therapeutic Activities Neuromuscular Re-Ed Therapeutic Exercise Therapeutic Activities Neuromuscular Re-Ed Therapeutic Exercise Therapeutic Activities Neuromuscular Re-Ed Hot or Cold Pack Manual Therapy Therapeutic Activities Neuromuscular Re-Ed Manual Therapy Hot or Cold Pack Progress Note Therapeutic Activities Hot or Cold Pack Therapeutic Exercise Therapeutic Activities Hot or Cold Pack Neuromuscular Re-Ed Therapeutic Activities Neuromuscular Re-Ed Manual Therapy Hot or Cold Pack Therapeutic Activities Neuromuscular Re-Ed Hot or Cold Pack Manual Therapy Therapeutic Activities Neuromuscular Re-Ed Manual Therapy Hot or Cold Pack Therapeutic Activities Neuromuscular Re-Ed Manual Therapy Hot or Cold Pack Therapeutic Activities Manual Therapy Neuromuscular Re-Ed Hot or Cold Pack Therapeutic Activities Neuromuscular Re-Ed Hot or Cold Pack Neuromuscular Re-Ed Therapeutic Exercise Hot or Cold Pack PT Evaluation High Complexity 0 Neuromuscular Re-Ed Therapeutic Exercise Advance Directives Directive Yes / No Effective Date File Name No Information Encounters Encounter Description Practice Location Reason(s) For Visit Diagnoses Date Provider Providers Copied on Encounter [facility] [address] [place] [address], [place], [place], [id number], tel:[phone] [place] No Information 8- 0 Lehnen Patty. . Referring Provider: Jace Preciado, [address], [place], [address]. tel:[phone] [place] [address] [place] [address], [place], [place], [id number], tel:[phone] [place] No Information 0 Lehnen Patty. . Referring Provider: Jace Preciado, [address], [place], [address]. tel:[phone] [place] [address] [place] [address], [place], [place], [id number], tel:[phone] [place] No Information - 0 Lehnen Patty. . Referring Provider: Jace Preciado, [address], [place], [address]. tel:[phone] [place] [address] [place] [address], [place], [place], [id number], tel:[phone] [place] No Information 0 Lehnen Patty. . Referring Provider: Jace Preciado, [address], [place], [address]. tel:[phone] [place] [address] [place] [address], [place], [place], [id number], tel:[phone] [place] No Information - 0 Lehnen Patty. . Referring Provider: Jace Preciado, [address], [place], [address]. tel:[phone] [place] [address] [place] [address], [place], [place], [id number], [place] tel:[phone] [place] No Information May-1 2-202 0 Lehnen Patty. . Referring Provider: Jace Preciado, [address], [place], [address]. tel:[phone] [place] [address], [place], [place], [id number], tel:[phone] [place] No Information May-0 7-202 0 Lehnen Patty. . Referring Provider: Jace Preciado, [address], [place], [address]. tel:[phone] [place] [address], [place], [place], [id number], tel:[phone] [place] No Information May-0 5-202 0 Lehnen Patty. . Referring Provider: Sheree [address], [place], [address]. tel:[phone] [place] [address], [place], [place], [id number], [place] tel:[phone] [place] No Information Apr-3 0-202 0 Lehnen Patty. . Referring Provider: Jace Preciado, [address]ree [address], [place], [address]. tel:[phone] [place] [address], [place], [place], [id number], [place] tel:[phone] [place] No Information Apr-2 8-202 0 Lehnen Patty. . Referring Provider: Jace Preciado, She[address], [place], [address]. tel:[phone] [place] [address], [place], [place], [id number], [place] tel:[phone] [place] No Information Apr-2 3-202 0 Lehnen Patty. . Referring Provider: Sheree [address], [place], [address]. tel:-[phone] [place] [address] [facility] [address], [place], [place], [address], [place] tel:[phone] [place] No Information Apr-2 1-202 0 Lehnen Patty. . Referring Provider: Jace Preciado, Sheree [address], [place], [place], [facility]. tel:-[phone] [place] [address] [facility] [address], [place], [place], [address], [place] tel:[phone] [place] No Information Apr-1 7-202 0 Lehnen Patty. . Referring Provider: Jace Preciado, Sheree [address], [place], [facility]. tel:-[phone] [place] [address] [place], [place] [address], [place], [place], [id number], [place] tel:[phone] [place] No Information Apr-1 3-202 0 Lehnen Patty. . Referring Provider: Jace Preciado, Sheree [address], [place], [facility]. tel:-[phone] [place] [address] [place], [place] [address]uite [facility], [place], [place], [address], [place] tel:[phone] [place] No Information Apr-1 0-202 0 Lehnen Patty. . Referring Provider: Jace Preciado, She[address], [place], [facility]. tel:-[phone] [place] [address] [address], [place], [place], [id number], [place] tel:[phone] [place] No Information Apr-0 8-202 0 Lehnen Patty. . Referring Provider: Jace Preciado, She[address], [place], [facility]. tel:[phone] [place] [address] [address], [place], [place], [address], [place] tel:[phone] [place] No Information Apr-0 2-202 0 Lehnen Patty. . Referring Provider: Jace Preciado, Sheree [address], [place], [address]. tel:[phone] [place], [place] [address]uite [facility], [place], [place], [address], tel:[phone] [place] No Information Mar-3 1-202 0 Lehnen Patty. . Referring Provider: Jace Preciado, Sheree [address], [place], [address]. tel:[phone] [place], [place] [address] [facility], [place], [place], [address], [place] tel:[phone] [place] No Information Mar-2 6-202 0 Lehnen Patty. . Referring Provider: Jace Preciado, Sheree [address], [place], [address]. tel:[phone] [place], [place] [address]uit[facility], [place], [place], [address], [place] tel:[phone] [place] No Information Mar-1 2-202 0 Lehnen Patty. . Referring Provider: Jace Preciado, [address], [place], [address]. tel:[phone] [place] [address], [place], [place], [address], [place] tel:[phone] [place] No Information Mar-1 0-202 0 Lehnen Patty. . Referring Provider: Jace Preciado, She[address], [place], [address]. tel:[phone] [place] [address], [place], [place], [address], [place] tel:[phone] [place] No Information Mar-0 5-202 0 Lehnen Patty. . Referring Provider: Jace Preciado, Sheree [address], [place], [address]. tel:[phone] [place], [place] [address], [place], [place], [id number], [place] tel:[phone] [place] No Information Dec-0 3- 0 Leizabel Brambila. . Referring Provider: Sheree [address], [place], [address]. tel:[phone] [facility] [address] [place], [place] [address], [place], [place], [address], [place] tel:[phone] [place] No Information 0 Muehl Mookie. [address] [place] [address], [address], [place], [place], [facility], [place]. tel:[phone] Referring Provider: Sheree [address], [place], [address]. tel:[phone] [place] [address] [place], [place] [address], [place], [id number], [place] tel:[phone] [place] No Information 0 Muehl Mookie. [address] [place] [address], [address], [place], [facility], [place]. tel:[phone] Referring Provider: Sheree [address], [place], [address]. tel:[phone] [place] [address] [place], [place] [address] [place] [address], [id number], [place] tel:[phone] [place] No Information 0 Muehl Mookie. [address] [place] [address], [address], [place], [place], [facility], [place]. tel:[phone] Referring Provider: Sheree [address], [place], [address]. tel:[phone] [place] [address] [place], [place] [address], [place], [place], [address], [place] tel:[phone] [place] No Information 0 Muehl Mookie. [address] [facility], [address] [place] [address], [facility], . tel:[phone] Referring Provider: Sheree [address], [place], [address]. tel:[phone], [id number], tel:[phone] [place] No Information b 0 Muehl Mookie. [address] [facility], [address], [place], [place], [facility], . tel:[phone] Referring Provider: Sheree [address], [place], [address]. tel:[phone], [id number], tel:[phone] [place] No Information b 0 Muehl Mookie. [address] [place] [address], [address], [facility], . tel:[phone] Referring Provider: Sheree [address], [place], [address]. tel:[phone], [id number], tel:[phone] [place] No Information b-0 7 0 Lianet Oneill. . Referring Provider: She[address], [place], [address]. tel:[phone], [id number], tel:[phone] [place] No Information Feb0 0 Muehl Mookie. [address] [facility], [address], [place], [facility], . tel:[phone] Referring Provider: Sheree [address], [place], [address]. tel:[phone] Family History Family Member Type Diagnosis Age At Onset No Information Payers Payer name Insurance type Covered alliance party ID Authoreber farrell(s) Medicare [place] MB [id number] For Life Medicare Se condary Only CI [id number] Social History Type Description Quantity Date Captured Comments Sex Male Smoking Status No Information Chief Complaint And Reason For Visit No Information Reason For Referral Reason For Referral No Information Plan Of Treatment Date Type Action Status Referral Ordered: Weight management: Referral to physician timeframe: 1 Month (related to Overweight) ordered Referral Ordered: PCP timeframe: 1 week. (related to Overweight) ordered Referral Ordered: Referrals: Specialist. Evaluate and Treat (related to F43.21) ordered Referral Ordered: Referrals: Specialist. Evaluate and Treat (related to Adjustment disorder with depressed mood) ordered Referral Ordered: Referrals: Specialist. Evaluate and Treat (related to F43.21) ordered Referral Ordered: Clinical Psychology (related to Depression) ordered Referral Ordered: PCP timeframe: 1 week. (related to Overweight) ordered History Of Present Illness Encounter Date Complaint History Of Prese nt Illness No Information Functional Status Date Functional Assessmen t No Information Instructions Date Instruction Additional Infor mation No Information Assessments Type Assessment Date No Information Patient Care Teams Name Effective Dates (start - stop) Status Members No Information
--- OUTSIDE RECORDS SUMMARY | 2025-04-30 19:36 | XMS_ITS | Continuity of Care Document ---
Author Name [facility] Organization [facility] Care Team Providers Care Tobacco Sampler Name Role Phone [facility] Unavailable Unavailable Problems Combined list of problems from Department of Defense and Veterans Affairs facilities. It does not include entries that were removed or entered in error. 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 DoD OTITIS MEDIA Inactive Condition DoD SINUSITIS Active Condition [facility] visit for: issue repeat prescription for medication Inactive Condition [facility] visit for: administrative purpose Inactive Condition [facility] EUSTACHIAN TUBE DYSFUNCTION Active Condition [facility] X-Ray Inactive Condition DoD HYPERLIPIDEMIA Active Condition DoD DIABETES MELLITUS POORLY CONTROLLED Active Condition [facility] ESSENTIAL HYPERTENSION Active Condition [facility] TRANSIENT ISCHEMIC ATTACK (TIA) Active Condition [facility] ATYPICAL CHEST PAIN Active Condition Follow up of stress test DoD CONTACT DERMATITIS PENILE Active Condition DoD (Lower) Leg Localized Swelling Active Condition [facility] DIABETES MELLITUS Active Condition DoD NORMAL ROUTINE HISTORY AND PHYSICAL Inactive Condition DoD HYPERTENSION (SYSTEMIC) Active Condition [facility] NORMAL ROUTINE HISTORY AND PHYSICAL 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 Pt to have PSA done in lab with other labs. [facility] ALLERGIC RHINITIS Active Condition [facility] visit for: laboratory Inactive Condition [facility] heartburn Active Condition Refilled meds. [facility] CERUMEN IMPACTION Inactive Condition [facility] visit for: screening exam cardiovascular disorders Inactive Condition [facility] current smoker Active Condition HE BROWN S A PLAN TO QUIT THIS SUMMER. ENCOURAGED. [facility] ESOPHAGEAL REFLUX Active Condition [facility] Medications Combined list of outpatient medications from [...] before becoming .Store in original package. 02/06/2025 [id number] 4 2023 2 [employer] Tobi HUERTAS ([facility] empaglifloz in 10 mg tablet = 1 [...] use exactly as directed .refrige rate 02/06/2025 [id number] 2023 15 [employer] Tobi HUERTAS ([facility]) ipratropium 42 mcg/inh nasal spray [15mL] = [...] OTHER Drug allergy (disorder) Unknown active 12/31/2003 [facility] Tobi HUERTAS ([facility] Immunizations Combined list of available immunizations from the Department of Defense and Veterans Affairs facilities. Immunization Series Date Given Administered By Site Reaction Lot Number CVX Code Drug Dial Marker Status Comments Source COVID Vaccine Moderna 2021 [...] PF, 100 mcg or 50 mcg dose [facility] influenza, injectable, quadrivalent- pf 2019 [facility] Arm [id number] 150 Seqirus complet ed influenza , injectabl e, quadrival ent-pf 11/30/19 Given Ambulat ory Pharmac y influenza, injectable, quadrivalent- pf 2019 [id number] 150 Seqirus complet ed influenza , injectabl e, quadrival ent-pf 11/30/19 Given Ambulat ory Pharmac y Influenza, injectable, quadrivalent, preservative free 1 2019 Unknown, Provider [id number] 150 Seqirus (SEQ) complet ed Influenza , injectabl e, quadrival ent, preservat luis angel free [facility] influenza, seasonal,high dose-pf 2015 135 sanofi pasteur complet ed influenza , seasonal, high dose-pf 08/11/16 Given Ambulat ory Pharmac y zoster vaccine live 2010 121 Merck & Company Inc complet ed zoster vaccine live 08/03/11 Given Ambulat ory Pharmac y influenza virus vaccine,split 2006 [facility] Arm [id number] 15 sanofi pasteur complet ed influenza virus vaccine,s plit 09/29/07 Given Ambulat ory Pharmac y influenza virus vaccine,split 2006 [id number] 15 sanofi pasteur complet ed influenza virus vaccine,s plit 09/29/07 Given Ambulat ory Pharmac y influenza virus vaccine, split virus (incl. purified surface antigen)-reti red CODE 1 2006 Unknown, Provider [id number] 15 Sanofi Pasteur (PMC) complet ed influenza virus vaccine, split virus (incl. purified surface antigen)- retired CODE DoD influenza virus vaccine,split 2005 zzLef t Arm [id number] 15 [employer] complet ed influenza virus vaccine,s plit 09/13/06 Given Ambulat ory Pharmac y influenza virus vaccine, split virus (incl. purified surface antigen)-reti red CODE 1 2005 Unknown, Provider [id number] 15 [facility] ed influenza virus vaccine, split virus (incl. purified surface antigen)- retired CODE DoD influenza virus vaccine, whole virus [facility] [id number] 16 Novartis Pharmaceutica ls complet ed influenza virus vaccine, whole virus 09/25/03 Given Ambulat ory Pharmac y influenza virus vaccine,split 2002 [id number] 15 Novartis Pharmaceutica ls complet ed influenza virus vaccine,s plit 09/25/03 Given Ambulat ory Pharmac y influenza virus vaccine, whole virus 2002 [id number] 16 Novartis Pharmaceutica ls complet ed influenza virus vaccine, whole virus 09/25/03 Given Ambulat ory Pharmac y influenza virus vaccine, whole virus 1 2002 Unknown, Provider [id number] 16 PowderJect Pharmaceutica ls (PWJ) complet ed influenza virus vaccine, whole virus DoD influenza virus vaccine, whole virus 2002 zzL t Arm [id number] 16 sanofi pasteur complet ed influenza virus vaccine, whole virus 10/30/02 Given Ambulat ory Pharmac y pneumococcal polysaccharid e, 23 valent 2002 zzLef t Arm [id number] 33 Merck & Company Inc complet ed pneumococ kassidy polysacch aride, 23 valent 10/30/02 Given Ambulat ory Pharmac y influenza virus vaccine,split 2002 [id number] 15 sanofi pasteur complet ed influenza virus vaccine,s plit 10/30/02 Given Ambulat ory Pharmac y influenza virus vaccine, whole virus 2002 [id number] 16 sanofi pasteur complet ed influenza virus vaccine, whole virus 10/30/02 Given Ambulat ory Pharmac y pneumococcal polysaccharid e, 23 valent 2002 [id number] 33 Merck & Company Inc complet ed pneumococ kassidy polysacch aride, 23 valent 10/30/02 Given Ambulat ory Pharmac y influenza virus vaccine, whole virus 1 2002 Unknown, Provider [id number] 16 Sanofi Pasteur (PMC) complet ed influenza [...] ADM Date DC Date Status Disposition Source [address] [place] [address] Tobi [facility]AS [facility] Non-GME FHI1) OUTPATIENT [id number] f/u HTN FARRAH NICOLE 01/29 Released w/o Limitations [address] [place] [address] Tobi HUERTAS [facility] am[facility] Practic e Non-GME FHI1) [address] [place] [address] Tobi HUERTAS [facility] OUTPATIENT [id number] htn ANNA GRACIA L 01/29 Released w/o Limitations [address] [place] [address] Tobi HUERTAS [facility]E lectroc ardiogr am Clinic) [address] [place] [address] Tobi HUERTAS [facility] OUTPATIENT [id number] ekg ANNA GRACIA L 01/30 Released w/o Limitations [address] [place] [address] Tobi HUERTAS [facility]diogr am [facility]) [address] [place] [address] Tobi HUERTAS [facility] Non-GME FHI1) OUTPATIENT [id number] Lt ear pain JO SAMANIEGO 08/25 Released w/o Limitations [address] [place] [address] Tobi HUERTAS [facility] Practic e Non-GME FHI1) [address] [place] [address] Tobi HUERTAS [facility] Non-GME FHI2) OUTPATIENT [id number] diabete s JO SAMANIEGO 10/27 Released w/o Limitations [address] [place] [address] Tobi BOOB [facility] am[facility] Practic e Non-GME FHI2) [address] [place] [address] Tobi B [facility] TELE CONSULT [id number] wants diabeti c follow up SRAVANTHI CHU 01/[address] [place] [address] Tobi B [facility] am[facility] Practic e Non-GME FHI2) [address] [place] [address] Tobi B [facility] Non-GME FHI2) OUTPATIENT [id number] follow up for diabete s and labs done in January 2005- JO SAMANIEGO 02/20 Released w/o Limitations [address] [place] [address] Tobi B [facility] am[facility] Practic e Non-GME FHI2) [address] [place] [address] Tobi B [facility] Non-GME FHI2) TELE CONSULT [id number] needs referal for eye exam done on 28 february. GRAYSON ORELLANA 03/[address] [place] [address] Tobi BOOB [facility]F amily Practic e Non-GME FHI2) [address] [place] [address] Tobi B [facility] Internal Medicine ) TELE CONSULT [id number] Med DESI Cifuentes P 07/[address] [place] [address] Tobi HUERTAS [facility]S cott Interna l Medicin e Tm) [address] [place] [address] Tobi Sathish ([facility] ) OUTPATIENT [id number] labs JANELLE SMITH 09/18 Released w/o Limitations [address] [place] [address] Tobi B [facility]S cott Interna l Medicin e Tm) [facility] Medical [facility] Tobi B [facility] Internal Medicine ) TELE CONSULT [id number] Referra l to Eye Doctor DESI SOUSA P 10/[address] [place] [address] Tobi B [facility]S cott Interna l Medicin e Tm) [address] [place] [address] Tobi B [facility] Internal Medicine ) TELE CONSULT [id number] med refill DESI SOUSA P 01/[address] [place] [address] Tobi HUERTAS [facility]S cott Interna l Medicin e Tm) [facility] Tobi HUERTAS ([facility] Medicine ) OUTPATIENT [id number] med refills /dm JANELLE SMITH 02/10 Released w/o Limitations [facility] Tobi Sathish ([facility])(S cott Interna l Medicin e Tm) [facility] Tobi HUERTAS ([facility] Medicine ) TELE CONSULT [id number] Referra l Optomet ry - Diabeti c Pt Additio nal Visits YULISA WHITAKER 03/11[facility] HUERTAS ([facility]S cott Interna l Medicin e Tm) [address] [place] [address] Group Tobi Sathish [facility]Car diologyPr ocedure Schedules ) OUTPATIENT [id number] NUC MED BAAA HTN REMI WOODSON 03/11 Released w/o Limitations [facility] Tobi HUERTAS ([facility]Loren Blackwoodul es) [address] [place] [address] Group Tobi Sathish [facility] Internal Medicine ) TELE CONSULT [id number] lab work for diabeti es and cholest MISSY Castellano 05/[address] [place] [address] Group Tobi HUERTAS ([facility])(S cott Interna l Medicin e Tm) [address] [place] [address] Tobi HUERTAS [facility] Internal Medicine ) OUTPATIENT [id number] f/u diabete s PASTORA GALVAN 06/14 Released w/o Limitations [facility] Tobi HUERTAS ([facility])(S cott Interna l Medicin e Tm) [facility] Tobi HUERTAS [facility] Medicine ) OUTPATIENT [id number] PASTORA Latham 07/13 Released w/o Limitations [address] [place] [address] Group Tobi HUERTAS ([facility])(S cott Interna l Medicin e Tm) [facility] Medical Group Tboi HUERTAS [facility] Medicine ) OUTPATIENT [id number] medicat ion PATSORA GALVAN 09/10 Released w/o Limitations [facility] Tobi [facility]ERTAS [facility]S cott Interna l Medicin e Tm) [facility] Group Tobi HUERTAS [facility] Internal Medicine ) TELE CONSULT [id number] Result KESHAV FLETCHER 10/[address] [place] [address] Tobi Sathish [facility]S cott Interna l Medicin e Tm) [address] [place] [address] Tobi aSthish [facility]) OUTPATIENT [id number] left ear STANISLAW Muse 10/20 Released w/o Limitations [address] [place] [address] Tobi [facility]) [address] [place] [address] [facility])([facility] Internal Medicine ) TELE CONSULT [id number] ear pain. was seen last wed and given loratid ine and nasonex . DESI SOUSA 10/[address] [place] [address] Tobi Sathish [facility]S cott Interna l Medicin e Tm) [address] [place] [address] Tobi Sathish [facility] Internal Medicine ) OUTPATIENT [id number] ear pain, treated in [facility] but worseni ng PASTORA GALVAN 10/26 Released w/o Limitations [address] [place] [address] Tobi [facility])(S cott Interna l Medicin e Tm) [address] [place] [address] Tobi [facility])([facility] Internal Medicine ) OUTPATIENT [id number] ear infecti on left ear PASTORA GALVAN 12/03 Released w/o Limitations [address] [place] [address] Tobi [facility])(S cott Interna l Medicin e Tm) [address] [place] [address] Tobi [facility])([facility] Internal Medicine ) TELE CONSULT [id number] Complet analia out of Diabete s Medicat ion KESHAV FLETCHER 03/[address] [place] [address] Tobi [facility])(S cott Interna l Medicin e Tm) [address] [place] [address] Tobi [facility])([facility] Internal Medicine ) OUTPATIENT [id number] follow- up diabete s, HLP, HTN PASTORA GALVAN L 04/22 Released w/o Limitations [address] [place] [address] Tobi [facility])(S cott Interna l Medicin e Tm) [address] [place] [address] Tobi [facility])([facility] Internal Medicine ) TELE CONSULT [id number] concern ed about a referra AZEB Gee 05/[address] [place] [address] Tobi Sathish [facility]S cott Interna l Medicin e Tm) [address] [place] [address] Tobi HUERTAS [facility]Opt ometry) OUTPATIENT [id number] MARGARITA TAFOYA 05/27 Released w/o Limitations [address] [place] [address] Tobi [facility]ERTAS [facility]O ptometr y) [facility] Outpatient Encounter [id number] 2 12/14 [facility] Procedures Combined list of: 1) Procedures from Department of [facility] Affairs facilities going back up to thelast 18 months, not all CT non-surgical procedures are included; 2) All procedures from the Department of Defense facilities. Procedure Procedure Type Code Date Perfomer Comments Sourc e Scanning Computerized Ophthalmic Diagnostic Imaging 2006 MARGARITA TAFOYA [facility] Corneal Pachymetry, Bilateral With Interpret And Report Corneal Pachymetry, Bilateral With Interpret And Report [id number] 2006 MARGARITA TAFOYA Visual Matthews Test Intermediate Examination Visual Matthews Test Intermediate Examination [id number] 2006 MARGARITA TAFOYA [facility] Ophthalmological New Patient Start Comprehensive Care Ophthalmological New Patient Start Comprehensive Care [id number] 2006 MARGARITA TAFOYA [facility] Cardiac Stre Test, Phys. Supervision, Interp. And Report Cardiac Stress Test, Phys. Supervision, Interp. And Report [id number] 2005 REMI WOODSON [facility] Cerumen Removal Right Ear Irrigation 2003 JO SAMANIEGO [facility] Cerumen Removal Left Ear Irrigation 2003 JO SAMANIEGO [facility] ECG Performance of Tracing Only ECG Performance of Tracing Only [id number] 2003 ANNA GRACIA [facility] ECG Performance of Tracing Only ECG Performance of Tracing Only [id number] 2003 ANNA GRACIA [facility] VISUAL FIELD EXAMINATION, UNI OR BILATERAL, WITH MEDICAL DIAGNOSTIC EVAL; INTERMEDIATE EXAM (EG, AT LEAST 2 ISOPTERS ON GOLDMANN PERIMETER, OR SEMIQUANT, AUTO SUPRATHRESHOLD SCREEN PROGRAM, LI 2006 [facility] CARDIOVASCULAR STRESS TEST USING MAXIMAL OR SUBMAXIMAL TREADMILL OR BICYCLE EXERCISE,CONTINUOUS ELECTROCARDIOGRAPHIC MONITORING,AND/OR PHARMACOLOGICAL STRESS;W SUPERVISION,INTERPRETAT ION AND REPORT 2005 [facility] REMOVAL IMPACTED CERUMEN REQUIRING INSTRUMENTATION, UNILATERAL 2003 [facility] SEDATION WITH OR WITHOUT ANALGESIA (CONSCIOUS SEDATION); INTRAVENOUS, INTRAMUSCULAR OR INHALATION 2003 [facility] ELECTROCARDIOGRAM, ROUTINE ECG WITH AT LEAST 12 LEADS; TRACING ONLY, WITHOUT INTERPRETATION AND REPORT 2003 [facility] ELECTROCARDIOGRAM, ROUTINE ECG WITH AT LEAST 12 LEADS; TRACING ONLY, WITHOUT INTERPRETATION AND REPORT 2002 [facility] THERAPEUTIC, PROPHYLACTIC OR DIAGNOSTIC INJECTION (SPECIFY MATERIAL INJECTED); SUBCUTANEOUS OR INTRAMUSCULAR 2002 [facility] CARDIOVASCULAR STRESS TEST USING TREADMILL 2001 [facility] INFUSION, NORMAL SALINE SOLUTION, 250 CC 2001 [facility] CARDIOVASCULAR STRESS TEST USING TREADMILL 1999 DoD No data available for this section Ambulatory Pharmacy Social History Combined list of available smoking, tobacco, and other social history from Department of Defense and Veterans Affairs facilities. Social History Type Response Date Comment Sourc e This section is an empty social history section. [facility] Assessment and Plan Combined list of future care activities from Department of Defense and Veterans Affairs facilities (e.g., assessment and plan notes, appointments, orders, and referrals). Additional future care activities may be listed in the Plan of Care section. Result Assessment and Plan Date Source Assessment and Plan No data available for this section 05/01/2025 Ambulatory Pharmacy Functional Status Combined list of recent functional and cognitive assessments recorded at Department of Defense and Veterans Affairs [place] Functional [place] Measurement (FIM) Scale: 1 = Total Assistance (Subject = 0% +), 2 = Maximal Assistance (Subject = 25% +), 3 = Moderate Assistance (Subject = 50% +), 4 = Minimal Assistance (Subject = 75% +), 5 = Supervision, 6 = Modified [place] (Device), 7 = Complete [place] (Timely, Safely). Assessment Date/Time Source Assessment Type Assessment Skill Assessment Score Assessment Details No data available for this section
--- OUTSIDE RECORDS SUMMARY | 2025-04-30 19:36 | XMS_ITS | Clinical Summary ---
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
--- OUTSIDE RECORDS SUMMARY | 2025-04-30 19:36 | XMS_ITS | Encounter Summary ---
Author Organization [facility] Care Team Providers Care Nurse Healthcare Manager Name Role Phone Layo Hayden MD Primary Care Provider [phone] Neli Boyle MD Primary Care Provider Tres Catherine DO Primary Care Provider [phone] Encounter Details Date Type Department Care Team (Latest Contact Info) Description 12/07/2016 Orders Only [facility] CLINCONV ProviderHardik MD [address] [place] [id number] Social History Tobacco Use Types Packs/Day Years Used Date Smoking Tobacco: Former Alcohol Use Standard Drinks/Week Comments No 0 (1 standard drink = 0.6 oz pur e alcohol) Sex and Gender Information Value Date Recorded Sex Assigned at Not on file Legal Sex Male 3:27 AM 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 Historical Provider Final Res ult documented in this encounter Visit Diagnoses Not on filedocumented in this encounter Care Teams Nurse Healthcare Manager Relationship Specialty Start Date End Date Layo Hayden MD PCP - General 06/03/15 12/31/16 Neli Boyle MD [address] [address] PCP - General Family Medicine 03/09/23 03/08/24 Tres Catherine DO [address] [address] PCP - General Internal Medicine 03/09/24 documented as of this encounter
--- OUTSIDE RECORDS SUMMARY | 2025-04-30 19:36 | XMS_ITS | Clinical Summary ---
Author Organization [facility] ut[facility]rist[facility] Address [address] [place] [id number] Phone Care Team Providers Care Greenhouse Instructor Name Role Phone Neli Boyle MD Primary Care Provider [phone] Allergies Active Allergy Reactions Criticality Noted Date [...] on file Legal Sex Male 9:37 AM [facility] Gender Identity Not on file Sexual [...] (#1) 2025 1, 08/10/2017, 08/10/2016 Insurance MEDICARE [facility] Care Teams Greenhouse Instructor Relationship Specialty Start Date End Date Neli Boyle MD [address] [facility] [address] [place] [address] PCP - General Internal Medicine 05/21/22
--- OUTSIDE RECORDS SUMMARY | 2025-04-30 19:36 | XMS_ITS | Referral Summary ---
Author Organization [place] [address] [address] [place] [address] [address] [place] [address] Care Team Providers Care Child Nutrition Director Name Role Phone Tres Catherine Primary Care Provider [phone] Encounters Date Type Department Care Team Description 04/27/[address] [place] [address] Lila Correa MA 04/10/2025 1:30 PM CDT Office Visit [facility] Cardiology [address] [place] [address] [address] [place] [address] Meredith Olivarez NP History of non-ST elevation myocardial infarction (NSTEMI); Coronary artery disease involving levelock coronary artery of levelock heart without angina pectoris; Presence of stent in coronary artery; Hyperlipidemia associated with type 2 diabetes mellitus (HCC); Statin intolerance; Chronic kidney disease, unspecified CKD stage; Tobacco dependence; Hospital discharge follow-up 04/02/2025 Orders Only [facility] Cardiology [address] [place] [address] [address] [place] [address] Jigna Soto MD 03/29/[address] [place] [address] Jaleesa Rhodes NP 03/26/2025 Orders Only [facility] Health Information Management [address] [place] [address] Scanning, Provider from Last 3 Months Allergies Active Allergy Reactions Criticality Noted Date Comments Milk Stomach upset Low 11/11/2021 Vuqqhiz-Sup-Aiz Reductase Inhibitors Muscle pain Medium 03/10/2023 Medications [...] mg chewable tabletIndicati ons:Coronary artery disease involving levelock coronary artery of levelock heart without angina pectoris Take 1 tablet [...] 3.125 mg tabletIndicati ons:Coronary artery disease involving levelock coronary artery of levelock heart without angina pectoris Take 1 tablet [...] on file Legal Sex Male 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 Gender Identity Not on file Sexual Orientation Not on file Last Filed Vital Signs Vital Sign Reading Time Taken Comments Blood Pressure 150/60 04/10/2025 1:47 PM CDT Pulse 76 04/10/2025 1:47 PM CDT Temperature 36.9 C (98.5 F) 06/12/2014 7:16 AM CDT Respiratory Rate 16 10/06/2024 11:07 AM CELL ATTENDANT HELPER Oxygen Saturation 96% 04/10/2025 1:47 PM CDT [...] 03/26/2025 LIPID PANEL Routine 09/12/2024 8:39 AM CELL ATTENDANT HELPER HEMOGLOBIN A1C Routine 01/10/2014 9:15 AM CDT [...] * (ABNORMAL) Lipid panel (09/12/2024 8:39 AM CELL ATTENDANT HELPER) SCRIBED Cholesterol, Total 242(A) 0 - 200 EXTERNAL LAB SCRIBED HDL 65 40 - 100 EXTERNAL LAB SCRIBED LDL 117(A) 0 - 100 EXTERNAL LAB SCRIBED Triglycerides 142 0 - 150 EXTERNAL LAB Blood 09/12/2024 8:39 AM CELL ATTENDANT HELPER Historical Provider LAB BLOOD ORDERABLES Sulema l Result EXTERNAL LAB * (ABNORMAL) Hemoglobin A1c (01/10/2014 9:15 AM CDT) Hemoglobin A1c % 7.9(H) 4.8 - 5.9 % 01/12/2014 3:45 PM CDT [facility] HISTORICAL RESULTS Comment: As of 2010 Method: BASILIA Asa 6000 using turbidometric inhibition immunoassay procedure. Results obtained are comparable to results obtained using previous methodology (HPLC). [employer] recommends that the goal of therapy should be an A1C hemoglobin of <7%. Reevaluate the treatment regimen in patients with an A1C >8%. 01/10/2014 9:15 AM CDT 01/10/2014 10:15 AM CDT Jorge Luis CASILLAS LAB BLOOD ORDERABLES Final Resu lt [facility] HISTORICAL RESULTS from Last 3 Months or Most Recently Relevant to Health Maintenance Insurance [employer] MEDICARE MEDICARE FOR [facility] MEDICARE [facility] Care Teams Child Nutrition Director Relationship Specialty Start Date End Date Tres Catherine DO PCP - General Internal Medicine 03/09/24
--- OUTSIDE RECORDS SUMMARY | 2025-04-30 19:36 | XMS_ITS | Encounter Summary ---
Author Organization [facility] Healthcare Address [address] [place] [address] Care Team Providers Care Research And Development Specialist Name Role Phone Tres Catherine DO Primary Care Provider [phone] Encounter Details Date Type Department Care Team (Late st Contact Info) Description 03/26/2025 Orders Only [facility] Health Information Management [address] [place] [address] Scanning, Provider Social History Tobacco Use Types Packs/Day Years Used Date Smoking Tobacco: Former Smokeless Tobacco: Never Alcohol Use Standard Drinks/Week Comments No 0 (1 standard drink = 0.6 oz pur e alcohol) Sex and Gender Information Value Date Recorded Sex Assigned at Not on file 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
--- OUTSIDE RECORDS SUMMARY | 2025-04-30 19:36 | XMS_ITS | Clinical Summary ---
Author Organization [facility] [address] Address [address] [place] [address] Care Team Providers Care Object Oriented Developer Name Role Phone Tres Catherine Primary Care Provider [phone] Allergies Active Allergy Reactions Criticality Noted Date Comments Milk Stomach upset Low 11/11/2021 Xepgdkh-Gpa-Mja Reductase Inhibitors Muscle pain Medium 03/10/2023 Medications [...] mg chewable tabletIndicati ons:Coronary artery disease involving [place] coronary artery of [place] heart without angina pectoris Take 1 tablet [...] 3.125 mg tabletIndicati ons:Coronary artery disease involving [place]uiqs[place] coronary artery of nuiqs[place] heart without angina pectoris Take 1 tablet [...] Type Department Care Team Description 04/27/2025 Telephone [facility] Medical [facility] Cardiology [address] [facility] [address] [place] [address] Lila Correa MA 04/10/2025 1:30 PM CDT Office Visit [facility] Cardiology [address] [place] [address] [address] [place] [address] Meredith Olivarez NP History of non-ST elevation myocardial infarction (NSTEMI); Coronary artery disease involving nuiqs[place] coronary artery of nuiqs[place] heart without angina pectoris; Presence of stent in coronary artery; Hyperlipidemia associated with type 2 diabetes mellitus (HCC); Statin intolerance; Chronic kidney disease, unspecified CKD stage; Tobacco dependence; Hospital discharge follow-up 04/02/2025 Orders Only [facility] Cardiology [address] [place] [address] [place] [phone] Jigna Soto MD 03/29/2025 Telephone [facility] Cardiology [address] [place] [address] [address] [place] [phone] Jaleesa Rhodes NP 03/26/2025 Orders Only [facility] Health Information Management [address] [place], [place] [id number] Scanning, Provider from Last 3 Months Surgical [...] on file 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 Gender Identity Not on file Sexual Orientation Not on file Obstetrics History Last Filed Vital Signs Vital Sign Reading Time Taken Comments Blood Pressure 150/60 04/10/2025 1:47 PM CDT Pulse 76 04/10/2025 1:47 PM CDT Temperature 36.9 C (98.5 F) 06/12/2014 7:16 AM CDT Respiratory Rate 16 10/06/2024 11:07 AM MECHANICAL HANDYMAN Oxygen Saturation 96% 04/10/2025 1:47 PM CDT [...] 03/26/2025 LIPID PANEL Routine 09/12/2024 8:39 AM MECHANICAL HANDYMAN HEMOGLOBIN A1C Routine 01/10/2014 9:15 AM CDT [...] * (ABNORMAL) Lipid panel (09/12/2024 8:39 AM MECHANICAL HANDYMAN) SCRIBED Cholesterol, Total 242(A) 0 - 200 EXTERNAL LAB SCRIBED HDL 65 40 - 100 EXTERNAL LAB SCRIBED LDL 117(A) 0 - 100 EXTERNAL LAB SCRIBED Triglycerides 142 0 - 150 EXTERNAL LAB Blood 09/12/2024 8:39 AM MECHANICAL HANDYMAN Historical Provider LAB BLOOD ORDERABLES Sulema dawkins Result EXTERNAL LAB * (ABNORMAL) Hemoglobin A1c (01/10/2014 9:15 AM CDT) Hemoglobin A1c % 7.9(H) 4.8 - 5.9 % 01/12/2014 3:[address] [facility] HISTORICAL RESULTS Comment: As of 2010 Method: [...] ORDERABLES Final Resu lt Performing Organization Address City/[facility]/ZIP Co de Phone Number [facility] HISTORICAL RESULTS from Last 3 Months or Most Recently Relevant to Health Maintenance Insurance [employer] MEDICARE MEDICARE FOR LIFE MEDICARE FOR LIFE Care Teams Object Oriented Developer Relationship Specialty Start Date End Date Tres Catherine DO PCP - General Internal Medicine 03/09/24
[2025-04-30] MEDS: SODIUM CHLORIDE 0.9% IV 500 ML 999 ML (20:16)
--- NOTE | 2025-04-30 20:47 | ED_ITS ---
HPI - General Adult General Chief complaint: Recheck/Abnormal Lab/Rx Stated complaint: my filtration rate is low Time Seen by Provider: 04/30/25 19:13 Source: patient Mode of arrival: EMS Limitations: no limitations History of Present Illness HPI narrative: 84-year-old with a history of CKD, hypertension, CAD was seen by his primary doctor for worsening of his kidney function. Patient 330 had lab work done this morning which showed a GFR of 26%. Patient presently has no major complaints except for the fact that he gets dizzy when he stands up from a lying down position. He denies any nausea, vomiting. He states he has been constipated for 2 days. Severity: mild Exacerbating factors: none Associated symptoms: denies other symptoms Related Data Home Medications ?Medication ?Instructions ?Recorded ?Confirmed ?Last Taken ?Type cholecalciferol (vitamin D3) 125 125 mcg PO DAILY 02/04/22 04/20/25 08/20/24 History mcg (5,000 unit) capsule vitamin B complex 1 cap PO DAILY 02/04/22 04/20/25 08/20/24 History coQ10 (ubiquinol) 100 mg capsule 100 mg PO DAILY 08/20/24 04/20/25 08/20/24 History (Qunol Josias CoQ10) oxybutynin chloride 5 mg 5 mg PO DAILY 08/20/24 04/20/25 08/20/24 History tablet,extended release 24 hr Allergies Allergy/AdvReac Type Severity Reaction Status Date / Time milk AdvReac Mild Nausea, Verified 04/20/25 10:40 DIARRHEA carvedilol AdvReac Unknown Weakness Verified 04/20/25 10:40 lisinopril AdvReac Unknown Weakness Verified 04/20/25 10:40 Npkrmoq-UWR-PiS Reductase AdvReac Unknown Muscle Pain Verified 04/20/25 10:40 Inhibitor (Kdlrsnm-Pkm-Ccr Reductase Inhibitor) Review of Systems 2 Review of Systems: All systems reviewed & are unremarkable except as noted in HPI and below Constitutional: Constitutional: Reports no additional constitutional complaints Eyes: Eyes: Reports no additional eye complaints ENT: Reports system reviewed and no additional complaints, except as documented Cardiovascular: Cardiovascular: Reports no additional cardiovascular complaints Respiratory: Respiratory: Reports no additional respiratory complaints Gastrointestinal: Gastrointestinal: Reports no additional gastrointestinal complaints Musculoskeletal: Musculoskeletal: Reports no additional musculoskeletal complaints Neurologic: Reports system reviewed and no additional complaints, except as documented PMFSH Past Medical History Medical History Eczema of external ear Lip numbness BMI 30.0-30.9,adult Elevated aldolase level CHF (congestive heart failure), NYHA class II Anemia in chronic kidney disease URI (upper respiratory infection) AOM (acute otitis media) Type 2 diabetes mellitus with proteinuria Sleep apnea Acute kidney injury superimposed on chronic kidney disease Chronic kidney disease CKD (chronic kidney disease) SIMON (obstructive sleep apnea) COPD (chronic obstructive pulmonary disease) Atrial fibrillation CVA (cerebral vascular accident) Prostate cancer HLD (hyperlipidemia) HTN (hypertension) Diabetes mellitus Surgical History Surgical History S/P total hip arthroplasty LEFT Family History Family History Sibling Patient's brother is in good health Family history of diabetes mellitus in first degree relative Family history of malignant neoplasm Mother Family history of malignant neoplasm Patient's father is Father Patient's father is Acute myocardial infarction Other Diabetes mellitus Hypertension Social History Social History Social History: Smoking packs per day: 0.5 Smoking cigarettes per day: 10.0 Years smoked: 50 Smoking pack-years: 25.00 Smoking status: Current every day smoker Tobacco type: cigarettes Second hand tobacco smoke exposure: No Additional smoking assessment comments: currently taking Chantix for smoking cessation Alcohol intake: never Substance use: never Substance use type: does not use Do You Feel Safe in your Home?: Yes Lack of Transportation: No Lack of Food: Never True Current Housing: I Have Housing Concerned About Future Housing: No Difficulty Paying Gas/Electric Bills: No Difficulty Paying for Meds: No Currently Unemployed: No Education: Bachelor's Degree Difficulty w/ Childcare or Family Care: No Living arrangements: alone Occupation/Education: retired Additional occupation/education comments: [employer]. Gender identity (if verbalized by the patient): Male Sexual Orientation (if Verbalized by the Patient): Straight or Heterosexual Spiritual care concerns: No Exam 2 Narrative: GENERAL: Well-appearing, well-nourished, and in no acute distress. HEAD: Normocephalic, atraumatic. EYES: PERRLA and EOMI. ENT: Nares clear, no rhinorrhea or epistaxis. Mucous membranes moist. NECK: Supple. CHEST: Clear to auscultation. No respiratory distress. HEART: Regular rate and rhythm. No murmur heard. Normal peripheral pulses. ABDOMEN: Soft, nontender, nondistended, normal active bowel sounds. EXTREMITIES: Normal range of motion. No edema. SKIN: Warm, dry, no rash. NEURO: No focal deficits. Alert and oriented x3. PSYCH: Normal mood and affect. Course Course Emergency Course: Discussed lab work with the patient as well as with Dr. Vazquez as patient has no complaints and his creatinine is at baseline he can be discharged home he can be followed up in the office. Vital Signs Vital signs: Vital Signs Temperature 36.6 C 04/30/25 14:11 Pulse Rate 64 04/30/25 14:11 Respiratory Rate 18 04/30/25 14:11 Blood Pressure 164/68 H 04/30/25 14:11 Pulse Oximetry 100 04/30/25 14:11 Oxygen Delivery Room Air 04/30/25 14:11 Temperature 36.6 C 04/30/25 14:11 Pulse Rate 55 L 04/30/25 19:54 Respiratory Rate 12 04/30/25 19:54 Blood Pressure 158/67 H 04/30/25 19:54 Pulse Oximetry 100 04/30/25 19:54 Oxygen Delivery Room Air 04/30/25 14:11 Medical Decision Making Differential Diagnosis Differential Diagnosis: Dehydration worsening of renal failure Medical Records Medical records reviewed: Yes I reviewed the external patient's medical records. Vital Signs Vital Signs: Vital Signs Temperature 36.6 C 04/30/25 14:11 Pulse Rate 64 04/30/25 14:11 Respiratory Rate 18 04/30/25 14:11 Blood Pressure 164/68 H 04/30/25 14:11 Pulse Oximetry 100 04/30/25 14:11 Oxygen Delivery Room Air 04/30/25 14:11 Temperature 36.6 C 04/30/25 14:11 Pulse Rate 55 L 04/30/25 19:54 Respiratory Rate 12 04/30/25 19:54 Blood Pressure 158/67 H 04/30/25 19:54 Pulse Oximetry 100 04/30/25 19:54 Oxygen Delivery Room Air 04/30/25 14:11 Lab Data Lab results reviewed: Yes I reviewed the patient's lab results. 04/30/25 15:44 04/30/25 15:44 Labs: Lab Results 04/30/25 04/30/25 Range/Units 15:44 15:52 WBC 5.7 (4.5-10.0) K/mm3 RBC 4.27 L (4.6-6.20) M/mm3 Hgb 11.9 L (14.0-18.0) g/dL Hct 37.4 L (42.0-52.0) % MCV 87.6 (80-100) fl MCH 27.9 (26-34) pg MCHC 31.8 L (32-36) g/dl RDW 16.4 H (11.5-14.5) % Plt Count 220 (150-375) k/mm3 MPV 10.6 H (7.4-10.4) fl Immature Gran % (Auto) 0.2 (0-0.5) % Neut % (Auto) 55.4 (45.5-73.1) % Lymph % (Auto) 28.3 (18.3-44.2) % Hooker % (Auto) 11.6 H (2.6-8.5) % Eos % (Auto) 4.0 (0-4.4) % Baso % (Auto) 0.5 (0.2-1.2) % Lymph # (Auto) 1.61 (0.9-3.2) K/mm3 [place] # (Auto) 0.7 H (0.1-0.6) K/mm3 Eos # (Auto) 0.2 (0-0.3) K/mm3 Baso # (Auto) 0.0 (0.0-0.1) K/mm3 Abs Immat Gran (auto) 0.01 (0.00-0.031) K/mm3 Absolute Neuts (auto) 3.1 (1.3-6.7) K/mm3 Absolute Nucleated RBC 0.000 (0.0-0.012) K/mm3 Nucleated RBC % 0.0 (0.0-0.2) % PT 13.1 (11.1-14.7) Seconds INR 1.0 APTT 29.2 (22.3-36.8) Seconds Sodium 141 (137-145) mmol/L Potassium 3.7 (3.4-5.0) mmol/L Chloride 112 H (98-107) mmol/L Carbon Dioxide 21 L (22-30) mmol/L Anion Gap 8 (4-12) mmol/L BUN 18 (9-20) mg/dL Creatinine 2.06 H (0.7-1.3) mg/dL Estim Creat Clear Calc 30 ml/min Estimated GFR 31 L (59 - ) Glucose 106 (65-110) mg/dL Calcium 9.0 (8.4-10.2) mg/dL Total Bilirubin 0.3 (0.2-1.3) mg/dL AST 33 (17-59) U/L ALT 19 (6-50) U/L Alkaline Phosphatase 73 (38-126) U/L Total Protein 7.2 (6.3-8.2) g/dL Albumin 3.8 (3.5-5.1) g/dL Urine Color Dark yellow (Yellow) Urine Appearance Clear (Clear) Urine pH 5.5 (5.0-9.0) Ur Specific [place] 1.027 (1.001-1.035) Urine Protein 1+ H (Negative) mg/dL Urine Glucose (UA) 3+ H (Negative) mg/dL Urine Ketones Trace H (Negative) mg/dL Ur Blood (Man) Negative (Negative) Urine Nitrate Negative (Negative) Urine Bilirubin Negative (Negative) Urine Urobilinogen 0.2 (<2.0) mg/dL Leukocyte Esterase Rfl Negative (Negative) KARLA/UL Urine RBC 0-2 (0-2) /hpf Urine WBC 0-5 (0-3) /hpf Ur Squamous Epith Cells None seen (Few) /hpf Urine Bacteria None seen /hpf Urine Casts 0-2 ECG Data EKG #1: ECG completion date: 04/30/25 ECG completion time: 18:17 EKG Interpretation: normal rate, bradycardia (59), LBBB, other (No significant change from previous tracings) and no acute changes Discharge Plan Discharge Clinical Impression: CKD stage 4 due to type 2 diabetes mellitus Patient Disposition: Home Condition: Stable Instructions: Antibiotic Form, Chronic Kidney Disease (ED) Additional Instructions: Continue home medication, follow-up with your primary doctor Patient Language: Kuwaiti Prescriptions: No Action amlodipine 10 mg tablet 10 mg PO DAILY Qty: 30 7RF (DME) OneTouch Verio test strips Strip Qty: 1 0RF Rx Instructions: 2 times a day as needed insulin glargine [Lantus Solostar U-100 Insulin] 100 unit/mL (3 mL) insulin pen 8 unit subcut QAM Qty: 30 0RF (DME) FreeStyle Moo 2 [place] Misc See Rx Instructions .Route Qty: 1 0RF Rx Instructions: Use to check blood sugar TID bempedoic acid 180 mg tablet 180 mg PO DAILY Qty: 90 0RF empagliflozin 25 mg tablet 25 mg PO DAILY Qty: 90 2RF (DME) pen needle, diabetic 32 gauge x 5/32 needle See Rx Instructions .ROUTE .MEDSUPPLY Qty: 1200 0RF Rx Instructions: As directed glucose 4 gram tablet,chewable 16 g PO Q15M PRN (Reason: hypoglycemia) Qty: 90 0RF Rx Instructions: until symptoms of low blood sugar are controlled Gvoke HypoPen 2-Pack 1 mg/0.2 mL auto-injector 1 mg subcut ONCE Qty: 0.4 0RF Rx Instructions: as a single dose; may repeat once after 15 minutes if no response fluticasone propionate 50 mcg/actuation spray,suspension 1 spray intranasal DAILY 30 Days Qty: 16 2RF Rx Instructions: administer into each nostril vitamin B complex Capsule 1 cap PO DAILY cholecalciferol (vitamin D3) 125 mcg (5,000 unit) Capsule 125 mcg PO DAILY oxybutynin chloride 5 mg tablet extended release 24hr 5 mg PO DAILY coQ10 (ubiquinol) [Qunol Josias CoQ10] 100 mg Capsule 100 mg PO DAILY clopidogrel [Plavix] 75 mg tablet 75 mg PO DAILY Qty: 30 11RF hydralazine 50 mg tablet 50 mg PO TID 30 Days Qty: 30 11RF aspirin [Children's Aspirin] 81 mg Tablet,Chewable 81 mg PO DAILY@0800 Qty: 30 0RF (DME) pen needle, diabetic [Advocate Pen Needle] 33 gauge x 5/32 needle See Rx Instructions .Route Qty: 300 0RF Rx Instructions: use with lantus, and humalog pen, tid (DME) pen needle, diabetic 32 gauge x 5/32 needle See Rx Instructions .Route Qty: 100 12RF Rx Instructions: use to administer insulin (DME) FreeStyle Moo 2 Sensor Kit See Rx Instructions .Route Qty: 6 12RF Rx Instructions: Once every 14 days (DME) blood-glucose meter [OneTouch Verio Flex meter] [facility] Qty: 1 0RF Rx Instructions: May substitute to in-stock meter and/or covered by insurance. Use As Directed (DME) OneTouch Verio test strips Strip Qty: 1 0RF Rx Instructions: May substitute to in-stock and/or covered by insurance strips. Use As Directed (DME) lancets [OneTouch Delica Plus Lancet] 30 gauge [facility] Qty: 1 0RF Rx Instructions: May substitute to in-stock and/or covered by insurance lancets. Use As Directed Follow-up/Referrals: Tres Catherine DO [Primary Care Provider] - Time of Disposition: 20:52
== END 2025-04-30 21:42 | disposition home or self-care (01) ==
PROVIDERS: Registered Nurse; Emergency Provider Family Medicine; PCP Internal Medicine
DX: E11.22 Type 2 diabetes mellitus with diabetic chronic kidney disease (principal); N18.4 Chronic kidney disease, stage 4 (severe); I10 Essential (primary) hypertension; G47.30 Sleep apnea, unspecified; E78.5 Hyperlipidemia, unspecified; I11.0 Hypertensive heart disease with heart failure; I50.9 Heart failure, unspecified; J44.9 Chronic obstructive pulmonary disease, unspecified; D64.9 Anemia, unspecified; R94.31 Abnormal electrocardiogram [ECG] [EKG]
CPT/HCPCS: 36415; 80053; 81001; 85025; 85610; 85730; 93005; 96360; 96361; 99283; J7040

== ENCOUNTER 2025-05-25 13:11 | Emergency (ER) | payer MEDICARE, OTHER, SELFPAY ==
--- OUTSIDE RECORDS SUMMARY | 2025-05-25 13:13 | XMS_ITS | Continuity of Care Document ---
Author Name [facility] Organization [facility] Care Team Providers Care Customs Agent Name Role Phone [facility] Unavailable Unavailable Problems Combined list of problems from Department of Defense and Veterans Affairs facilities. It does not include entries that were removed or entered in error. 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 DoD OTITIS MEDIA Inactive Condition DoD SINUSITIS Active Condition [facility] visit for: issue repeat prescription for medication Inactive Condition [facility] visit for: administrative purpose Inactive Condition [facility] EUSTACHIAN TUBE DYSFUNCTION Active Condition [facility] X-Ray Inactive Condition DoD HYPERLIPIDEMIA Active Condition DoD DIABETES MELLITUS POORLY CONTROLLED Active Condition [facility] ESSENTIAL HYPERTENSION Active Condition [facility] TRANSIENT ISCHEMIC ATTACK (TIA) Active Condition [facility] ATYPICAL CHEST PAIN Active Condition Follow up of stress test DoD CONTACT DERMATITIS PENILE Active Condition DoD (Lower) Leg Localized Swelling Active Condition [facility] DIABETES MELLITUS Active Condition DoD NORMAL ROUTINE HISTORY AND PHYSICAL Inactive Condition DoD HYPERTENSION (SYSTEMIC) Active Condition [facility] NORMAL ROUTINE HISTORY AND PHYSICAL 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 Pt to have PSA done in lab with other labs. [facility] ALLERGIC RHINITIS Active Condition [facility] visit for: laboratory Inactive Condition [facility] heartburn Active Condition Refilled meds. [facility] CERUMEN IMPACTION Inactive Condition [facility] visit for: screening exam cardiovascular disorders Inactive Condition [facility] current smoker Active Condition HE BROWN S A PLAN TO QUIT THIS SUMMER. ENCOURAGED. [facility] ESOPHAGEAL REFLUX Active Condition [facility] Medications Combined list of outpatient medications from [...] total refill(s ), Hard Stop Ordered 10/02/2025 5 2024 30.0 Ambulat ory Pharmac y amLODIPine [...] 3 2022 2.0 Ambulat ory Pharmac y empaglifloz in 10 mg tablet = 1 [...] ed 12/21/20232023 1.0 Ambulat ory Pharmac y ipratropium 42 mcg/inh nasal spray [15mL] = [...] OTHER Drug allergy (disorder) Unknown active 12/31/2003 [facility] Tobi HUERTAS ([facility]) Immunizations Combined list of available immunizations from the Department of Defense and Veterans Affairs facilities. Immunization Series Date Given Administered By Site Reaction Lot Number CVX Code Drug Flare Man Status Comments Source COVID Vaccine Moderna 2021 207 complet ed COVID Vaccine Moderna 10/08/21 Given Ambulat ory Pharmac y COVID-19, mRNA, LNP-S, PF, 100 mcg or 50 mcg dose 2021 ALUL, Moderna US, Inc. (MOD) Not Given COVID-19, mRNA, LNP-S, PF, 100 mcg or 50 mcg dose DoD COVID-19, mRNA, LNP-S, PF, 100 mcg or 50 mcg dose 2020 IBETH, Moderna US, Inc. (MOD) Not Given COVID-19, mRNA, LNP-S, PF, 100 mcg or 50 mcg dose DoD influenza, injectable, quadrivalent- pf 2019 [facility] Arm [id number] 150 Seqirus complet ed influenza , injectabl e, quadrival ent-pf 11/30/19 Given Ambulat ory Pharmac y influenza, injectable, quadrivalent- pf 2019 [id number] 150 Seqirus complet ed influenza , injectabl e, quadrival ent-pf 11/30/19 Given Ambulat ory Pharmac y Influenza, injectable, quadrivalent, preservative free 1 2019 Unknown, Provider [id number] 150 Seqirus (SEQ) complet ed Influenza , injectabl e, quadrival ent, preservat luis angel free DoD influenza, seasonal,high dose-pf 2015 135 sanofi pasteur complet ed influenza , seasonal, high dose-pf 08/11/16 Given Ambulat ory Pharmac y zoster vaccine live 2010 121 Merck & Company Inc complet ed zoster vaccine live 08/03/11 Given Ambulat ory Pharmac y influenza virus vaccine,split 2006 [facility] Arm [id number] 15 sanofi pasteur complet ed influenza virus vaccine,s plit 09/29/07 Given Ambulat ory Pharmac y influenza virus vaccine,split 2006 [id number] 15 sanofi pasteur complet ed influenza virus vaccine,s plit 09/29/07 Given Ambulat ory Pharmac y influenza virus vaccine, split virus (incl. purified surface antigen)-reti red CODE 1 2006 Unknown, Provider [id number] 15 Sanofi Pasteur (PMC) complet ed influenza virus vaccine, split virus (incl. purified surface antigen)- retired CODE DoD influenza virus vaccine,split 2005 zzL t Arm [id number] 15 GlaxoSmithKli tx complet ed influenza virus vaccine,s plit 09/13/06 Given Ambulat ory Pharmac y influenza virus vaccine, split virus (incl. purified surface antigen)-reti red CODE 1 2005 Unknown, Provider [id number] 15 [facility] (SKB) complet ed influenza virus vaccine, split virus (incl. purified surface antigen)- retired CODE DoD influenza virus vaccine, whole virus 2002 [facility] Arm [id number] 16 Novartis Pharmaceutica ls complet ed influenza virus vaccine, whole virus 09/25/03 Given Ambulat ory Pharmac y influenza virus vaccine,split 2002 [id number] 15 Novartis Pharmaceutica ls complet ed influenza virus vaccine,s plit 09/25/03 Given Ambulat ory Pharmac y influenza virus vaccine, whole virus 2002 [id number] 16 Novartis Pharmaceutica ls complet ed influenza virus vaccine, whole virus 09/25/03 Given Ambulat ory Pharmac y influenza virus vaccine, whole virus 1 2002 Unknown, Provider [id number] 16 PowderJect Pharmaceutica ls (PWJ) complet ed influenza virus vaccine, whole virus DoD influenza virus vaccine, whole virus [id number] 16 sanofi pasteur complet ed influenza virus vaccine, whole virus 10/30/02 Given Ambulat ory Pharmac y pneumococcal polysaccharid e, 23 valent [facility] [id number] 33 Merck & Company Inc complet ed pneumococ kassidy polysacch aride, 23 valent 10/30/02 Given Ambulat ory Pharmac y influenza virus vaccine,split 2002 [id number] 15 sanofi pasteur complet ed influenza virus vaccine,s plit 10/30/02 Given Ambulat ory Pharmac y influenza virus vaccine, whole virus 2002 [id number] 16 sanofi pasteur complet ed influenza virus vaccine, whole virus 10/30/02 Given Ambulat ory Pharmac y pneumococcal polysaccharid e, 23 valent 2002 [id number] 33 Merck & Company Inc complet ed pneumococ kassidy polysacch aride, 23 valent 10/30/02 Given Ambulat ory Pharmac y influenza virus vaccine, whole virus 1 2002 Unknown, Provider [id number] Sanofi Pasteur ([facility]) complet ed influenza virus vaccine, whole virus [...] ADM Date DC Date Status Disposition Source [address] [place] [address] Tobi HUERTAS ([facility])(Fam darya Practice Non-GME FHI1) OUTPATIENT [id number] f/u HTN FARRAH NICOLE 01/29 Released w/o Limitations [address] [place] [address] Tobi HADDADB [facility]F amily Practic e Non-GME FHI1) [address] [place] [address] [employer] [facility]) OUTPATIENT [id number] htn ANNA GRACIA 01/29 Released w/o Limitations [address] [place] [address] [facility]obi HADDADB [facility]E lectroc ardiogr am Clinic) [address] [place] [address] [facility]obi HADDADB [facility]) OUTPATIENT [id number] ekg ANNA GRACIA 01/30 Released w/o Limitations [address] [place] [address] Tobi HADDADB [facility]E lectroc ardiogr am Clinic) [address] [place] [address] Tobi HADDADB [facility]Fam darya Practice Non-GME FHI1) OUTPATIENT [id number] Lt ear pain JO SAMANIEGO 08/25 Released w/o Limitations [address] [place] [address] Tobi HADDADB ([facility])(F amily Practic e Non-GME FHI1) [address] [place] [address] [employer] ([facility])(Fam darya Practice Non-GME FHI2) OUTPATIENT [id number] diabete s JO SAMANIEGO 10/27 Released w/o Limitations [address] [place] [address] [employer] ([facility])(F amily Practic e Non-GME FHI2) [address] [place] [address] [employer] ([facility])(Fam darya Practice Non-GME FHI2) TELE CONSULT [id number] wants diabeti c follow up SRAVANTHI CHU 01/[address] [place] [address] Tobi HADDADB ([facility])(F amily Practic e Non-GME FHI2) [address] [place] [address] [employer] [facility]Fam darya Practice Non-GME FHI2) OUTPATIENT [id number] follow up for diabete s and labs done in January 2005- JO SAMANIEGO 02/20 Released w/o Limitations [address] [place] [address] Tobi BOOSathish [facility])(F amily Practic e Non-GME FHI2) [address] [place] [address] [facility])([facility] Non-GME FHI2) TELE CONSULT [id number] needs referal for eye exam done on 28 february. GARYSON ORELLANA 03/[address] [place] [address] [facility])(F amily Practic e Non-GME FHI2) [address] [place] [address] [facility])([facility] Internal Medicine Tm) TELE CONSULT [id number] Med refill DESI SOUSA P 07/[address] [place] [address] [facility]obi Sathish [facility])(S cott Interna l Medicin e Tm) [address] [place] [address] [facility])([facility] ) OUTPATIENT [id number] labs SARAH, ASSY 09/18 Released w/o Limitations [address] [place] [address] [facility])(S cott Interna l Medicin e Tm) [address] [place] [address] [facility])([facility] Internal Medicine Tm) TELE CONSULT [id number] Referra l to Eye Doctor DESI SOUSA P 10/[address] [place] [address] [facility] Sathish [facility]S cott Interna l Medicin e Tm) [address] [place] [address] [facility])([facility] Internal Medicine Tm) TELE CONSULT [id number] med refill DESI SOUSA P 01/[address] [place] [address] [facility])(S cott Interna l Medicin e Tm) [address] [place] [address] [facility])([facility] Internal Medicine Tm) OUTPATIENT [id number] med refills /dm SARAH, ASSY 02/10 Released w/o Limitations [address] [place] [address] [facility])(S cott Interna l Medicin e Tm) [address] [place] [address] [facility])([facility] Internal Medicine ) TELE CONSULT [id number] Referra l Optomet ry - Diabeti c Pt Additio nal Visits YULISA WHITAKER 03/[address] [place] [address] [facility])(S cott Interna l Medicin e Tm) [address] [place] [address] [facility])(Car diologyPr ocedure Schedules ) OUTPATIENT [id number] NUC MED BAAA REMI EDMONDSON 03/11 Released w/o Limitations [address] [place] [address] [facility])(Loren leon reddAnne kenny Schedul es) [address] [place] [address] [facility])([facility] Tm) TELE CONSULT [id number] lab work for diabeti es and cholest MISSY Castellano 05/[address] [place] [address] [facility])(S cott Interna l Medicin e Tm) [address] [place] [address] [facility])([facility] ) OUTPATIENT [id number] f/u diabete s PASTORA GALVAN 06/14 Released w/o Limitations [address] [place] [address] [facility])(S cott Interna l Medicin e Tm) [address] [place] [address] [facility])([facility] ) OUTPATIENT [id number] PASTORA Latham 07/13 Released w/o Limitations [address] [place] [address] [facility])(S cott Interna l Medicin e Tm) [address] [place] [address] [facility])([facility] ) OUTPATIENT [id number] medicat ion PASTORA GALVAN 09/10 Released w/o Limitations [address] [place] [address] [facility])(S cott Interna l Medicin e Tm) [address] [place] [address] [facility])([facility] ) TELE CONSULT [id number] Result KESHAV FLETCHER 10/[address] [place] [address] [facility])(S cott Interna l Medicin e Tm) [facility] Medical [facility])([facility]) OUTPATIENT [id number] left ear STANISLAW Muse 10/20 Released w/o Limitations [address] [place] [address] [facility])([facility]) [address] [place] [address] [facility])([facility] Internal Medicine Tm) TELE CONSULT [id number] ear pain. was seen last wed and given loratid ine and nasonex . DESI SOUSA 10/[address] [place] [address] [facility])(S cott Interna l Medicin e Tm) [address] [place] [address] [facility])([facility] ) OUTPATIENT [id number] ear pain, treated in [facility] but worseni ng PASTORA GALVAN L 10/26 Released w/o Limitations [address] [place] [address] [facility])(S cott Interna l Medicin e Tm) [address] [place] [address] [facility])([facility] ) OUTPATIENT [id number] ear infecti on left ear PASTORA GALVAN 12/03 Released w/o Limitations [address] [place] [address] [facility])(S cott Interna l Medicin e Tm) [address] [place] [address] [facility])([facility] ) TELE CONSULT [id number] Complet analia out of Diabete s Medicat ion KESHAV FLETCHER 03/[address] [place] [address] [facility])(S cott Interna l Medicin e Tm) [address] [place] [address] [facility])([facility] ) OUTPATIENT [id number] follow- up diabete s, HLP, HTN PASTORA GALVAN L 04/22 Released w/o Limitations [address] [place] [address] [facility])(S cott Interna l Medicin e Tm) [address] [place] [address] [facility])([facility] ) TELE CONSULT [id number] concern ed about a referra AZEB Gee 05/[address] [place] [address] [facility])(S cott Interna l Medicin e Tm) [address] [place] [address] [facility])(Opt ometry) OUTPATIENT [id number] MARGARITA TAFOYA 05/27 Released w/o Limitations [address] [place] [address] [facility])(O ptometr y) [facility] Outpatient Encounter [id number] 2 12/14 [facility] Procedures Combined list of: 1) Procedures from Department of [facility] Affairs facilities [facility], not all VA non-surgical procedures are included; 2) All procedures from the Department of Defense facilities. Procedure Procedure Type Code Date Perfomer Comments Sourc e No data available for this section Ambulatory Pharmacy VISUAL FIELD EXAMINATION, UNI OR BILATERAL, WITH MEDICAL DIAGNOSTIC EVAL; INTERMEDIATE EXAM (EG, AT LEAST 2 ISOPTERS ON GOLDMANN PERIMETER, OR SEMIQUANT, AUTO SUPRATHRESHOLD SCREEN PROGRAM, LI 2006 [facility] CARDIOVASCULAR STRESS TEST USING MAXIMAL OR SUBMAXIMAL TREADMILL OR BICYCLE EXERCISE,CONTINUOUS ELECTROCARDIOGRAPHIC MONITORING,AND/OR PHARMACOLOGICAL STRESS;W SUPERVISION,INTERPRETAT ION AND REPORT 2005 [facility] REMOVAL IMPACTED CERUMEN REQUIRING INSTRUMENTATION, UNILATERAL 2003 [facility] SEDATION WITH OR WITHOUT ANALGESIA (CONSCIOUS SEDATION); INTRAVENOUS, INTRAMUSCULAR OR INHALATION 2003 [facility] ELECTROCARDIOGRAM, ROUTINE ECG WITH AT LEAST 12 LEADS; TRACING ONLY, WITHOUT INTERPRETATION AND REPORT 2003 [facility] ELECTROCARDIOGRAM, ROUTINE ECG WITH AT LEAST 12 LEADS; TRACING ONLY, WITHOUT INTERPRETATION AND REPORT 2002 [facility] THERAPEUTIC, PROPHYLACTIC OR DIAGNOSTIC INJECTION (SPECIFY MATERIAL INJECTED); SUBCUTANEOUS OR INTRAMUSCULAR 2002 [facility] CARDIOVASCULAR STRESS TEST USING TREADMILL 2001 [facility] INFUSION, NORMAL SALINE SOLUTION, 250 CC 2001 [facility] CARDIOVASCULAR STRESS TEST USING TREADMILL 1999 [facility] Scanning Computerized Ophthalmic Diagnostic Imaging 2006 MARGARIAT TAFOYA [facility] Corneal Pachymetry, Bilateral With Interpret And Report Corneal Pachymetry, Bilateral With Interpret And Report [id number] 2006 MARGARITA TAFOYA [facility] Visual Matthews Test Intermediate Examination Visual Matthews Test Intermediate Examination [id number] 2006 MARGARITA TAFOYA [facility] Ophthalmological New Patient Start Comprehensive Care Ophthalmological New Patient Start Comprehensive Care 01650 2006 MARGARITA TAFOYA [facility] Cardiac Stre Test, Phys. Supervision, Interp. And Report Cardiac Stress Test, Phys. Supervision, Interp. And Report [id number] 2005 REMI WOODSON [facility] Cerumen Removal Right Ear Irrigation 2003 JO SAMANIEGO Cerumen Removal Left Ear Irrigation 2003 JO SAMANIEGO [facility] ECG Performance of Tracing Only ECG Performance of Tracing Only [id number] 2003 ANNA GRACIA [facility] ECG Performance of Tracing Only ECG Performance of Tracing Only [id number] 2003 ANNA GRACIA [facility] Social History Combined list of available smoking, [...] Plan No data available for this section 05/25/2025 Ambulatory Pharmacy Functional Status Combined list of recent functional and cognitive assessments recorded at Department of Defense and Veterans Affairs (VA).VA Functional Meally Measurement (FIM) Scale: 1 = Total Assistance (Subject = 0% +), 2 = Maximal Assistance (Subject = 25% +), 3 = Moderate Assistance (Subject = 50% +), 4 = Minimal Assistance (Subject = 75% +), 5 = Supervision, 6 = Modified Meally (Device), 7 = Complete Meally (Timely, Safely). Assessment Date/Time Source Assessment Type Assessment Skill Assessment Score Assessment Details No data available for this section
--- OUTSIDE RECORDS SUMMARY | 2025-05-25 13:14 | XMS_ITS | Encounter Summary ---
Author Organization [facility] Healthcare Address [address] [place] [address] Care Team Providers Care Civil Draftsman Name Role Phone Tres Catherine DO Primary Care Provider [phone] Encounter Details Date Type Department Care Team (Late st Contact Info) Description 08/20/2024 Orders Only [facility] Health Information Management [address] [place] [address] Scanning, Provider Social History Tobacco Use Types Packs/Day Years Used Date Smoking Tobacco: Former Smokeless Tobacco: Never Alcohol Use Standard Drinks/Week Comments No 0 (1 standard drink = 0.6 oz pur e alcohol) Sex and Gender Information Value Date Recorded Sex Assigned at Not on file Legal Sex Male 3:27 AM [employer] Gender Identity Not on file Sexual Orientation Not on file documented as of this encounter Plan of Treatment Not on file documented as of this encounter Procedures Procedure Name Priority Date/Time Associated Diagnosis Comments SCAN - RADIOLOGY/IMAGING 08/20/2024 CARDIOLOGY DOCUMENT SCAN 08/20/2024 documented in this encounter Results * SCAN - RADIOLOGY/IMAGING (08/20/2024) Anatomical Region Laterality Modality Other us Provider Scanning Final Result * Cardiology Document Scan (08/20/2024) Anatomical Region Laterality Modality Other us Provider Scanning CV CARDIAC SERVICES PROCEDURES Final Result documented in this encounter Visit Diagnoses Not on filedocumented in this encounter Care Teams Civil Draftsman Relationship Specialty Start Date End Date Tres Catherine DO PCP - General Internal Medicine 03/09/24 documented as of this encounter
--- OUTSIDE RECORDS SUMMARY | 2025-05-25 13:14 | XMS_ITS | Clinical Summary ---
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 Take 1 tablet [...] skin every 14 (fourteen) days 2 mL 04/27/20 25 Active evolocumab (Repatha SureClick) 140 mg/mL pen injector Inject 1 mL (140 mg total) under the skin every 14 (fourteen) days 2 mL 10/05/19 25 025 Discontin ued(Reord er) Active Problems Problem Noted Date Diagnosed Date 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 stent 10/06/2024 Sensorineural hearing loss (SNHL) of both ears 1 11/08/2023 Bilateral impacted cerumen 09/07/2024 Preoperative clearance 03/10/2023 Atrial fibrillation 08/10/2014 Overview (01/08/2017): Atrial fibrillation Encounters Date Type Department Care Team Description 04/27/2025 Telephone [facility] Medical [facility] Cardiology [address] [facility] [[email or web address] [address] [address] Lila Correa MA 04/10/2025 1:30 PM CDT Office Visit [facility] Medical [facility] Cardiology [address] [place] [address] Meredith Olivarez NP History of non-ST elevation myocardial infarction (NSTEMI); Coronary artery disease involving barrow coronary artery of barrow heart without angina pectoris; Presence of stent in coronary artery; Hyperlipidemia associated with type 2 diabetes mellitus (HCC); Statin intolerance; Chronic kidney disease, unspecified CKD stage; Tobacco dependence; Hospital discharge follow-up 04/02/2025 Orders Only [facility] Cardiology [address] [place] [address] Jigna Soto MD 03/29/2025 Telephone [facility] Cardiology [address] [place] [phone] Jaleesa Rhodes NP 03/26/2025 Orders Only [facility] [place] Information Management [address] [place], [place] [id number] Scanning, Provider from Last 3 Months Surgical [...] on file Legal Sex Male 3:27 AM TIMEKEEPER Gender Identity Not on file Sexual Orientation Not on file Obstetrics History Last Filed Vital Signs Vital Sign Reading Time Taken Comments Blood Pressure 150/60 04/10/2025 1:47 PM CDT Pulse 76 04/10/2025 1:47 PM CDT Temperature 36.9 C (98.5 F) 06/12/2014 7:16 AM CDT Respiratory Rate 16 10/06/2024 11:07 AM TIMEKEEPER Oxygen Saturation 96% 04/10/2025 1:47 PM CDT [...] Pneumococcal vaccine 65+ (2 of 2 - PPSV23, PCV20, or PCV21) 07/30/2021 06/04/2021 Covid-19 Vaccine (4 - 2023-2 [...] 03/26/2025 LIPID PANEL Routine 09/12/2024 8:39 AM TIMEKEEPER HEMOGLOBIN A1C Routine 01/10/2014 9:15 AM CDT [...] * (ABNORMAL) Lipid panel (09/12/2024 8:39 AM TIMEKEEPER) Pathologist [facility] SCRIBED Cholesterol, Total 242(A) 0 - 200 EXTERNAL LAB SCRIBED HDL 65 40 - 100 EXTERNAL LAB SCRIBED LDL 117(A) 0 - 100 EXTERNAL LAB SCRIBED Triglycerides 142 0 - 150 EXTERNAL LAB Blood 09/12/2024 8:39 AM TIMEKEEPER Historical Provider LAB BLOOD ORDERABLES Sulema l Result EXTERNAL LAB * (ABNORMAL) Hemoglobin A1c (01/10/2014 9:15 AM CDT) Hemoglobin A1c % 7.9(H) 4.8 - 5.9 % 01/12/2014 3:45 PM CDT [facility] HISTORICAL RESULTS Comment: As of 2010 Method: BASILIA Asa 6000 using turbidometric inhibition immunoassay procedure. Results obtained are comparable to results obtained using previous methodology (HPLC). [place] [employer] recommends that the goal of therapy should be an A1C hemoglobin of <7%. Reevaluate the treatment regimen in patients with an A1C >8%. 01/10/2014 9:15 AM CDT 01/10/2014 10:15 AM CDT us Jorge Luis CASILLAS LAB BLOOD ORDERABLES Final Resu lt [facility] HISTORICAL RESULTS from Last 3 Months or Most Recently Relevant to Health Maintenance Insurance [employer] MEDICARE MEDICARE FOR LIFE MEDICARE FOR LIFE Care Teams Commercial Real Estate Paralegal Relationship Specialty Start Date End Date Tres Catherine DO PCP - General Internal Medicine 03/09/24
--- OUTSIDE RECORDS SUMMARY | 2025-05-25 13:14 | XMS_ITS | Clinical Summary ---
Author Organization [facility] Address [address] [place] [address] Phone Care Team Providers Care Business Office Manager Name Role Phone Neli Boyle MD Primary Care Provider [phone] Allergies Active Allergy Reactions Criticality Noted Date [...] on file Legal Sex Male 9:37 AM [facility] Gender Identity Not on file Sexual Orientation [...] 08/10/2016 Insurance MEDICARE [facility] Care Teams Business Office Manager Relationship Specialty Start Date End Date Neli Boyle MD [address] [facility] [address] [place] [address] PCP - General Internal Medicine 05/21/22
--- OUTSIDE RECORDS SUMMARY | 2025-05-25 13:14 | XMS_ITS | Encounter Summary ---
Author Organization [facility] Healthcare Address [address] [place] [address] Care Team Providers Care Sales/Marketing Name Role Phone Tres Catherine DO Primary Care Provider [phone] Encounter Details Date Type Department Care Team (Late st Contact Info) Description 03/26/2025 Orders Only [facility] Information Management [address] [place] [address] Scanning, Provider Social History Tobacco Use Types Packs/Day Years Used Date Smoking Tobacco: Former Smokeless Tobacco: Never Alcohol Use Standard Drinks/Week Comments No 0 (1 standard drink = 0.6 oz pur e alcohol) Sex and Gender Information Value Date Recorded Sex Assigned at Not on file Legal Sex Male 3:27 AM 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
--- OUTSIDE RECORDS SUMMARY | 2025-05-25 13:14 | XMS_ITS | Clinical Summary ---
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
--- OUTSIDE RECORDS SUMMARY | 2025-05-25 13:14 | XMS_ITS | Clinical Summary ---
Author Organization [facility] Address [address] [place] [address] Care Team Providers Care Infant Childcare Provider Name Role Phone None, Provider MD Primary [...] age to complete this topic Insurance MEDICARE [facility] Care Teams Infant Childcare Provider Relationship Specialty Start Date End Date None, Provider, PCP - General 06/01/22
--- OUTSIDE RECORDS SUMMARY | 2025-05-25 13:15 | XMS_ITS | Encounter Summary ---
Author Organization [facility] Care Team Providers Care Intermediate Teacher Name Role Phone Layo Hayden MD Primary Care Provider [phone] Neli Boyle MD Primary Care Provider Tres Catherine DO Primary Care Provider [phone] Encounter Details Date Type Department Care Team (Latest Contact Info) Description 12/07/2016 Orders Only [facility] ProviderHardik MD [address] [place] [address] Social History Tobacco Use Types Packs/Day Years Used Date Smoking Tobacco: Former Alcohol Use Standard Drinks/Week Comments No 0 (1 standard drink = 0.6 oz pur e alcohol) Sex and Gender Information Value Date Recorded Sex Assigned at Not on file Legal Sex 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 Historical Provider Final Res ult documented in this encounter Visit Diagnoses Not on filedocumented in this encounter Care Teams Intermediate Teacher Relationship Specialty Start Date End Date Layo Hayden MD PCP - General 06/03/15 12/31/16 Neli Boyle MD [address] [address] PCP - General Family Medicine 03/09/23 03/08/24 Tres Catherine DO [address] [address] PCP - General Internal Medicine 03/09/24 documented as of this encounter
[2025-05-25 13:20] VITALS: BP 176/73; PULSE 90; RESP 16; TEMP 37; O2SAT 98
--- NOTE | 2025-05-25 13:34 | ED.GENADULT ---
HPI - General Adult General Chief complaint: Extremity Injury, Upper Stated complaint: upper ext. elbow & rash Time Seen by Provider: 05/25/25 13:23 History of Present Illness HPI narrative: This is a an 84-year-old male with history of CKD, hyperlipidemia, diabetes, COPD, CVA who presents to the ED for multiple complaints. Patient states that for the past week or so, he has been having a itchy rash to his left rosales and right hand to his back. He has not been trying any medications for this. No known exposures. Also reports right elbow swelling that started yesterday. Does not recall any trauma. Denies fevers, chills. And no pain with range of motion. Related Data Home Medications ?Medication ?Instructions ?Recorded ?Confirmed ?Last Taken ?Type cholecalciferol (vitamin D3) 125 125 mcg PO DAILY 02/04/22 04/20/25 08/20/24 History mcg (5,000 unit) capsule vitamin B complex 1 cap PO DAILY 02/04/22 04/20/25 08/20/24 History coQ10 (ubiquinol) 100 mg capsule 100 mg PO DAILY 08/20/24 04/20/25 08/20/24 History (Qunol Josias CoQ10) oxybutynin chloride 5 mg 5 mg PO DAILY 08/20/24 04/20/25 08/20/24 History tablet,extended release 24 hr Allergies Allergy/AdvReac Type Severity Reaction Status Date / Time milk AdvReac Mild Nausea, Verified 05/25/25 13:13 DIARRHEA carvedilol AdvReac Unknown Weakness Verified 05/25/25 13:13 lisinopril AdvReac Unknown Weakness Verified 05/25/25 13:13 Zzgwixc-NKE-TtH Reductase AdvReac Unknown Muscle Pain Verified 05/25/25 13:13 Inhibitor (Ctfmtnw-Qra-Rxu Reductase Inhibitor) Review of Systems Review of Systems: Gen.: Denies fevers or chills Eyes: Denies eye pain or visual change ENT: Denies congestion Respiratory: Denies shortness of breath or cough CV: Denies chest pain or palpitations GI: Denies abdominal pain nausea, emesis or diarrhea denies burning, urgency, frequency or hematuria Musculoskeletal: As per HPI Neuro: Denies numbness, tingling, weakness or focal weakness Skin: As per HPI Except as documented, all other systems reviewed and negative PMF Past Medical History Medical History Eczema of external ear Lip numbness BMI 30.0-30.9,adult Elevated aldolase level CHF (congestive heart failure), NYHA class II Anemia in chronic kidney disease URI (upper respiratory infection) AOM (acute otitis media) Type 2 diabetes mellitus with proteinuria Sleep apnea Acute kidney injury superimposed on chronic kidney disease Chronic kidney disease CKD (chronic kidney disease) SIMON (obstructive sleep apnea) COPD (chronic obstructive pulmonary disease) Atrial fibrillation CVA (cerebral vascular accident) Prostate cancer HLD (hyperlipidemia) HTN (hypertension) Diabetes mellitus Surgical History Surgical History S/P total hip arthroplasty LEFT Family History Family History Sibling Patient's brother is in good health Family history of diabetes mellitus in first degree relative Family history of malignant neoplasm Mother Family history of malignant neoplasm Patient's father is Father Patient's father is Acute myocardial infarction Other Diabetes mellitus Hypertension Social History Social History Social History: Smoking packs per day: 0.5 Smoking cigarettes per day: 10.0 Years smoked: 50 Smoking pack-years: 25.00 Smoking status: Current every day smoker Tobacco type: cigarettes Second hand tobacco smoke exposure: No Additional smoking assessment comments: currently taking Chantix for smoking cessation Alcohol intake: never Substance use: never Substance use type: does not use Do You Feel Safe in your Home?: Yes Lack of Transportation: No Lack of Food: Never True Current Housing: I Have Housing Concerned About Future Housing: No Difficulty Paying Gas/Electric Bills: No Difficulty Paying for Meds: No Currently Unemployed: No Education: Bachelor's Degree Difficulty w/ Childcare or Family Care: No Living arrangements: alone Occupation/Education: retired Additional occupation/education comments: [employer]. Gender identity (if verbalized by the patient): Male Sexual Orientation (if Verbalized by the Patient): Straight or Heterosexual Spiritual care concerns: No Exam Narrative: APPEARANCE: No acute distress, nontoxic, resting in bed EYES: EOMI HEENT: Normocephalic, atraumatic, OMM RESPIRATORY: No respiratory distress Clear to auscultation bilaterally with no rhonchi wheezing or rales. CARDIOVASCULAR: Regular rate and rhythm without murmurs rubs or gallops. ABDOMINAL: Soft, nontender, nondistended, no rebound or guarding MUSCULOSKELETAL: Swelling over the right olecranon bursa with no overlying skin changes. No pain with ROM. No ttp. Moves all extremities. No clubbing, cyanosis or edema. NEURO: Awake and alert. Following commands, speech normal, no focal deficits SKIN:: Warm, dry. scattered excoriations to the left anterior lower leg/knee and to the back. PSYCHIATRIC: Normal affect/mood, Course Vital Signs Vital signs: Vital Signs Temperature 98.6 F 05/25/25 13:20 Pulse Rate 90 05/25/25 13:20 Respiratory Rate 16 05/25/25 13:20 Blood Pressure 176/73 H 05/25/25 13:20 Pulse Oximetry 98 05/25/25 13:20 Temperature 98.6 F 05/25/25 13:20 Pulse Rate 77 05/25/25 13:59 Respiratory Rate 17 05/25/25 13:59 Blood Pressure 135/64 05/25/25 13:59 Pulse Oximetry 94 05/25/25 13:59 Medical Decision Making MDM Narrative Medical decision making narrative: 84-year-old male who presents to the ED for right elbow swelling and a rash. On initial evaluation, patient was in acute distress, afebrile, hemodynamically stable. He had significant swelling over the olecranon bursa that had no overlying skin changes. There is no pain or alterations of range of motion. Elbow was wrapped with a compressive Jalen bandage. He was given referral to Orthopedic surgery for further evaluation. Very low suspicion for infected bursitis or septic bursitis at this point. He also had excoriations to his left leg and back that were most consistent with a contact dermatitis. He was given a prescription for hydrocortisone. He is advised follow-up with his PCP in the next week for evaluation. Patient was agreeable to this plan. Given strict return precautions. Differential Diagnosis Differential Diagnosis: olecranon bursitis, contact dermatitis, fungal infection Medical Records Medical records reviewed: Yes I reviewed the external patient's medical records. Vital Signs Vital Signs: Vital Signs Temperature 98.6 F 05/25/25 13:20 Pulse Rate 90 05/25/25 13:20 Respiratory Rate 16 05/25/25 13:20 Blood Pressure 176/73 H 05/25/25 13:20 Pulse Oximetry 98 05/25/25 13:20 Temperature 98.6 F 05/25/25 13:20 Pulse Rate 77 05/25/25 13:59 Respiratory Rate 17 05/25/25 13:59 Blood Pressure 135/64 05/25/25 13:59 Pulse Oximetry 94 05/25/25 13:59 Discharge Plan Discharge Clinical Impression: Contact dermatitis Qualifiers: Contact dermatitis type: irritant Contact dermatitis trigger: unspecified trigger Qualified Code(s): L24.9 - Irritant contact dermatitis, unspecified cause Bursitis, olecranon Qualifiers: Laterality: right Qualified Code(s): M70.21 - Olecranon bursitis, right elbow Patient Disposition: Home Condition: Stable Instructions: Antibiotic Form, Contact Dermatitis (ED), Elbow Bursitis (ED) Additional Instructions: Your rash is likely contact dermatitis. Your elbow swelling is consistent with olecranon bursitis. You were given prescriptions for [], take as prescribed. Follow up with your PCP in the next week for reevaluation. Return to the ED for new or worsening symptoms. Patient Language: Setswana Prescriptions: New hydrocortisone 2.5 % cream 1 applic topical TID PRN (Reason: rash) Qty: 20 0RF No Action amlodipine 10 mg tablet 10 mg PO DAILY Qty: 30 7RF (DME) OneTouch Verio test strips Strip Qty: 1 0RF Rx Instructions: 2 times a day as needed insulin glargine [Lantus Solostar U-100 Insulin] 100 unit/mL (3 mL) insulin pen 8 unit subcut QAM Qty: 30 0RF (DME) FreeStyle Moo 2 [place] Misc See Rx Instructions .Route Qty: 1 0RF Rx Instructions: Use to check blood sugar TID bempedoic acid 180 mg tablet 180 mg PO DAILY Qty: 90 0RF empagliflozin 25 mg tablet 25 mg PO DAILY Qty: 90 2RF (DME) pen needle, diabetic 32 gauge x 5/32 needle See Rx Instructions .ROUTE .MEDSUPPLY Qty: 1200 0RF Rx Instructions: As directed glucose 4 gram tablet,chewable 16 g PO Q15M PRN (Reason: hypoglycemia) Qty: 90 0RF Rx Instructions: until symptoms of low blood sugar are controlled Gvoke HypoPen 2-Pack 1 mg/0.2 mL auto-injector 1 mg subcut ONCE Qty: 0.4 0RF Rx Instructions: as a single dose; may repeat once after 15 minutes if no response fluticasone propionate 50 mcg/actuation spray,suspension 1 spray intranasal DAILY 30 Days Qty: 16 2RF Rx Instructions: administer into each nostril vitamin B complex Capsule 1 cap PO DAILY cholecalciferol (vitamin D3) 125 mcg (5,000 unit) Capsule 125 mcg PO DAILY oxybutynin chloride 5 mg tablet extended release 24hr 5 mg PO DAILY coQ10 (ubiquinol) [Qunol Josias CoQ10] 100 mg Capsule 100 mg PO DAILY clopidogrel [Plavix] 75 mg tablet 75 mg PO DAILY Qty: 30 11RF hydralazine 50 mg tablet 50 mg PO TID 30 Days Qty: 30 11RF aspirin [Children's Aspirin] 81 mg Tablet,Chewable 81 mg PO DAILY@0800 Qty: 30 0RF (DME) pen needle, diabetic [Advocate Pen Needle] 33 gauge x 5/32 needle See Rx Instructions .Route Qty: 300 0RF Rx Instructions: use with lantus, and humalog pen, tid (DME) pen needle, diabetic 32 gauge x 5/32 needle See Rx Instructions .Route Qty: 100 12RF Rx Instructions: use to administer insulin (DME) FreeStyle Moo 3 Plus Sensor Device See Rx Instructions .Route Qty: 6 0RF Rx Instructions: As directed (DME) blood-glucose meter [OneTouch Verio Flex meter] [facility] [place]ty: 1 0RF Rx Instructions: May substitute to in-stock meter and/or covered by insurance. Use As Directed (DME) OneTouch Verio test strips Strip Qty: 1 0RF Rx Instructions: May substitute to in-stock and/or covered by insurance strips. Use As Directed (DME) lancets [OneTouch Delica Plus Lancet] 30 gauge [facility] Qty: 1 0RF Rx Instructions: May substitute to in-stock and/or covered by insurance lancets. Use As Directed Follow-up/Referrals: Tres Catherine DO [Primary Care Provider, Internal Medicine] Kirill Lanier MD [Physician, Orthopedics]
--- OUTSIDE RECORDS SUMMARY | 2025-05-25 13:53 | XMS_ITS | Encounter Summary ---
Author Organization [facility] Healthcare Address [address] [place] [address] Care Team Providers Care Rouge Sifter And Miller Name Role Phone Tres Catherine DO Primary Care Provider [phone] Encounter Details Date Type Department Care Team (Late st Contact Info) Description 03/26/2025 Orders Only [facility] [place] Health Information Management [address] [place] [address] Scanning, Provider Social History Tobacco Use Types Packs/Day Years Used Date Smoking Tobacco: Former Smokeless Tobacco: Never Alcohol Use Standard Drinks/Week Comments No 0 (1 standard drink = 0.6 oz pur e alcohol) Sex and Gender Information Value Date Recorded Sex Assigned at Not on file Legal Sex Male 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
--- OUTSIDE RECORDS SUMMARY | 2025-05-25 13:53 | XMS_ITS | Encounter Summary ---
Author Organization [facility] Facility Care Team Providers Care Mini Lab Operator Name Role Phone Layo Hayden MD Primary Care Provider [phone] Neli Boyle MD Primary Care Provider Tres Catherine DO Primary Care Provider [phone] Encounter Details Date Type Department Care Team (Latest Contact Info) Description 12/07/2016 Orders Only [facility] ProviderHardik MD [address] [place] [address] Social History Tobacco Use Types Packs/Day Years Used Date Smoking Tobacco: Former Alcohol Use Standard Drinks/Week Comments No 0 (1 standard drink = 0.6 oz pur e alcohol) Sex and Gender Information Value Date Recorded Sex Assigned at Not on file 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 Historical Provider Final Res ult documented in this encounter Visit Diagnoses Not on filedocumented in this encounter Care Teams Mini Lab Operator Relationship Specialty Start Date End Date Layo Hayden MD PCP - General 06/03/15 12/31/16 Neli Boyle MD [address] [address] PCP - General Family Medicine 03/09/23 03/08/24 Tres Catherine DO [address] [address] PCP - General Internal Medicine 03/09/24 documented as of this encounter
--- OUTSIDE RECORDS SUMMARY | 2025-05-25 13:53 | XMS_ITS | Clinical Summary ---
Author Organization [facility] Address [address] [place] [address] Care Team Providers Care Carton Repairer Name Role Phone None, Provider MD Primary [...] age to complete this topic Insurance MEDICARE [facility] Care Teams Carton Repairer Relationship Specialty Start Date End Date None, Provider, PCP - General 06/01/22
--- OUTSIDE RECORDS SUMMARY | 2025-05-25 13:53 | XMS_ITS | Clinical Summary ---
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
--- OUTSIDE RECORDS SUMMARY | 2025-05-25 13:53 | XMS_ITS | Clinical Summary ---
Author Organization [facility] Address [address] [place] [id number] Phone Care Team Providers Care Engine Generator Assembler Name Role Phone Neli Boyle MD Primary Care Provider [phone] Allergies Active Allergy Reactions Criticality Noted Date [...] on file Legal Sex Male 9:[address] [facility] Gender Identity Not on file [...] 08/10/2016 Insurance MEDICARE [facility] Care Teams Engine Generator Assembler Relationship Specialty Start Date End Date Neli Boyle MD [address] [facility] [address] [place] [address] PCP - General Internal Medicine 05/21/22
--- OUTSIDE RECORDS SUMMARY | 2025-05-25 13:53 | XMS_ITS | Clinical Summary ---
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 Take 1 tablet [...] Type Department Care Team Description 04/27/2025 Telephone [facility] Cardiology [address] [facility] [address] [address] Lila Correa MA 04/10/2025 1:30 PM CDT Office Visit [facility] Cardiology [address] [place] [address] Meredith Olivarez NP History of non-ST elevation myocardial infarction (NSTEMI); Coronary artery disease involving chippewa-cree coronary artery of chippe[place]cree heart without angina pectoris; Presence of stent in coronary artery; Hyperlipidemia associated with type 2 diabetes mellitus (HCC); Statin intolerance; Chronic kidney disease, unspecified CKD stage; Tobacco dependence; Hospital discharge follow-up 04/02/2025 Orders Only [facility] Cardiology [address] [place] [address] Jigna Soto MD 03/29/2025 Telephone [facility] Cardiology [address] [place] [address] Jaleesa Rhodes NP 03/26/2025 Orders Only [facility] Health Information Management [address] [place], [place] [id number] Scanning, Provider from Last 3 Months Surgical [...] on file Legal Sex Male 3:27 AM INSURANCE SALES ASSISTANT Gender Identity Not on file Sexual Orientation Not on file Obstetrics History Last Filed Vital Signs Vital Sign Reading Time Taken Comments Blood Pressure 150/60 04/10/2025 1:47 PM CDT Pulse 76 04/10/2025 1:47 PM CDT Temperature 36.9 C (98.5 F) 06/12/2014 7:16 AM CDT Respiratory Rate 16 10/06/2024 11:07 AM INSURANCE SALES ASSISTANT Oxygen Saturation 96% 04/10/2025 1:47 PM CDT [...] 03/26/2025 LIPID PANEL Routine 09/12/2024 8:39 AM INSURANCE SALES ASSISTANT HEMOGLOBIN A1C Routine 01/10/2014 9:15 AM CDT [...] * (ABNORMAL) Lipid panel (09/12/2024 8:39 AM INSURANCE SALES ASSISTANT) Pathologist [facility] SCRIBED Cholesterol, Total 242(A) 0 - 200 EXTERNAL LAB SCRIBED HDL 65 40 - 100 EXTERNAL LAB SCRIBED LDL 117(A) 0 - 100 EXTERNAL LAB SCRIBED Triglycerides 142 0 - 150 EXTERNAL LAB Blood 09/12/2024 8:39 AM INSURANCE SALES ASSISTANT Historical Provider LAB BLOOD ORDERABLES Sulema l Result EXTERNAL LAB * (ABNORMAL) Hemoglobin A1c (01/10/2014 9:15 AM CDT) Hemoglobin A1c % 7.9(H) 4.8 - 5.9 % 01/12/2014 3:[address] [facility] HISTORICAL RESULTS Comment: As of 2010 Method: BASILIA Asa 6000 using turbidometric inhibition immunoassay procedure. Results obtained are comparable to results obtained using previous methodology (HPLC). [place] [employer] recommends that the goal of therapy should be an A1C hemoglobin of <7%. Reevaluate the treatment regimen in patients with an A1C >8%. 01/10/2014 9:15 AM CDT 01/10/2014 10:15 AM CDT us Jorge Luis CASILLAS LAB BLOOD ORDERABLES Final Resu lt [facility] HISTORICAL RESULTS from Last 3 Months or Most Recently Relevant to Health Maintenance Insurance [employer] MEDICARE MEDICARE FOR LIFE MEDICARE FOR LIFE Care Teams Outside Rigger Relationship Specialty Start Date End Date Tres Catherine DO PCP - General Internal Medicine 03/09/24
--- OUTSIDE RECORDS SUMMARY | 2025-05-25 13:53 | XMS_ITS | Encounter Summary ---
Author Organization [facility] Address [address] [place] [address] Care Team Providers Care Sample Grader Name Role Phone Tres Catherine DO Primary Care Provider [phone] Encounter Details Date Type Department Care Team (Late st Contact Info) Description 08/20/2024 Orders Only [facility] Information Management [address] [place] [address] Scanning, Provider Social History Tobacco Use Types Packs/Day Years Used Date Smoking Tobacco: Former Smokeless Tobacco: Never Alcohol Use Standard Drinks/Week Comments No 0 (1 standard drink = 0.6 oz pur e alcohol) Sex and Gender Information Value Date Recorded Sex Assigned at Not on file Legal Sex Male 3:27 AM [employer] Gender Identity Not on file Sexual Orientation [...] on filedocumented in this encounter Care Teams Sample Grader Relationship Specialty Start Date End Date Tres Catherine DO PCP - General Internal Medicine 03/09/24 documented as of this encounter
[2025-05-25 13:59] VITALS: BP 135/64; PULSE 77; RESP 17; O2SAT 94
== END 2025-05-25 14:01 | disposition home or self-care (01) ==
LOC: ANHED 13:51
PROVIDERS: Emergency Provider Student in an Organized Health Care Education/Training Program; PCP Internal Medicine
DX: L24.9 Irritant contact dermatitis, unspecified cause (principal); M70.21 Olecranon bursitis, right elbow; I50.9 Heart failure, unspecified; E11.22 Type 2 diabetes mellitus with diabetic chronic kidney disease; I13.0 Hypertensive heart and chronic kidney disease with heart failure and stage 1 through stage 4 chronic kidney disease, or unspecified chronic kidney disease; N18.9 Chronic kidney disease, unspecified; D63.1 Anemia in chronic kidney disease; J44.9 Chronic obstructive pulmonary disease, unspecified; I48.91 Unspecified atrial fibrillation; E78.5 Hyperlipidemia, unspecified; G47.33 Obstructive sleep apnea (adult) (pediatric); Z96.642 Presence of left artificial hip joint; Z85.46 Personal history of malignant neoplasm of prostate; Z86.73 Personal history of transient ischemic attack (TIA), and cerebral infarction without residual deficits; Z79.02 Long term (current) use of antithrombotics/antiplatelets; Z79.899 Other long term (current) drug therapy; Z79.82 Long term (current) use of aspirin
CPT/HCPCS: 99283

== ENCOUNTER 2025-07-11 09:36 | Outpatient (CLI) | payer MEDICARE, OTHER, SELFPAY ==
[2025-07-11 10:27] LABS: Hematocrit 35.7 % (42.0-52.0); Hemoglobin 11.0 g/dL (14.0-18.0); Mean Corpuscular HGB Conc 30.8 g/dl (32-36); Mean Corpuscular Hemoglobin 27.6 pg (26-34); Mean Corpuscular Volume 89.5 fl (80-100); Platelet Count Result 199 k/mm3 (150-375); Red Blood Count 3.99 M/mm3 (4.6-6.20); White Blood Count 5.0 K/mm3 (4.5-10.0)
[2025-07-11 11:02] LABS: Free T4 Free Thyroxine 1.04 ng/dL (0.78-2.19)
[2025-07-11 11:13] LABS: Alanine Aminotransferase 16 U/L (6-50); Albumin Level 3.5 g/dL (3.5-5.1); Alkaline Phosphatase 77 U/L (38-126); Anion Gap 2 mmol/L (4-12); Aspartate Amino Transferase 26 U/L (17-59); Bilirubin,Total 0.5 mg/dL (0.2-1.3); Blood Urea Nitrogen 11 mg/dL (9-20); Calcium 8.4 mg/dL (8.4-10.2); Carbon Dioxide 30 mmol/L (22-30); Chloride 108 mmol/L (98-107); Cholesterol 160 mg/dL (0-200); Estimated Glomerular Filt Rate 41; Glucose 105 mg/dL (65-110); HDL Direct 59 mg/dL; Potassium 3.2 mmol/L (3.4-5.0); Sodium 140 mmol/L (137-145); Total Protein 6.6 g/dL (6.3-8.2); Triglycerides 80 mg/dL (<150)
[2025-07-11 11:18] LABS: Total Protein Urine Random 61 mg/dL; Ur Ttl Prot Creatinine Ratio 0.26 mg/mg (0-0.20)
[2025-07-11 11:20] LABS: Parathyroid Intact 105.1 pg/mL (14.5-75.2)
[2025-07-11 11:46] LABS: Thyroid Stimulating Hormone 0.788 uIU/mL (0.465-4.680)
== END 2025-07-11 09:37 | disposition home or self-care (01) ==
PROVIDERS: PCP Internal Medicine; Referring Provider Internal Medicine; Visit Provider Internal Medicine Nephrology
DX: I13.0 Hypertensive heart and chronic kidney disease with heart failure and stage 1 through stage 4 chronic kidney disease, or unspecified chronic kidney disease (principal); E11.22 Type 2 diabetes mellitus with diabetic chronic kidney disease; N18.32 Chronic kidney disease, stage 3b; K31.84 Gastroparesis; E11.43 Type 2 diabetes mellitus with diabetic autonomic (poly)neuropathy; I15.2 Hypertension secondary to endocrine disorders; E21.1 Secondary hyperparathyroidism, not elsewhere classified; R94.6 Abnormal results of thyroid function studies; E11.59 Type 2 diabetes mellitus with other circulatory complications; E11.69 Type 2 diabetes mellitus with other specified complication; E78.5 Hyperlipidemia, unspecified; Z79.4 Long term (current) use of insulin
CPT/HCPCS: 36415; 80053; 80061; 82306; 82570; 83970; 84100; 84156; 84439; 84443; 85027